=== PATIENT | female | born 1935 | race Caucasian/White ===

== ENCOUNTER 2016-08-29 17:07 | Emergency (ER) | payer MEDICARE, OTHER ==
--- NOTE | 2016-08-29 17:35 | ED.PDOC ---
History of Present Illness - General Chief Complaint: Respiratory Problem Stated Complaint: COUGH Time Seen by Provider: 08/29/16 17:32 Source: patient Exam Limitations: no limitations Additional Information: [employer] SMO[employer]. 3D COUGH. FRONTAL ESPOSITO AND CONGESTION. - History of Present Illness Quality: moderate Head Injury Location: frontal Recent Head Trauma: no recent headache/trauma Improving Factors: nothing Worsening Factors: nothing Allergies/Adverse Reactions: Allergies Penicillins Allergy (Severe, Verified 08/29/16 17:56) Anaphylaxis Home Medications: Ambulatory Orders Ujrezrzgvd-Tszdvxzdnzjdq-Xhfck [Fioricet/Codeine 02-633-76-30 mg] 1 cap PO DAILY 02/13/14 Albuterol Sulfate Nebs [Proventil Nebs] 2.5 mg INH Q6HR PRN #100 vial 01/18/15 Clonazepam 0.5 - 1 mg PO BID PRN #30 tab 01/18/15 Mirtazapine [Remeron] 15 mg PO BEDTIME #30 tab 01/18/15 Propranolol HCl 10 mg PO BID #60 tab 01/18/15 Tramadol HCl 50 mg PO Q8H PRN #50 tab 01/18/15 levoFLOXacin [Levaquin] 500 mg PO DAILY #7 tab 08/29/16 Review of Systems - Review of Systems Constitutional: Denies: chills, diaphoresis, fever EENTM: States: nose congestion. Denies: ear pain, throat pain Respiratory: States: cough. Denies: short of breath, wheezing Cardiology: States: no symptoms reported Gastrointestinal/Abdominal: States: no symptoms reported Genitourinary: States: no symptoms reported Musculoskeletal: States: no symptoms reported Skin: States: no symptoms reported Neurological: States: no symptoms reported Endocrine: States: no symptoms reported Hematologic/Lymphatic: States: no symptoms reported All other Systems: Reviewed and Negative Past Medical History (General) - Patient Medical History Hx Seizures: No Hx Stroke: No Hx Dementia: No - maybe due to age Hx Asthma: No Hx of COPD: No Hx Cardiac Disorders: No Hx Congestive Heart Failure: No Hx Pacemaker: No Hx Hypertension: No Hx Thyroid Disease: Yes - thyroidectomy Hx Diabetes: No Hx Gastroesophageal Reflux: No Hx Renal Disease: Yes - urgency Hx Cancer: No Hx of HIV: No Hx Hepatitis C: No Hx MRSA: No - Vaccination History Hx Tetanus, Diphtheria Vaccination: No Hx Influenza Vaccination: No Hx Pneumococcal Vaccination: No - Social History Hx Tobacco Use: Yes Hx Chewing Tobacco Use: No Hx Alcohol Use: No Hx Substance Use: No Hx Substance Use Treatment: No Hx Depression: Yes - is a Hx Physical Abuse: No Hx Emotional Abuse: No Hx Suspected Abuse: No - Female History Patient : No Family Medical History - Family History Mother Family History: No Known Physical Exam - Physical Exam General Appearance: Alert, Ill Appearing Eyes, Ears, Nose, Throat Exam: pharynx normal, other - BL TM CERUMINOSIS. BL FRONTAL SINUSES TTP Neck: non-tender, full range of motion, supple Cardiovascular/Chest: normal peripheral pulses, regular rate, rhythm Respiratory: chest non-tender, no respiratory distress, no accessory muscle use , other - FAINT RONCHI, C/W 50 PACK YEAR SMOKING. Gastrointestinal/Abdominal: normal bowel sounds, non tender Back Exam: normal inspection, no CVA tenderness Extremity: normal range of motion, non-tender Mental Status: alert, oriented x 3 Skin Exam: warm/dry, normal color Lymphatic: no adenopathy Progress - Results/Orders Results/Orders: CXR NEG. NO PNE. NO COPD EXACERBATION. NO HYPOXIA. POS SINUSITIS AND RESULTANT COUGH. Departure - Departure Clinical Impression: Acute frontal sinusitis, Tobacco use disorder Disposition: Discharge to Home or Self Care Condition: Good Instructions: DI for Sinusitis Diet: resume usual diet Activity: increase activity as tolerated Referrals: Raúl Garcia MD [Primary Care Provider] - 1-2 Days Prescriptions: levoFLOXacin [Levaquin] 500 mg PO DAILY #7 tab Home Medications: Ambulatory Orders Hdlyegtwdb-Wpfzqmijshoge-Obemz [Fioricet/Codeine 09-246-42-30 mg] 1 cap PO DAILY 02/13/14 Albuterol Sulfate Nebs [Proventil Nebs] 2.5 mg INH Q6HR PRN #100 vial 01/18/15 Clonazepam 0.5 - 1 mg PO BID PRN #30 tab 01/18/15 Mirtazapine [Remeron] 15 mg PO BEDTIME #30 tab 01/18/15 Propranolol HCl 10 mg PO BID #60 tab 01/18/15 Tramadol HCl 50 mg PO Q8H PRN #50 tab 01/18/15 levoFLOXacin [Levaquin] 500 mg PO DAILY #7 tab 08/29/16 Additional Instructions: Please try to cut back on smoking, as this will help your long-term ability to breathe. Please see you regular doctor this week to ensure your symptoms are improving with the antibiotics.
--- NOTE | 2016-08-29 17:58 | RAD ---
EXAM: Chest,1 View CLINICAL INDICATION: 81-year-old female with cough. TECHNIQUE: Single view, AP portable chest was obtained. COMPARISON: 01/17/2015. FINDINGS: Stable prominent cardiac and mediastinal silhouette. Heart size is normal. Tortuous atherosclerotic thoracic aorta.Lungs are clear without focal opacity, pneumothorax or pleural effusions. The visualized bones revealed degenerative change. IMPRESSION: No acute cardiopulmonary abnormalities. Electronically signed by: Maribel Aguilar MD 08/29/2016 5:57 PM DRESS DESIGNER
[2016-08-29] MEDS ORDERED: levoFLOXacin 500 MG TAB PO ONE (18:30)
[2016-08-29 18:58] VITALS: BP 148/72; TEMP 98.5; O2SAT 93
--- NOTE | 2016-09-19 23:54 | RAD ---
EXAM: Chest,1 View CLINICAL INDICATION: 81-year-old female with cough. TECHNIQUE: Single view, AP portable chest was obtained. COMPARISON: 01/17/2015. FINDINGS: Stable prominent cardiac and mediastinal silhouette. Heart size is normal. Tortuous atherosclerotic thoracic aorta.Lungs are clear without focal opacity, pneumothorax or pleural effusions. The visualized bones revealed degenerative change. IMPRESSION: No acute cardiopulmonary abnormalities. Electronically signed by: Maribel Aguilar MD 08/29/2016 5:57 PM COMMERCIAL SOLAR SALES CONSULTANT
--- NOTE | 2016-09-20 06:31 | RAD ---
EXAM: Chest,1 View CLINICAL INDICATION: 81-year-old female with cough. TECHNIQUE: Single view, AP portable chest was obtained. COMPARISON: 01/17/2015. FINDINGS: Stable prominent cardiac and mediastinal silhouette. Heart size is normal. Tortuous atherosclerotic thoracic aorta.Lungs are clear without focal opacity, pneumothorax or pleural effusions. The visualized bones revealed degenerative change. IMPRESSION: No acute cardiopulmonary abnormalities. Electronically signed by: Maribel Aguilar MD 08/29/2016 5:57 PM EYEGLASS LENS GRINDER
== END 2016-08-29 18:42 | disposition home or self-care (01) ==
LOC: ER 17:07
DX: J01.10 Acute frontal sinusitis, unspecified (principal); F17.200 Nicotine dependence, unspecified, uncomplicated; E07.9 Disorder of thyroid, unspecified; N28.9 Disorder of kidney and ureter, unspecified; Z79.899 Other long term (current) drug therapy; Z88.0 Allergy status to penicillin

== ENCOUNTER 2016-08-30 10:27 | Inpatient (IN) | payer MEDICARE ==
--- NOTE | 2016-08-30 11:42 | RAD ---
EXAM DESCRIPTION: XR CHEST 1 VIEW CLINICAL HISTORY: cough/sob COMPARISON: August 29, 2016 TECHNIQUE: Single view chest FINDINGS: Interval development of infiltrates within the left lung base. The right lung is clear. Heart size is stable and mildly prominent. IMPRESSION: Left lung base infiltrates. Pneumonia cannot be excluded. Recommend 1 month followup to document resolution. Electronically signed by: Asa Carpenter MD 08/30/2016 11:40
[2016-08-30] MEDS ORDERED: SODIUM CHLORIDE 0.9% 1000ML 1,000 ML IVS ONE (11:59)
--- NOTE | 2016-08-30 12:04 | CT ---
EXAM DESCRIPTION: CT HEAD WITHOUT IV CONTRAST CLINICAL HISTORY: 81 y/o F, Fall-found on bathroom floor, generalized weakness COMPARISON: January 18, 2016 TECHNIQUE: Head CT was performed without IV contrast. FINDINGS: There is no acute intracranial hemorrhage. There is no midline shift or other mass effect. The ventricles and basilar cisterns are well maintained. There is no posterior fossa lesion. Chronic ischemic changes are noted in the periventricular white matter, but there is no cortical edema or sulcal effacement to suggest acute cortical infarct. Visualized paranasal sinuses and orbits are unremarkable except for a small amount of fluid in the left sphenoid sinus. Vascular calcifications are noted. There is no calvarial lesion. IMPRESSION: Vascular calcifications and chronic ischemic changes, but no acute intracranial abnormality. If symptoms persist or worsen, followup head CT in 24 hr or MRI is recommended. Left sphenoid sinusitis, questionable acuity. Electronically signed by: Mickey Rodriguez DO 08/30/2016 12:01
[2016-08-30] MEDS ORDERED: ALBUTEROL SULFATE 2.5 MG/3 ML VIAL NEB ONE (12:15)
--- NOTE | 2016-08-30 12:15 | ED.PDOC ---
History of Present Illness - General Chief Complaint: Respiratory Problem Stated Complaint: hallucinations, weakness, sob Time Seen by Provider: 08/30/16 11:12 Source: patient, RN notes reviewed, Vital Signs reviewed, family Exam Limitations: no limitations - History of Present Illness Initial Comments: Patient is an 81 y/o female who was seen in the ED last night and diagnosed with an acute sinusitis. The CXR was clear. Her daughters bring her in today. One of her daughters found her on the bathroom floor this morning. They were able to get her up and she ate breakfast. However, she has been having visual hallucinations. She states that she had a living-room full of little people with dogs in her house last night. The leader wanted to sleep in her bed, so she slept on the floor. Someone was at the door, and she was unable to scootch to the door on her bottom. She has also been seeing spiders and snakes. The hallucinations started prior to last night, however the patient nor her niece told this to the physician. She is very weak this morning and is having some shortness of breath. Timing/Duration: 24 hours Severity: severe Improving Factors: nothing Worsening Factors: nothing Associated Symptoms: cough, headaches, malaise, shortness of breath, weakness, other - hallucinations Allergies/Adverse Reactions: Allergies Penicillins Allergy (Severe, Verified 08/30/16 11:07) Anaphylaxis Home Medications: Ambulatory Orders Afvhhnvmyg-Gqbhtgxwlzxig-Tgfyo [Fioricet/Codeine 45-934-88-30 mg] 1 cap PO DAILY 02/13/14 Albuterol Sulfate Nebs [Proventil Nebs] 2.5 mg INH Q6HR PRN #100 vial 01/18/15 Clonazepam 0.5 - 1 mg PO BID PRN #30 tab 01/18/15 Mirtazapine [Remeron] 15 mg PO BEDTIME #30 tab 01/18/15 Propranolol HCl 10 mg PO BID #60 tab 01/18/15 Tramadol HCl 50 mg PO Q8H PRN #50 tab 01/18/15 levoFLOXacin [Levaquin] 500 mg PO DAILY #7 tab 08/29/16 Review of Systems - Review of Systems Constitutional: States: malaise, weakness EENTM: States: no symptoms reported Respiratory: States: cough, short of breath Cardiology: States: no symptoms reported Gastrointestinal/Abdominal: States: no symptoms reported Genitourinary: States: no symptoms reported Musculoskeletal: States: muscle pain Skin: States: no symptoms reported Neurological: States: weakness, other - hallucinations Endocrine: States: no symptoms reported Hematologic/Lymphatic: States: no symptoms reported All other Systems: Reviewed and Negative Past Medical History (General) - Patient Medical History Hx Seizures: No Hx Stroke: No Hx Dementia: No Hx Asthma: No Hx of COPD: No Hx Cardiac Disorders: No Hx Congestive Heart Failure: No Hx Pacemaker: No Hx Hypertension: No Hx Thyroid Disease: No Hx Diabetes: No Hx Gastroesophageal Reflux: No Hx Renal Disease: Yes - urgency Hx Cancer: No Hx of HIV: No Hx Hepatitis C: No Hx MRSA: No Surgical History: no surgical history - Vaccination History Hx Tetanus, Diphtheria Vaccination: Yes Hx Influenza Vaccination: No Hx Pneumococcal Vaccination: Yes - Social History Hx Tobacco Use: Yes Hx Chewing Tobacco Use: No Hx Alcohol Use: No Hx Substance Use: No Hx Substance Use Treatment: No Hx Depression: No Hx Physical Abuse: No Hx Emotional Abuse: No Hx Suspected Abuse: No - Activities of Daily Living Hospice Agency (if applicable):: None - Female History Patient is a Female of Child Bearing Age (10 -59 yrs old): No Patient : No Family Medical History - Family History Mother Family History: No Known Living Status: Physical Exam - Physical Exam General Appearance: Alert, Frail, Ill Appearing Ears, Nose, Throat: hearing decreased Respiratory: no respiratory distress, rales, wheezing Cardiovascular/Chest: regular rate, rhythm, no edema, no murmur Gastrointestinal/Abdominal: normal bowel sounds, non tender, soft, no organomegaly Extremity: no pedal edema Neurologic: alert, other - Oriented x 1 Skin Exam: warm/dry Progress - Results/Orders Results/Orders: 08/30/16 08/30/16 08/30/16 10:50 11:08 11:43 Temperature 99.3 F Pulse Rate [ 87 72 pulse ox] Respiratory 20 20 20 Rate Blood Pressure 117/67 104/68 [Left Arm] O2 Sat by Pulse 89 L 96 Oximetry 08/30/16 11:59 Sodium Chloride 0.9% 1000ML [Ns 1000 ml] 1,000 ml IVS ONCE Laboratory Results WBC 8.9 K/mm3 (4.8-10.8) 08/30/16 11:25 RBC 4.55 M/mm3 (4.20-5.40) 08/30/16 11:25 Hgb 14.3 gm/dL (12.0-16.0) 08/30/16 11:25 Hct 42.7 % (36.0-47.0) 08/30/16 11:25 MCV 93.9 fl (81.0-99.0) 08/30/16 11:25 MCH 31.5 pg (27.0-31.0) H 08/30/16 11:25 MCHC 33.5 g/dL (33.0-37.0) 08/30/16 11:25 RDW 14.5 % (11.5-14.5) 08/30/16 11:25 Plt Count 166 K/mm3 (130-400) 08/30/16 11:25 MPV 10.4 fl (7.40-10.4) 08/30/16 11:25 Absolute Neuts (auto) 6.50 K/uL (1.8-6.8) 08/30/16 11:25 Absolute Lymphs (auto) 1.10 K/uL (1.0-3.4) 08/30/16 11:25 Absolute Monos (auto) 1.20 K/uL (0.2-0.8) H 08/30/16 11:25 Absolute Eos (auto) 0.00 K/uL (0.0-0.4) 08/30/16 11:25 Absolute Basos (auto) 0.00 K/uL (0.0-0.1) 08/30/16 11:25 Neutrophils % 72.8 % (42.0-78.0) 08/30/16 11:25 Lymphocytes % 12.8 % (20.0-50.0) L 08/30/16 11:25 Monocytes % 13.8 % (2.0-9.0) H 08/30/16 11:25 Eosinophils % 0.1 % (1.0-5.0) L 08/30/16 11:25 Basophils % 0.5 % (0.0-2.0) 08/30/16 11:25 Sodium 140 mmol/L (135-145) 08/30/16 11:25 Potassium 3.2 mmol/L (3.6-5.0) L 08/30/16 11:25 Chloride 101 mmol/L (101-111) 08/30/16 11:25 Carbon Dioxide 29 mmol/L (21-31) 08/30/16 11:25 Anion Gap 13.2 (12-18) 08/30/16 11:25 BUN 30 mg/dL (7-18) H 08/30/16 11:25 Creatinine 0.77 mg/dL (0.6-1.3) 08/30/16 11:25 BUN/Creatinine Ratio 39.0 (10-20) H 08/30/16 11:25 Random Glucose 103 mg/dL (70-105) 08/30/16 11:25 Serum Osmolality 285.8 mOsm/L (275-295) 08/30/16 11:25 Calcium 9.3 mg/dL (8.4-10.2) 08/30/16 11:25 Total Bilirubin 0.3 mg/dL (0.2-1.0) 08/30/16 11:25 AST 75 IU/L (10-42) H 08/30/16 11:25 ALT 24 IU/L (10-60) 08/30/16 11:25 Alkaline Phosphatase 46 IU/L (42-121) 08/30/16 11:25 Creatine Kinase 1098 IU/L (26-140) H* 08/30/16 11:25 Serum Total Protein 7.6 gm/dL (6.4-8.2) 08/30/16 11:25 Albumin 3.8 g/dl (3.2-5.5) 08/30/16 11:25 Globulin 3.8 gm/dL (2.3-3.5) H 08/30/16 11:25 Albumin/Globulin Ratio 1.0 (1.1-1.9) L 08/30/16 11:25 Urine Color Yellow (Yellow) 08/30/16 11:35 Urine Appearance Cloudy (Clear) 08/30/16 11:35 Urine pH 5.0 (4.5-7.8) 08/30/16 11:35 Ur Specific [place] 1.025 (1.005-1.030) 08/30/16 11:35 Urine Protein 100 mg/dL H 08/30/16 11:35 Urine Glucose (UA) Negative mg/dL (Negative) 08/30/16 11:35 Urine Ketones 15 mg/dL (NEGATIVE) H 08/30/16 11:35 Urine Blood Moderate (Negative) H 08/30/16 11:35 Urine Nitrite Negative 08/30/16 11:35 Urine Bilirubin Negative (NEGATIVE) 08/30/16 11:35 Urine Urobilinogen 0.2 mg/dL (0.2-1.0) 08/30/16 11:35 Ur Leukocyte Esterase Negative (Negative) 08/30/16 11:35 Urine RBC 1-3 /hpf 08/30/16 11:35 Urine WBC 0 /hpf 08/30/16 11:35 Ur Epithelial Cells 0 /hpf 08/30/16 11:35 Amorphous Sediment 4+ 08/30/16 11:35 Urine Bacteria 0 08/30/16 11:35 - EKG/XRAY/CT XRAY: chest Xray Comments: LLL infiltrate - changed from 08/29/16 CT: Head - L sphenoidal sinusitis, no bleeding or acute infarction CT Ordered: Yes CT Interpretation Call Back: No - report sent Departure - Departure Clinical Impression: Visual hallucinations, Hypokalemia, Elevated CPK Pneumonia Qualifiers: Pneumonia type: due to unspecified organism Laterality: left Lung location: lower lobe of lung Qualifier Code: (J18.9) Pneumonia, unspecified organism Sphenoidal sinusitis Qualifiers: Chronicity: unspecified Qualifier Code: (J32.3) Chronic sphenoidal sinusitis Fall at home Qualifiers: Encounter type: initial encounter Qualifier Code: (W19.XXXA) Unspecified fall, initial encounter Time of Disposition: 12:36 Disposition: Admit Patient Condition: Poor Home Medications: Ambulatory Orders Apnhdnamss-Xdfcchpijatci-Jwtxz [Fioricet/Codeine 90-980-83-30 mg] 1 cap PO DAILY 02/13/14 Albuterol Sulfate Nebs [Proventil Nebs] 2.5 mg INH Q6HR PRN #100 vial 01/18/15 Clonazepam 0.5 - 1 mg PO BID PRN #30 tab 01/18/15 Mirtazapine [Remeron] 15 mg PO BEDTIME #30 tab 01/18/15 Propranolol HCl 10 mg PO BID #60 tab 01/18/15 Tramadol HCl 50 mg PO Q8H PRN #50 tab 01/18/15 levoFLOXacin [Levaquin] 500 mg PO DAILY #7 tab 08/29/16 Decision To Admit - Decistion To Admit Decision to Admit Reason: Admit from ER Decision to Admit Date: 08/30/16 Decision to Admit Time: 12:25
[2016-08-30] MEDS ORDERED: ALBUTEROL SULFATE 2.5 MG/3 ML VIAL NEB PRN (12:40)
[2016-08-30] MEDS ORDERED: ACETAMINOPHEN SUPPOSITORY 650 MG PR PRN (12:40)
[2016-08-30] MEDS ORDERED: SODIUM CHLORIDE 0.9% (FLUSH) 10 ML SYG IV PRN (12:40)
[2016-08-30] MEDS ORDERED: levoFLOXacin 500MG IV 500 MG in PREMIX BAG 1 BAG IVPB SCH (13:00)
[2016-08-30] MEDS ORDERED: levoFLOXacin 500MG IV 0 ML IVPB ONE (13:03)
--- NOTE | 2016-08-30 13:07 | HP ---
SUPERVISING PHYSICIAN: Luke Garcia MD CHIEF COMPLAINT: Shortness of breath, weakness, hallucinations and same level fall. HISTORY OF PRESENT ILLNESS: Ms. Garcia is an 81-year-old, female who presented to the Emergency Department today after she was found on the bathroom floor this morning by her daughters. The patient was seen last night in the Emergency Department and was diagnosed with acute sinusitis and started on some Levaquin. She does have a history of chronic obstructive pulmonary disease and is a chronic smoker. Today, her daughter got her up to the table and she ate breakfast, but she started having visual hallucinations. She stated she was seeing little people with dogs in her house the previous night and noted the leader of the pack wanted to sleep in bed with her, so she slept on the floor. She was also noted to be seeing spiders and snakes. The daughters note that the hallucinations started two days previously, but these findings were not reported to the physician radio station manager on the previous Emergency Room admission. The daughter notes the patient was brought to the Emergency Department by a neighbor when the patient was found to be significantly weak and short of breath. Today, she presented to the Emergency Room with her daughter and workup included laboratory studies showing a white count of 8.9 with no left shift currently, hemoglobin 14.3, and hematocrit 42.7. Chemistries showed just a mildly low potassium of 3.2. Liver functions were within normal limits except for a mildly elevated AST. CPK was elevated at 1098 and troponin was 0.03 with BNP 94. Urine was unremarkable except for just a moderate amount of blood and some ketones and protein, but microscopic revealed no bacteria, no WBCs. Urine toxicology screen was negative for all substances tested. CT of her head was completed in the Emergency Department prior to admission and per radiology interpretation showed vascular calcifications and chronic ischemic changes, but no acute intracranial abnormalities noted. There was also note of a left sphenoid sinusitis. Chest x-ray, single view in the Emergency Department per radiology interpretation showed left lung base infiltrate, possibly pneumonia, compared to 08/29/16 with lungs clear. Vital signs were stable. Blood pressure 116/66 with the patient being afebrile with temperature of 99.3, pulse 76, saturation 89% on room air and improved to 94% with nasal cannula at 2 liters at rest. She was started on Levaquin the previous night at discharge from the Emergency Department, but was only able to take 1 as she resulted in presenting back to the Emergency Department today. Given her advanced age, severe weakness and concerns for underlying pneumonia in a chronic smoker with chronic obstructive pulmonary disease and unknown etiology for fall with a elevated CPK with concern for possible rhabdomyolysis, the patient will be admitted to the Medical/Surgical Floor for continued treatment and evaluation. She was given 1 liter of normal saline in the Emergency Department and a breathing treatment of albuterol. She was admitted in stable condition. PAST MEDICAL HISTORY: 1. Hypertension. 2. Chronic obstructive pulmonary disease. 3. Peripheral vascular disease with claudication and stent placed by Dr. Manriquez in the right leg. 4. Emphysema. 5. Osteoporosis. PAST SURGICAL HISTORY: 1. Breast augmentation with fibrocystic disease and tissue removed prior to implants in 1979. 2. Thyroidectomy, partial in 1969. 3. Bilateral tubal ligation in 1973. HOME MEDICATIONS: 1. Remeron 15 mg at bedtime. 2. Proventil nebulizers 2.5 mg q.6h. p.r.n. 3. Metoprolol succinate 25 mg daily. 4. Tramadol 15 mg t.i.d. as needed for pain. ALLERGIES: PENICILLIN. FAMILY HISTORY: Father at age 85 from natural causes, mother at age 86 from a heart attack. SOCIAL HISTORY: The patient is a retired living in [place]. She currently lives alone and has two daughters who check on her every other day. She does currently smoke half a pack a day and has since age 10. She does drink alcohol on a social basis, however, has not drank in the last six months according to her daughters. REVIEW OF SYSTEMS: CONSTITUTIONAL: Significant for malaise and generalized weakness with no reported weight loss. HEENT: She is hard of hearing. She notes she has some nasal congestion, but denies sore throat. RESPIRATORY: Notes a productive cough and shortness of breath with any exertional effort. CARDIOVASCULAR: Denies chest pain or palpitations. Syncopal episodes possible with unaware she passed out when she fell. GASTROINTESTINAL: Denies nausea or vomiting. Denies constipation or diarrhea. GENITOURINARY: Denies dysuria, increased frequency or any urinary symptoms. MUSCULOSKELETAL: Multiple arthralgias and generalized muscle pain with pain in the right elbow secondary to a fall. INTEGUMENTARY: Denies rashes or lesions. NEUROLOGIC: She is alert to herself, location and year, but continues to have visual hallucinations. No reported focalizing or lateralizing weaknesses. PHYSICAL EXAMINATION: VITAL SIGNS: Temperature 99.3. Pulse 87. Blood pressure 117/67. Respirations 20. O2 saturation initially 89% on room air, improved to 94% on rest with nasal cannula at 2 liters. Admission weight 64.36 kg. GENERAL: The patient appears to be in no distress, but she is very frail, malnourished and appears to be dehydrated. HEENT: Bilateral decreased hearing. There is some mild cerumen impaction bilaterally. Oropharynx is pink and very dry with cracked lips. No lesions noted. NECK: No jugular venous distention noted. CHEST: Notable for rales and wheezing throughout with decreased breath sounds towards the base, but no rhonchi noted. CARDIOVASCULAR: Regular rate and rhythm without any appreciable murmurs, gallops, or rubs. ABDOMEN: Soft, nontender. Positive bowel sounds. EXTREMITIES: There is no cyanosis, clubbing or edema. There is an ecchymotic area overlying the elbow on the right side. NEUROLOGIC: The patient is alert and oriented times three. She continues to report seeing animals. Cranial nerves II-XII are grossly intact. Facial features are symmetrical. Extraocular movements within normal limits with no nystagmus. There is no ataxia noted with [id number] and [id number] bilaterally. She is notably weak in all extremities, but no focal weaknesses are detected. LABORATORY: White count 8.9, hemoglobin 14.3, hematocrit 42.7, platelet count 166,000, differential without left shift currently. Does show an elevation of monocytes. Chemistries show sodium 140, potassium low at 3.2, BUN 30, creatinine 0.7, glucose 103, calcium 9.3, magnesium 1.9. Liver functions normal except for elevated AST at 75. CPK 1098, ammonia level 8, troponin 0.03 , BNP 94. Urinalysis showed protein 100, ketones 15, moderate amount of blood. Microscopic was within normal limits. Urine toxicology screen negative for all substances tested. MICROBIOLOGY: Sputum culture pending. Blood cultures pending. Urine culture pending. Influenza A by PCR rapid exam is negative for both A and B. RADIOLOGY: Initial x-rays in the Emergency Department consisted of a chest x- ray which per radiology interpretation indicated left lung base infiltrate with concerns for early development of pneumonia. She also had a head CT in the Emergency Department prior to admission to the Medical/Surgical Floor and per radiology interpretation showed vascular calcifications and chronic ischemic changes, but no acute intracranial abnormalities. There is also note of a left sphenoid sinusitis. Cervical spine CT was completed on admission to the Medical /Surgical Floor and per radiology interpretation showed moderately advanced multilevel degenerative changes, but no acute cervical spine abnormalities. Again, left sphenoid sinusitis questioned. X-rays of both elbows are pending. ASSESSMENT: 1. Acute exacerbation of chronic obstructive pulmonary disease with concerns for left lower lobe pneumonia as demonstrated on radiographic studies, likely community acquired, having failed to respond to patient treatment plan with antibiotics to include Levaquin with some mild hypoxia noted on room air. 2. Chronic sphenoid sinusitis without evidence of CT findings of abscess or complications. 3. Moderate dehydration secondary to poor oral intake. 4. Elevated CPK with concerns for developing rhabdomyolysis secondary to a same level fall with the patient being immobile on a hard surface of unknown amount of time with unknown, if any, loss of consciousness. 5. Questionable possible transient ischemic attack resulting in a syncopal episode and some mild confusion with current CT results indicating no acute intracranial findings as well as ultrasound of the carotids pending, but no motor deficits are noted, only visual hallucinations. 6. Hypertension. 7. Electrolyte imbalance with moderate hypokalemia. 8. Same level fall, unknown etiology, with no acute traumatic injuries noted on exam with no CT findings of cervical fractures or any acute intracranial abnormality. 9. Severe weakness and deconditioning secondary to acute illness and exacerbated by dehydration and developing left lower lobe pneumonia. PLAN: The patient is admitted to the hospital for continued treatment and evaluation. She was initially given 1 liter of saline in the Emergency Department. This will be followed up with continued infusion for rehydration purposes to include half normal saline with 20 of potassium and let run at 125, 2 liters, to be reassessed in the morning with repeat laboratory studies. She will be started on aggressive pulmonary hygiene to include q.i.d. DuoNeb treatments, chest physiotherapy. We will await sputum culture to help with further targeting of antibiotic therapy. Initial antibiotic therapy will consistent of Levaquin 500 mg to be continued at 250 mg daily with consideration for decreasing renal function. We will start her on DVT prophylaxis per protocol and monitor closely with concerns for possible developing rhabdomyolysis with initial elevated CPK on admission. Anticipate length of stay to be 2 to 3 days with repeat clinical evaluation in the morning to include chemistries and CBC and repeat chest x-ray. We plan to get Gum Remover to assist with discharge planning as the patient does live alone and has only her daughters to check on her periodically and certainly at this point the patient is not safe to return home as she is severely deconditioned. We will also consult patients to further assess and treat. Until discharge, we will continue to monitor the patient closely and treat appropriately. #[id number] [facility]
[2016-08-30] MEDS ORDERED: SODIUM CHLORIDE 0.9% 10 ML VIAL IV PRN (13:25)
--- NOTE | 2016-08-30 14:19 | CT ---
EXAM DESCRIPTION: CT CERVICAL SPINE WITHOUT IV CONTRAST CLINICAL HISTORY: s/p same level fall COMPARISON: None available. TECHNIQUE: CT of the cervical spine was performed without IV contrast. FINDINGS: There is no vertebral body fracture or subluxation. There are moderately advanced degenerative changes at multiple levels including degenerative disk disease, worse at C5-6 and C6-7. Neural foraminal stenosis and central canal stenosis are also noted at the same levels. This a calcified granuloma in the left lung apex. The right thyroid lobe is not seen and may be surgically absent. Heterogeneous appearance of the left thyroid low is noted with a 7 mm nodule in the inferior pole of the left thyroid lobe for which no further followup is recommended. There is a small amount of fluid in the left sphenoid sinus. IMPRESSION: Moderately advanced multilevel degenerative changes, but no acute cervical spine abnormality. Left sphenoid sinusitis, questionable acuity. Electronically signed by: Mickey Rodriguez DO 08/30/2016 14:17
[2016-08-30] MEDS: IV SET AND CAP CHANGE INJ INJ SCH (14:39)
[2016-08-30] MEDS: KCL 20MEQ/0.45% NS 1,000 ML IVS PRN ×3 (15:33→23:31)
[2016-08-30] MEDS: IPRATROPIUM/ALBUTEROL 3 ML VIAL INH SCH ×2 (16:20→20:30)
[2016-08-30] MEDS: methylPREDNISolone SODIUM SUC 125 MG/2 ML VIAL IV SCH ×2 (17:01→22:40)
--- NOTE | 2016-08-30 19:09 | RAD ---
EXAM DESCRIPTION: Elbow, left 2 Views CLINICAL HISTORY: 81 years Female s/p fall. Generalized elbow pain. COMPARISON: None. TECHNIQUE: Two views of the left elbow. FINDINGS: There is some irregularity of the radial head and proximal ulna likely related to degenerative changes. No definite fractures or dislocations are identified. The bones are osteopenic. No osseous destructive lesions. No abnormal fat pads are visualized. IMPRESSION: No definite acute fracture is identified. Follow-up recommended if symptoms persist. Electronically signed by: Leighton Laboy MD 08/30/2016 7:07 PM CHILDRENS CLUB ATTENDANT
--- NOTE | 2016-08-30 19:41 | PCM.CORE ---
Physician DVT/VTE - Nurse DVT Assessment & Total Each Risk Factor Represents 3 Points: Age over 75 years, Medical PT with Hx of [place], CHF, Severe infection/sepsis Each Risk Factor Represents 1 Point: Hx of smoking past year DVT Assessment Score: 7 - 5 or more Very High Risk Treatments: Early Ambulation *, Sequential Compression Device Pharmacological: Enoxaparin 40mg SQ Daily
[2016-08-30] MEDS: ENOXAPARIN SODIUM 30 MG/0.3 ML SYG SUBCU SCH (20:01)
[2016-08-31] MEDS: methylPREDNISolone SODIUM SUC 125 MG/2 ML VIAL IV SCH ×4 (05:15→22:34)
[2016-08-31] MEDS: KCL 20MEQ/0.45% NS 1,000 ML IVS PRN ×2 (08:09→17:31)
[2016-08-31] MEDS: levoFLOXacin 250MG IV 50 ML IVPB SCH (08:33)
[2016-08-31] MEDS: IPRATROPIUM/ALBUTEROL 3 ML VIAL INH SCH ×4 (09:03→19:45)
[2016-08-31] MEDS ORDERED: traMADol HCL 50 MG TAB PO PRN (09:42)
[2016-08-31] MEDS ORDERED: METOPROLOL SUCCINATE XL 25 MG TAB PO ONE (09:48)
[2016-08-31] MEDS ORDERED: MAGNESIUM HYDROXIDE 30 ML UD ONE (09:48)
[2016-08-31] MEDS ORDERED: MAGNESIUM HYDROXIDE 30 ML UD PO PRN ×2 (10:02→10:11)
[2016-08-31] MEDS: METOPROLOL SUCCINATE XL 25 MG TAB PO SCH (10:11)
[2016-08-31] MEDS ORDERED: ALBUTEROL SULFATE 2.5 MG/3 ML VIAL NEB PRN (10:12)
[2016-08-31] MEDS: traMADol HCL 50 MG TAB PO PRN ×2 (10:17→19:22)
[2016-08-31] MEDS: NICOTINE PATCH 14 MG TD SCH (11:30)
--- NOTE | 2016-08-31 15:23 | PN ---
DATE: 08/31/16 SUPERVISING PHYSICIAN: Raúl Garcia MD SUBJECTIVE: The patient us doing much better this morning. She is much more alert, is active, is actually sitting up eating breakfast, visiting with her daughter. She remains afebrile. OBJECTIVE: Vital signs: T-max 98.7, pulse 81, blood pressure 98/58 with respirations 22, saturation 93% on room air. I&O: Positive balance of 1588 with 2838 in, 1250 out. Weight 64.7 kg. GENERAL: The patient is alert, in no distress, conversing with her family. CHEST: Much more clear today but diminished towards the bases. There is just very faint expiratory wheezing heard throughout. HEART: Regular rate and rhythm. ABDOMEN: Soft, non-tender, bowel sounds are positive. EXTREMITIES: No cyanosis, clubbing, or edema. NEUROLOGICAL: Alert and oriented x 3. LABORATORY: White count 6.9, hemoglobin 12.6, hematocrit 38.4, platelet count 130,000, differential today shows a left shift. Chemistries show normal electrolytes with potassium 3.6. BUN 18, creatinine 0.53. Glucose 135, calcium 7.8. MICROBIOLOGY: Sputum culture shows normal tej at 24 hours. Blood cultures remain negative at 24 hours. Nasal swab for influenza A and B by PCR was negative. Urine culture preliminary shows no growth at 24 hours. RADIOLOGY: Chest x-ray per radiology interpretation today shows a right basilar air-space opacity which may be due to superimposed soft tissue or pneumonia. ASSESSMENT: 1. Acute exacerbation of chronic obstructive pulmonary disease with concerns for left lower and right lower lobe pneumonia as demonstrated on radiographic studies, likely community acquired with patient having failed to respond to outpatient treatment plan with antibiotics to include Levaquin with some mild hypoxia noted on room air at time of admission. 2. Chronic sphenoid sinusitis without evidence of CT findings of abscess or complications. 3. Moderate dehydration secondary to poor oral intake showing some slight improvement with IV therapy. 4. Elevated CPK with concerns for developing rhabdomyolysis secondary to a same level fall with the patient being immobile on a hard surface of unknown amount of time with unknown loss of consciousness. 5. Questionable transient ischemic attack versus syncopal episode with some mild confusion on admission with CT results showing no acute intracranial findings, carotid ultrasound studies pending with patient showing a much better mentation this morning and no obvious focalizing or lateralizing motor or neural deficits. Patient did have hallucinations on admission, however, today she reports that she is no longer having those hallucinations. This is felt likely to be secondary to dehydrated state and underlying pneumonia less likely a transient ischemic attack or other neurological event. 6. Hypertension. 7. Electrolyte imbalance with moderate hypokalemia improving after IV therapy. 8. Same level fall, unknown etiology, with no acute trauma injuries noted on exam with no CT findings of cervical fractures or any acute intracranial abnormalities. No other fractures identified.. 9. Severe weakness and deconditioning secondary to acute illness and exacerbated by dehydration and developing bilateral lobe pneumonia showing improvement after IV therapy. PLAN: Will continue with current treatment plan to include IV fluids until patient is taking adequate p.o. intake. Will continue with parenteral antibiotics to include Levaquin at 250 mg every 24 hours. Will taper her Solu- Medrol to 40 every 12 hours. She has a nicotine patch in place for her chronic nicotine abuse. Will plan to reevaluate in the morning with repeat laboratory studies and chest x-ray and await sputum culture. Anticipate discharge within the next 24 to 48 hours depending on clinical progression. Until the, we will continue to monitor the patient and treat appropriately. $[id number] MTDD
[2016-08-31] MEDS: ENOXAPARIN SODIUM 30 MG/0.3 ML SYG SUBCU SCH (19:58)
[2016-09-01] MEDS ORDERED: diphenhydrAMINE HCL 50 MG/ML VIAL IV ONE (00:42)
[2016-09-01] MEDS: KCL 20MEQ/0.45% NS 1,000 ML IVS PRN (04:06)
[2016-09-01] MEDS: methylPREDNISolone SODIUM SUC 125 MG/2 ML VIAL IV SCH (05:03)
[2016-09-01] MEDS: IPRATROPIUM/ALBUTEROL 3 ML VIAL INH SCH ×4 (07:58→20:40)
[2016-09-01] MEDS: levoFLOXacin 250MG IV 50 ML IVPB SCH (08:25)
[2016-09-01] MEDS: METOPROLOL SUCCINATE XL 25 MG TAB PO SCH (08:25)
[2016-09-01] MEDS: predniSONE 20 MG TAB PO SCH (10:25)
[2016-09-01] MEDS: guaiFENesin ER TAB 600 MG TAB PO SCH ×2 (10:25→20:41)
[2016-09-01] MEDS: NICOTINE PATCH 14 MG TD SCH (10:52)
--- NOTE | 2016-09-01 11:07 | RAD ---
EXAM DESCRIPTION: XR CHEST 2 VIEWS CLINICAL HISTORY: pneumonia COMPARISON: August 31, 2016 FINDINGS: Two-view chest x-ray shows cardiomediastinal silhouette to be enlarged without pulmonary vascular congestion. The lungs are hyperinflated. Chronic appearing increased interstitial markings are seen. There is mild blunting of the left posterior costophrenic angle with mild basilar increased interstitial changes anteriorly. Mild degenerative changes of the spine are seen. Remote posttraumatic changes to the right clavicle are noted. IMPRESSION: Emphysematous changes to the chest are seen with probable small left pleural effusion and basilar interstitial thickening. The nodular density seen in the right costophrenic angle on previous examination is not seen on today's exam and may have been overlying soft tissues. Electronically signed by: Theron Rainey MD 09/01/2016 11:04
--- NOTE | 2016-09-01 11:58 | US ---
NAME: NAV GUERREROPROCEDURE: US CAROTID DOPPLER BILATERALORDER DATE: 08/30/2016 2:44 PM CSTACCESSION NUMBER: [id number] Clinical History: syncopal eposide. Possible TIA Indication: Same as above Comparison: None . Technique: Grayscale and color Doppler evaluation of the common carotid, internal carotid and vertebral arteries in the region of the neck was done. Findings: The peak systolic velocity in centimeters per second on right and left side respectively, is: RIGHT SIDE............................................................. .......................... LEFT SIDE Proximal common carotid artery: 57 ...........................Proximal common carotid artery: 72 Mid common carotid: Not measured. ................................Mid common carotid: Not measured.Distal common carotid artery: 52 ...............................Distal common carotid artery: 69 Proximal internal carotid artery: 63 .............................Proximal internal carotid artery: 52Mid internal carotid artery: 64 ......................................Mid internal carotid artery: 78 Distal internal carotid artery: 63 ...................................Distal internal carotid artery: 95 Peak systolic ICA/CCA ratio: 1.1 .................................Peak systolic ICA/CCA ratio: 1.3 External carotid artery: 54 ...........................................External carotid artery: 76Vertebral artery: 51, Antegrade flow.......................... Vertebral artery: 57, Antegrade flow Impression: 1.There is no evidence of hemodynamically significant stenosis in the bilateral common carotid artery and the bilateral internal carotid arteries. 2. Antegrade flow is seen in the bilateral vertebral arteries. Location of Interpretation: Teleradiology. Electronically signed by: Vincent Higgins MD 08/30/2016 4:20 PM GROUP LEADER [employer] [facility]
--- NOTE | 2016-09-01 14:15 | PN ---
SUPERVISING PHYSICIAN: Felipe Davis MD DATE: 09/01/16 SUBJECTIVE: The patient is doing well this morning. She is alert. She has been afebrile. OBJECTIVE: VITAL SIGNS: T-max 97.5. Pulse 86. Blood pressure 117/69. Respirations 18. O2 saturation 95% on room air. I&Os show negative balance of 1187 with 3563 in, 4750 out. She has had a couple of bowel movements. Weight is 67.13 kg. GENERAL: The patient is alert, in no distress. CHEST: Lungs much clearer today than previous. She still remains diminished towards the bases, but there is no wheezing or rhonchi heard. HEART: Regular rate and rhythm. ABDOMEN: Soft, nontender. Positive bowel sounds. EXTREMITIES: No cyanosis, clubbing or edema. NEUROLOGIC: Alert and oriented times three. LABORATORY: White count has shown an increase to 12.1, but the patient has been started on Solu-Medrol since admission. She still shows a left shift. Chemistries show electrolytes within normal limits with potassium 4.2, BUN 13, creatinine 0.4, glucose 125, calcium 8.3, CPK decreased from previous days of 684, now down to 482. MICROBIOLOGY: Blood cultures remain negative after 48 hours. Sputum culture showed light growth of budding yeast. Urine culture showed no growth at 48 hours. ASSESSMENT: 1. Acute exacerbation of chronic obstructive pulmonary disease with concerns for bilateral pneumonia, like community acquired, with patient having failed to respond to previous outpatient treatment plan with antibiotics to include Levaquin with some mild hypoxia on admission, showing improvement after initiation of antibiotic therapy. 2. Chronic sphenoid sinusitis without evidence of CT findings of abscess or complications. 3. Moderate dehydration secondary to poor oral intake prior to admission, improving with IV therapy, now with the patient taking adequate p.o. fluids. 4. Elevated CPK with initial concerns for developing rhabdomyolysis secondary to a same level fall with the patient being immobile on a hard surface of unknown amount of time, now with CPK showing good improvement back to baseline with renal function remaining intact. 5. Acute confusional state with unknown etiology, question possible transient ischemic attack, but no evidence of any acute findings on CT. Carotid Doppler studies were without any significant stenosis noted per Radiology. The patient is showing good improvement in mentation and is back to baseline status according to her daughters after initiation of antibiotic therapy and IV fluids. 6. Hypertension, stable. 7. Electrolyte imbalance with moderate hypokalemia initially on admission, improved and resolved after IV therapy. 8. Multiple same level falls, unknown etiology, possibly secondary to transient ischemic attack with no acute trauma injuries identified on exam or on CT findings. 9. Severe weakness and deconditioning secondary to acute illness and exacerbated by dehydration and early bilateral lobe pneumonia, continuing to show improvement after IV therapy, requiring physical therapy for strengthening. PLAN: The patient will continue with treatment plan to include IV antibiotics with Levaquin. She is improving, but will benefit from additional 24 to 48 hours of IV antibiotics and evaluation and treatment by physical therapy to ensure the patient is safe once discharged home to mitigate any further possible falls. Until then, we will continue to monitor the patient closely and treat appropriately. #[id number] [facility]
[2016-09-01] MEDS: ENOXAPARIN SODIUM 30 MG/0.3 ML SYG SUBCU SCH (20:15)
[2016-09-01] MEDS: MIRTAZAPINE 15 MG TAB PO SCH (20:38)
[2016-09-01] MEDS: diphenhydrAMINE HCL 25 MG CAP PO PRN (20:38)
[2016-09-01] MEDS: traMADol HCL 50 MG TAB PO PRN (20:39)
[2016-09-01] MEDS ORDERED: SODIUM CHLORIDE 0.9% (FLUSH) 10 ML SYG IV SCH (21:00)
[2016-09-02] MEDS: IPRATROPIUM/ALBUTEROL 3 ML VIAL INH SCH ×4 (08:15→20:14)
[2016-09-02] MEDS: levoFLOXacin 250MG IV 50 ML IVPB SCH (09:33)
[2016-09-02] MEDS: predniSONE 20 MG TAB PO SCH (09:34)
[2016-09-02] MEDS: guaiFENesin ER TAB 600 MG TAB PO SCH (09:34)
[2016-09-02] MEDS: METOPROLOL SUCCINATE XL 25 MG TAB PO SCH (09:34)
[2016-09-02] MEDS: SODIUM CHLORIDE 0.9% (FLUSH) 10 ML SYG IV SCH ×2 (09:34→22:00)
[2016-09-02] MEDS: NICOTINE PATCH 14 MG TD SCH (11:23)
--- NOTE | 2016-09-02 11:32 | PN ---
SUPERVISING PHYSICIAN: Felipe Davis MD DATE: 09/02/16 SUBJECTIVE: The patient is lying in bed. She has no complaints overnight except that she is still very tired. She is in the process of talking with the social organization professor about a dream she had last night. Dr. Garcia, her primary care physician, called me this morning and there was a concern from her daughter of whether she was safe to go home. Jennifer Khanna, our social organization professor, is talking to her about some hallucinations she claimed to have overnight. At this point, she complains of some occasional shortness of breath, but she denies any chest pain, abdominal pain, nausea or vomiting as well as denying any hallucinations. She thinks they were dreams from the previous night. OBJECTIVE: VITAL SIGNS: Afebrile. Heart rate 71. Blood pressure 133/86. Respiratory rate 18. O2 saturation 91% on 2 liters nasal cannula. GENERAL: This is an 81-year-old female patient who is lying in her hospital bed. LUNGS: There are scattered rhonchi throughout, slightly diminished at the bases. CARDIAC: Regular rate and rhythm. ABDOMEN: Soft, nontender, nondistended. Bowel sounds are positive. EXTREMITIES: No cyanosis, clubbing or edema. NEUROLOGIC: Awake, alert and oriented times three. LABORATORY: WBC 12.2, hemoglobin 12, hematocrit 37.1, platelet count 132. Sodium 145, potassium 3.8, chloride 111, BUN 13, creatinine 0.44, calcium 8.2, AST 56, alkaline phosphatase 41, creatinine kinase 277, serum protein 6.2. Preliminary cultures, both urine and blood, show no growth after 48 hours. Sputum culture shows slight growth of budding yeast. All other labs and films have been reviewed via the EMR. ASSESSMENT: 1. Acute exacerbation of chronic obstructive pulmonary disease with concerns for bilateral pneumonia, likely community acquired, with patient having failed outpatient treatment plan with antibiotics to include Levaquin, She also had mild hypoxia on admission and has shown improvement. 2. Chronic sphenoid sinusitis without evidence of CT findings of abscess or complications. 3. Moderate dehydration secondary to poor oral intake prior to admission, now improved and now with the patient taking adequate p.o. fluids. 4. Elevated CPK with initial concerns for developing rhabdomyolysis secondary to a fall and now her CPK shows a good improvement and normal renal function. 5. Acute confusional state with unknown etiology. There was question of possible transient ischemic attack, but no acute findings on CT. Carotid Doppler studies showed no significant stenosis. 6. Hypertension. 7. Electrolyte imbalance, now improved. 8. Multiple same level falls, unknown etiology, possibly secondary to transient ischemic attack with no acute traumatic injuries. 9. Severe weakness and deconditioning secondary to acute illness and exacerbated by dehydration and early pneumonia. PLAN: We will continue with present treatment plan including her Levaquin and her prednisone has now been changed to oral. I have increased her Mucinex. I will also repeat her CPK in the morning as well as her chest x-ray and some routine labs. The social organization professor has talked to the patient and believes she is most likely safe from a neurologic standpoint, although a complete neurology exam would be helpful. Jennifer Khanna, our social science professor, also talked to the patient's daughter for any concerns from her and the patient has walked the house several times today. Hopefully, she will improve enough in the next day or two that we can send her home. We will continue to encourage good pulmonary toilet. Dr. Davis is the collaborating physician and available for consultation. #[id number] [facility]
[2016-09-02] MEDS: IV SET AND CAP CHANGE INJ INJ SCH (12:35)
[2016-09-02] MEDS: ENOXAPARIN SODIUM 30 MG/0.3 ML SYG SUBCU SCH (19:45)
[2016-09-02] MEDS: MIRTAZAPINE 15 MG TAB PO SCH (22:00)
[2016-09-02] MEDS: traMADol HCL 50 MG TAB PO PRN (22:10)
[2016-09-02] MEDS: diphenhydrAMINE HCL 25 MG CAP PO PRN (22:10)
--- NOTE | 2016-09-03 06:57 | RAD ---
EXAM: Two view chest. INDICATION: Chest pain. COMPARISON: Chest x-ray: 09/01/2016. FINDINGS: There are bibasilar airspace opacities with bilateral pleural effusions. Heart size is stable. There is no pneumothorax. The bones are demineralized.IMPRESSION: Basilar airspace opacities with bilateral pleural effusions Electronically signed by: Jaden Allen MD 09/03/2016 6:56 AM CODING TECHNICIAN
[2016-09-03 07:30] VITALS: TEMP 97
[2016-09-03] MEDS: IPRATROPIUM/ALBUTEROL 3 ML VIAL INH SCH ×2 (08:14→12:46)
[2016-09-03] MEDS: levoFLOXacin 250MG IV 50 ML IVPB SCH (09:00)
[2016-09-03] MEDS: SODIUM CHLORIDE 0.9% (FLUSH) 10 ML SYG IV SCH (09:04)
[2016-09-03] MEDS: predniSONE 20 MG TAB PO SCH (09:05)
[2016-09-03] MEDS: METOPROLOL SUCCINATE XL 25 MG TAB PO SCH (09:05)
[2016-09-03 09:47] VITALS: BP 132/83
[2016-09-03] MEDS: NICOTINE PATCH 14 MG TD SCH (11:33)
[2016-09-03] MEDS ORDERED: POTASSIUM CHLORIDE 20 MEQ TAB PO ONE (12:09)
[2016-09-03 13:41] VITALS: O2SAT 93
--- NOTE | 2016-09-03 19:55 | DS ---
SUPERVISING PHYSICIAN: Felipe Davis M.D. DISCHARGE DIAGNOSIS: 1. Acute exacerbation of chronic obstructive pulmonary disease with concerns for bilateral pneumonia most likely community acquired with the patient having failed outpatient treatment with antibiotics that included Levaquin. She also had mild hypoxia on admission but has shown improvement. 2. Chronic sphenoid sinusitis without evidence of CT findings of abscess or complication. 3. Moderate dehydration secondary to poor oral intake prior to admission that has improved and the patient is now taking p.o. fluids well. 4. Elevated CPK with initial concern for developing Rhabdomyolysis secondary a fall. Her CPKs are now normalized and she has normal renal function. 5. Acute confusional state with unknown etiology. There was a question of a transient ischemic attack but no acute findings on CT. Carotid Doppler studies showed no significant stenosis. 6. Hypertension. 7. Electrolyte imbalance that is now stabilized. 8. Multiple same level falls with unknown etiology possibly secondary to transient ischemic attacks and no acute traumatic injuries. 9. Severe weakness and deconditioning secondary to acute illness and exacerbated by dehydration and early pneumonia. HISTORY OF PRESENT ILLNESS: This is an 81 year-old female patient who presented to the Emergency Room on date of admission after she was found on the bathroom floor by her daughter. She was seen in the Emergency Room on the day prior to admission for acute sinusitis and started on Levaquin. She has a significant history of chronic obstructive pulmonary disease and is a chronic smoker. On the date of admission, her daughter states that she had eaten breakfast and she started having some visual hallucinations. She stated she was seeing little people with dogs in her house the previous night and noted the leader of the pack wanted to sleep in bed with her, so she slept on the floor. She was also noted to be seeing spiders and snakes. The hallucinations were reported to have started 2 days prior to her visit to the Emergency Room. On the date of admission when she was brought to the Emergency Room, she was extremely weak and short of breath. Her white count was 8.9 with no left shift. Hemoglobin 14.3, hematocrit 42.7. Potassium was mildly low at 32.2 and her liver functions were within normal limits. CPK was elevated at 1098 and troponin was 0.03 with BNP 94. Urine was unremarkable except for a moderate amount of blood and some ketones and protein. Urine toxicology was negative. CT of her head was completed and prior to admission it showed vascular calcification and chronic ischemic changes, but no acute intracranial abnormalities were noted. She was also noted to have left sphenoid sinusitis. Chest x-ray showed a left lung base infiltrate, possibly pneumonia. Her vital signs were relatively stable with oxygen saturations in the upper 80s on room air that improved to 94 on 2 liters at rest. She had been on Levaquin from the previous night. She was admitted to the Medical/Surgical floor for continued treatment and evaluation. HOSPITAL COURSE: The patient's neurologic status improved greatly over the next 24 hours. She was alert and oriented times two and there was still question as to why she had mental status changes other than the possible infection and/or a possible transient ischemic attack. There was also a concern at some point where the daughter was afraid for her to go home and were wondering if she needed long term admission, but after our Collection Correspondent, Jennifer Khanna, spoke with the patient and the family, and as her neurologic status progressively improved, it was decided against that at this time although the family was aware that she could be admitted to a long term within 30 days of her discharge if the need arose. Her chest x-ray improved and today shows bibasilar airspace opacity with some bilateral pleural effusions. White count initially had spiked to 12.2 but then had normalized to 8.1 today. She did have a left shift on day 2 and 3 but it has now normalized. Today, her potassium was slightly low at 3.5. She received supplemental potassium. Her creatinine kinase today has normalized to 116. Her sputum and blood cultures as well as her urine cultures showed no growth. The patient has walked extensively in the hallway as well as being evaluated from Physical Therapy. Physical Therapy has stated that she is safe to go home at this point and today she will be discharged. DISCHARGE PLAN: The patient will be discharged home in stable condition. She is to resume her previous diet which is to be a cardiac diet. She will also have [facility]. She will be new to [facility] although she has been a prior patient of theirs. She has an appointment with Dr. Garcia next Tuesday for hospital followup. I have discharged her home on a prednisone taper as well as Levaquin. She is to have followup with Dr. Garcia' s office or return to the hospital if she has any further problems. Dr. Davis is the collaborating physician available for consultation. DISCHARGE MEDICATIONS: 1. Remeron. 2. Proventil nebs. 3. Metoprolol succinate. 4. Tramadol. 5. Prednisone. 6. Levofloxacin. #[id number] [facility]
--- NOTE | 2016-09-19 23:54 | US ---
NAME: NAV GUERREROPROCEDURE: US CAROTID DOPPLER BILATERALORDER DATE: 08/30/2016 2:44 PM CSTACCESSION NUMBER: [id number] Clinical History: syncopal eposide. Possible TIA Indication: Same as above Comparison: None . Technique: Grayscale and color Doppler evaluation of the common carotid, internal carotid and vertebral arteries in the region of the neck was done. Findings: The peak systolic velocity in centimeters per second on right and left side respectively, is: RIGHT SIDE............................................................. .......................... LEFT SIDE Proximal common carotid artery: 57 ...........................Proximal common carotid artery: 72 Mid common carotid: Not measured. ................................Mid common carotid: Not measured.Distal common carotid artery: 52 ...............................Distal common carotid artery: 69 Proximal internal carotid artery: 63 .............................Proximal internal carotid artery: 52Mid internal carotid artery: 64 ......................................Mid internal carotid artery: 78 Distal internal carotid artery: 63 ...................................Distal internal carotid artery: 95 Peak systolic ICA/CCA ratio: 1.1 .................................Peak systolic ICA/CCA ratio: 1.3 External carotid artery: 54 ...........................................External carotid artery: 76Vertebral artery: 51, Antegrade flow.......................... Vertebral artery: 57, Antegrade flow Impression: 1.There is no evidence of hemodynamically significant stenosis in the bilateral common carotid artery and the bilateral internal carotid arteries. 2. Antegrade flow is seen in the bilateral vertebral arteries. Location of Interpretation: Teleradiology. Electronically signed by: Vincent Higgins MD 08/30/2016 4:20 PM PROBE OPERATOR
--- NOTE | 2016-09-19 23:55 | RAD ---
EXAM: Single view chest. INDICATION: Chest pain. COMPARISON: Chest x-ray: 08/30/2016. FINDINGS: There is a right basilar airspace opacity. The left lung is clear. The heart is at the upper limit of normal in size. There is no pneumothorax or pleural effusion. The bones are demineralized. IMPRESSION: Right basilar airspace opacity, which may be due to superimposed soft tissue or pneumonia. Electronically signed by: Jaden Allen MD 08/31/2016 7:07 AM ELECTRO MECHANICAL ENGINEER
--- NOTE | 2016-09-19 23:55 | RAD ---
EXAM DESCRIPTION: Elbow, right 2 Views CLINICAL HISTORY: 81 years Female s/p fall. Generalized elbow pain. COMPARISON: None. TECHNIQUE: Two views of the right elbow. FINDINGS: There is some irregularity of the radial head and proximal ulna likely related to degenerative changes. No definite fractures or dislocations are identified. The bones are osteopenic. No osseous destructive lesions. No abnormal fat pads are visualized IMPRESSION: No acute fracture is identified. Electronically signed by: Leighton Laboy MD 08/30/2016 7:08 PM DENTAL LABORATORY ASSISTANT
--- NOTE | 2016-09-19 23:58 | RAD ---
EXAM: Two view chest. INDICATION: Chest pain. COMPARISON: Chest x-ray: 09/01/2016. FINDINGS: There are bibasilar airspace opacities with bilateral pleural effusions. Heart size is stable. There is no pneumothorax. The bones are demineralized.IMPRESSION: Basilar airspace opacities with bilateral pleural effusions Electronically signed by: Jaden Allen MD 09/03/2016 6:56 AM RADIOLOGY RECEPTIONIST
== END 2016-09-03 14:20 | disposition home health service (06) | DRG 190 ==
LOC: ER 10:27 → MS 13:06
PROVIDERS: ADMIT Nurse Practitioner Family; ATTEND Nurse Practitioner Acute Care
DX: J44.1 Chronic obstructive pulmonary disease with (acute) exacerbation (principal); J18.9 Pneumonia, unspecified organism; M62.82 Rhabdomyolysis; G45.9 Transient cerebral ischemic attack, unspecified; J44.0 Chronic obstructive pulmonary disease with (acute) lower respiratory infection; J32.3 Chronic sphenoidal sinusitis; E86.0 Dehydration; I10 Essential (primary) hypertension; M62.81 Muscle weakness (generalized); I73.9 Peripheral vascular disease, unspecified; M81.0 Age-related osteoporosis without current pathological fracture; F17.210 Nicotine dependence, cigarettes, uncomplicated; E87.6 Hypokalemia; Z91.81 History of falling; Z60.2 Problems related to living alone

== ENCOUNTER → 2017-01-26 | Outpatient (CLI) | payer MEDICARE | END | disposition home or self-care (01) | LOC: GMA 11:33 | PROVIDERS: ATTEND Nurse Practitioner Acute Care | DX: R53.83 Other fatigue (principal) ==

== ENCOUNTER → 2017-02-03 | Outpatient (CLI) | payer MEDICARE ==
--- NOTE | 2017-02-04 08:07 | US ---
EXAM DESCRIPTION: Bladder CLINICAL HISTORY: 81 years Female, FREQUENT, URGENT NEED TO URINATE COMPARISON: None. FINDINGS: A voiding imaging of the bladder shows incomplete distention with no evidence of focal bladder wall mass. A small diverticulum anteriorly on the right may be present. The estimated bladder volume is 227 mL. Post voiding bladder again suggests the possibility of a small right-sided bladder diverticulum. The post voiding residual urine is estimated at 75 mL. Incomplete emptying is noted. IMPRESSION: 1. 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 2. No distinct bladder wall mass is noted and a post voiding residual urine estimated at 75 mL is noted Electronically signed by: Raúl Concepcion MD 02/04/2017 8:06 AM CDT
== END | disposition home or self-care (01) ==
LOC: US 09:59
PROVIDERS: ATTEND Family Medicine
DX: R39.15 Urgency of urination (principal)

== ENCOUNTER → 2017-04-05 | Outpatient (CLI) | payer MEDICARE ==
--- NOTE | 2017-04-06 07:57 | US ---
EXAM DESCRIPTION: Extremity,Lower RT Arteries CLINICAL HISTORY: 82 years Female, PVD WITH ULCERATION COMPARISON: None. TECHNIQUE: Right lower extremity arterial duplex Doppler examination with grayscale, color Doppler, and spectral pulse Doppler evaluation. FINDINGS: Right common femoral artery appears widely patent with a triphasic waveform with peak velocities of 80 cm/s. The common femoral bifurcation is widely patent and the superficial femoral artery proximally demonstrates normal waveform with peak velocities 124 cm/s. This pattern with normal velocities persist into the distal SFA. A triphasic waveform with the mildly diminished velocities in the popliteal artery is present suggesting possible mild proximal stenosis. Spectral broadening or dampened waveform is not apparent. Triphasic waveform with some atherosclerotic calcification noted in the peroneal artery with below the popliteal fossa. Mild spectral broadening and elevated velocities at 126 cm/s are noted. Moderately atherosclerotic posterior tibial artery is present. Posterior tibial artery demonstrates biphasic waveform with mildly dampened velocities at 44 cm/s. Biphasic dorsalis pedis vessel with dampened velocities at 15 cm/s are noted. IMPRESSION: Abnormal examination with essentially normal velocities and waveforms at the common femoral and superficial femoral artery with dampened velocities evident at the popliteal and dorsalis pedis suggesting popliteal and infrapopliteal moderate disease. Electronically signed by: Raúl Concepcion MD 04/06/2017 7:56 AM CDT
== END | disposition home or self-care (01) ==
LOC: US 10:04
PROVIDERS: ATTEND Family Medicine
DX: I70.25 Atherosclerosis of native arteries of other extremities with ulceration (principal)

== ENCOUNTER → 2017-04-28 | Outpatient (CLI) | payer MEDICARE | END | disposition home or self-care (01) | LOC: BFHH 14:51 | PROVIDERS: ATTEND Family Medicine | DX: R30.0 Dysuria (principal) ==

== ENCOUNTER 2017-05-27 10:05 | Inpatient (IN) | payer MEDICARE ==
--- NOTE | 2017-05-27 10:34 | ED.PDOC ---
History of Present Illness - General Chief Complaint: Respiratory Problem Stated Complaint: cough,congestion,hallucinations Time Seen by Provider: 05/27/17 10:16 Source: patient, RN notes reviewed, Vital Signs reviewed, family Exam Limitations: no limitations - History of Present Illness Comments: Patient comes to ER with c/o cough, fever, congestion, nausea and hallucinations. Similar to when she has pneumonia in the past. She has had a cold for ~ 1 week and this morning she called the police reporting a man fell through her ceiling onto her bed and then ran out of the room. When the police came everything was normal. No hole in her ceiling. Timing/Duration: week Cough Quality/Degree: moderate Possible Cause: occasional episodes Improving Factors: nothing Worsening Factors: nothing Associated Symptoms: cough, dizziness, fever/chills, nasal congestion, shortness of breath Allergies/Adverse Reactions: Allergies Penicillins Allergy (Severe, Verified 08/30/16 11:07) Anaphylaxis Home Medications: Ambulatory Orders Albuterol Sulfate Nebs [Proventil Nebs] 2.5 mg INH Q6HR PRN #100 vial 01/18/15 Mirtazapine [Remeron] 15 mg PO BEDTIME #30 tab 01/18/15 Metoprolol Succinate [Metoprolol Succinate ER] 25 mg PO DAILY 08/30/16 Tramadol HCl 50 mg PO TID PRN 08/30/16 Mirabegron [Myrbetriq] 25 mg PO DAILY 05/27/17 Review of Systems - Review of Systems Constitutional: States: chills, fever, malaise EENTM: States: nose congestion, throat pain. Denies: ear pain Respiratory: States: cough, short of breath Cardiology: States: no symptoms reported Gastrointestinal/Abdominal: States: nausea. Denies: abdominal pain, vomiting Musculoskeletal: States: no symptoms reported Skin: States: no symptoms reported Neurological: States: other - Hallucinations All other Systems: No Change from Baseline Past Medical History (General) - Patient Medical History Hx Seizures: No Hx Stroke: No Hx Dementia: No Hx Asthma: No Hx of COPD: Yes Hx Cardiac Disorders: No Hx Congestive Heart Failure: No Hx Pacemaker: No Hx Hypertension: Yes Hx Thyroid Disease: No Hx Diabetes: No Hx Gastroesophageal Reflux: No Hx Renal Disease: Yes - urgency Hx Cancer: No Hx of HIV: No Hx Hepatitis C: No Hx MRSA: No Surgical History: Hysterectomy - Vaccination History Hx Tetanus, Diphtheria Vaccination: Yes Hx Influenza Vaccination: Yes Hx Pneumococcal Vaccination: Yes - Social History Hx Tobacco Use: Yes Hx Chewing Tobacco Use: No Hx Alcohol Use: No Hx Substance Use: No Hx Substance Use Treatment: No Hx Depression: No Hx Physical Abuse: No Hx Emotional Abuse: No Hx Suspected Abuse: No - Female History Patient : No Family Medical History - Family History Mother Family History: No Known Living Status: Physical Exam - Physical Exam General Appearance: Alert, Comfortable, Frail, No apparent distress, Well Developed, Well Groomed, Well Hydrated, Well Nourished ENT Exam: nasal congestion, other - Hard of hearing, Cerumen impaction bilaterally Neck: supple, lymphadenopathy (R), lymphadenopathy (L) Respiratory: no respiratory distress, no accessory muscle use, wheezing, expiration, inspiration Cardiovascular/Chest: regular rate, rhythm, no gallop, no murmur Extremity: normal inspection Neurologic: alert, normal mood/affect, oriented x 3 Skin Exam: normal color, warm/dry Comments: Vital Signs 05/27/17 10:18 Temperature 98.1 F Pulse Rate [ 75 Left Brachial] Respiratory 20 Rate Blood Pressure 95/45 [Left Arm] O2 Sat by Pulse 94 L Oximetry Progress - Progress Progress: 05/27/17 11:23 Bilateral ears flushed by Nurse Discussed with Jaida Blackwell NP - will admit for pneumonia and hallucinations. - Results/Orders Results/Orders: Laboratory Tests 05/27/17 05/27/17 10:40 10:40 WBC 5.1 RBC 4.51 Hgb 14.1 Hct 42.2 MCV 93.6 MCH 31.3 H MCHC 33.5 RDW 14.4 Plt Count 264 MPV 9.3 Absolute Neuts (auto) 3.60 Absolute Lymphs (auto) 0.90 L Absolute Monos (auto) 0.40 Absolute Eos (auto) 0.00 Absolute Basos (auto) 0.10 Neutrophils % 71.1 Lymphocytes % 18.5 L Monocytes % 8.8 Eosinophils % 0.2 L Basophils % 1.4 Sodium 133 L Potassium 3.6 Chloride 99 L Carbon Dioxide 22 Anion Gap 15.6 BUN 23 H Creatinine 0.94 BUN/Creatinine Ratio 24.5 H Random Glucose 117 H Serum Osmolality 271.1 L Calcium 8.7 Total Bilirubin 0.3 AST 36 ALT 17 Alkaline Phosphatase 64 Serum Total Protein 7.4 Albumin 3.3 Globulin 4.1 H Albumin/Globulin Ratio 0.8 L - EKG/XRAY/CT XRAY: chest - RML pneumonia Departure - Departure Clinical Impression: Pneumonia of right middle lobe due to infectious organism, Impacted cerumen of both ears, Visual hallucinations Time of Disposition: 11:24 Disposition: Admit Patient Condition: Fair Departure Forms: ED Discharge - Pt. Copy, Patient Portal Self Enrollment Referrals: Raúl Garcia MD [Primary Care Provider] - 1-2 Weeks Home Medications: Ambulatory Orders Albuterol Sulfate Nebs [Proventil Nebs] 2.5 mg INH Q6HR PRN #100 vial 01/18/15 Mirtazapine [Remeron] 15 mg PO BEDTIME #30 tab 01/18/15 Metoprolol Succinate [Metoprolol Succinate ER] 25 mg PO DAILY 08/30/16 Tramadol HCl 50 mg PO TID PRN 08/30/16 Mirabegron [Myrbetriq] 25 mg PO DAILY 05/27/17 Decision To Admit - Decistion To Admit Decision to Admit Reason: Admit from ER Decision to Admit Date: 05/27/17 Decision to Admit Time: 11:23
--- NOTE | 2017-05-27 11:10 | RAD ---
Study: Frontal and Lateral Views of the Chest. Indication: Fever/cough Comparison: September 03, 2016. Impression: Cardiomegaly without failure. Emphysema. Increased density at the right middle lobe on the frontal and lateral views concerning for pneumonia. Short-term follow-up recommended. No pleural effusion or pneumothorax. Degenerative changes of the spine noted. Osteopenia. If this is a new finding, DEXA scan recommended as well as evaluation for possible osteoporosis treatment. Electronically signed by: John Mcbride MD 05/27/2017 11:09 AM CDT
[2017-05-27] MEDS ORDERED: AZITHROMYCIN IV 500 MG VIAL IVPB ONE (11:52)
[2017-05-27] MEDS ORDERED: SODIUM CHLORIDE 0.9% 250ML 250 ML ONE (11:52)
[2017-05-27] MEDS: AZITHROMYCIN IV 500 MG in SODIUM CHLORIDE 0.9% 250ML 250 ML IVPB ONE (11:57)
--- NOTE | 2017-05-27 12:24 | HP ---
SUPERVISING PHYSICIAN: Felipe Davis M.D. CHIEF COMPLAINT: Confusion, hallucinations and cold symptoms. HISTORY OF PRESENT ILLNESS: This is an 82 year-old female patient who has had approximately 1 week of coughing, upper respiratory congestion and cold-like symptoms. She has also had some subjective fever. Today, she called the police after reporting that a man fell through her ceiling and onto her bed, and she then ran out of the room. The police came to the house and everything was normal, and there was no hole in her ceiling. In the past she has had hallucinations when she has pneumonia or an infection. She was brought to the Emergency Room. In the Emergency Room, her sodium was mildly decreased at 133 with potassium 3.6 and chloride 99, carbon dioxide 22, BUN 23, creatinine 0.94, glucose 117 with serum osmolality of 271.1. Liver enzymes were basically within normal limits. WBCs were 5.1, hemoglobin 14.1, hematocrit 42.2. Chest x -ray per radiology interpretation shows an increased density of the right middle lobe on frontal and lateral views concerning for pneumonia. The patient received Azithromycin and a small amount of IV fluids. Blood cultures were drawn. I was called for admission. PAST MEDICAL HISTORY: 1. Hypertension. 2. Chronic obstructive pulmonary disease. 3. Peripheral vascular disease with claudication and stent placement by Dr. Manriquez in the right leg. 4. Gastroesophageal reflux disease. 5. Osteopenia. 6. Dementia. 7. Chronic low back pain. 8. Chronic smoker. PAST SURGICAL HISTORY: 1. Breast augmentation with fibrocystic disease and tissue removed prior to implants in 1979. 2. Thyroidectomy in 1969. 3. Bilateral tubal ligation in 1973. HOME MEDICATIONS: Per the EMR and awaiting verification. ALLERGIES: PENICILLIN. FAMILY HISTORY: Father at age 85 from natural causes. Mother at 86 from heart disease. SOCIAL HISTORY: The patient is retired. She lives in [place]. She lives alone and has 2 daughters that check on her. She currently smoked 1/2 pack of cigarettes per day and has since the age of 10. There is no recent history of alcohol or illicit drug use. REVIEW OF SYSTEMS: Positive for fever and fatigue. Negative for weight changes. HEENT: Positive for sinus symptoms. Negative for ear pain, vision changes or sore throat. RESPIRATORY: As per history of present illness. CARDIAC: Negative for chest pain, palpitations or tachycardia. GASTROINTESTINAL: Positive for mild nausea. Negative for vomiting, constipation or diarrhea. GENITOURINARY: Negative for hematuria, dysuria or polyuria. NEUROLOGIC: Positive for hallucinations and confusion. Negative for headaches or seizures. PHYSICAL EXAMINATION: VITAL SIGNS: Temperature 98, pulse rate 75, blood pressure 95/61, respiratory rate 20, O2 sat is 92%. GENERAL: This is an 82 year-old female patient who is very zsab-ve-pvbhyin who is lying in her hospital bed. She is confused. She is in slight respiratory distress. HEENT: Normocephalic and atraumatic. Pupils are equal and reactive. She has clear nasal drainage. Oropharynx is clear. NECK: Supple without mass. RESPIRATORY: Bilateral rhonchi throughout. Diminished at the bases especially on the right side. She is slightly tachypneic at times with a respiratory rate that goes up to about 24. CARDIOVASCULAR: Regular rate and rhythm. GASTROINTESTINAL: Abdomen is soft, nondistended, non-tender. Bowel sounds are positive. EXTREMITIES: No cyanosis, clubbing or edema. SKIN: Warm and dry. NEUROLOGIC: She is awake. She is alert. She is very cuju-zh-wfyqmkw. She is oriented to person only and is very confused and unable to answer any questions appropriately. LABORATORY: Labs and films are as per the history of present illness. ASSESSMENT: 1. Right middle lobe pneumonia most likely community acquired as demonstrated per radiographic studies in a chronic smoker. 2. Acute exacerbation of chronic obstructive pulmonary disease with concerns for right middle lobe pneumonia. She does smoke 1/2 pack of cigarettes daily and has since age 10. 3. Moderate dehydration secondary to poor oral intake and infectious process. 4. Altered mental status secondary to pneumonia, infectious process and underlying dementia. 5. Hypertension. 6. Mild electrolyte imbalance. 7. Severe weakness and deconditioning secondary to acute illness and exacerbated by dehydration and developing right middle lobe pneumonia. PLAN: We will admit the patient to the hospital. I have initiated the pneumonia guidelines. She will be on Azithromycin and Rocephin. I will give her a low dose of steroids and taper those off. I have also ordered a urinalysis as that may be contributing to her altered mental status. I have ordered a sputum culture and urine culture. I have ordered pulmonary hygiene as well as Mucinex. Our [employer]ic, Jennifer Khanna, has spoken to the daughter and we will need to evaluate if she is safe to go home. Otherwise discharge planning to some place other than her home might be beneficial for the patient. I will order physical therapy. We will monitor the patient closely and follow as needed. Dr. Davis is the collaborating physician available for consultation. #[id number] [facility]
[2017-05-27] MEDS ORDERED: ALBUTEROL SULFATE 2.5 MG/3 ML VIAL NEB PRN (16:07)
[2017-05-27] MEDS ORDERED: KCL 20 MEQ/NS 1,000 ML IVS PRN (16:13)
[2017-05-27] MEDS ORDERED: IPRATROPIUM/ALBUTEROL 3 ML VIAL NEB ONE (16:35)
[2017-05-27] MEDS ORDERED: methylPREDNISolone SODIUM SUC 125 MG/2 ML VIAL IV ONE (16:45)
[2017-05-27] MEDS ORDERED: SODIUM CHL 0.9% 50ML MIN-BAG+ 50 ML IVPB ONE (16:46)
[2017-05-27] MEDS ORDERED: cefTRIAXone SODIUM 1 GM VIAL ONE (16:46)
[2017-05-27] MEDS: PANTOPRAZOLE SODIUM IV 40 MG VIAL IV SCH (16:52)
[2017-05-27] MEDS: cefTRIAXone SODIUM 1 GM in SODIUM CHL 0.9% 50ML MIN-BAG+ 50 ML IVPB SCH (16:53)
[2017-05-27] MEDS ORDERED: KCL 20 MEQ/NS 1,000 ML IVS ONE (17:00)
[2017-05-27] MEDS ORDERED: methylPREDNISolone SODIUM SUC 40 MG/ML VIAL ONE (20:30)
[2017-05-27] MEDS: IPRATROPIUM/ALBUTEROL 3 ML VIAL NEB SCH (20:36)
[2017-05-27] MEDS: guaiFENesin ER TAB 600 MG TAB PO SCH (21:22)
[2017-05-27] MEDS: SODIUM CHLORIDE 0.9% (FLUSH) 10 ML SYG IV SCH (22:11)
[2017-05-27] MEDS: methylPREDNISolone SODIUM SUC 40 MG/ML VIAL IV SCH (22:20)
[2017-05-27] MEDS: SODIUM CHLORIDE 0.9% (FLUSH) 10 ML SYG IV PRN (22:21)
[2017-05-28] MEDS ORDERED: cefTRIAXone SODIUM 1 GM VIAL ONE ×2 (03:33→14:34)
[2017-05-28] MEDS ORDERED: SODIUM CHL 0.9% 50ML MIN-BAG+ 50 ML IVPB ONE ×2 (03:33→14:34)
[2017-05-28] MEDS: cefTRIAXone SODIUM 1 GM in SODIUM CHL 0.9% 50ML MIN-BAG+ 50 ML IVPB SCH ×2 (04:44→15:32)
[2017-05-28] MEDS: SODIUM CHLORIDE 0.9% (FLUSH) 10 ML SYG IV PRN (04:48)
[2017-05-28] MEDS ORDERED: SODIUM CHLORIDE 0.9% 10 ML VIAL ONE (05:36)
[2017-05-28] MEDS: methylPREDNISolone SODIUM SUC 40 MG/ML VIAL IV SCH ×3 (05:59→21:50)
[2017-05-28] MEDS: PANTOPRAZOLE SODIUM IV 40 MG VIAL IV SCH (06:01)
--- NOTE | 2017-05-28 06:46 | RAD ---
EXAM DESCRIPTION: Chest,1 View CLINICAL HISTORY: Pneumonia COMPARISON: 05/27/2017 FINDINGS: Single frontal view of the chest. Other vascular calcification of the thoracic aorta. Heart is not enlarged. Improved aeration of the right lung base with persistent streaky left basilar opacity and small right pleural effusion. No displaced rib fractures identified. Upper abdominal soft tissues are unremarkable. IMPRESSION: 1. Improved aeration of the right lung base with minimal patchy right basilar opacity and blunting of the right costophrenic angle. This may represent pneumonia or atelectasis. Continued radiographic follow-up to resolution recommended. Electronically signed by: Richard Sher 05/28/2017 6:45 AM CDT
[2017-05-28] MEDS: guaiFENesin ER TAB 600 MG TAB PO SCH ×2 (08:06→21:08)
[2017-05-28] MEDS: SODIUM CHLORIDE 0.9% (FLUSH) 10 ML SYG IV SCH ×2 (08:06→21:08)
[2017-05-28] MEDS: IPRATROPIUM/ALBUTEROL 3 ML VIAL NEB SCH ×4 (09:45→20:11)
[2017-05-28] MEDS ORDERED: SODIUM CHLORIDE 0.9% 250ML 250 ML ONE (10:04)
[2017-05-28] MEDS ORDERED: AZITHROMYCIN IV 500 MG VIAL IVPB ONE (10:04)
[2017-05-28] MEDS: AZITHROMYCIN IV 500 MG in SODIUM CHLORIDE 0.9% 250ML 250 ML IVPB SCH (10:07)
[2017-05-28] MEDS: METOPROLOL SUCCINATE XL 25 MG TAB PO SCH (12:24)
[2017-05-28] MEDS: ENOXAPARIN SODIUM 40 MG/0.4 ML SYG SUBCU SCH (12:24)
--- NOTE | 2017-05-28 14:45 | PN ---
DATE: SUPERVISING PHYSICIAN: Felipe Davis M.D. SUBJECTIVE: The patient is sitting up her hospital bed. She is about to eat lunch. She is very xdhn-hx-eqsknji. She denies any shortness of breath, chest pain, nausea, vomiting, diarrhea. She does complain of some dry cough but otherwise feels much better. OBJECTIVE: VITAL SIGNS: Heart rate 74, blood pressure 98/62, respiratory rate 22, O2 sat is 91% on 2 liters nasal cannula. RESPIRATORY: Scattered rhonchi throughout, diminished at the bases. CARDIAC: Regular rate and rhythm. ABDOMEN : Soft, nondistended, non-tender. Bowel sounds are positive. EXTREMITIES: No cyanosis, clubbing or edema. NEUROLOGIC: She is awake. She is alert. She is oriented to person and place. She is very xlib-ai-xpdrbqs. LABORATORY: White count is low at 3.8 with hemoglobin 13.1, hematocrit 39.5, neutrophils 85.1%. Chemistries are basically within normal limits with the exception of her creatinine is slightly low at 0.51, glucose is slightly high at 131, calcium 7.9. Preliminary blood cultures show no growth after 24 hours. They have so far been unable to get a sputum culture on her. RADIOLOGY: Chest x-ray per radiology interpretation shows improved aeration of the right lung base with minimal patchy right basilar opacities and blunting of the right costophrenic angle. This may represent pneumonia or atelectasis. Continued radiographic followup to resolution recommended. Otherwise all other labs and films have been reviewed via the EMR. ASSESSMENT: 1. Right middle lobe pneumonia most likely community acquired as demonstrated per radiographic studies in a chronic smoker. 2. Acute exacerbation of chronic obstructive pulmonary disease with concerns for right middle lobe pneumonia. She does smoke 1/2 pack of cigarettes daily and has since age 10. 3. Moderate dehydration secondary to poor oral intake and infectious process now improving. 4. Altered mental status secondary to pneumonia, infectious process and underlying dementia. 5. Hypertension. 6. Mild electrolyte imbalance that has improved. 7. Severe weakness and deconditioning secondary to acute illness and exacerbated by dehydration and developing right middle lobe pneumonia. 8. Chronic tobacco abuse. PLAN: We will continue present supportive care. I have tapered off her IV steroids and started her on p.o. prednisone tomorrow. She is to continue on her Azithromycin and Rocephin. I have repeated her chest x-ray in the morning as well as routine labs. Will continue with aggressive pulmonary hygiene. I have ordered an ambulation study for tomorrow. Otherwise we will continue to monitor the patient closely and followup as needed. Dr. Davis is the collaborating physician available for consultation. [facility][id number] [facility]
[2017-05-28] MEDS: traMADol HCL 50 MG TAB PO PRN (14:46)
[2017-05-28] MEDS: MIRTAZAPINE 15 MG TAB PO SCH (21:08)
[2017-05-28] MEDS: HYDROcodone 5MG/APAP 325MG 1 EA TAB PO PRN (21:50)
[2017-05-29] MEDS ORDERED: SODIUM CHL 0.9% 50ML MIN-BAG+ 50 ML IVPB ONE ×3 (03:59→19:26)
[2017-05-29] MEDS ORDERED: cefTRIAXone SODIUM 1 GM VIAL ONE ×3 (04:00→19:27)
[2017-05-29] MEDS: cefTRIAXone SODIUM 1 GM in SODIUM CHL 0.9% 50ML MIN-BAG+ 50 ML IVPB SCH ×2 (04:17→16:16)
--- NOTE | 2017-05-29 05:20 | RAD ---
EXAM DESCRIPTION: Chest,1 View CLINICAL HISTORY: pna COMPARISON: 05/28/2017 FINDINGS: Single frontal view of the chest. Other vascular calcification of the thoracic aorta. Heart is not enlarged. Improved aeration of the right lung base with persistent streaky left basilar opacity and small right pleural effusion. No displaced rib fractures identified. Upper abdominal soft tissues are unremarkable. IMPRESSION: 1. No significant interval change with persistent minimal patchy right basilar opacity and possible small right pleural effusion. Electronically signed by: Richard Sher 05/29/2017 5:18 AM [facility]
[2017-05-29] MEDS: PANTOPRAZOLE SODIUM IV 40 MG VIAL IV SCH (06:37)
[2017-05-29] MEDS: IV SET AND CAP CHANGE INJ INJ SCH (06:38)
[2017-05-29] MEDS: IPRATROPIUM/ALBUTEROL 3 ML VIAL NEB SCH ×4 (08:34→19:15)
[2017-05-29] MEDS: SODIUM CHLORIDE 0.9% (FLUSH) 10 ML SYG IV SCH ×2 (08:41→20:18)
[2017-05-29] MEDS: ENOXAPARIN SODIUM 40 MG/0.4 ML SYG SUBCU SCH (08:41)
[2017-05-29] MEDS: predniSONE 20 MG TAB PO SCH (08:41)
[2017-05-29] MEDS: METOPROLOL SUCCINATE XL 25 MG TAB PO SCH (08:41)
[2017-05-29] MEDS: guaiFENesin ER TAB 600 MG TAB PO SCH ×2 (08:41→20:18)
[2017-05-29] MEDS: NON-FORMULARY MEDICATION 1 EA MIS (Mirabegron [Myrbetriq] 25 MG) PO SCH (08:55)
[2017-05-29] MEDS: traMADol HCL 50 MG TAB PO PRN ×2 (09:36→23:37)
[2017-05-29] MEDS ORDERED: SODIUM CHLORIDE 0.9% 250ML 250 ML ONE (11:18)
[2017-05-29] MEDS ORDERED: AZITHROMYCIN IV 500 MG VIAL IVPB ONE (11:19)
[2017-05-29] MEDS: AZITHROMYCIN IV 500 MG in SODIUM CHLORIDE 0.9% 250ML 250 ML IVPB SCH (12:00)
--- NOTE | 2017-05-29 13:51 | PCM.CORE ---
Physician DVT/VTE - Nurse DVT Assessment & Total Each Risk Factor Represents 3 Points: Age over 75 years Each Risk Factor Represents 1 Point: Medical PT at Bed Rest Each Risk Factor is 1 Point: Obesity (BMI >25), Serious Lung disease (pnemonia < 1month, COPD, emphysema,etc) DVT Assessment Score: 6 - 5 or more Very High Risk Treatments: Early Ambulation *, Sequential Compression Device Pharmacological: Enoxaparin 40mg SQ Daily
--- NOTE | 2017-05-29 15:23 | PN ---
DATE: 05/29/17 SUPERVISING PHYSICIAN: Felipe Davis M.D. SUBJECTIVE: The patient is resting comfortably. She does look tired. It is noted that she had had some pain medicine through the night and was having some issues with visual hallucinations, but this appears to have been cleared up this morning. She continues to have some shortness of breath with exertion, but has not had any nausea or vomiting or chest pains. OBJECTIVE: VITAL SIGNS: T max 99.1, pulse 60, blood pressure 111/72, respirations 18, satting 93% on room air. I's and O's show a positive balance of 1190 with 1990 in, 800 out. She has had 1 bowel movement. Weight is 59.6 kg. CHEST: Lungs are diminished bilaterally towards the bases with some faint rhonchi heard more so on the right than the left. HEART: Regular rate and rhythm. ABDOMEN: Soft, non-tender. Positive bowel sounds. EXTREMITIES: No clubbing, cyanosis or edema. NEUROLOGIC: She is alert and oriented times three. LABORATORY: CBC today shows a white count of 7,700 with hemoglobin 12.2, hematocrit 37.5, platelet count 207,000. Differential does show a left shift. Chemistries show normal electrolytes today with potassium 4.3, BUN 17, creatinine is down to 0.43, calcium 8.6. MICROBIOLOGY: She has gram-negative rods preliminary showing in her sputum culture. Blood cultures times 2 remain negative at 48 hours. RADIOLOGY: Chest x-ray per radiology interpretation shows no significant interval change with a persistent minimal patchy right basilar opacity and possible small right pleural effusion. ASSESSMENT: 1. Right middle lobe pneumonia likely community acquired in a patient who is a chronic smoker. 2. Acute exacerbation of chronic obstructive pulmonary disease with concerns for right middle lobe pneumonia as noted on radiographic studies with the patient having a history of 1/2 pack of cigarettes per day since age 10. 3. Moderate dehydration secondary to poor oral intake and underlying infectious process showing improvement with IV fluids. 4. Metabolic encephalopathy secondary to underlying infection with a right middle lobe pneumonia exacerbated by dementia showing improvement with treatment. 5. Hypertension. 6. Mild electrolyte imbalance, resolved after IV fluids. 7. Severe weakness and deconditioning secondary to acute illness and exacerbation from dehydration as well as right middle lobe pneumonia. 8. Chronic tobacco abuse encouraged to quit smoking. PLAN: Will continue with aggressive pulmonary hygiene. Her steroids have been tapered off of p.o. Prednisone today. She will continue on Azithromycin and Rocephin. Will plan to repeat an x-ray in the morning and obtain an ambulatory study to further assess oxygenation needs. There has been a discussion that the patient could possibly, as she does live alone, go to a terminal block assembler care facility assisted with that discussion needing to be initiated tomorrow. I will consult with our psychologist social, Jennifer, and anticipate hopefully discharging within the next 24 to 48 hours. Until then, will continue to monitor and treat appropriately. #[id number] [facility]
[2017-05-29] MEDS: MIRTAZAPINE 15 MG TAB PO SCH (20:18)
[2017-05-29] MEDS: HYDROcodone 5MG/APAP 325MG 1 EA TAB PO PRN (20:19)
[2017-05-29] MEDS ORDERED: diphenhydrAMINE HCL 25 MG CAP PO ONE (21:47)
[2017-05-30] MEDS: cefTRIAXone SODIUM 1 GM in SODIUM CHL 0.9% 50ML MIN-BAG+ 50 ML IVPB SCH ×2 (04:24→16:25)
[2017-05-30] MEDS: PANTOPRAZOLE SODIUM IV 40 MG VIAL IV SCH (06:35)
--- NOTE | 2017-05-30 07:20 | RAD ---
EXAM DESCRIPTION: Chest,2 Views CLINICAL HISTORY: pneumonia COMPARISON: May 29, 2017 FINDINGS: The cardiomediastinal silhouette is unremarkable. Is mild blunting of the left costophrenic angle suspicious for small left-sided effusion with some overlying atelectasis in the left lung base. No right-sided airspace consolidation or right pleural effusion is identified. The lungs appear hyperinflated. There is no pneumothorax or acute fracture. IMPRESSION: Emphysema with a possible tiny left-sided effusion. No convincing radiographic evidence of pneumonia. Electronically signed by: Mickey Rodriguez MD 05/30/2017 7:19 AM [facility]
[2017-05-30] MEDS ORDERED: AZITHROMYCIN IV 500 MG VIAL IVPB ONE (08:14)
[2017-05-30] MEDS ORDERED: SODIUM CHLORIDE 0.9% 250ML 250 ML ONE (08:14)
[2017-05-30] MEDS: IPRATROPIUM/ALBUTEROL 3 ML VIAL NEB SCH ×4 (08:23→20:16)
[2017-05-30] MEDS: SODIUM CHLORIDE 0.9% (FLUSH) 10 ML SYG IV SCH ×2 (08:24→20:53)
[2017-05-30] MEDS: ENOXAPARIN SODIUM 40 MG/0.4 ML SYG SUBCU SCH (08:24)
[2017-05-30] MEDS: predniSONE 20 MG TAB PO SCH (08:24)
[2017-05-30] MEDS: guaiFENesin ER TAB 600 MG TAB PO SCH ×2 (08:24→20:54)
[2017-05-30] MEDS: METOPROLOL SUCCINATE XL 25 MG TAB PO SCH (08:24)
[2017-05-30] MEDS: NON-FORMULARY MEDICATION 1 EA MIS (Mirabegron [Myrbetriq] 25 MG) PO SCH (08:25)
[2017-05-30] MEDS ORDERED: AZITHROMYCIN 250 MG TAB PO SCH (11:00)
[2017-05-30] MEDS: AZITHROMYCIN IV 500 MG in SODIUM CHLORIDE 0.9% 250ML 250 ML IVPB ONE (11:38)
[2017-05-30] MEDS ORDERED: SODIUM CHL 0.9% 50ML MIN-BAG+ 50 ML IVPB ONE ×2 (16:16→19:33)
[2017-05-30] MEDS ORDERED: cefTRIAXone SODIUM 1 GM VIAL ONE ×2 (16:16→19:33)
[2017-05-30] MEDS: BIFIDOBACTERIUM INFANTIS 4 MG CAP PO SCH (16:25)
[2017-05-30] MEDS: IV SET AND CAP CHANGE INJ INJ SCH (16:25)
--- NOTE | 2017-05-30 18:14 | PN ---
DATE: 05/30/17 SUPERVISING PHYSICIAN: Raúl Garcia M.D. SUBJECTIVE: The patient shows some slow clinical improvement. She was able to ambulate today but continues to show desaturations during ambulation efforts. She is still having difficulty sleeping at night. She is no longer having any visual hallucinations. She has not had any recurrence of chest pains or any nausea or vomiting. She remains afebrile. OBJECTIVE: VITAL SIGNS: T max 98.3, pulse 60, blood pressure 131/72, respirations 17 satting 100% on nasal cannula at rest at 3 liters. I's and O's show a negative balance of 1470 with 880 in, 2350 out. She has had a couple of bowel movements. Weight is 58.8 kg. CHEST: Lung sounds are slowly improving. She continues to have just very faint rhonchi which is more prominent on the right than the left with no wheezing and she remains diminished towards the bases. HEART: Regular rate and rhythm. ABDOMEN: Soft, non-tender. Positive bowel sounds. EXTREMITIES: No clubbing, cyanosis or edema. NEUROLOGIC: She is alert and oriented times three. LABORATORY: White count today is 7,200, hemoglobin 11.9, hematocrit 36.0, platelet count 187,000. Differential now shows to be without a left shift. Chemistries show mild hypokalemia with potassium 3.5, BUN 16, creatinine 0.52, calcium 8.4. MICROBIOLOGY: Sputum culture still show gram-negative rods needing further workup. Blood cultures remain negative at 3 days. RADIOLOGY: Repeat chest x-ray today per radiology interpretation two view chest shows emphysema with possible left sided effusion. No obvious evidence of pneumonia. ASSESSMENT: 1. Right middle lobe pneumonia community acquired in a chronic smoker requiring initiation of parenteral antibiotics showing some improvement after treatment initiation. 2. Acute exacerbation of chronic obstructive pulmonary disease with a right middle lobe pneumonia showing some improvement radiographically with the patient having a history of 1/2 pack of cigarette smoking per day since age 10. 3. Moderate dehydration secondary to poor oral intake and underlying pneumonia showing some improvement with IV fluids. 4. Metabolic encephalopathy secondary to underlying infection with right middle lobe pneumonia exacerbated by her dementia showing improvement after initiation of treatment near baseline mental status. 5. Hypertension. 6. Mild electrolyte imbalance with mild hypokalemia. 7. Severe weakness and deconditioning secondary to acute illness and acute exacerbation of dehydration as well as right middle lobe pneumonia. 8. Chronic tobacco abuse encouraged to quit smoking. PLAN: The patient will benefit from additional 24 hours to 48 hours on IV antibiotics and aggressive pulmonary hygiene, and chest physiotherapy. She does have significant deconditioning and Physical Therapy will be working with her. Anticipation of hopefully discharging either tomorrow or the next. Discussed at length with the patient today with Jennifer in regards to going to a usp facility after discharge. The patient adamantly is against admission to a longterm of any sort. She does have assistance at home with her family and is relying on home health as well with [facility]. Will continue with plan of care today and anticipate again hopefully discharging tomorrow or the next. Until then, will continue to monitor and treat appropriately. #[id number] [facility]
[2017-05-30] MEDS ORDERED: PANTOPRAZOLE SODIUM TAB 40 MG PO ONE (19:33)
[2017-05-30] MEDS: HYDROcodone 5MG/APAP 325MG 1 EA TAB PO PRN (20:09)
[2017-05-30] MEDS: MIRTAZAPINE 15 MG TAB PO SCH (20:54)
[2017-05-31] MEDS: cefTRIAXone SODIUM 1 GM in SODIUM CHL 0.9% 50ML MIN-BAG+ 50 ML IVPB SCH (04:04)
[2017-05-31] MEDS: SODIUM CHLORIDE 0.9% (FLUSH) 10 ML SYG IV PRN (04:04)
[2017-05-31] MEDS ORDERED: PANTOPRAZOLE SODIUM TAB 40 MG PO SCH (06:30)
[2017-05-31] MEDS: IPRATROPIUM/ALBUTEROL 3 ML VIAL NEB SCH (08:44)
[2017-05-31] MEDS: SODIUM CHLORIDE 0.9% (FLUSH) 10 ML SYG IV SCH (09:00)
[2017-05-31] MEDS: traMADol HCL 50 MG TAB PO PRN (10:19)
[2017-05-31] MEDS: METOPROLOL SUCCINATE XL 25 MG TAB PO SCH (10:20)
[2017-05-31] MEDS: ENOXAPARIN SODIUM 40 MG/0.4 ML SYG SUBCU SCH (10:20)
[2017-05-31] MEDS: guaiFENesin ER TAB 600 MG TAB PO SCH (10:20)
[2017-05-31] MEDS: predniSONE 20 MG TAB PO SCH (10:20)
[2017-05-31] MEDS: NON-FORMULARY MEDICATION 1 EA MIS (Mirabegron [Myrbetriq] 25 MG) PO SCH (10:20)
[2017-05-31] MEDS: BIFIDOBACTERIUM INFANTIS 4 MG CAP PO SCH (10:20)
[2017-05-31 10:36] VITALS: BP 117/72; TEMP 98.6; O2SAT 98
--- NOTE | 2017-06-05 17:45 | DS ---
SUPERVISING PHYSICIAN: Raúl Garcia M.D. DISCHARGE DIAGNOSIS: 1. Right middle lobe pneumonia community acquired in a chronic smoker requiring aggressive parenteral antibiotics showing improvement after initiation of treatment. 2. Acute exacerbation of chronic obstructive pulmonary disease with a right middle lobe pneumonia improving radiographically with the patient having a history of 1/2 pack of smoking per day since age 10. 3. Moderate dehydration secondary to poor oral intake and underlying pneumonia improving with IV fluids and increasing oral intake on discharge. 4. Metabolic encephalopathy secondary to underlying infection with right middle lobe pneumonia exacerbated by her dementia improved after initiation of treatment with the patient returning to near baseline mental status prior to discharge. 5. Hypertension. 6. Mild electrolyte imbalance with mild hypokalemia, improved with IV fluids. 7. Severe weakness and deconditioning secondary to acute illness and acute exacerbation of dehydration as well as right middle lobe pneumonia requiring ongoing outpatient physical therapy. 8. Chronic tobacco abuse encouraged to quit smoking. HISTORY OF PRESENT ILLNESS: Ms. Garcia is an 82 year-old female patient who presented to the hospital on 05/27/17. She had been having approximately 1 week of coughing, upper respiratory congestion and cold-like symptoms. She had also had some subjective fevers. On date of admission, she called the police after reporting that a man had fallen out of her ceiling onto her bed, and she then ran out of the room. The police arrived to the house and everything was found to be normal, and there was no hole in her ceiling. In the past, she has had hallucinations when she has had pneumonia or an infection. She was brought to the Emergency Room at that time and she was found to have a mild hyponatremia of 133 with potassium 3.6. Carbon dioxide was 22. Liver enzymes were within normal limits. White count was at 5,100. A chest x-ray was completed and per radiology interpretation showed an increased density in the right middle lobe concerning for pneumonia. She was started on Azithromycin and given some IV fluids after blood cultures were drawn and then admitted to the Medical/Surgical floor for continuation of treatment and further evaluation. LABORATORY STUDIES: White count on admission was 5,100, at discharge was 7,200 , hemoglobin and hematocrit were stable and at discharge were 11.2 and hematocrit 36.0. Platelet count was within normal limits at 187,000. Differential did show a left shift, but resolved prior to discharge after initiation of antibiotic therapy. Chemistries showed a mild hyponatremia on admission of 133, potassium 3.6, BUN 23, creatinine 0.94. Liver functions all were within normal limits. After fluids and treatment prior to discharge, her electrolytes showed an improvement in sodium at 143, potassium was just slightly low at 3.5, BUN 9, creatinine 0.4. MICROBIOLOGY: Sputum culture was sent out for further studies and identification for isolation of possible Kluyvera ascorbata. That report was pending at discharge and at time of dictation of Discharge Summary. Blood cultures remain negative after 5 days. RADIOLOGY: Initial chest x-ray in the Emergency Department prior to admission showed per radiology interpretation cardiomegaly without failure, emphysema and an increased density in the right middle lobe with concerns for pneumonia. There are no pleural effusion or pneumothoraxes. Repeat chest x-ray completed and on 05/30/17, the day before discharge, final x-ray of the chest two view showed emphysema with possible tiny left sided effusion with no convincing radiographic evidence of pneumonia. HOSPITAL COURSE: Ms. Garcia was admitted as noted in the History of Present Illness for pneumonia on 05/27/17 and some hallucinations. She was started on IV fluids and IV antibiotics to include Rocephin and Azithromycin. She did show good clinical improvement. She had an evaluation with Physical Therapy prior to discharge and there was a discussion of possibly having the patient discharge to a residential, however, the patient was found to be back to her baseline mental status and would benefit from at least sitters or some outpatient physical therapy. She was maintaining O2 saturations on room air and showing slight desaturation into the high 80s, but was showing no respiratory distress and was felt clinically well enough to be discharged to continue with outpatient treatment plan. The patient was started also on aggressive pulmonary hygiene and q.i.d. nebulizer treatments as well as aggressive corticosteroid treatment, and did show good improvement. PLAN: The patient was discharged on 05/717 with instructions to followup with Dr. Garcia as scheduled. She is scheduled for a followup on 06/09/17 at 8:45 AM. She was scheduled to have home health with [facility]. She was to resume her home medications as previous to hospitalization and start new medications as directed. She was again encouraged to stop smoking and increase her activities as tolerated, and walk with a walker and return to the hospital should any concerning symptoms. DISCHARGE MEDICATIONS: 1. Albuterol nebulizers 2.5 mg per 3 mL every 6 hours as needed, #100. 2. Align 4 mg daily. 3. Continue antibiotics to include Cefdinir 300 mg twice daily, #14. 4. Mucinex 600 mg twice daily for at least 5 days. 5. Medrol Dosepak 4 mg daily as directed. 6. Protonix 40 mg daily, #30. #[id number]
== END 2017-05-31 11:20 | disposition home health service (06) | DRG 190 ==
LOC: ER 10:05 → MS 12:23
PROVIDERS: ADMIT Nurse Practitioner Acute Care; ATTEND Nurse Practitioner Family
DX: J44.0 Chronic obstructive pulmonary disease with (acute) lower respiratory infection (principal); J18.9 Pneumonia, unspecified organism; G93.41 Metabolic encephalopathy; J44.1 Chronic obstructive pulmonary disease with (acute) exacerbation; F03.90 Unspecified dementia, unspecified severity, without behavioral disturbance, psychotic disturbance, mood disturbance, and anxiety; E86.0 Dehydration; I10 Essential (primary) hypertension; H91.90 Unspecified hearing loss, unspecified ear; I73.9 Peripheral vascular disease, unspecified; K21.9 Gastro-esophageal reflux disease without esophagitis; G89.29 Other chronic pain; M54.5 Low back pain; M85.80 Other specified disorders of bone density and structure, unspecified site; E87.6 Hypokalemia; R44.1 Visual hallucinations; H61.23 Impacted cerumen, bilateral; F17.210 Nicotine dependence, cigarettes, uncomplicated; Z95.820 Peripheral vascular angioplasty status with implants and grafts; Z88.0 Allergy status to penicillin; Z79.899 Other long term (current) drug therapy

== ENCOUNTER 2017-06-24 09:00 | Observation (INO) | payer MEDICARE ==
--- NOTE | 2017-06-24 09:09 | ED.PDOC ---
History of Present Illness - General Chief Complaint: Back Pain or Injury Stated Complaint: Low back discomfort Time Seen by Provider: 06/24/17 09:08 Source: patient Exam Limitations: no limitations - History of Present Illness Initial Comments: Emili Garcia 82 y/o female brought by ambulance with sharp steady Low back pain for the last 6 days and stating was using his walker in the past but since yesterday was on her wheelchair could not get up because of the pain.Denies history of fall ;no bowel or bladder dysfunction;no fever or weight loss Timing/Duration: other - 6 days Quality/Severity: moderate Back Pain Location: lumbar spine, paraspinous muscles Back Pain Radiation: other - none Method of Injury/Prior Injury: other - see hpi Allergies/Adverse Reactions: Allergies Penicillins Allergy (Severe, Verified 08/30/16 11:07) Anaphylaxis Home Medications: Ambulatory Orders Mirtazapine [Remeron] 15 mg PO BEDTIME #30 tab 01/18/15 Tramadol HCl 50 mg PO TID PRN 08/30/16 Fexofenadine HCl [Rachell] 60 mg PO PRN 05/27/17 Magnesium Hydroxide [Milk Of Magnesia] 30 ml PO PRN 05/27/17 diphenhydrAMINE HCL [Benadryl] 25 mg PO PRN 05/27/17 Albuterol Sulfate Nebs [Proventil Nebs] 2.5 mg INH Q6HR PRN #100 vial 05/31/17 Bifidobacterium Infantis [Align] 4 mg PO DAILY cap 05/31/17 Cefdinir [Omnicef] 300 mg PO BID #14 cap 05/31/17 Methylprednisolone [Medrol Dose Len] 4 mg PO DAILY #1 pack 05/31/17 Pantoprazole Tablet [Protonix] 40 mg PO DAILY@0630 #30 tab 05/31/17 guaiFENesin ER TAB [Mucinex Tab] 600 mg PO BID tab 05/31/17 Review of Systems - Review of Systems Constitutional: States: no symptoms reported EENTM: States: no symptoms reported Respiratory: States: other - hospitalized for PNA last week Cardiology: States: no symptoms reported Gastrointestinal/Abdominal: States: no symptoms reported Genitourinary: States: no symptoms reported Musculoskeletal: States: see HPI Skin: States: no symptoms reported Neurological: States: no symptoms reported Past Medical History (General) - Patient Medical History Hx Seizures: No Hx Stroke: No Hx Dementia: No Hx Asthma: No Hx of COPD: Yes Hx Cardiac Disorders: No Hx Congestive Heart Failure: No Hx Pacemaker: No Hx Hypertension: Yes Hx Thyroid Disease: No Hx Diabetes: No Hx Gastroesophageal Reflux: No Hx Renal Disease: Yes - urgency Hx Cancer: No Hx of HIV: No Hx Hepatitis C: No Hx MRSA: No Surgical History: other - thyroidectomy ,btl - Vaccination History Hx Tetanus, Diphtheria Vaccination: Yes Hx Influenza Vaccination: Yes Hx Pneumococcal Vaccination: Yes - Social History Hx Tobacco Use: Yes Hx Chewing Tobacco Use: No Hx Alcohol Use: No Hx Substance Use: No Hx Substance Use Treatment: No Hx Depression: No Hx Physical Abuse: No Hx Emotional Abuse: No Hx Suspected Abuse: No - Activities of Daily Living Patient Lives Alone: Yes Grooming Ability: Standby Assistance Eating (Feeding) Ability: Standby Assistance Toileting Ability: Standby Assistance - Female History Patient : No Family Medical History - Family History Mother Family History: No Known Living Status: Physical Exam - Physical Exam General Appearance: Alert, Comfortable, No apparent distress Eyes, Ears, Nose, Throat Exam: PERRL/EOMI, normal ENT inspection, pharynx normal Neck Exam: non-tender, full range of motion, normal inspection Cardiovascular/Respiratory: regular rate, rhythm, no M/R/G, normal peripheral pulses, no JVD, wheezing Peripheral Pulses: radial,right: 2+, radial,left: 2+ Gastrointestinal/Abdominal: normal bowel sounds, non tender, soft, no organomegaly Back Exam: decreased range of motion, vertebral tenderness Extremity Exam: no evidence of injury, normal range of motion, non-tender, no pedal edema Neurologic: no motor/sensory deficits, alert, normal mood/affect, oriented x 3 Skin Exam: normal color, warm/dry Progress - Progress Progress: 06/24/17 09:33 Vital Signs - 8 hr 06/24/17 09:04 Temperature 98.4 F Pulse Rate [ 66 Left Brachial] Respiratory 20 Rate Blood Pressure 116/67 [Left Arm] O2 Sat by Pulse 91 L Oximetry - Results/Orders Results/Orders: Laboratory Tests 06/24/17 06/24/17 06/24/17 09:52 09:52 10:58 WBC 4.5 L RBC 4.42 Hgb 13.8 Hct 41.9 MCV 94.8 MCH 31.3 H MCHC 33.0 RDW 15.9 H Plt Count 271 MPV 9.3 Absolute Neuts (auto) 2.40 Absolute Lymphs (auto) 1.10 Absolute Monos (auto) 0.50 Absolute Eos (auto) 0.30 Absolute Basos (auto) 0.10 Neutrophils % 53.7 Lymphocytes % 24.1 Monocytes % 11.4 H Eosinophils % 7.5 H Basophils % 3.3 H Sodium 139 Potassium 4.0 Chloride 103 Carbon Dioxide 27 Anion Gap 13.0 BUN 10 Creatinine 0.46 L BUN/Creatinine Ratio 21.7 H Random Glucose 115 H Serum Osmolality 277.5 Calcium 8.7 Total Bilirubin 0.3 AST 18 ALT 9 L Alkaline Phosphatase 104 Serum Total Protein 6.8 Albumin 3.1 L Globulin 3.7 H Albumin/Globulin Ratio 0.8 L Urine Color Yellow Urine Appearance Clear Urine pH 5.5 Ur Specific [place] 1.020 Urine Protein Negative Urine Glucose (UA) Negative Urine Ketones Negative Urine Blood Trace-lysed H Urine Nitrite Negative Urine Bilirubin Negative Urine Urobilinogen 0.2 Ur Leukocyte Esterase Negative Urine RBC 3-5 H Urine WBC 1-3 Ur Epithelial Cells 1-3 Urine Bacteria 0 - EKG/XRAY/CT XRAY: chest - copd changes CT: spinal stenosisl3-l4 ;foraminal enroachment l4-s1 CT Ordered: Yes - l-spine-hayde sacral insufficiency fracture severe disc disease l3-l5 ; Departure - Departure Clinical Impression: Acute low back pain due to spinal disorder, Bilateral sacral insufficiency fracture with nonunion COPD (chronic obstructive pulmonary disease) Qualifiers: COPD type: unspecified COPD Qualified Code(s): J44.9 - Chronic obstructive pulmonary disease, unspecified Time of Disposition: 11:48 Disposition: Admit Patient Departure Forms: Patient Portal Self Enrollment Referrals: Raúl Garcia MD [Primary Care Provider] - 1-2 Weeks Home Medications: Ambulatory Orders Mirtazapine [Remeron] 15 mg PO BEDTIME #30 tab 01/18/15 Tramadol HCl 50 mg PO TID PRN 08/30/16 Fexofenadine HCl [Rachell] 60 mg PO PRN 05/27/17 Magnesium Hydroxide [Milk Of Magnesia] 30 ml PO PRN 05/27/17 diphenhydrAMINE HCL [Benadryl] 25 mg PO PRN 05/27/17 Albuterol Sulfate Nebs [Proventil Nebs] 2.5 mg INH Q6HR PRN #100 vial 05/31/17 Bifidobacterium Infantis [Align] 4 mg PO DAILY cap 05/31/17 Cefdinir [Omnicef] 300 mg PO BID #14 cap 05/31/17 Methylprednisolone [Medrol Dose Len] 4 mg PO DAILY #1 pack 05/31/17 Pantoprazole Tablet [Protonix] 40 mg PO DAILY@0630 #30 tab 05/31/17 guaiFENesin ER TAB [Mucinex Tab] 600 mg PO BID tab 05/31/17 Decision To Admit - Decistion To Admit Decision to Admit Reason: Admit from ER Decision to Admit Date: 06/24/17 - D/W Jaida Blackwell -ANP/Hospitalist Decision to Admit Time: 11:47
[2017-06-24] MEDS ORDERED: KETOROLAC TROMETHAMINE INJ 30 MG/ML VIAL IV ONE (09:32)
[2017-06-24] MEDS ORDERED: ORPHENADRINE CITRATE 30 MG/ML AMP IV ONE (09:32)
[2017-06-24] MEDS ORDERED: IPRATROPIUM/ALBUTEROL 3 ML VIAL NEB ONE (09:43)
--- NOTE | 2017-06-24 10:36 | RAD ---
EXAM DESCRIPTION: Chest,1 View CLINICAL HISTORY: 82 years Female, back pain COMPARISON: May 30, 2017 TECHNIQUE: AP portable chest. FINDINGS: The lungs are clear of infiltrate. There is no effusion or nodule. The lungs appear hyperinflated with flattening of the diaphragms. There is hyperlucency of the lungs as well. These findings are most consistent with chronic emphysema. Interstitial markings are prominent. Mild cardiomegaly without failure. IMPRESSION: Chronic changes, no acute process observed. Electronically signed by: Hansel Jaimes MD 06/24/2017 10:35 AM [facility]
--- NOTE | 2017-06-24 10:56 | CT ---
EXAM DESCRIPTION: Lumbar Spine CLINICAL HISTORY: pain COMPARISON: None TECHNIQUE: Non contrast transaxial CT images of the lumbar spine are obtained with coronal and sagittal reconstructed images. This exam was performed according to our departmental dose-optimization program, which includes automated exposure control, adjustment of the mA and/or kV according to patient size and/or use of iterative reconstruction technique . FINDINGS: GENERAL Lumbar vertebral body heights are maintained. There is scoliosis of the lumbar spine with convexity of the upper lumbar spine towards the right centered at L1 to convexity towards the left centered at L4-5. Moderate to severe right far lateral osteophytic ridging with endplate sclerosis and vacuum disc is seen at L4-5 and L5-S1. Osseous structures are diffusely osteopenic. Moderate atherosclerotic disease is seen. Calcifications of the pancreas are seen suggesting chronic pancreatitis. Vertical oriented fractures of the sacrum are seen right greater than left. Degenerative changes of the sacroiliac joints are seen bilaterally. L1-2 Moderate bilateral facet hypertrophic and degenerative changes are seen. Mild spinal canal stenosis is seen with at least mild left foraminal encroachment. L2-3 There is 3 to 4 mm broad-based disc bulge with mild posterior disc space narrowing. Moderate bilateral facet hypertrophic and degenerative changes are seen. Ligamentum flavum thickening is seen. There is mild spinal canal stenosis with thecal sac measuring at least 7 mm AP. Mild bilateral foraminal encroachment. L3-4 Severe bilateral facet hypertrophic and degenerative changes are seen. There is moderate to severe spinal canal stenosis and at least mild lateral recess encroachment with mild bilateral foraminal encroachment. L4-5 Severe right-sided disc space narrowing. Mild bilateral facet hypertrophic and degenerative changes are seen. There is mild spinal canal stenosis. Moderate bilateral foraminal encroachment is seen. L5-S1 Moderate disc space narrowing with partial vacuum disc. Moderate bilateral facet hypertrophic and degenerative changes are seen. Mild right lateral recess encroachment. There is moderate to severe bilateral foraminal encroachment. IMPRESSION: Bilateral sacral insufficiency fractures are seen. Severe diffuse osteopenia of the osseous structures is noted. Scoliosis of the lumbar spine with moderate to severe disc disease L3-L5 and multilevel facet arthropathy. There is multifactorial moderate to severe spinal canal stenosis at L3-4. Multilevel foraminal encroachment is most significant from L4 through S1. Electronically signed by: Theron Rainey MD 06/24/2017 10:55 AM [facility]
--- NOTE | 2017-06-24 13:02 | HP ---
SUPERVISING PHYSICIAN: Felipe Davis M.D. CHIEF COMPLAINT: Back pain. HISTORY OF PRESENT ILLNESS: This is an 82 year-old female patient who has had an acute onset of back pain that started about 6 days ago. She is fairly independent with a walker and lives alone with home health. She said approximately 6 days ago she was using her walker and went through a grassy area outside and while she was going through this area she was unable to use her walker like she usually does and it required a lot of pushing and pulling as well as twisting. She felt some twinges in her lower back and she had some mild discomfort that evening. She went to bed and the next morning she was unable to get out of bed. Since that time she has been wheelchair bound and unable to ambulate or transfer without assistance. Prior to this injury she had no difficulty with ambulating with a walker or with her own transfers. She was brought to the Emergency Room by the ambulance. She has no bowel or bladder dysfunction. She also had no fever. In the Emergency Room, her chest x-ray showed no acute cardiopulmonary processes. Her lumbar spine CT per radiology interpretation shows bilateral sacral insufficiency fracture seen with severe osteopenia. There is scoliosis of the lumbar spine with moderate to severe disk disease of L3 to L5 and multilevel facet arthropathy, multifactorial moderate to severe spinal canal stenosis at L3 to 4, multilevel foraminal encroachment most significant at L4 through S1. Her CBC was basically within normal limits with the exception of her WBCs were low at 4.5. Her creatinine was low at 0.06 but her electrolytes were within normal limits. Glucose was slightly elevated at 115. She had a small amount of blood in her urine. She was given Toradol in the Emergency Room that helped with her pain as well as given Norflex and I was called for admission to the hospital. PAST MEDICAL HISTORY: 1. Hypertension. 2. Chronic obstructive pulmonary disease. 3. Peripheral vascular disease with claudication and stent placement by Dr. Manriquez in the right leg. 4. Gastroesophageal reflux disease. 5. Osteopenia. 6. Dementia. 7. Chronic low back pain. 8. Chronic smoker. PAST SURGICAL HISTORY: 1. Breast augmentation with fibrocystic disease and tissue removed prior to implants in 1979. 2. Thyroidectomy in 1969. 3. Bilateral tubal ligation in 1973. HOME MEDICATIONS: Per the EMR and awaiting verification. ALLERGIES: PENICILLIN. FAMILY HISTORY: Father at age 85 from natural causes. Mother at 86 from heart disease. SOCIAL HISTORY: The patient is retired. She lives alone in [place]. She has two daughters. She currently smokes 1/2 pack of cigarettes per day and has since the age of 10. She denies any alcohol or illicit drug use. REVIEW OF SYSTEMS: GENERAL: Positive for fatigue. Negative for fever or weight changes. HEENT: Negative for sinus symptoms, ear pain, vision changes or sore throat. RESPIRATORY: Positive for cough as well as a recent inpatient for pneumonia. Negative for wheezing or shortness of breath. CARDIAC: Negative for chest pain, palpitations or tachycardia. GASTROINTESTINAL: Negative for nausea, vomiting, constipation or diarrhea. GENITOURINARY: Negative for hematuria, dysuria or polyuria. NEUROLOGIC: Negative for confusion, headaches or seizures. MUSCULOSKELETAL: As per history of present illness. PHYSICAL EXAMINATION: VITAL SIGNS: She is afebrile. Heart rate 62, blood pressure 102/59, respiratory rate 20, O2 saturation is 87% on room air, 93% with 1.5 liters nasal cannula. GENERAL: This is a thin 82 year-old female patient who is lying in her hospital bed. She is in mild distress due to pain.. HEENT: Normocephalic and atraumatic. Pupils are equal and reactive. Oropharynx is clear. NECK: Supple without mass. RESPIRATORY: Clear to auscultation bilaterally. She is somewhat diminished at the bases. CARDIOVASCULAR: Regular rate and rhythm. GASTROINTESTINAL: Abdomen is soft, nondistended, non-tender. Bowel sounds are positive. EXTREMITIES: No cyanosis, clubbing or edema. SKIN: Warm and dry. BACK: She is tenderness to palpation along the lower back. There is no edema or ecchymosis/ NEUROLOGIC: She is awake. She is alert and oriented. . LABORATORY: Labs and films are as per the history of present illness. ASSESSMENT: 1. Acute low back pain due to spinal disorder. 2. Bilateral sacral insufficiency fracture with nonunion. 3. Chronic obstructive pulmonary disease without exacerbation. 4. Recent injury to lower back from twisting and pushing and pulling that has resulted in #1. 5. Gastroesophageal reflux disease. 6. Mild dementia. 7. Tobacco abuse. 8. History of peripheral vascular disease. 9. Hypertension. PLAN: We will place the patient in observation. I have also contacted the rehabilitation facility in [place] for referral to see if we can get the patient back to her prior level of functioning. We will monitor the patient closely and keep a close eye on her pain. I will restart her home medications and hopefully she can be discharged in the next day or so to the [place] [facility] for physical therapy and strengthening. Dr. Davis is the collaborating physician available for consultation. #[id number] [facility]
[2017-06-24] MEDS ORDERED: SODIUM CHLORIDE 0.9% (FLUSH) 10 ML SYG IV PRN (14:07)
[2017-06-24] MEDS ORDERED: ENOXAPARIN SODIUM 40 MG/0.4 ML SYG SUBCU SCH (14:30)
[2017-06-24] MEDS ORDERED: IV SET AND CAP CHANGE INJ INJ SCH (14:30)
[2017-06-24] MEDS: traMADol HCL 50 MG TAB PO PRN (15:21)
[2017-06-24] MEDS ORDERED: LEVALBUTEROL NEBS 1.25 MG/3 ML VIAL INH SCH (16:00)
[2017-06-24] MEDS: KETOROLAC TROMETHAMINE INJ 30 MG/ML VIAL IV SCH ×2 (16:38→21:24)
[2017-06-24] MEDS: IPRATROPIUM/ALBUTEROL 3 ML VIAL INH SCH ×2 (17:06→19:45)
[2017-06-24] MEDS ORDERED: LEVALBUTEROL NEBS 1.25 MG/3 ML VIAL NEB PRN (17:10)
[2017-06-24] MEDS ORDERED: MIRTAZAPINE 15 MG TAB PO PRN (20:24)
[2017-06-24] MEDS ORDERED: MIRTAZAPINE 15 MG TAB PO SCH (21:00)
[2017-06-24] MEDS ORDERED: NON-FORMULARY MEDICATION 1 EA MIS (Fexofenadine Hcl [Allegra Allergy] 180 MG) PO SCH (21:00)
[2017-06-24] MEDS: SODIUM CHLORIDE 0.9% (FLUSH) 10 ML SYG IV SCH (21:24)
[2017-06-25] MEDS: KETOROLAC TROMETHAMINE INJ 30 MG/ML VIAL IV SCH ×2 (04:14→08:36)
[2017-06-25 05:51] VITALS: TEMP 97.9
[2017-06-25] MEDS ORDERED: OMEPRAZOLE CAP 20 MG CAP PO SCH (06:30)
[2017-06-25] MEDS ORDERED: KETOROLAC TROMETHAMINE INJ 30 MG/ML VIAL ONE (07:43)
[2017-06-25] MEDS ORDERED: BIFIDOBACTERIUM INFANTIS 4 MG CAP ONE (07:43)
[2017-06-25] MEDS: IPRATROPIUM/ALBUTEROL 3 ML VIAL INH SCH (07:51)
[2017-06-25] MEDS: IPRATROPIUM/ALBUTEROL 3 ML VIAL NEB SCH ×2 (07:52→11:48)
[2017-06-25] MEDS: SODIUM CHLORIDE 0.9% (FLUSH) 10 ML SYG IV SCH (08:45)
--- NOTE | 2017-06-25 08:45 | PCM.CORE ---
Physician DVT/VTE - Prophylaxis Currently: Patient already on anticoagulation therapy - Nurse DVT Assessment & Total Each Risk Factor Represents 3 Points: Age over 75 years DVT Assessment Score: 3 - 3-4 High Risk Treatments: Early Ambulation *, Sequential Compression Device
[2017-06-25] MEDS ORDERED: ENOXAPARIN SODIUM 40 MG/0.4 ML SYG SUBCU SCH (09:00)
[2017-06-25] MEDS ORDERED: BIFIDOBACTERIUM INFANTIS 4 MG CAP PO SCH (09:00)
[2017-06-25] MEDS ORDERED: NICOTINE PATCH 21 MG TD SCH (10:30)
[2017-06-25 11:57] VITALS: BP 118/77
[2017-06-25] MEDS: traMADol HCL 50 MG TAB PO PRN (12:02)
--- NOTE | 2017-06-25 13:22 | DS ---
SUPERVISING PHYSICIAN: Felipe Davis M.D. DISCHARGE DIAGNOSIS: 1. Acute low back pain due to spinal disorder. 2. Bilateral sacral insufficiency fracture with nonunion. 3. Chronic obstructive pulmonary disease without exacerbation. 4. Recent injury to lower back from twisting and pushing and pulling that has resulted in #1. 5. Gastroesophageal reflux disease. 6. Mild dementia. 7. Tobacco abuse. 8. History of peripheral vascular disease. 9. Hypertension. HISTORY OF PRESENT ILLNESS: This is an 82 year-old female patient who has had an acute onset of back pain that started about 6 days ago. She is fairly independent with a walker and lives alone with home health. She said approximately 6 days ago she was using her walker and went through a grassy area outside and while she was going through this area she was unable to use her walker like she usually does and it required a lot of pushing and pulling as well as twisting. She felt some twinges in her lower back and she had some mild discomfort that evening. She went to bed and the next morning she was unable to get out of bed. Since that time she has been wheelchair bound and unable to ambulate or transfer without assistance. Prior to this injury she had no difficulty with ambulating with a walker or with her own transfers. She was brought to the Emergency Room by the ambulance. She has no bowel or bladder dysfunction. She also had no fever. In the Emergency Room, her chest x-ray showed no acute cardiopulmonary processes. Her lumbar spine CT per radiology interpretation shows bilateral sacral insufficiency fracture seen with severe osteopenia. There is scoliosis of the lumbar spine with moderate to severe disk disease of L3 to L5 and multilevel facet arthropathy, multifactorial moderate to severe spinal canal stenosis at L3 to 4, multilevel foraminal encroachment most significant at L4 through S1. Her CBC was basically within normal limits with the exception of her WBCs were low at 4.5. Her creatinine was low at 0.06 but her electrolytes were within normal limits. Glucose was slightly elevated at 115. She had a small amount of blood in her urine. She was given Toradol in the Emergency Room that helped with her pain as well as given Norflex and I was called for admission to the hospital. HOSPITAL COURSE: The patient was placed in Observation in the hospital. Her Toradol IV was continued for a total of 5 doses. She was also given Tramadol for pain. She received a nicotine patch. The [facility] was contacted for their rehabilitation services and the patient will be accepted for inpatient rehabilitation. Today, she will be discharged to the [facility] for physical therapy and to evaluate her back pain. DISCHARGE PLAN: The patient will be discharged to [facility] today in [place], [place]. She is to resume her previous home medications with the addition of a nicotine patch. She will be discharged in stable condition. She is to have a followup with Dr. Garcia, her primary care provider 1 to 2 weeks after discharge. Her activity is per the rehab facility' s physical therapy department. DISCHARGE MEDICATIONS: 1. Tramadol. 2. Benadryl. 3. Milk of Magnesia. 4. Align. 5. Albuterol sulfate nebs. 6. Fexofenadine. 7. Pantoprazole. 8. Remeron. 9. Nicotine patch. Dr. Davis is the collaborating physician available for consultation. #[id number] [facility]
[2017-06-25 13:40] VITALS: O2SAT 98
[2017-06-25] MEDS ORDERED: diphenhydrAMINE HCL 25 MG CAP PO PRN (21:00)
== END 2017-06-25 12:25 ==
LOC: ER 09:00 → MS 12:55
PROVIDERS: ADMIT Nurse Practitioner Acute Care; ATTEND Nurse Practitioner Acute Care
DX: G89.11 Acute pain due to trauma (principal); M51.36 Other intervertebral disc degeneration, lumbar region; M48.061 Spinal stenosis, lumbar region without neurogenic claudication; M53.3 Sacrococcygeal disorders, not elsewhere classified; J44.9 Chronic obstructive pulmonary disease, unspecified; K21.9 Gastro-esophageal reflux disease without esophagitis; F03.90 Unspecified dementia, unspecified severity, without behavioral disturbance, psychotic disturbance, mood disturbance, and anxiety; F17.210 Nicotine dependence, cigarettes, uncomplicated; I10 Essential (primary) hypertension; G89.29 Other chronic pain; M85.88 Other specified disorders of bone density and structure, other site; X50.0XXA Overexertion from strenuous movement or load, initial encounter; Y93.89 Activity, other specified; Y92.007 Garden or yard of unspecified non-institutional (private) residence as the place of occurrence of the external cause; Z79.899 Other long term (current) drug therapy; Z88.0 Allergy status to penicillin; Z60.2 Problems related to living alone
CPT/HCPCS: 36415; 71010; 72131; 80053; 81001; 85025; 94640 ×5; 94760 ×6; 96372 ×2; 96374; 96375; 96376 ×2; 99284; J1650 ×2; J1885 ×5; J2360; J7614; J7620 ×4

== ENCOUNTER 2017-07-11 12:57 | Emergency (ER) | payer MEDICARE ==
--- NOTE | 2017-07-11 14:31 | RAD ---
EXAM DESCRIPTION: Chest,1 View CLINICAL HISTORY: 82 years Female, pain COMPARISON: June 24, 2017 TECHNIQUE: AP portable chest. FINDINGS: Persistent minimal haziness left lung base most consistent with scarring. Lungs otherwise clear. Heart normal size. Findings of COPD. Myocardial megaly. IMPRESSION: Chronic changes, no acute process Electronically signed by: Hansel Jaimes MD 07/11/2017 2:30 PM [employer]
[2017-07-11 14:45] VITALS: TEMP 97.2
--- NOTE | 2017-07-11 14:47 | ED.PDOC ---
History of Present Illness - General Chief Complaint: Respiratory Problem Stated Complaint: HEADACHE, CONGESTION, REFLUX Time Seen by Provider: 07/11/17 14:06 Source: patient Exam Limitations: no limitations - History of Present Illness Initial Comments: Emili Garcia 82 y/o female stated that for the last 2 days had bad heart burn as well as nasal congestion denies history of fever, heart disease. No nausea / vomiting ,hematemesis blood in stool.Recently discharged from rehab hospital for her low back in [place], [place] Timing/Duration: other - 2 days Severity: moderate Improving Factors: nothing Worsening Factors: nothing Associated Symptoms: other - see hpi Allergies/Adverse Reactions: Allergies Penicillins Allergy (Severe, Verified 06/24/17 11:51) Anaphylaxis Home Medications: Ambulatory Orders Tramadol HCl 50 mg PO TID PRN 08/30/16 Magnesium Hydroxide [Milk Of Magnesia] 30 ml PO PRN 05/27/17 diphenhydrAMINE HCL [Benadryl] 25 mg PO PRN 05/27/17 Albuterol Sulfate Nebs [Proventil Nebs] 2.5 mg INH Q6HR PRN #100 vial 05/31/17 Bifidobacterium Infantis [Align] 4 mg PO DAILY cap 05/31/17 Fexofenadine HCl [Rachell Allergy] 180 mg PO DAILY PRN 06/24/17 Mirtazapine [Remeron] 15 mg PO BEDTIME 06/24/17 Mirtazapine [Remeron] 15 mg PO BEDTIME PRN 06/24/17 Pantoprazole Sodium 40 mg PO DAILY 06/24/17 Nicotine Patch 21 mg [Habitrol Patch 21mg] 1 ea TD Q24H patch 06/25/17 Sucralfate Suspension [Carafate Suspension] 1 gm PO Q6HRS #1 bottle 07/11/17 Review of Systems - Review of Systems Constitutional: States: no symptoms reported EENTM: States: see HPI Respiratory: States: no symptoms reported Cardiology: States: no symptoms reported Gastrointestinal/Abdominal: States: see HPI Musculoskeletal: States: no symptoms reported Skin: States: no symptoms reported Neurological: States: no symptoms reported Endocrine: States: no symptoms reported Past Medical History (General) - Patient Medical History Hx Seizures: No Hx Stroke: No Hx Dementia: No Hx Asthma: No Hx of COPD: Yes Hx Cardiac Disorders: No Hx Congestive Heart Failure: No Hx Pacemaker: No Hx Hypertension: Yes Hx Thyroid Disease: No Hx Diabetes: No Hx Gastroesophageal Reflux: No Hx Renal Disease: Yes - urgency Hx Cancer: No Hx of HIV: No Hx Hepatitis C: No Hx MRSA: No Surgical History: other - thyroidectomy,BTL - Vaccination History Hx Tetanus, Diphtheria Vaccination: Yes Hx Influenza Vaccination: Yes Hx Pneumococcal Vaccination: Yes - Social History Hx Tobacco Use: Yes Hx Chewing Tobacco Use: No Hx Alcohol Use: No Hx Substance Use: No Hx Substance Use Treatment: No Hx Depression: No Hx Physical Abuse: No Hx Emotional Abuse: No Hx Suspected Abuse: No - Activities of Daily Living Patient Lives Alone: No - family Grooming Ability: Independent Eating (Feeding) Ability: Independent Toileting Ability: Independent - Female History Patient : No Family Medical History - Family History Mother Family History: No Known Living Status: Physical Exam - Physical Exam General Appearance: Alert, Comfortable, No apparent distress Eye Exam: bilateral normal Ears, Nose, Throat: hearing grossly normal, normal ENT inspection, normal pharynx, nasal congestion Neck: non-tender, full range of motion, supple Respiratory: chest non-tender, lungs clear, normal breath sounds Cardiovascular/Chest: normal peripheral pulses, regular rate, rhythm, no edema, no murmur Peripheral Pulses: radial,right: 2+, radial,left: 2+ Gastrointestinal/Abdominal: normal bowel sounds, non tender, soft, no organomegaly Back Exam: no CVA tenderness, no vertebral tenderness Extremity: normal inspection, no pedal edema, no calf tenderness Neurologic: alert, normal mood/affect, oriented x 3 Skin Exam: normal color, warm/dry Progress - Progress Progress: 07/11/17 15:01 Last Vital Signs Temp 97.2 F L 07/11/17 13:50 Pulse 84 07/11/17 13:50 Resp 16 07/11/17 13:50 BP 113/81 07/11/17 13:50 Pulse Ox 94 L 07/11/17 13:50 - Results/Orders Results/Orders: Laboratory Tests 07/11/17 07/11/17 14:25 14:25 WBC 4.2 L RBC 4.51 Hgb 13.7 Hct 42.5 MCV 94.1 MCH 30.4 MCHC 32.3 L RDW 14.9 H Plt Count 269 MPV 10.8 H Absolute Neuts (auto) 1.90 Absolute Lymphs (auto) 1.50 Absolute Monos (auto) 0.50 Absolute Eos (auto) 0.20 Absolute Basos (auto) 0.10 Neutrophils % 44.4 Lymphocytes % 36.4 Monocytes % 12.3 H Eosinophils % 5.6 H Basophils % 1.3 PT 12.2 INR 1.080 PTT (SP) 27.6 Sodium 143 Potassium 3.7 Chloride 107 Carbon Dioxide 23 Anion Gap 16.7 BUN 9 Creatinine 0.60 BUN/Creatinine Ratio 15.0 Random Glucose 84 Serum Osmolality 282.9 Calcium 8.6 Magnesium 1.9 Total Bilirubin < 0.2 L Direct Bilirubin < 0.1 Indirect Bilirubin 0.1 L AST 23 ALT 12 Alkaline Phosphatase 205 H Creatine Kinase 42 CK-MB (CK-2) 1.5 CK-MB (CK-2) % Not Reportable Troponin I < 0.02 Serum Total Protein 7.2 Albumin 3.3 - EKG/XRAY/CT EKG: Sinus, no ST T wave changes Comments: heart rate 77 Departure - Departure Clinical Impression: Reflux esophagitis Abdominal pain Qualifiers: Abdominal location: epigastric Qualified Code(s): R10.13 - Epigastric pain Allergic rhinitis Qualifiers: Chronicity: unspecified Allergic rhinitis trigger: unspecified Allergic rhinitis seasonality: unspecified seasonality Qualified Code(s): J30.9 - Allergic rhinitis, unspecified Time of Disposition: 16:39 Disposition: Discharge to Home or Self Care Condition: Fair Departure Forms: ED Discharge - Pt. Copy, Patient Portal Self Enrollment Instructions: DI for Gastroesophageal Reflux Disease (GERD), Gastroesophageal Reflux Disease (Alternative Therapy), Heartburn -- Overview, GERD Diet Referrals: Raúl Garcia MD [Primary Care Provider] - 1-2 Weeks Prescriptions: Sucralfate Suspension [Carafate Suspension] 1 gm PO Q6HRS #1 bottle Home Medications: Ambulatory Orders Tramadol HCl 50 mg PO TID PRN 08/30/16 Magnesium Hydroxide [Milk Of Magnesia] 30 ml PO PRN 05/27/17 diphenhydrAMINE HCL [Benadryl] 25 mg PO PRN 05/27/17 Albuterol Sulfate Nebs [Proventil Nebs] 2.5 mg INH Q6HR PRN #100 vial 05/31/17 Bifidobacterium Infantis [Align] 4 mg PO DAILY cap 05/31/17 Fexofenadine HCl [Rachell Allergy] 180 mg PO DAILY PRN 06/24/17 Mirtazapine [Remeron] 15 mg PO BEDTIME 06/24/17 Mirtazapine [Remeron] 15 mg PO BEDTIME PRN 06/24/17 Pantoprazole Sodium 40 mg PO DAILY 06/24/17 Nicotine Patch 21 mg [Habitrol Patch 21mg] 1 ea TD Q24H patch 06/25/17 Sucralfate Suspension [Carafate Suspension] 1 gm PO Q6HRS #1 bottle 07/11/17 Additional Instructions: Follow up with primary Md 07/12/2017 call for appointment
[2017-07-11] MEDS ORDERED: SUCRALFATE 1 GM/10 ML 1 GM UD PO ONE (14:50)
[2017-07-11] MEDS ORDERED: ALUM & MAG HYDROX-SIMETHICONE 30 ML, LIDOCAINE VISCOUS 2% 15 ML PO ONE ×2 (14:50)
[2017-07-11] MEDS ORDERED: LIDOCAINE HCL 2% (MOUTH-THROAT) 15 ML UD ONE (15:00)
[2017-07-11] MEDS ORDERED: ALUM & MAG HYDROX-SIMETHICONE 30 ML UD ONE (15:00)
[2017-07-11 16:55] VITALS: BP 118/70; O2SAT 95
== END 2017-07-11 16:46 | disposition home or self-care (01) ==
LOC: ER 12:57
DX: K21.0 Gastro-esophageal reflux disease with esophagitis (principal); J30.9 Allergic rhinitis, unspecified; J44.9 Chronic obstructive pulmonary disease, unspecified; I10 Essential (primary) hypertension; Z87.891 Personal history of nicotine dependence; Z88.0 Allergy status to penicillin

== ENCOUNTER 2017-07-23 16:34 | Emergency (ER) | payer MEDICARE ==
[2017-07-23] MEDS ORDERED: SODIUM CHLORIDE 0.9% 1000ML 1,000 ML IVS ONE (16:47)
--- NOTE | 2017-07-23 16:49 | ED.PDOC ---
History of Present Illness - General Chief Complaint: General Stated Complaint: URI symptoms Time Seen by Provider: 07/23/17 16:46 Source: patient, RN notes reviewed Additional Information: Pt reports headache, sinus pressure, nasal congestion, and cough x 1 day. She also reports occasional Reflux. Pt also c/o GERD for several days. - History of Present Illness Timing/Duration: unsure - several days Severity: moderate Improving Factors: nothing Worsening Factors: nothing Associated Symptoms: cough, headaches, other - reflux Allergies/Adverse Reactions: Allergies Penicillins Allergy (Severe, Verified 06/24/17 11:51) Anaphylaxis Home Medications: Ambulatory Orders Tramadol HCl 50 mg PO TID PRN 08/30/16 Magnesium Hydroxide [Milk Of Magnesia] 30 ml PO PRN 05/27/17 diphenhydrAMINE HCL [Benadryl] 25 mg PO PRN 05/27/17 Albuterol Sulfate Nebs [Proventil Nebs] 2.5 mg INH Q6HR PRN #100 vial 05/31/17 Bifidobacterium Infantis [Align] 4 mg PO DAILY cap 05/31/17 Fexofenadine HCl [Rachell Allergy] 180 mg PO DAILY PRN 06/24/17 Mirtazapine [Remeron] 15 mg PO BEDTIME 06/24/17 Mirtazapine [Remeron] 15 mg PO BEDTIME PRN 06/24/17 Pantoprazole Sodium 40 mg PO DAILY 06/24/17 Nicotine Patch 21 mg [Habitrol Patch 21mg] 1 ea TD Q24H patch 06/25/17 Sucralfate Suspension [Carafate Suspension] 1 gm PO Q6HRS #1 bottle 07/11/17 Potassium Chloride Tab [K-Dur] 20 meq PO DAILY 15 Days #15 tab 07/23/17 Sucralfate Suspension [Carafate Suspension] 1 gm PO Q6HR #1 bottle 07/23/17 raNITIdine HCL [Zantac] 150 mg PO BID #30 tab 07/23/17 Review of Systems - Review of Systems Constitutional: States: see HPI EENTM: States: nose congestion Respiratory: States: cough, short of breath Cardiology: States: no symptoms reported Gastrointestinal/Abdominal: States: other - reflux symptoms Genitourinary: States: no symptoms reported Musculoskeletal: States: no symptoms reported Skin: States: no symptoms reported Neurological: States: headache Endocrine: States: no symptoms reported Hematologic/Lymphatic: States: no symptoms reported Past Medical History (General) - Patient Medical History Hx Seizures: No Hx Stroke: No Hx Dementia: No Hx Asthma: No Hx of COPD: Yes Hx Cardiac Disorders: No Hx Congestive Heart Failure: No Hx Pacemaker: No Hx Hypertension: Yes Hx Thyroid Disease: No Hx Diabetes: No Hx Gastroesophageal Reflux: No Hx Renal Disease: Yes - urgency Hx Cancer: No Hx of HIV: No Hx Hepatitis C: No Hx MRSA: No - Vaccination History Hx Tetanus, Diphtheria Vaccination: Yes Hx Influenza Vaccination: Yes Hx Pneumococcal Vaccination: Yes - Social History Hx Tobacco Use: Yes Hx Chewing Tobacco Use: No Hx Alcohol Use: No Hx Substance Use: No Hx Substance Use Treatment: No Hx Depression: No Hx Physical Abuse: No Hx Emotional Abuse: No Hx Suspected Abuse: No - Female History Patient : No Family Medical History - Family History Mother Family History: No Known Living Status: Physical Exam - Physical Exam General Appearance: Comfortable, No apparent distress, Other - mildly dry mucus membranes Eye Exam: bilateral normal Ears, Nose, Throat: hearing grossly normal, normal ENT inspection, normal pharynx Neck: non-tender, full range of motion, supple Respiratory: normal breath sounds, no respiratory distress, no accessory muscle use Cardiovascular/Chest: normal peripheral pulses, regular rate, rhythm, no murmur Gastrointestinal/Abdominal: non tender, soft Back Exam: normal inspection, no CVA tenderness Extremity: normal range of motion, non-tender, normal inspection 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 Will give one dose of KCl and GI Cocktail. Pt given strict return precautions. Reflux symptoms for several days - cardiac enzyme negative. Pt denies chest pain currently. Flu negative. CXR negative for acute process. - Results/Orders Results/Orders: Chest X-Ray Report: EXAM DESCRIPTION: Chest,2 Views CLINICAL HISTORY: SOB COMPARISON: 07/11/2017 FINDINGS: Two views of the chest are submitted. Cardiac silhouette appears normal. There is atelectasis in the lung bases but no definite consolidation. No acute bony abnormality. There is no significant pulmonary vascular engorgement. IMPRESSION: No evidence of acute cardiopulmonary disease. Laboratory Results - last 24 hr 07/23/17 07/23/17 07/23/17 16:56 16:56 16:56 WBC 5.4 RBC 4.02 L Hgb 12.4 Hct 37.6 MCV 93.5 MCH 30.8 MCHC 32.9 L RDW 15.5 H Plt Count 238 MPV 9.9 Absolute Neuts (auto) 2.00 Absolute Lymphs (auto) 2.70 Absolute Monos (auto) 0.50 Absolute Eos (auto) 0.10 Absolute Basos (auto) 0.10 Neutrophils % 37.4 L Lymphocytes % 49.5 Monocytes % 9.0 Eosinophils % 2.6 Basophils % 1.5 Sodium 142 Potassium 2.9 L Chloride 107 Carbon Dioxide 25 Anion Gap 12.9 BUN 11 Creatinine 0.52 L BUN/Creatinine Ratio 21.2 H Random Glucose 119 H Serum Osmolality 283.7 Calcium 8.5 Total Bilirubin 0.2 AST 23 ALT 10 Alkaline Phosphatase 161 H Creatine Kinase 33 CK-MB (CK-2) 1.2 CK-MB (CK-2) % Not Reportable Troponin I < 0.02 Serum Total Protein 6.7 Albumin 3.2 Globulin 3.5 Albumin/Globulin Ratio 0.9 L Flu Negative. Departure - Departure Clinical Impression: Hypokalemia GERD (gastroesophageal reflux disease) Qualifiers: Esophagitis presence: esophagitis presence not specified Qualified Code(s): K21.9 - Gastro-esophageal reflux disease without esophagitis Time of Disposition: 18:49 Disposition: Discharge to Home or Self Care Condition: Fair Departure Forms: ED Discharge - Pt. Copy, Patient Portal Self Enrollment Instructions: DI for Hypokalemia Referrals: Raúl Garcia MD [Primary Care Provider] - 1-5 Days Prescriptions: Sucralfate Suspension [Carafate Suspension] 1 gm PO Q6HR #1 bottle Potassium Chloride Tab [K-Dur] 20 meq PO DAILY 15 Days #15 tab raNITIdine HCL [Zantac] 150 mg PO BID #30 tab Home Medications: Ambulatory Orders Tramadol HCl 50 mg PO TID PRN 08/30/16 Magnesium Hydroxide [Milk Of Magnesia] 30 ml PO PRN 05/27/17 diphenhydrAMINE HCL [Benadryl] 25 mg PO PRN 05/27/17 Albuterol Sulfate Nebs [Proventil Nebs] 2.5 mg INH Q6HR PRN #100 vial 05/31/17 Bifidobacterium Infantis [Align] 4 mg PO DAILY cap 05/31/17 Fexofenadine HCl [Rachell Allergy] 180 mg PO DAILY PRN 06/24/17 Mirtazapine [Remeron] 15 mg PO BEDTIME 06/24/17 Mirtazapine [Remeron] 15 mg PO BEDTIME PRN 06/24/17 Pantoprazole Sodium 40 mg PO DAILY 06/24/17 Nicotine Patch 21 mg [Habitrol Patch 21mg] 1 ea TD Q24H patch 06/25/17 Sucralfate Suspension [Carafate Suspension] 1 gm PO Q6HRS #1 bottle 07/11/17 Potassium Chloride Tab [K-Dur] 20 meq PO DAILY 15 Days #15 tab 07/23/17 Sucralfate Suspension [Carafate Suspension] 1 gm PO Q6HR #1 bottle 07/23/17 raNITIdine HCL [Zantac] 150 mg PO BID #30 tab 07/23/17 Additional Instructions: Take potassium supplement as prescribed. Follow-up with Primary Care Provider within 3 to 5 days for a reassessment and have them order repeat bloodwork. Your potassium level today was 2.9. Return to ER if your condition worsens.
--- NOTE | 2017-07-23 17:13 | RAD ---
EXAM DESCRIPTION: Chest,2 Views CLINICAL HISTORY: SOB COMPARISON: 07/11/2017 FINDINGS: Two views of the chest are submitted. Cardiac silhouette appears normal. There is atelectasis in the lung bases but no definite consolidation. No acute bony abnormality. There is no significant pulmonary vascular engorgement. IMPRESSION: No evidence of acute cardiopulmonary disease. Electronically signed by: Hugh Noguera 07/23/2017 5:12 PM SCIENCE INTERPRETER
[2017-07-23 17:15] VITALS: TEMP 97.7
[2017-07-23] MEDS ORDERED: POTASSIUM CHLORIDE 20 MEQ TAB PO ONE (18:29)
[2017-07-23] MEDS ORDERED: ALUM & MAG HYDROX-SIMETHICONE 30 ML, LIDOCAINE VISCOUS 2% 15 ML PO ONE ×2 (18:42)
[2017-07-23] MEDS ORDERED: LIDOCAINE HCL 2% (MOUTH-THROAT) 15 ML UD ONE (18:57)
[2017-07-23] MEDS ORDERED: ALUM & MAG HYDROX-SIMETHICONE 30 ML UD ONE (18:57)
[2017-07-23 19:21] VITALS: BP 124/70; O2SAT 98
== END 2017-07-23 20:54 | disposition home or self-care (01) ==
LOC: ER 16:34
DX: K21.9 Gastro-esophageal reflux disease without esophagitis (principal); E87.6 Hypokalemia; Z87.891 Personal history of nicotine dependence; Z88.0 Allergy status to penicillin
CPT/HCPCS: 36415; 71020; 80053; 82550; 82553; 84484; 85025; 87502; J7030

== ENCOUNTER → 2017-08-03 | Outpatient (CLI) | payer MEDICARE | END | disposition home or self-care (01) | LOC: BFHH 13:01 | PROVIDERS: ATTEND Family Medicine | DX: I10 Essential (primary) hypertension (principal) ==

== ENCOUNTER → 2017-08-24 | Outpatient (CLI) | payer MEDICARE | LOC: BFHH 14:07 | PROVIDERS: ATTEND Family Medicine | DX: R30.0 Dysuria (principal) ==

== ENCOUNTER → 2017-08-31 | Outpatient (CLI) | payer MEDICARE | LOC: BFHH 12:52 | PROVIDERS: ATTEND Family Medicine | DX: I10 Essential (primary) hypertension (principal); M80.08XA Age-related osteoporosis with current pathological fracture, vertebra(e), initial encounter for fracture; J44.9 Chronic obstructive pulmonary disease, unspecified; I73.9 Peripheral vascular disease, unspecified ==

== ENCOUNTER 2017-12-14 01:58 | Inpatient (IN) | payer MEDICARE ==
--- NOTE | 2017-12-14 02:16 | ED.PDOC ---
History of Present Illness - General Chief Complaint: Lower Extremity Injury Stated Complaint: ankle pain, fell Time Seen by Provider: 12/14/17 02:12 Source: patient Exam Limitations: no limitations - History of Present Illness Initial Comments: Emili Garcia 82 y/o female stated got up from her bed going to the bathroom and stated her right knee gave way twisting her right leg causing her to fall on the floor .Denies head ,neck hip pains .But pain on weight bearing right leg.Called family on the phone to get her and bring her to hospital. Occurred: just prior to arrival Pain - Lower Extremity: moderate: Right Leg Method of Injury: fell, twisted - right leg Improving Factors: rest Worsening Factors: movement Allergies/Adverse Reactions: Allergies Penicillins Allergy (Severe, Verified 06/24/17 11:51) Anaphylaxis Home Medications: Ambulatory Orders Tramadol HCl 50 mg PO TID PRN 08/30/16 Magnesium Hydroxide [Milk Of Magnesia] 30 ml PO PRN 05/27/17 diphenhydrAMINE HCL [Benadryl] 25 mg PO PRN 05/27/17 Albuterol Sulfate Nebs [Proventil Nebs] 2.5 mg INH Q6HR PRN #100 vial 05/31/17 Bifidobacterium Infantis [Align] 4 mg PO DAILY cap 05/31/17 Fexofenadine HCl [Rachell Allergy] 180 mg PO DAILY PRN 06/24/17 Mirtazapine [Remeron] 15 mg PO BEDTIME 06/24/17 Mirtazapine [Remeron] 15 mg PO BEDTIME PRN 06/24/17 Pantoprazole Sodium 40 mg PO DAILY 06/24/17 Nicotine Patch 21 mg [Habitrol Patch 21mg] 1 ea TD Q24H patch 06/25/17 Sucralfate Suspension [Carafate Suspension] 1 gm PO Q6HRS #1 bottle 07/11/17 Potassium Chloride Tab [K-Dur] 20 meq PO DAILY 15 Days #15 tab 07/23/17 Sucralfate Suspension [Carafate Suspension] 1 gm PO Q6HR #1 bottle 07/23/17 raNITIdine HCL [Zantac] 150 mg PO BID #30 tab 07/23/17 Review of Systems - Review of Systems Constitutional: States: no symptoms reported EENTM: States: no symptoms reported Respiratory: States: no symptoms reported Musculoskeletal: States: see HPI Neurological: States: no symptoms reported All other Systems: Reviewed and Negative, No Change from Baseline Past Medical History (General) - Patient Medical History Hx Seizures: No Hx Stroke: No Hx Dementia: No Hx Asthma: No Hx of COPD: Yes Hx Cardiac Disorders: No Hx Congestive Heart Failure: No Hx Pacemaker: No Hx Hypertension: Yes Hx Thyroid Disease: No Hx Diabetes: No Hx Gastroesophageal Reflux: No Hx Renal Disease: Yes - urgency Hx Cancer: No Hx of HIV: No Hx Hepatitis C: No Hx MRSA: No Surgical History: other - thyroidectomy ,BTL - Vaccination History Hx Tetanus, Diphtheria Vaccination: Yes Hx Influenza Vaccination: Yes Hx Pneumococcal Vaccination: Yes Immunizations Up to Date: Yes - Social History Hx Tobacco Use: Yes Hx Chewing Tobacco Use: No Hx Alcohol Use: No Hx Substance Use: No Hx Substance Use Treatment: No Hx Depression: No Hx Physical Abuse: No Hx Emotional Abuse: No Hx Suspected Abuse: No - Female History Patient : No Family Medical History - Family History Mother Family History: Unknown Living Status: Physical Exam - Physical Exam General Appearance: Alert, Comfortable, No apparent distress Eyes, Ears, Nose, Throat: normal ENT inspection Neck: non-tender, supple, normal inspection Cardiovascular/Respiratory: regular rate, rhythm, no M/R/G, normal peripheral pulses, normal breath sounds Gastrointestinal/Abdominal: non-tender, no organomegaly Back: no CVA tenderness, no vertebral tenderness Thigh/Hip: non-tender, no evidence of injury Leg: ecchymosis - right distal leg, limited ROM - distal leg right, soft tissue tenderness, swelling Knee: non-tender, no evidence of injury Ankle: limited ROM - painful right, soft tissue tenderness, swelling Foot: non-tender, no evidence of injury Neuro/Tendon: normal sensation, normal motor functions, normal tendon functions , responds to pain Mental Status: alert, oriented x 3 Skin: normal color, warm/dry Progress - Progress Progress: 12/14/17 03:48 Vital Signs - 8 hr 12/14/17 12/14/17 02:00 03:02 Temperature 99.1 F 98.9 F Pulse Rate [ 68 71 Right Arm] Respiratory 16 16 Rate Blood Pressure 116/78 104/71 [Right Arm] O2 Sat by Pulse 95 96 Oximetry - EKG/XRAY/CT XRAY: ankle - right slightly displaced trimalleolar fracture;D/W Dr. Patel he will see patient in am -consult Procedures - Splinting Ankle Hand-Made Type: orthoglass Splint: posterior walking Pre-Proc Neuro Vasc Exam: normal Post-Proc Neuro Vasc Exam: normal Departure - Departure Clinical Impression: Ankle pain, right Qualifiers: Chronicity: acute Qualified Code(s): M25.571 - Pain in right ankle and joints of right foot Fall at home Qualifiers: Encounter type: initial encounter Qualified Code(s): W19.XXXA - Unspecified fall, initial encounter Trimalleolar fracture of ankle, closed Qualifiers: Encounter type: initial encounter Laterality: right Qualified Code(s): S82.851A - Displaced trimalleolar fracture of right lower leg, initial encounter for closed fracture Time of Disposition: 04:19 Disposition: Admit Patient Condition: Fair Departure Forms: Patient Portal Self Enrollment Referrals: Raúl Garcia MD [Primary Care Provider] - 1-2 Weeks Home Medications: Ambulatory Orders Tramadol HCl 50 mg PO TID PRN 08/30/16 Magnesium Hydroxide [Milk Of Magnesia] 30 ml PO PRN 05/27/17 diphenhydrAMINE HCL [Benadryl] 25 mg PO PRN 05/27/17 Albuterol Sulfate Nebs [Proventil Nebs] 2.5 mg INH Q6HR PRN #100 vial 05/31/17 Bifidobacterium Infantis [Align] 4 mg PO DAILY cap 05/31/17 Fexofenadine HCl [Rachell Allergy] 180 mg PO DAILY PRN 06/24/17 Mirtazapine [Remeron] 15 mg PO BEDTIME 06/24/17 Mirtazapine [Remeron] 15 mg PO BEDTIME PRN 06/24/17 Pantoprazole Sodium 40 mg PO DAILY 06/24/17 Nicotine Patch 21 mg [Habitrol Patch 21mg] 1 ea TD Q24H patch 06/25/17 Sucralfate Suspension [Carafate Suspension] 1 gm PO Q6HRS #1 bottle 07/11/17 Potassium Chloride Tab [K-Dur] 20 meq PO DAILY 15 Days #15 tab 07/23/17 Sucralfate Suspension [Carafate Suspension] 1 gm PO Q6HR #1 bottle 07/23/17 raNITIdine HCL [Zantac] 150 mg PO BID #30 tab 12/30/17 Decision To Admit - Decistion To Admit Decision to Admit Reason: Admit from ER Decision to Admit Date: 12/14/17 - D/W Rayray Chowdary -ANP/Hospitalist Decision to Admit Time: 03:49
--- NOTE | 2017-12-14 02:27 | RAD ---
EXAM: Three view(s) of the right ankle. INDICATION: Pain. COMPARISON: None. FINDINGS: The bones are demineralized. There are mildly displaced trimalleolar fractures. There is soft tissue swelling around the fracture sites. IMPRESSION: Mildly displaced trimalleolar fracture Electronically signed by: Jaden Allen MD 12/14/2017 2:26 AM CDT Workstation: [id number]
[2017-12-14] MEDS ORDERED: HYDROmorphone HCL INJ 2 MG/ML VIAL IV ONE (04:18)
--- NOTE | 2017-12-14 04:24 | HP ---
SUPERVISING PHYSICIAN: Felipe Davis MD CHIEF COMPLAINT: Right ankle pain. HISTORY OF PRESENT ILLNESS: This is an 82-year-old female who came to the Emergency Room about 2 o'clock this morning after she got up out of bed to go to the restroom and her right knee gave way and she twisted down after getting caught in a rug. She fell to the floor and attempted to get up, but had some pretty significant pain with weight-bearing on the right leg. She called her family to come get her and bring her to the hospital and they did just that. Upon following arrival to the Emergency Room, she had labs as well as ankle x- ray. The ankle x-ray showed a mildly displaced trimalleolar fracture of the right ankle. At that point, Dr. Diggs in the Emergency Room called Dr. Patel for consultation and he agreed to see the patient this morning. He has, in fact, already done this and plans for surgery around noontime. The other labs were pretty much unremarkable except for a low potassium at 3.1. I have ordered normal saline with potassium to be given at this time. Currently, she is resting well with no active distress. The right ankle is wrapped in a modified splint. Capillary refill is less than 2 seconds. Pulses are pretty diminished. The color is pale, but she can feel me touching her fingers and has no significant paresthesia. PAST MEDICAL HISTORY: 1. Hypertension. 2. Chronic obstructive pulmonary disease. 3. Peripheral vascular disease. 4. Gastroesophageal reflux disease. 5. Osteopenia. 6. Dementia. 7. Chronic low back pain. 8. Chronic smoker. PAST SURGICAL HISTORY: 1. Breast augmentation. 2. Thyroidectomy. 3. Tubal ligation. 4. Peripheral stent placement by Dr. Manriquez. CURRENT MEDICATIONS: 1. Albuterol 2.5 mg nebulizer every 6 hours p.r.n. 2. Align 4 mg p.o. daily. 3. Diphenhydramine 25 mg p.o. as needed. 4. Milk of Magnesia 30 mL p.r.n. as needed. 5. Remeron 50 mg p.o. at bedtime. 6. Protonix 40 mg p.o. daily. 7. Potassium 20 mEq p.o. daily. 8. Ranitidine 150 mg p.o. as needed for reflux. 9. Carafate 1 gram every 6 hours. 10. Tramadol 50 mg p.o. q.i.d. p.r.n. for pain. ALLERGIES: PENICILLIN. FAMILY HISTORY: Reviewed and noncontributory. SOCIAL HISTORY: She is retired and lives alone. She has two daughter. She still smoke half a pack of cigarettes per day and this has been for the last 72 years. REVIEW OF SYSTEMS: CONSTITUTIONAL: No fever or chills. No recent weight loss or weight gain. HEENT: No headaches, vision changes, ear pain, nasal congestion or throat pain. RESPIRATORY: No cough, hemoptysis or pleuritic chest pain. CARDIOVASCULAR: No chest pain, palpitations or peripheral edema. GASTROINTESTINAL: No nausea, vomiting, diarrhea, constipation or abdominal pain. GENITOURINARY: No dysuria, frequency or flank pain. HEMATOLOGIC: Positive for easy bruising, but no transfusion reaction. No history of blood clots. MUSCULOSKELETAL: Right ankle pain status post fall. No muscle cramps. ENDOCRINE: No polydipsia, polyuria, polyphagia. No heat or cold intolerance. NEUROLOGIC: No confusion, headaches, syncope, paresthesias, seizures. PHYSICAL EXAMINATION: VITAL SIGNS: Blood pressure 98/72. Heart rate 68. Respiratory rate 15. Temperature 98.9. Oxygen saturation 97%. GENERAL: Ms. Garcia is an 82-year-old female in severe distress at this time. HEENT: Normocephalic, atraumatic. Pupils are equal and reactive. No nasal drainage. Throat with moist mucosa. NECK: Supple. Midline trachea. No jugular venous distention. CHEST: Symmetrical with equal rise and fall of the chest with inspiration and expiration. Lung sounds are clear to auscultation bilaterally. CARDIOVASCULAR: Regular rate and rhythm. Normal S1, S2. ABDOMEN: Soft. Positive bowel sounds. GENITOURINARY: Deferred. EXTREMITIES: Lower extremities with no edema. Right ankle is in a splint. Skin is more pale on the right foot than the left foot. Capillary refill is less than 2 seconds. Pulses are diminished. She has full sensation. NEUROLOGIC: The patient is alert and oriented. Moves all extremities. Extraocular movements are intact. LABORATORY: Labs and films are as discussed in the history of present illness. ASSESSMENT: 1. Right ankle trimalleolar fracture. 2. History of chronic obstructive pulmonary disease. 3. Hypokalemia. 4. Gastroesophageal reflux disease. 5. Dementia. 6. Nicotine dependency. PLAN: At this point, I have ordered normal saline with 20 of potassium to treat the hypokalemia. There is plan for surgical intervention around noon today. She is not currently having any kind of chronic obstructive pulmonary disease exacerbation, so we will resume her medications with no aggressive therapies at this point. Once she has surgery, DVT and GI ulcer prophylaxis will resume. I appreciate Dr. Patel's consultation and plan for surgery at this point. [id number] [facility]
[2017-12-14] MEDS ORDERED: SODIUM CHLORIDE 0.9% (FLUSH) 10 ML SYG IV PRN (05:46)
[2017-12-14] MEDS ORDERED: ALBUTEROL SULFATE 2.5 MG/3 ML VIAL NEB PRN (05:51)
[2017-12-14] MEDS ORDERED: diphenhydrAMINE HCL 25 MG CAP PO SCH (06:00)
[2017-12-14] MEDS ORDERED: MAGNESIUM HYDROXIDE 30 ML UD PO SCH (06:00)
[2017-12-14] MEDS ORDERED: PANTOPRAZOLE SODIUM IV 40 MG VIAL IV ONE (08:03)
[2017-12-14] MEDS ORDERED: LEVALBUTEROL NEBS 0.31 MG/3 ML VIAL NEB ONE (08:05)
[2017-12-14] MEDS ORDERED: LEVALBUTEROL NEBS 1.25 MG/3 ML VIAL NEB ONE ×2 (08:15→09:00)
[2017-12-14] MEDS: KCL 20 MEQ/NS 1,000 ML IVS PRN ×3 (08:54→15:53)
--- NOTE | 2017-12-14 09:03 | CONS ---
DATE OF CONSULTATION: 12/14/17 CHIEF COMPLAINT: Right ankle pain. HISTORY OF PRESENT ILLNESS: Ms. Garcia is an 82-year-old female with a history of fall that that occurred on the morning of presentation. The patient had gotten up and was walking and got her foot caught on the rug and twisted her ankle. She complains of pain now only in the ankle without radiation or neurologic symptoms. She was admitted directly from the Emergency Room to the hospitalist service. PAST MEDICAL HISTORY: 1. Hypertension. 2. Chronic obstructive pulmonary disease. 3. Peripheral vascular disease. 4. Gastroesophageal reflux disease. 5. Dementia. PAST SURGICAL HISTORY: 1. Breast augmentation. 2. Thyroidectomy. 3. Tubal ligation. MEDICATIONS: Please see her current updated EMR. ALLERGIES: PENICILLIN. SOCIAL HISTORY: The patient does smoke. She does not use alcohol or use any illicit drugs. FAMILY HISTORY: None pertinent to today's complaint. REVIEW OF SYSTEMS: Negative except as indicated in the History of Present Illness. PHYSICAL EXAMINATION: VITAL SIGNS: Blood pressure 100/62. Respirations 18. O2 saturation 90% on room air. Heart rate 65. MENTAL STATUS: The patient is awake, alert, and is able to give a good history and participate in the physical. The patient is oriented to person, place and time. SKIN: Normal tone and turgor. HEENT: Normocephalic, atraumatic. Pupils equal, round and reactive. Mucosal membranes are moist. NECK: Normal range of motion. No thyromegaly, no lymphadenopathy. CHEST: Normal respiratory excursion. CARDIAC: Regular rate and rhythm. No murmurs, rubs or gallops. MUSCULOSKELETAL: Bilateral upper extremities show full active range of motion without significant pain. She has intact in the extremities and they are warm and well perfused. There is no crepitus and no deformity. The left lower extremity shows full range of motion of the hip, knee and ankle. There is no significant deformity or pain. There is no crepitus. The right lower extremity shows some swelling, but intact skin at the ankle. She has no significant deformity at this time. She has no deformity at the knee. She does have range of motion of the knee as well as the hip. Sensation is intact distally and the extremity is warm and well perfused. IMAGING: X-rays show a minimally displaced trimalleolar ankle fracture. ASSESSMENT: 1. Ankle fracture. PLAN: At this point, given the trimalleolar nature of it, although it is minimally displaced, we did suggest operative intervention. We did talk about closed treatment with casting, however, because of her status, I think she would be best treated with at least plating along the lateral malleolus. We have discussed the risks, benefits, and alternatives to that and the patient has given informed consent. #[id number] [facility]
[2017-12-14] MEDS: SUCRALFATE 1 GM/10 ML 1 GM UD PO SCH ×3 (10:25→18:31)
[2017-12-14] MEDS: POTASSIUM CHLORIDE 20 MEQ TAB PO SCH (10:26)
[2017-12-14] MEDS: BIFIDOBACTERIUM INFANTIS 4 MG CAP PO SCH (10:26)
[2017-12-14] MEDS: IV SET AND CAP CHANGE INJ INJ SCH (10:26)
[2017-12-14] MEDS: PANTOPRAZOLE SODIUM TAB 40 MG PO SCH (10:27)
[2017-12-14] MEDS ORDERED: fentaNYL CITRATE INJ 50 MCG/ML AMP ONE (10:33)
[2017-12-14] MEDS: VANCOMYCIN HCL INJ 1,000 MG VIAL IVPB ONE ×2 (11:54→12:40)
[2017-12-14] MEDS: ceFAZolin SODIUM 1 GM VIAL ONE ×2 (11:54→12:40)
[2017-12-14] MEDS: ceFAZolin SODIUM 1 GM in SODIUM CHL 0.9% 50ML MIN-BAG+ 50 ML IVPB SCH ×2 (12:20→19:48)
[2017-12-14] MEDS ORDERED: BUPIVACAINE 0.25% INJ 30 ML VIAL INJ ONE (12:43)
--- NOTE | 2017-12-14 15:47 | RAD ---
EXAM DESCRIPTION: Ankle,Right 3 Views CLINICAL HISTORY: post op open reduction internal fixation of ankle fracture. COMPARISON: December 14, 2017. IMPRESSION: 3 views of the right ankle status post open reduction internal fixation of a fibular fracture with compression plate and transfixing hardware. Medial and posterior malleolar fractures are stable. Ankle mortise appears more symmetric. No other significant change. Electronically signed by: Mukesh Ingram MD 12/14/2017 3:45 PM CDT
[2017-12-14] MEDS ORDERED: SODIUM CHL 0.9% 50ML MIN-BAG+ 50 ML IVPB ONE (19:29)
[2017-12-14] MEDS ORDERED: ceFAZolin SODIUM 1 GM VIAL ONE (19:29)
[2017-12-14] MEDS: MIRTAZAPINE 15 MG TAB PO SCH (21:15)
[2017-12-15] MEDS ORDERED: ceFAZolin SODIUM 1 GM VIAL ONE ×2 (00:59→07:00)
[2017-12-15] MEDS: SUCRALFATE 1 GM/10 ML 1 GM UD PO SCH ×2 (00:59→06:01)
[2017-12-15] MEDS ORDERED: SODIUM CHL 0.9% 50ML MIN-BAG+ 50 ML IVPB ONE (00:59)
[2017-12-15] MEDS: HYDROmorphone HCL INJ 2 MG/ML VIAL IV PRN ×2 (01:30→22:18)
[2017-12-15] MEDS: ceFAZolin SODIUM 1 GM in SODIUM CHL 0.9% 50ML MIN-BAG+ 50 ML IVPB SCH (03:08)
[2017-12-15] MEDS: KCL 20 MEQ/NS 1,000 ML IVS PRN ×2 (04:28→16:39)
[2017-12-15] MEDS: PANTOPRAZOLE SODIUM TAB 40 MG PO SCH (06:01)
[2017-12-15] MEDS ORDERED: DEXAMETHASONE INJ 10 MG/ML VIAL ONE (07:00)
[2017-12-15] MEDS ORDERED: LIDOCAINE 1% 10 ML VIAL INJ ONE (07:00)
[2017-12-15] MEDS ORDERED: raNITIdine HCL INJ 25 MG/ML VIAL ONE (07:00)
[2017-12-15] MEDS ORDERED: METOCLOPRAMIDE HCL INJ 10 MG/2 ML VIAL ONE (07:00)
[2017-12-15] MEDS ORDERED: SODIUM CHLORIDE 0.9% 50 ML VIAL ONE (07:00)
[2017-12-15] MEDS ORDERED: PROPOFOL 200 MG/20 ML VIAL IV ONE (07:00)
[2017-12-15] MEDS: POTASSIUM CHLORIDE 20 MEQ TAB PO SCH (07:58)
--- NOTE | 2017-12-15 08:23 | OP ---
DATE OF PROCEDURE: 12/14/17 PREOPERATIVE DIAGNOSIS: 1. Right ankle fracture. POSTOPERATIVE DIAGNOSIS: 1. Right ankle fracture. PROCEDURE: 1. Open reduction internal fixation of ankle. SURGEON: Michael Patel MD. BALANCE WHEEL ARM BURNISHER: Hugh Luque CST, SA-C. ANESTHESIA: General anesthesia. COMPLICATIONS: None. FINDINGS: Oblique fracture of the fibula with nondisplaced fracture of the medial malleolus. INDICATION: Ms. Garcia is an 82-year-old female with a history of a fall on the day of presentation. She had the acute onset of pain at that time. She had no other injury associated with this fall. She was admitted to the hospital for me to consult on. At this point, we discussed the risks, benefits and alternatives to surgical fixation with her and she gave informed consent for that. PROCEDURE: The patient was brought to the Operating Room and placed in supine position. General anesthesia was induced. The patient's leg was sterilely prepped and draped. Following prepping and draping, an incision was made along the lateral aspect of the fibula. After that, dissection was carried down and the periosteum was elevated. The fracture was identified and a provisional reduction was achieved. A plate was applied across the fracture and a combination of bone screws and locking screws were placed into the plate. The reduction was checked under fluoroscopic imaging. Following that, the ankle was stressed and the mortise was stable. There did not appear to be any displacement of the medial malleolus fracture during the procedure. As such, I elected to leave the malleolus fracture intact without additional fixation. The wound was very thoroughly irrigated and closed. Sterile dressings were placed. The patient was placed in a splint and awoken from anesthesia. She was take to Recovery. POSTOPERATIVE INSTRUCTIONS: She will be [id number] for at least likely 2 months. #[id number] [facility]
[2017-12-15] MEDS ORDERED: MAGNESIUM HYDROXIDE 30 ML UD PO PRN (09:00)
[2017-12-15] MEDS: ENOXAPARIN SODIUM 30 MG/0.3 ML SYG SUBCU SCH ×2 (09:32→21:30)
[2017-12-15] MEDS: BIFIDOBACTERIUM INFANTIS 4 MG CAP PO SCH (09:32)
[2017-12-15] MEDS: HYDROcodone 5MG/APAP 325MG 1 EA TAB PO PRN ×2 (09:57→19:56)
[2017-12-15] MEDS ORDERED: SUCRALFATE 1 GM/10 ML 1 GM UD PO PRN (10:14)
[2017-12-15] MEDS ORDERED: diphenhydrAMINE HCL 25 MG CAP PO PRN (10:30)
--- NOTE | 2017-12-15 11:15 | PN ---
DATE: 12/15/17 SUBJECTIVE: Ms. Garcia is doing pretty well right now. OBJECTIVE: Afebrile. Vital signs stable. Dressing is clean, dry and intact. ASSESSMENT: Status post open reduction internal fixation of ankle. PLAN: At this point, she is going to begin working with physical therapy for [id number] status. #[id number] [facility]
--- NOTE | 2017-12-15 11:29 | PN ---
SUPERVISING PHYSICIAN: Felipe Davis MD DATE: 12/15/17 SUBJECTIVE: The patient states she is having a little bit of ankle pain. She is sitting up in a chair with no distress. No adverse events overnight. She had her surgical intervention yesterday. OBJECTIVE: VITAL SIGNS: Blood pressure 96/56. Heart rate 63. Respiratory rate 18. Temperature 98.2. Oxygen saturation 94%. GENERAL: Ms. Garcia is an 82-year-old female in no active distress currently. NEUROLOGIC: Alert and oriented. LUNGS: Clear to auscultation bilaterally. CARDIOVASCULAR: Regular rate and rhythm. Normal S1, S2. ABDOMEN: Soft. Positive bowel sounds. EXTREMITIES: Lower extremities with a cast and Brian to the right ankle. Capillary refill is less than 2 seconds on the toes. Warm to the touch. ASSESSMENT: 1. Right ankle trimalleolar fracture status post open reduction internal fixation of the ankle. 2. History of chronic obstructive pulmonary disease without an acute exacerbation. 3. Hypokalemia. 4. Gastroesophageal reflux disease. 5. Dementia. 6. Nicotine dependence. PLAN: We will continue all current pain medications and continue to monitor the patient with pain control as well as physical therapy. There does not appear to be any acute medical issues at this time, so we will defer to orthopedics. #[id number] [facility]
[2017-12-15] MEDS: MIRTAZAPINE 15 MG TAB PO SCH (20:00)
[2017-12-16] MEDS: HYDROcodone 5MG/APAP 325MG 1 EA TAB PO PRN ×4 (02:08→21:04)
[2017-12-16] MEDS: PANTOPRAZOLE SODIUM TAB 40 MG PO SCH (06:22)
[2017-12-16] MEDS: KCL 20 MEQ/NS 1,000 ML IVS PRN (06:26)
[2017-12-16] MEDS: POTASSIUM CHLORIDE 20 MEQ TAB PO SCH (07:58)
--- NOTE | 2017-12-16 08:18 | PN ---
DATE: 12/16/17 SUBJECTIVE: Ms. Garcia seems to be doing well. She is not having any significant amount of pain. OBJECTIVE: Afebrile. Vital signs stable. Wound is clean. There are no signs or symptoms of infection. ASSESSMENT: Status post open reduction internal fixation of ankle. PLAN: The plan at this point is for [id number] status. We will determine her Swing Bed status based on her progress. [facility][id number] [facility]
[2017-12-16] MEDS: ENOXAPARIN SODIUM 30 MG/0.3 ML SYG SUBCU SCH ×2 (10:04→21:05)
[2017-12-16] MEDS: BIFIDOBACTERIUM INFANTIS 4 MG CAP PO SCH (10:04)
--- NOTE | 2017-12-16 16:36 | PN ---
DATE: 12/16/17 SUPERVISING PHYSICIAN: Felipe Davis M.D. SUBJECTIVE: The patient is resting in bed. She says she has good control of her pain. Her leg is now in a boot. Discussed with the patient discharge planning in efforts to hopefully discharge tomorrow to Swing Bed for continued rehabilitation efforts. She has had no complications postoperatively. OBJECTIVE: VITAL SIGNS: Remains afebrile at 97.8, pulse 67, blood pressure 134/ 79, respirations 16, satting 94% on room air. Weight is 66.2 kg. I's and O's show a negative balance of 1175 with 2375 in, 3350 out. CHEST: Lungs are clear to auscultation. HEART: Regular rate and rhythm. ABDOMEN: Soft, non-tender. Positive bowel sounds. EXTREMITIES: Right leg has a boot in place distally. SKIN: [place] and moist with capillary refill brisk. NEUROLOGIC: She is alert and oriented times three. LABORATORY: BNP today shows normal electrolytes with potassium 3.8, BUN 8, creatinine less than 0.40. No additional radiographic studies. ASSESSMENT: 1. Postoperative day 2 for right ankle trimalleolar fracture status post open reduction internal fixation performed by Dr. Michael Patel. 2. History of chronic obstructive pulmonary disease without an evidence of acute exacerbation. 3. Hypokalemia, resolved with replacement. 4. Gastroesophageal reflux disease. 5. Dementia. 6. Nicotine dependence. PLAN: Will continue with physical therapy and current plan at this point with anticipation of discharging tomorrow to Swing Bed. Will continue to monitor and treat appropriately until discharge. Once discharged to Swing Bed, anticipate 3 to 7 days with plan to discharge ultimately to [facility] for continued rehabilitation efforts. #[id number] [facility]
[2017-12-16] MEDS: MIRTAZAPINE 15 MG TAB PO SCH (21:05)
[2017-12-16] MEDS ORDERED: TEMAZEPAM 15 MG CAP PO PRN (21:07)
[2017-12-17] MEDS: IV SET AND CAP CHANGE INJ INJ SCH (06:12)
[2017-12-17] MEDS: PANTOPRAZOLE SODIUM TAB 40 MG PO SCH (06:12)
[2017-12-17] MEDS: HYDROcodone 5MG/APAP 325MG 1 EA TAB PO PRN (07:49)
[2017-12-17] MEDS: POTASSIUM CHLORIDE 20 MEQ TAB PO SCH (07:49)
[2017-12-17] MEDS: ENOXAPARIN SODIUM 30 MG/0.3 ML SYG SUBCU SCH (09:53)
[2017-12-17] MEDS: BIFIDOBACTERIUM INFANTIS 4 MG CAP PO SCH (09:53)
[2017-12-17 10:54] VITALS: BP 98/72; TEMP 97.8; O2SAT 95
--- NOTE | 2017-12-17 16:20 | DS ---
SUPERVISING PHYSICIAN: Felipe Davis M.D. DISCHARGE DIAGNOSIS: 1. Postoperative day 3 for right ankle trimalleolar fracture status post open reduction and internal fixation performed by Dr. Michael Patel, orthopedic surgeon. 2. History of chronic obstructive pulmonary disease without any evidence of acute exacerbation. 3. Hypokalemia on Acute Care, resolved with replacement, showing to be stable. 4. Gastroesophageal reflux disease on PPI and Carafate. 5. Dementia. 6. Nicotine dependence encouraged to stop smoking. REASON FOR HOSPITALIZATION: Ms. Garcia is an 82 year-old female patient that initially presented to the Emergency Room around 2:00 on 12/14/17 after she had gotten out of bed early in the morning to go to the restroom. Her right knee gave way and she twisted getting caught up in a rug. She fell to the floor and attempted to get up, but had some pretty significant pain with any weightbearing on the right leg. She called her family to come get her and bring her to the hospital at which time they presented to the Emergency Room. X -rays of the right ankle showed that she had a mildly displaced trimalleolar fracture of the right ankle. Dr. Diggs consulted with Dr. Patel, orthopedic surgeon, who at that time agreed to admit the patient and do surgery on the previous morning which was completed on 12/15/17. She was taken to surgery on 12/15/17 and had an open reduction and internal fixation of the right ankle. She had no complications postoperatively and was followed on her recovery phase and rehabilitation efforts. The patient with advanced age and the fact that she will not be nonweightbearing on the right leg, will need a significant amount of physical therapy and rehabilitation to see that she is safe once she is discharged home. Therefore the patient was admitted to Swing Bed for continued rehabilitation efforts. She was admitted to Swing Bed in stable condition. LABORATORY: Admission white count was 4,400, hemoglobin 13, hematocrit 39.0. Discharge hemoglobin was 12.4, hematocrit 37.8, platelet count 253,000. Differential showed to be within normal limits. Chemistries showed initially hypokalemia with 3.1 potassium, this had resolved and at discharge potassium was 3.8, creatinine was less than 0.4 with BUN 8. Liver functions all were within normal limits. No microbiology were obtained. RADIOLOGY: In the E.R. prior to admission, she had an ankle x-ray of the right ankle and per radiology interpretation she had a mildly displaced trimalleolar fracture. PROCEDURES: Surgery performed on 12/15/17 for an open reduction and internal fixation of the right ankle fracture performed by Dr. Michael Patel. Please see his operative notes for full details. HOSPITAL COURSE: Ms. Garcia was admitted as noted above on 12/14/17 for a right ankle fracture. She was taken to surgery on 12/15/17 for an open reduction and internal fixation of the ankle. She did well through surgery and had no postoperative complications. She was doing well with physical therapy. She was nonweightbearing on the right leg. She was able to transfer from bed to chair, chair to commode and back and forth. She remained on DVT prophylaxis while on Acute Care and again showed good clinical response, and was felt well enough to at least discharge to Swing Bed given that she does live alone for further rehabilitation and strengthening efforts to ensure that she is safe once discharged. PLAN: The patient is going to be discharged from Acute Care and admitted to Swing Bed for ongoing physical therapy efforts. All medications are resumed as previous to hospitalization. Diet was a regular diet as tolerated. Activity is as per Physical Therapy, nonweightbearing on the right lower extremity. Condition on discharge from Acute Care and admission to Swing Bed was stable and improved. #[id number] [facility]
== END 2017-12-17 11:29 | disposition swing bed (61) | DRG 494 ==
LOC: ER 01:58 → OBSVTOIN 04:22 → MS 04:22
PROVIDERS: ADMIT Nurse Practitioner; ATTEND Nurse Practitioner Family
PROC: 0QSJ04Z Reposition Right Fibula with Internal Fixation Device, Open Approach (ICD-10-PCS; principal; 2017-12-14 11:13)
DX: S82.851A Displaced trimalleolar fracture of right lower leg, initial encounter for closed fracture (principal); E87.6 Hypokalemia; J44.9 Chronic obstructive pulmonary disease, unspecified; H91.90 Unspecified hearing loss, unspecified ear; E89.0 Postprocedural hypothyroidism; I10 Essential (primary) hypertension; I73.9 Peripheral vascular disease, unspecified; K21.9 Gastro-esophageal reflux disease without esophagitis; F03.90 Unspecified dementia, unspecified severity, without behavioral disturbance, psychotic disturbance, mood disturbance, and anxiety; X50.9XXA Other and unspecified overexertion or strenuous movements or postures, initial encounter; Y92.009 Unspecified place in unspecified non-institutional (private) residence as the place of occurrence of the external cause; G89.29 Other chronic pain; M54.5 Low back pain; F17.210 Nicotine dependence, cigarettes, uncomplicated; M85.80 Other specified disorders of bone density and structure, unspecified site; Z60.2 Problems related to living alone; Z88.0 Allergy status to penicillin; Z87.891 Personal history of nicotine dependence; Z95.820 Peripheral vascular angioplasty status with implants and grafts; Z79.891 Long term (current) use of opiate analgesic; Z79.899 Other long term (current) drug therapy

== ENCOUNTER 2017-12-17 11:35 | Inpatient (IN) | payer MEDICARE ==
--- NOTE | 2017-12-17 11:36 | HP ---
SUPERVISING PHYSICIAN: Felipe Davis M.D. REASON FOR SWING BED ADMISSION: Continued rehabilitation for a right ankle fracture requiring open reduction and internal fixation. HISTORY OF PRESENT ILLNESS: Ms. Garcia is an 82 year-old female patient that initially presented to the Emergency Room around 2:00 on 12/14/17 after she had gotten out of bed early in the morning to go to the restroom. Her right knee gave way and she twisted getting caught up in a rug. She fell to the floor and attempted to get up, but had some pretty significant pain with any weightbearing on the right leg. She called her family to come get her and bring her to the hospital at which time they presented to the Emergency Room. X -rays of the right ankle showed that she had a mildly displaced trimalleolar fracture of the right ankle. Dr. Diggs consulted with Dr. Patel, orthopedic surgeon, who at that time agreed to admit the patient and do surgery on the previous morning which was completed on 12/15/17. She was taken to surgery on 12/15/17 and had an open reduction and internal fixation of the right ankle. She had no complications postoperatively and was followed on her recovery phase and rehabilitation efforts. The patient with advanced age and the fact that she will not be nonweightbearing on the right leg, will need a significant amount of physical therapy and rehabilitation to see that she is safe once she is discharged home. Therefore the patient was admitted to Swing Bed for continued rehabilitation efforts. She was admitted to Swing Bed in stable condition. PAST MEDICAL HISTORY: 1. Hypertension. 2. Chronic obstructive pulmonary disease. 3. Peripheral vascular disease. 4. Gastroesophageal reflux disease. 5. Osteopenia. 6. Dementia. 7. Chronic lower back pain. 8. Chronic smoker. PAST SURGICAL HISTORY: 1. As noted above, open reduction and internal fixation of the right ankle. 2. Breast augmentation. 3. Thyroidectomy. 4. Tubal ligation. 5. Peripheral stent placement by Dr. Manriquez. CURRENT MEDICATIONS: 1. Albuterol 2.5 mg nebulizer every 6 hours p.r.n. 2. Align 4 mg daily. 3. Diphenhydramine 25 mg as needed p.o. 4. Milk of Magnesia 30 mL p.r.n. 5. Remeron 50 mg at bedtime. 6. Protonix 40 mg daily. 7. Potassium 20 mEq daily. 8. Ranitidine 150 mg p.o. as needed for reflux. 9. Carafate 1 gram every 6 hours. 10. Tramadol 50 mg q.i.d. as needed for pain. ALLERGIES: PENICILLIN. FAMILY HISTORY: Noncontributory. SOCIAL HISTORY: The patient is retired and lives alone. She does have 2 daughters. She currently still smokes 1/2 pack of cigarettes a day and so for over 72 years. She denies any illicit or alcohol usage. REVIEW OF SYSTEMS: CONSTITUTIONAL: Denies any fevers, chills, change in weight. HEENT: No headaches, vision changes, sinus pain, sore throat. RESPIRATORY: No cough, hemoptysis or pleuritic chest pain. CARDIOVASCULAR: No chest pains, palpitations or peripheral edema. GASTROINTESTINAL: No nausea, vomiting, diarrhea, constipation or abdominal pains. GENITOURINARY: No dysuria, decreased frequency or flank pain. HEMATOLOGIC: Positive for easy bruising but no transfusion reactions. No history of blood clots. MUSCULOSKELETAL: As noted in History of Present Illness, right ankle status post open reduction and internal fixation. ENDOCRINE: No polydipsia, polyuria or polyphagia. No heat or cold intolerance. NEUROLOGIC: No confusion, headaches, syncopal episodes, paresthesias or seizures. PHYSICAL EXAMINATION: VITAL SIGNS: Temperature 98.1, pulse 73, blood pressure 113/70, respirations 18 , satting 95% on room air. Admission weight 66.6 kg. GENERAL: The patient appears to be comfortable in no acute distress. She is alert. HEENT: Tympanic membranes are clear bilaterally. Oropharynx is pink and moist with no lesions. NECK: Supple, non-tender with full range of motion. No jugular venous distention. CHEST: Clear to auscultation bilaterally without any rhonchi, wheezing or rales. CARDIOVASCULAR: Regular rate and rhythm without appreciable murmurs, gallops, or rubs. ABDOMEN: Soft, non-tender. Positive bowel sounds. EXTREMITIES: Right lower extremity has an ankle boot in place. Capillary refills to the distal toes was brisk with skin being pink, warm and dry. No reported paresthesia. NEUROLOGIC: She is alert and oriented times three. LABORATORY: No additional laboratories were completed on admission. RADIOLOGY: No additional radiographic studies on admission. ASSESSMENT: 1. Postoperative day 3 for right ankle trimalleolar fracture status post open reduction and internal fixation performed by Dr. Michael Patel, orthopedic surgeon. 2. History of chronic obstructive pulmonary disease without any evidence of acute exacerbation. 3. Hypokalemia on Acute Care, resolved with replacement, showing to be stable. 4. Gastroesophageal reflux disease on PPI and Carafate. 5. Dementia. 6. Nicotine dependence encouraged to stop smoking. PLAN: The patient is going to be admitted to Swing Bed for ongoing physical therapy and rehabilitation efforts. Will continue to follow the patient medically as needed as she progresses through her physical therapy. Will anticipate discharge in 3 to 7 days with continued need for reassessment since the patient lives alone with anticipation of possibly discharging to [facility] at that time. Until then, will continue to monitor and treat appropriately. #[id number] [facility]
[2017-12-17] MEDS ORDERED: MAGNESIUM HYDROXIDE 30 ML UD PO PRN (12:04)
[2017-12-17] MEDS ORDERED: ACETAMINOPHEN 500 MG TAB PO PRN (12:04)
[2017-12-17] MEDS ORDERED: SODIUM PHOS/BIPHOS ENEMA ADULT 133 ML BTTL PR PRN (12:04)
--- NOTE | 2017-12-17 12:08 | PCM.CORE ---
Physician DVT/VTE - Nurse DVT Assessment & Total Each Risk Factor Represents 5 Points: Hip,Pelvis,leg Fx <1month Each Risk Factor Represents 3 Points: Age over 75 years Each Risk Factor Represents 2 Points: Immoblizing Cast <1 month Each Risk Factor Represents 1 Point: Hx Major Surgery <1month DVT Assessment Score: 11 - 5 or more Very High Risk Treatments: Early Ambulation *, Sequential Compression Device Pharmacological: Enoxaparin 40mg SQ Daily
--- NOTE | 2017-12-17 18:04 | PN ---
DATE: 12/17/17 SUBJECTIVE: She is better today and the pain is well controlled. OBJECTIVE: She is afebrile. Vital signs are stable. Wound is clean. There are no signs or symptoms of infection. ASSESSMENT: 1. Status post open reduction and internal fixation of ankle. PLAN: The plan at this point is for her to continue on nonweightbearing status. She has been transitioned into Swing Bed. #[id number] [facility]
[2017-12-17] MEDS: HYDROcodone 5MG/APAP 325MG 1 EA TAB PO PRN (19:05)
[2017-12-17] MEDS ORDERED: ALBUTEROL SULFATE 2.5 MG/3 ML VIAL NEB PRN (20:37)
[2017-12-17] MEDS ORDERED: traMADol HCL 50 MG TAB PO PRN (20:37)
[2017-12-17] MEDS: MIRTAZAPINE 15 MG TAB PO SCH (20:48)
[2017-12-17] MEDS: TEMAZEPAM 15 MG CAP PO PRN (20:48)
[2017-12-18] MEDS: HYDROcodone 5MG/APAP 325MG 1 EA TAB PO PRN ×2 (07:48→21:02)
[2017-12-18] MEDS ORDERED: diphenhydrAMINE HCL 25 MG CAP PO PRN (09:00)
[2017-12-18] MEDS: POTASSIUM CHLORIDE 20 MEQ TAB PO SCH (09:57)
[2017-12-18] MEDS: ENOXAPARIN SODIUM 40 MG/0.4 ML SYG SUBCU SCH (09:57)
[2017-12-18] MEDS: DOCUSATE SODIUM 100 MG CAP PO SCH (09:57)
[2017-12-18] MEDS: PANTOPRAZOLE SODIUM TAB 40 MG PO SCH (09:57)
[2017-12-18] MEDS: BIFIDOBACTERIUM INFANTIS 4 MG CAP PO SCH (09:57)
[2017-12-18] MEDS: TEMAZEPAM 15 MG CAP PO PRN (21:02)
[2017-12-18] MEDS: MIRTAZAPINE 15 MG TAB PO SCH (21:02)
[2017-12-19] MEDS: PANTOPRAZOLE SODIUM TAB 40 MG PO SCH (06:01)
[2017-12-19] MEDS: POTASSIUM CHLORIDE 20 MEQ TAB PO SCH (08:06)
[2017-12-19] MEDS: BIFIDOBACTERIUM INFANTIS 4 MG CAP PO SCH (09:35)
[2017-12-19] MEDS: HYDROcodone 5MG/APAP 325MG 1 EA TAB PO PRN ×2 (09:35→20:30)
[2017-12-19] MEDS: DOCUSATE SODIUM 100 MG CAP PO SCH (09:35)
[2017-12-19] MEDS: ENOXAPARIN SODIUM 40 MG/0.4 ML SYG SUBCU SCH (09:36)
[2017-12-19] MEDS: MIRTAZAPINE 15 MG TAB PO SCH (20:27)
[2017-12-19] MEDS: TEMAZEPAM 15 MG CAP PO PRN (20:36)
[2017-12-20] MEDS: PANTOPRAZOLE SODIUM TAB 40 MG PO SCH (06:30)
[2017-12-20] MEDS: POTASSIUM CHLORIDE 20 MEQ TAB PO SCH (08:25)
[2017-12-20] MEDS: BIFIDOBACTERIUM INFANTIS 4 MG CAP PO SCH (08:30)
[2017-12-20] MEDS: DOCUSATE SODIUM 100 MG CAP PO SCH (08:31)
[2017-12-20] MEDS: ENOXAPARIN SODIUM 40 MG/0.4 ML SYG SUBCU SCH (08:34)
[2017-12-20] MEDS: HYDROcodone 5MG/APAP 325MG 1 EA TAB PO PRN ×3 (08:35→20:46)
[2017-12-20] MEDS ORDERED: ONDANSETRON 4 MG TAB ONE (14:42)
[2017-12-20] MEDS ORDERED: ONDANSETRON 4 MG TAB PO PRN (14:57)
[2017-12-20] MEDS ORDERED: methylPREDNISolone SODIUM SUC 40 MG/ML VIAL ONE (17:28)
[2017-12-20] MEDS: MIRTAZAPINE 15 MG TAB PO SCH (20:48)
[2017-12-20] MEDS: TEMAZEPAM 15 MG CAP PO PRN (20:48)
[2017-12-21] MEDS: PANTOPRAZOLE SODIUM TAB 40 MG PO SCH (06:30)
[2017-12-21] MEDS: POTASSIUM CHLORIDE 20 MEQ TAB PO SCH (07:28)
--- NOTE | 2017-12-21 08:06 | PN ---
DATE: 12/21/17 SUBJECTIVE: Ms. Garcia is doing well today. Her pain is improved. OBJECTIVE: Afebrile. Vital signs stable. Wound is clean. There are no signs or symptoms of infection. ASSESSMENT: Status post open reduction internal fixation of ankle. PLAN: She will continue on her [id number] status. She will remain on Swing Bed until cleared to go home. #[id number] [facility]
[2017-12-21] MEDS: DOCUSATE SODIUM 100 MG CAP PO SCH (08:42)
[2017-12-21] MEDS: BIFIDOBACTERIUM INFANTIS 4 MG CAP PO SCH (08:42)
[2017-12-21] MEDS: ENOXAPARIN SODIUM 40 MG/0.4 ML SYG SUBCU SCH (08:42)
[2017-12-21] MEDS: HYDROcodone 5MG/APAP 325MG 1 EA TAB PO PRN ×2 (12:20→20:45)
[2017-12-21] MEDS: MIRTAZAPINE 15 MG TAB PO SCH (20:45)
[2017-12-21] MEDS: TEMAZEPAM 15 MG CAP PO PRN (20:45)
[2017-12-22] MEDS: PANTOPRAZOLE SODIUM TAB 40 MG PO SCH (06:10)
[2017-12-22] MEDS: POTASSIUM CHLORIDE 20 MEQ TAB PO SCH (07:17)
[2017-12-22] MEDS: HYDROcodone 5MG/APAP 325MG 1 EA TAB PO PRN ×2 (07:20→12:10)
[2017-12-22] MEDS: BIFIDOBACTERIUM INFANTIS 4 MG CAP PO SCH (08:44)
[2017-12-22] MEDS: ENOXAPARIN SODIUM 40 MG/0.4 ML SYG SUBCU SCH (08:44)
[2017-12-22] MEDS: DOCUSATE SODIUM 100 MG CAP PO SCH (08:44)
[2017-12-22 10:44] VITALS: BP 117/73; TEMP 98.7; O2SAT 94
--- NOTE | 2017-12-22 11:50 | DS ---
SUPERVISING PHYSICIAN: Raúl Garcia MD DISCHARGE DIAGNOSIS: 1. Postoperative day 8 for right ankle trimalleolar fracture status post open reduction and internal fixation performed by Dr. Michael Patel, orthopedic surgeon. 2. History of chronic obstructive pulmonary disease without evidence of an acute exacerbation. 3. Hypokalemia in the Acute Care setting, resolved with replacement, stable. 4. Gastroesophageal reflux disease. 5. Dementia. 6. Nicotine dependence. HISTORY OF PRESENT ILLNESS: This is an 82-year-old female patient that initially presented to the Emergency Room on 12/14/17 after she had gotten out of bed early in the morning to go to the restroom. Her right knee gave way and she twisted, getting her leg caught in the rug. She fell to the floor. She had significant pain with any weightbearing on the right leg. She brought to the Emergency Room. X-rays of the right ankle showed that she had a mildly displaced trimalleolar fracture of the right ankle. Dr. Diggs consulted with Dr. Patel, orthopedic surgeon. Surgery was done by Dr. Patel, orthopedic surgeon the next day on 12/15/17. She had an open reduction and internal fixation of the right ankle. She had no complications postoperatively and did well in her recovery phase with rehabilitation efforts. The patient was then discharged from the Acute Care setting to Swing Bed status. HOSPITAL COURSE: She has continued with her strengthening and conditioning during this time. At this point, she has reached her limit of strengthening and conditioning and will be transferred to [place] [facility] for further rehabilitation on that right ankle. DISCHARGE PLAN: The patient will be discharged to the [facility]. Her activity is to be per physical therapy. She is to resume her previous diet and her previous medications. Wound care orders were done per Dr. Patel's standard wound care protocol. She is to followup with Dr. Garcia, her primary care physician, within 1 to 2 weeks after her discharge from rehab. She is to call Dr. Garcia's office, Dr. Patel's office or followup at the hospital for any further problems or complications. DISCHARGE MEDICATIONS: 1. Tramadol. 2. Diphenhydramine. 3. Milk of Magnesia. 4. Align. 5. Proventil nebulizers. 6. Pantoprazole. 7. Remeron. 8. Potassium chloride. 9. Sucralfate. 10. Zantac. 11. Docusate sodium. 12. Hydrocodone. 13. Fleet's enema. 14. Restoril. Dr. Garcia is the collaborating physician and available for consultation. #[id number] [facility]
== END 2017-12-22 12:15 | DRG 561 ==
LOC: MS 11:35 → UNDOADMIN 11:35 → MS 11:36 → UNDODISIN 12-22 12:15
PROVIDERS: ADMIT Nurse Practitioner Family; ATTEND Nurse Practitioner Acute Care
PROC: F07L6ZZ Therapeutic Exercise Treatment of Musculoskeletal System - Lower Back / Lower Extremity (ICD-10-PCS; principal; 2017-12-17)
DX: S82.851D Displaced trimalleolar fracture of right lower leg, subsequent encounter for closed fracture with routine healing (principal); J44.9 Chronic obstructive pulmonary disease, unspecified; K21.9 Gastro-esophageal reflux disease without esophagitis; F03.90 Unspecified dementia, unspecified severity, without behavioral disturbance, psychotic disturbance, mood disturbance, and anxiety; F17.210 Nicotine dependence, cigarettes, uncomplicated; I10 Essential (primary) hypertension; I73.9 Peripheral vascular disease, unspecified; M85.80 Other specified disorders of bone density and structure, unspecified site; G89.29 Other chronic pain; M54.5 Low back pain; Z95.820 Peripheral vascular angioplasty status with implants and grafts; Z88.0 Allergy status to penicillin; Z79.899 Other long term (current) drug therapy; Z66 Do not resuscitate

== ENCOUNTER 2018-01-09 11:20 | Observation (INO) | payer MEDICARE ==
--- NOTE | 2018-01-09 11:39 | ED.PDOC ---
History of Present Illness - General Chief Complaint: Chest Pain/IA Stated Complaint: SOB, chest pain Time Seen by Provider: 01/09/18 11:31 Source: patient Exam Limitations: no limitations Additional Information: PT C/O ONSET OF SOB AND SOME CP THIS AM. HAD ORIF OF ANKLE 12/15/2017 AND HAS BEEN IN REHAB. TODAY SHE DEVELOPED ACUTE ONSET OF SOB AND FELT "ANXIOUS". EMS STATES SHE WAS SLIGHTLY TACHYCARDIC WHEN THEY ARRIVED. HAD ASA AND NTG [employer] WITHOUT RELIEF OF SX'S. - History of Present Illness Timing/Duration: other - TODAY Severity: mild Location: substernal Activities at Onset: rest Prior Chest Pain/Cardiac Workup: no prior chest pain Improving Factors: nothing Worsening Factors: nothing Nitro Today/Relief: 0.4 mg x 1, no relief Aspirin Treatment Today: 325 mg x 1, provided by EMS Allergies/Adverse Reactions: Allergies Penicillins Allergy (Mild, Verified 01/09/18 15:45) Other injection site reactions with pcn. Home Medications: Ambulatory Orders Tramadol HCl 50 mg PO TID 08/30/16 Bifidobacterium Infantis [Align] 4 mg PO DAILY cap 05/31/17 Mirtazapine [Remeron] 15 mg PO BEDTIME 06/24/17 Pantoprazole Sodium 40 mg PO DAILY 06/24/17 Potassium Chloride Tab [K-Dur] 20 meq PO DAILY 15 Days #15 tab 07/23/17 Docusate Sodium [Colace] 100 mg PO DAILY cap 12/22/17 HYDROcodone 5MG/APAP 325MG [[place] 5/325] 1 - 2 ea PO Q4H PRN tab 12/22/17 Sodium Phos/Biphos Enema Adult [Fleet Enema (Adult)] 1 ea SC DAILY PRN bttl Acetaminophen [Tylenol] 1 - 2 tablet PO Q4H PRN 01/09/18 Albuterol Sulfate Nebs [Proventil Nebs] 2.5 mg INH BID 01/09/18 Alum & Mag Hydrox-Simethicone [Mylanta] 30 ml PO Q4H PRN 01/09/18 Aspirin [Aspirin Adult Low Dose] 81 mg PO DAILY 01/09/18 Temazepam [Restoril] 15 mg PO BEDTIME PRN 01/09/18 Levocetirizine Dihydrochloride [Xyzal Allergy 24Hr] 2.5 mg PO BEDTIME #30 tab Review of Systems - Review of Systems Constitutional: Denies: chills, fever, weakness EENTM: States: no symptoms reported Respiratory: States: short of breath. Denies: cough, wheezing Cardiology: States: chest pain. Denies: edema, palpitations, syncope Gastrointestinal/Abdominal: States: nausea. Denies: abdominal pain, vomiting Genitourinary: States: no symptoms reported Musculoskeletal: States: other - MILD PAIN R LOWER LEG Skin: States: no symptoms reported Neurological: States: no symptoms reported Endocrine: States: no symptoms reported Hematologic/Lymphatic: States: no symptoms reported Past Medical History (General) - Patient Medical History Hx Seizures: No Hx Stroke: No Hx Dementia: Yes Hx Asthma: No Hx of COPD: Yes Hx Cardiac Disorders: No Hx Congestive Heart Failure: No Hx Pacemaker: No Hx Hypertension: Yes Hx Thyroid Disease: No Hx Diabetes: No Hx Gastroesophageal Reflux: Yes Hx Renal Disease: Yes - urgency Hx Cancer: No Hx of HIV: No Hx Hepatitis C: No Hx MRSA: No Surgical History: other - Vaccination History Hx Tetanus, Diphtheria Vaccination: Yes Hx Influenza Vaccination: Yes Hx Pneumococcal Vaccination: Yes - Social History Hx Tobacco Use: Yes Hx Chewing Tobacco Use: No Hx Alcohol Use: No Hx Substance Use: No Hx Substance Use Treatment: No Hx Depression: No Hx Physical Abuse: No Hx Emotional Abuse: No Hx Suspected Abuse: No - Activities of Daily Living Prison/Assisted Living (if applicable):: [facility] - Female History Patient : No Family Medical History - Family History Mother Family History: Unknown Living Status: Physical Exam - Physical Exam General Appearance: Alert, Anxious, No apparent distress Eyes, Ears, Nose, Throat Exam: PERRL/EOMI, normal ENT inspection Neck: non-tender, full range of motion, supple Respiratory: lungs clear, normal breath sounds, no respiratory distress, other - SAT 93% RA (NL) Cardiovascular/Chest: regular rate, rhythm, no murmur, tachycardia Gastrointestinal/Abdominal: non tender, soft, no organomegaly Extremity: normal range of motion, non-tender, other - R LOWER LEG IMMOBILIZED IN BOOT, NO CALF TTP, NO SWELLING Neurologic: alert, normal mood/affect Skin Exam: normal color, warm/dry Lymphatic: no adenopathy Progress - EKG/XRAY/CT EKG: Sinus, Tachy - RATE 108, NL AXIS, NL INTERVALS, , nonspecific ST T wave Chg , Changed from - 07/11/2017, INTERVAL DEVELOPMENT OF T WAVE ABN, Departure - Departure Clinical Impression: Chest pain Qualifiers: Chest pain type: unspecified Qualified Code(s): R07.9 - Chest pain, unspecified ICD-10 Supporting Text: DDX: CHEST WALL PAIN, NSTEMI, ANGINA Disposition: Admit Patient Condition: Fair Home Medications: Ambulatory Orders Tramadol HCl 50 mg PO TID 08/30/16 Bifidobacterium Infantis [Align] 4 mg PO DAILY cap 05/31/17 Mirtazapine [Remeron] 15 mg PO BEDTIME 06/24/17 Pantoprazole Sodium 40 mg PO DAILY 06/24/17 Potassium Chloride Tab [K-Dur] 20 meq PO DAILY 15 Days #15 tab 07/23/17 Docusate Sodium [Colace] 100 mg PO DAILY cap 12/22/17 HYDROcodone 5MG/APAP 325MG [[place] 5/325] 1 - 2 ea PO Q4H PRN tab 12/22/17 Sodium Phos/Biphos Enema Adult [Fleet Enema (Adult)] 1 ea SC DAILY PRN bttl Acetaminophen [Tylenol] 1 - 2 tablet PO Q4H PRN 01/09/18 Albuterol Sulfate Nebs [Proventil Nebs] 2.5 mg INH BID 01/09/18 Alum & Mag Hydrox-Simethicone [Mylanta] 30 ml PO Q4H PRN 01/09/18 Aspirin [Aspirin Adult Low Dose] 81 mg PO DAILY 01/09/18 Temazepam [Restoril] 15 mg PO BEDTIME PRN 01/09/18 Levocetirizine Dihydrochloride [Xyzal Allergy 24Hr] 2.5 mg PO BEDTIME #30 tab
--- NOTE | 2018-01-09 11:47 | RAD ---
EXAM DESCRIPTION: Chest,1 View CLINICAL HISTORY: SOB COMPARISON: 23 July 2017 TECHNIQUE: AP portable chest FINDINGS: The lungs are clear. There is no infiltrate or effusion. The heart is normal size. IMPRESSION: Normal portable chest Electronically signed by: Tez Paz MD 01/09/2018 11:46 AM CDT
--- NOTE | 2018-01-09 13:29 | CT ---
EXAM DESCRIPTION: CTA Chest CLINICAL HISTORY: SOB, ELEVATED D DIMER, R/O PE COMPARISON: Chest radiograph obtained earlier same day TECHNIQUE: Chest CTA was performed with IV contrast including MIP and/or Three-D reconstructed images. This exam was performed according to our departmental dose-optimization program, which includes automated exposure control, adjustment of the mA and/or kV according to patient size and/or use of iterative reconstruction technique. FINDINGS: The right thyroid lobe is not seen. The left thyroid lobe appears diffusely heterogeneous without discrete nodule. Mural calcifications are noted in the thoracic aorta. A 2 cm ductus diverticulum is also noted. No thoracic aortic aneurysm or dissection. No pulmonary embolus or pulmonary arterial dilation. No pleural or pericardial effusion. No mediastinal or hilar adenopathy the central airways are clear. No airspace consolidation. There are a few tiny calcified granulomata in both lungs. No suspicious lung nodule. Visualized portions of the upper abdomen are unremarkable for pulmonary arterial technique. There is a tiny round low density liver lesion which is too small to characterize but likely represents a cyst. Bilateral breast implants are noted with capsular calcification. No fracture or pneumothorax. IMPRESSION: Coronary artery disease, but no pulmonary embolus or other acute intrathoracic abnormality. Electronically signed by: Mickey Rodriguez MD 01/09/2018 1:27 PM CDT
[2018-01-09] MEDS ORDERED: traMADol HCL 50 MG TAB ONE (13:37)
[2018-01-09] MEDS ORDERED: traMADol HCL 50 MG TAB PO ONE (13:39)
--- NOTE | 2018-01-09 14:44 | HP ---
SUPERVISING PHYSICIAN: Felipe Davis M.D. CHIEF COMPLAINT: Chest pain and shortness of breath. HISTORY OF PRESENT ILLNESS: Ms. Garcia is an 82 year-old female patient that resides at [facility]. She presented to the Emergency Room after she was having some shortness of breath associated with chest pain this morning. She has recently had an open reduction and internal fixation of the ankle on 12/15/17 and had been in rehab. It is noted today on admission she developed the acute onset of shortness of breath and felt very anxious. EMS was summoned and it was noted that she was slightly tachycardic when they arrived. She was given an aspirin and Nitroglycerin prior to arrival without any relief of her symptoms. She was then presented to the Emergency Department and was given an additional Nitroglycerin that apparently resolved her symptoms. Laboratory studies showed initial cardiac enzymes to be within normal limits with troponin less than 0.02. CBC showed a white count of 4,700 without a shift. Coagulation studies did show an elevated D-dimer of 1.75. PT and PTT were both normal. Given her acute onset of shortness of breath associated with her chest pain and elevated D-dimer, E. R. physician completed a chest thoracic CTA to rule out pulmonary embolism and per radiology interpretation there was noted coronary artery disease but no pulmonary embolus or other acute intrathoracic abnormalities. The patient was given some Tramadol. Her EKG showed sinus tachycardia of [address]-T wave changes which was a noted change from previous review of one on 07/11/17 with the interim development of T wave abnormalities. The patient does have some allergy symptoms, more seasonal. She noted that she has been having a lot of drainage which has been choking her which may be causing her shortness of breath. The patient was without any chest pains, however given the findings on the initial EKG and concerns with chest pains that resolve with Nitroglycerin, the patient is now going to be placed in Observation status for further cardiac telemetry and to further rule out acute myocardial infarction. She was placed in Observation in stable condition. PAST MEDICAL HISTORY: 1. Hypertension. 2. Chronic obstructive pulmonary disease. 3. Peripheral vascular disease. 4. Gastroesophageal reflux disease. 5. Osteopenia. 6. Dementia. 7. Chronic lower back pain. 8. Chronic tobacco abuse. PAST SURGICAL HISTORY: 1. Recent open reduction and internal fixation of the right ankle on 12/15/[address] Michael Patel. 2. Breast augmentation. 3. Thyroidectomy. 4. Tubal ligation. 5. Peripheral stent placement by Dr. Manriquez. CURRENT MEDICATIONS: 1. Albuterol nebulizer 2.5 mg b.i.d. 2. Tylenol 1 to 2 tablets every 4 hours as needed. 3. Restoril 15 mg at bedtime as needed. 4. Mylanta 30 mL every 4 hours as needed. 5. Fleets enema 1 each daily as needed. 6. Hydrocodone 5/325 one to two tablets every 4 hours as needed for pain. 7. Aspirin low dose 81 mg daily. 8. Tramadol 50 mg t.i.d. 9. K-Dur 20 mEq daily. 10. Remeron 15 mg at bedtime. 11. Pantoprazole 40 mg daily. 12. Loratadine 10 mg daily. 13. Colace 100 mg daily. 14. Align 4 mg daily. ALLERGIES: PENICILLINS. FAMILY HISTORY: Reviewed and noncontributory. SOCIAL HISTORY: The patient is retired. She lives at [facility]. She still smokes 1/2 pack of cigarettes a day and has done so for the last 72 years. REVIEW OF SYSTEMS: CONSTITUTIONAL: No reported fever or chills, recent weight loss or weight gain. HEENT: She does have a headache and some nasal congestion, but no sore throat or ear aches. RESPIRATORY: As noted in history of present illness, acute onset of shortness of breath but no reported cough, hemoptysis or wheezing. CARDIOVASCULAR: As noted in History of Present Illness, chest pains. No palpitations or peripheral edema. GASTROINTESTINAL: No nausea or vomiting, diarrhea or constipation or abdominal pains. MUSCULOSKELETAL: Right ankle status post open reduction and internal fixation in November with a walking boot in place. Notes no significant pain to the posterior calf region both on the left or right. NEUROLOGIC: No reported confusion, syncope or presyncope, paresthesias or seizures. PHYSICAL EXAMINATION: VITAL SIGNS: On presentation to the emergency room, she had a temperature of 98.6, pulse initially was 114, satting 97% on room air with blood pressure 121/ 65. Admission weight 65.5 kg. GENERAL: The patient appears to be tired and frail, but in no acute distress. She is alert. HEENT: Tympanic membranes are clear bilaterally. Oropharynx is pink and moist without any lesions. NECK: There is no jugular venous distention. CHEST: Clear to auscultation bilaterally without any rhonchi, wheezing or rales. CARDIOVASCULAR: Regular rate and rhythm without appreciable murmurs, gallops, or rubs. ABDOMEN: Soft, non-tender. Positive bowel sounds. EXTREMITIES: No clubbing, cyanosis or edema. LABORATORY: White count 4,700, hemoglobin 13.5, hematocrit 40.7, platelet count 256,000. Differential shows to be without a left shift. Coagulation studies showed an elevated D-dimer at 1.75 but normal PT and PTT. Chemistries showed normal electrolytes with sodium 140, potassium 3.9, BUN 14, creatinine less than 0.4. Liver functions all showed to be within normal limits. Initial troponin was less than 0.02 with BNP of 62 which is normal. Urinalysis is pending. MICROBIOLOGY: There is no microbiology submitted at this time. RADIOLOGY: In the Emergency Room, she had a chest x-ray per radiology interpretation showed normal portable chest. DVT studies of the lower extremities is pending. ASSESSMENT: 1. Chest pain with acute onset and associated shortness of breath requiring further cardiac telemetry monitoring to further rule out acute coronary syndrome/ myocardial infarction. 2. Recent right ankle fracture requiring open reduction and internal fixation in November of 2017 currently in a walking boot but nonweightbearing. 3. History of gastroesophageal reflux disease. 4. Dementia. 5. Chronic nicotine dependency. PLAN: The patient is going to be placed in Observation status for cardiac telemetry at least until tomorrow. Will resume her home medications as previous to hospitalization. She will be on DVT prophylaxis as per protocol. Will anticipate her length of stay to be at least 1 to days. Until clinically stable, will continue to monitor and treat appropriately. #[id number] [facility]
[2018-01-09] MEDS ORDERED: ACETAMINOPHEN 325 MG TAB PO PRN (14:48)
[2018-01-09] MEDS ORDERED: SODIUM CHLORIDE 0.9% (FLUSH) 10 ML SYG IV PRN (14:48)
[2018-01-09] MEDS ORDERED: MORPHINE SULFATE INJ 10 MG/ML VIAL IV PRN (14:48)
[2018-01-09] MEDS ORDERED: NITROGLYCERIN 0.4 MG 25 EA TAB SL PRN (14:48)
[2018-01-09] MEDS ORDERED: ASPIRIN (CHEWABLE) 81 MG TAB PO ONE (14:48)
[2018-01-09] MEDS ORDERED: IV SET AND CAP CHANGE INJ INJ SCH (15:00)
--- NOTE | 2018-01-09 15:22 | PCM.CORE ---
Physician DVT/VTE - Nurse DVT Assessment & Total Each Risk Factor Represents 5 Points: Hip,Pelvis,leg Fx <1month Each Risk Factor Represents 2 Points: Immoblizing Cast <1 month Each Risk Factor Represents 1 Point: Hx of smoking past year DVT Assessment Score: 8 - 5 or more Very High Risk Treatments: Early Ambulation *, Sequential Compression Device Pharmacological: Enoxaparin 40mg SQ Daily
--- NOTE | 2018-01-09 16:20 | US ---
EXAM DESCRIPTION: Venous,Lower Extremity LT: ULTRASOUND. CLINICAL HISTORY: SOB; elevated d-dimer COMPARISON: Duplex ultrasound evaluation of the right lower extremity deep venous system on the same visit. TECHNIQUE: Two -dimensional and doppler sonographic evaluation of the deep venous system of the left lower extremity. FINDINGS: Doppler evaluation shows normal color flow and normal phasicity and augmentation of the left common femoral vein, femoral vein, popliteal vein, greater/lesser saphenous vein, peroneal, and posterior tibial vein. The left lower extremity deep veins showed normal occlusion with transducer pressure. Two-dimensional survey showed no echogenic thrombus within these veins. IMPRESSION: Duplex ultrasound evaluation of the left lower extremity deep venous system showing no evidence of thrombosis or embolism. Electronically signed by: Hugh Lujan MD 01/09/2018 4:19 PM CDT
--- NOTE | 2018-01-09 16:23 | US ---
EXAM DESCRIPTION: Venous,Lower Extremity RT: ULTRASOUND. CLINICAL HISTORY: SOB; elevated d-dimer COMPARISON: None Available. TECHNIQUE: Two -dimensional and doppler sonographic evaluation of the deep venous system of the right lower extremity. FINDINGS: Doppler evaluation shows normal color flow and normal phasicity and augmentation of the right common femoral vein, femoral vein, popliteal vein, greater saphenous vein, peroneal, and posterior tibial vein. The right lower extremity deep veins showed normal occlusion with transducer pressure. Two-dimensional survey showed no echogenic thrombus within these veins. IMPRESSION: Duplex ultrasound evaluation of the right lower extremity deep venous system showing no evidence of thrombosis or embolism. Electronically signed by: Hugh Lujan MD 01/09/2018 4:22 PM CDT
[2018-01-09] MEDS ORDERED: TEMAZEPAM 15 MG CAP PO PRN (20:10)
[2018-01-09] MEDS: traMADol HCL 50 MG TAB PO SCH (20:17)
[2018-01-09] MEDS: SODIUM CHLORIDE 0.9% (FLUSH) 10 ML SYG IV SCH (20:19)
[2018-01-09] MEDS ORDERED: MIRTAZAPINE 15 MG TAB PO SCH (21:00)
[2018-01-09] MEDS ORDERED: ALBUTEROL SULFATE 2.5 MG/3 ML VIAL NEB SCH (21:00)
[2018-01-09] MEDS ORDERED: ENOXAPARIN SODIUM 40 MG/0.4 ML SYG SUBCU SCH (21:00)
[2018-01-10] MEDS: HYDROcodone 5MG/APAP 325MG 1 EA TAB PO PRN ×2 (02:01→06:01)
[2018-01-10] MEDS ORDERED: ASPIRIN TABLET 325 MG TAB ONE (07:01)
[2018-01-10] MEDS ORDERED: ALBUTEROL SULFATE 2.5 MG/3 ML VIAL NEB SCH (08:00)
[2018-01-10] MEDS: traMADol HCL 50 MG TAB PO SCH (08:31)
[2018-01-10] MEDS: SODIUM CHLORIDE 0.9% (FLUSH) 10 ML SYG IV SCH (08:31)
[2018-01-10] MEDS ORDERED: BIFIDOBACTERIUM INFANTIS 4 MG CAP PO SCH (09:00)
[2018-01-10] MEDS ORDERED: ASPIRIN TABLET 325 MG TAB PO SCH (09:00)
[2018-01-10] MEDS ORDERED: PANTOPRAZOLE SODIUM TAB 40 MG PO SCH (09:00)
[2018-01-10] MEDS ORDERED: ASPIRIN (ENTERIC COATED) 81 MG TAB PO SCH (09:00)
[2018-01-10] MEDS ORDERED: DOCUSATE SODIUM 100 MG CAP PO SCH (09:00)
[2018-01-10] MEDS ORDERED: POTASSIUM CHLORIDE 20 MEQ TAB PO SCH (09:00)
[2018-01-10] MEDS ORDERED: LORATADINE 10 MG TAB PO SCH (09:00)
[2018-01-10 09:43] VITALS: BP 99/61; TEMP 97.5; O2SAT 95
--- NOTE | 2018-01-10 15:04 | DS ---
SUPERVISING PHYSICIAN: Felipe Davis MD DISCHARGE DIAGNOSIS: 1. Chest pain without any evidence of acute myocardial infarction with all cardiac enzymes times 3 being within normal limits and no acute changes noted on EKGs, possibly related to acute anxiety. 2. Shortness of breath related to seasonal allergies and drainage with additional findings of D-dimer elevation felt to be related possibly to recent surgical process, however, CTA was without findings of acute pulmonary embolism. 3. Hypertension, stable. 4. Chronic obstructive pulmonary disease without any exacerbation. 5. Peripheral vascular disease. 6. Gastroesophageal reflux disease. 7. Osteopenia. 8. Dementia. 9. Chronic tobacco abuse. 10. Chronic lower back pain. 11. Status post recent open reduction internal fixation of the right ankle. REASON FOR HOSPITALIZATION: Ms. Garcia is an 82 year-old female that resides at [facility]. She initially presented to the Emergency Room on 01/09/18 after she had some shortness of breath associated with chest pain that morning. She had recently had an open reduction and internal fixation of the right ankle on 12/15/17 and had been in rehab. On admission, it was noted that she had developed the acute onset of shortness of breath and felt very anxious. EMS was summoned and it was noted that she was slightly tachycardic when they arrived. She was given an aspirin and Nitroglycerin prior to arrival without any relief of her symptoms. She then presented to the Emergency Department and was given an additional Nitroglycerin that apparently resolved her symptoms. Initial cardiac enzymes showed troponin less than 0.02. There was elevation of D-dimer at 1.75. Given her acute onset of shortness of breath associated with chest pains and elevated D-Dimer, she then had a chest thoracic CTA to rule out pulmonary embolism and per radiology interpretation there was noted coronary artery disease but no pulmonary embolus or other acute intrathoracic abnormalities. The patient was given some tramadol. Her EKG showed sinus tachycardia of [address]-T wave changes which was a noted change from previous review of one on 07/11/17 with the interim development of T-wave abnormalities. The patient does have a history of allergy symptoms, more seasonal. She noted that she has been having a lot of drainage which had been causing her to choke and she felt was causing her shortness of breath. On arrival to the Medical/Surgical Floor, the patient was without any chest pains, but given the EKG findings and concerns of age and history, the patient was placed in Observation for further cardiac telemetry and to further rule out acute myocardial infarction. She was placed in Observation in stable condition. LABORATORY STUDIES: CBC on admission showed white count 4,700, hemoglobin 13.5 , hematocrit 40.7, platelet count 258,000. Differential was without a left shift. PT, PT-T were normal . D-dimer was elevated at 1.75. Chemistries showed normal electrolytes. BUN 17, creatinine 0.46, all at discharge. She had four sets of troponins that were all less than 0.02. Her lipid panel showed triglycerides 56, cholesterol 180, LDL 122, HDL 41. RADIOLOGY: Chest x-ray in the Emergency Department showed normal portable chest. She then had a CTA of the chest to rule out pulmonary embolism and per radiologic interpretation, coronary artery disease was noted, but pulmonary embolism or other acute abnormalities were not appreciated. Please see that report for full details. She also had bilateral lower extremity Doppler studies to rule out DVTs and per radiologic interpretation, there was no evidence of deep venous thrombosis. HOSPITAL COURSE: Ms. Garcia as noted above was admitted to rule out acute myocardial infarction and with concerns for questionable shortness of breath related to possible pulmonary embolism, but DVT studies were negative. The patient was pain-free through the entire hospitalization. She showed no abnormality rhythms and was no longer having shortness of breath. She reported she had been having a lot of drainage from sinuses and felt like this was causing her to choke and shortness of breath along with a little anxiety. She was found to be clinically stable and at that point able to be discharged to followup with outpatient treatment plan. PLAN: Ms. Garcia was discharged on 01/10/18 with instructions to followup with Dr. Garcia and return to [facility] via van. She was to resume her home medications as directed as per BLAZE and return to the hospital for any concerning symptoms. Medication regimen changes were noted. She was stopped on cetirizine and new medication added was Xyzal 2.5 mg at bedtime, #30. Diet at discharge was regular diet as tolerated. Activities as tolerated, but again no weight-bearing on the right ankle until see by Dr. Patel. Condition on discharge was stable and improved. #[id number] [facility]
== END 2018-01-10 10:20 | disposition home or self-care (01) ==
LOC: ER 11:20 → MS 14:15 → ER 14:23
PROVIDERS: ADMIT Nurse Practitioner Family; ATTEND Nurse Practitioner Family
DX: R07.89 Other chest pain (principal); R06.02 Shortness of breath; R00.0 Tachycardia, unspecified; R79.89 Other specified abnormal findings of blood chemistry; J30.2 Other seasonal allergic rhinitis; I10 Essential (primary) hypertension; J44.9 Chronic obstructive pulmonary disease, unspecified; I73.9 Peripheral vascular disease, unspecified; K21.9 Gastro-esophageal reflux disease without esophagitis; M85.80 Other specified disorders of bone density and structure, unspecified site; F03.90 Unspecified dementia, unspecified severity, without behavioral disturbance, psychotic disturbance, mood disturbance, and anxiety; F17.210 Nicotine dependence, cigarettes, uncomplicated; G89.29 Other chronic pain; M54.5 Low back pain; I25.10 Atherosclerotic heart disease of native coronary artery without angina pectoris; Z66 Do not resuscitate; Z98.890 Other specified postprocedural states; Z79.82 Long term (current) use of aspirin; Z79.899 Other long term (current) drug therapy; Z88.0 Allergy status to penicillin
CPT/HCPCS: 96372; J7611 ×2; J1650; 85379; 80048; 82553; 80053; 80061; 36415 ×6; 85025; 82550; 83735; 85730; 85610; 84484 ×4; 83880; 71045; 71275; 93971 ×2; 94640 ×2; 99285; 93005 ×3; G0378

== ENCOUNTER → 2018-01-16 | Outpatient (CLI) | payer MEDICARE ==
--- NOTE | 2018-01-16 11:06 | RAD ---
Study: Three views of the Right Ankle. Indication: UNSPECIFIED FRACTURE OF RIGHT LOWER LEG Comparison: December 14, 2017. Impression: ORIF of a distal fibular fracture is more which appears healed. The fractures of the medial malleolus and posterior malleolus are redemonstrated and appear incompletely united at this time. Alignment appears stable. Minimal periosteitis noted Ankle mortise alignment normal. The bones are osteopenic. Small tibiotalar joint effusion noted. Electronically signed by: John Mcbride MD 01/16/2018 11:04 AM CDT
== END ==
LOC: RAD 08:18
PROVIDERS: ATTEND Orthopaedic Surgery
DX: S82.91XA Unspecified fracture of right lower leg, initial encounter for closed fracture (principal)

== ENCOUNTER → 2018-02-06 | Outpatient (CLI) | payer MEDICARE | LOC: GMAM 16:46 | PROVIDERS: ATTEND Family Medicine | DX: J30.1 Allergic rhinitis due to pollen (principal) ==

== ENCOUNTER → 2018-02-16 | Outpatient (CLI) | payer MEDICARE ==
--- NOTE | 2018-02-16 11:10 | RAD ---
EXAM DESCRIPTION: Ankle,Right 3 Views CLINICAL HISTORY: 82 years Female, SUBSEQUENT ENCOUNTER FOR CLOSED FRACTURE WITH ROUTINE HEALING COMPARISON: 01/16/2018 TECHNIQUE: AP, oblique and lateral radiographs. FINDINGS: The visualized bones appear poorly mineralized. Intact plate and screw fixation of the distal fibula. Healing fracture of the medial malleolus and posterior malleolus. IMPRESSION: Intact plate and screw fixation of the distal fibula. Healing fracture of the medial malleolus and posterior malleolus. Electronically signed by: Osvaldo Billy MD 02/16/2018 11:09 AM CDT
== END ==
LOC: RAD 08:46
PROVIDERS: ATTEND Orthopaedic Surgery
DX: S82.90XD Unspecified fracture of unspecified lower leg, subsequent encounter for closed fracture with routine healing (principal)

== ENCOUNTER → 2018-03-02 | Outpatient (CLI) | payer MEDICARE ==
--- NOTE | 2018-03-02 19:18 | RAD ---
EXAM DESCRIPTION: Ankle,Right 3 Views CLINICAL HISTORY: 82 years Female, CLOSED FRACTURE OF RIGHT ANKLE COMPARISON: February 16 2018 TECHNIQUE: AP, oblique and lateral radiographs. FINDINGS: The visualized bones appear poorly mineralized. Intact plate and screw fixation of the distal fibula.Fracture of the medial malleolus is visualized. The ankle mortise is intact. The soft tissues appear grossly unremarkable. IMPRESSION: Intact plate and screw fixation of the distal fibula. Fracture of the medial malleolus is visualized. Electronically signed by: Osvaldo Billy MD 03/02/2018 7:17 PM CDT
== END ==
LOC: RAD 08:36
PROVIDERS: ATTEND Orthopaedic Surgery
DX: S82.90XD Unspecified fracture of unspecified lower leg, subsequent encounter for closed fracture with routine healing (principal)

== ENCOUNTER → 2018-04-06 | Outpatient (CLI) | payer MEDICARE ==
--- NOTE | 2018-04-06 09:40 | RAD ---
EXAM DESCRIPTION: Ankle,Right 3 Views CLINICAL HISTORY: 83 years Female, CLOSED FRACTURE OF ANKEL RIGHT COMPARISON: March 02, 2018 FINDINGS: Again seen are postoperative changes in the distal right fibula without apparent hardware complication. A partially united medial malleolar fracture is not displaced and appears stable from March 02, 2018. Generalized bony demineralization is noted. The tibiotalar joint space and talar dome are fairly well maintained. There are small calcaneal enthesophytes at the insertion sites of the plantar fascia and Achilles tendon. IMPRESSION: Postoperative changes in the right ankle without apparent hardware complication. Old nondisplaced partially united medial malleolar fracture, stable. Generalized bony demineralization and calcaneal spurring. Electronically signed by: Mickey Rodriguez MD 04/06/2018 9:38 AM CDT
== END ==
LOC: RAD 08:50
PROVIDERS: ATTEND Orthopaedic Surgery
DX: S82.90XD Unspecified fracture of unspecified lower leg, subsequent encounter for closed fracture with routine healing (principal)

== ENCOUNTER → 2018-08-25 | Outpatient (CLI) | payer MEDICARE | LOC: GMAM 10:51 | PROVIDERS: ATTEND Family Medicine | DX: R06.02 Shortness of breath (principal) ==

== ENCOUNTER 2019-02-06 13:24 | Emergency (ER) | payer MEDICARE ==
--- NOTE | 2019-02-06 15:03 | ED.PDOC ---
History of Present Illness - General Chief Complaint: Respiratory Problem Stated Complaint: COUGH AND CONGESTION Time Seen by Provider: 02/06/19 13:49 Source: patient, family Exam Limitations: no limitations - History of Present Illness Initial Comments: PT PRESENTS TO THE ED WITH COMPLAINT OF COUGH, CONGESTION, AND GENERALIZED WEAKNESS FOR THE PAST 3 DAYS. PT STATES THAT COUGH IS PRODUCTIVE OF WHITE PHLEGM. PT DENIES FEVER, SOB, OR CHEST PAIN. Severity: moderate Improving Factors: nothing Worsening Factors: nothing Associated Symptoms: cough, malaise, weakness Allergies/Adverse Reactions: Allergies Penicillins Allergy (Mild, Verified 01/09/18 15:45) Other injection site reactions with pcn. Home Medications: Ambulatory Orders Tramadol HCl 50 mg PO TID 08/30/16 Mirtazapine [Remeron] 15 mg PO BEDTIME 06/24/17 Aspirin [Aspirin Adult Low Dose] 81 mg PO DAILY 01/09/18 Temazepam [Restoril] 15 mg PO BEDTIME PRN 01/09/18 Ondansetron Odt [Zofran ODT] 8 mg PO TID PRN #15 tab 02/06/19 levoFLOXacin [Levaquin] 500 mg PO DAILY 10 Days #10 tab 02/06/19 Review of Systems - Review of Systems Constitutional: Denies: chills, fever EENTM: States: nose congestion. Denies: throat pain Respiratory: States: cough. Denies: short of breath Cardiology: Denies: chest pain, palpitations Gastrointestinal/Abdominal: Denies: diarrhea, nausea, vomiting Genitourinary: Denies: dysuria, frequency Musculoskeletal: Denies: joint pain, joint swelling Skin: Denies: dryness, lesions Neurological: Denies: headache, numbness Endocrine: States: no symptoms reported Hematologic/Lymphatic: States: no symptoms reported Past Medical History (General) - Patient Medical History Hx Seizures: No Hx Stroke: No Hx Dementia: Yes Hx Asthma: No Hx of COPD: Yes Hx Cardiac Disorders: No Hx Congestive Heart Failure: No Hx Pacemaker: No Hx Hypertension: Yes Hx Thyroid Disease: No Hx Diabetes: No Hx Gastroesophageal Reflux: Yes Hx Renal Disease: Yes - urgency Hx Cancer: No Hx of HIV: No Hx Hepatitis C: No Hx MRSA: No - Vaccination History Hx Tetanus, Diphtheria Vaccination: Yes Hx Influenza Vaccination: Yes Hx Pneumococcal Vaccination: Yes - Social History Hx Tobacco Use: Yes Hx Chewing Tobacco Use: No Hx Alcohol Use: No Hx Substance Use: No Hx Substance Use Treatment: No Hx Depression: No Hx Physical Abuse: No Hx Emotional Abuse: No Hx Suspected Abuse: No - Female History Patient : No Family Medical History - Family History Mother Family History: Unknown Living Status: Physical Exam - Physical Exam General Appearance: Alert, Frail, Ill Appearing, Well Groomed, Well Hydrated Eye Exam: bilateral normal Ears, Nose, Throat: hearing grossly normal Neck: supple, normal inspection Respiratory: lungs clear, normal breath sounds, no respiratory distress Cardiovascular/Chest: regular rate, rhythm, no murmur Gastrointestinal/Abdominal: non tender, soft Extremity: non-tender, normal inspection, no pedal edema Neurologic: alert, normal mood/affect, oriented x 3 Skin Exam: warm/dry, pallor Progress - Progress Progress: 02/06/19 15:32 PT RESTING COMFORTABLY, LABS AND DIAGNOSTICS DISCUSSED WITH PT AND FAMILY AT BEDSIDE. - Results/Orders Results/Orders: Laboratory Tests 02/06/19 02/06/19 14:50 14:50 WBC 5.3 RBC 4.74 Hgb 14.1 Hct 42.8 MCV 90.4 MCH 29.7 MCHC 32.9 L RDW 17.0 H Plt Count 158 MPV 11.1 H Absolute Neuts (auto) 2.70 Absolute Lymphs (auto) 1.50 Absolute Monos (auto) 0.80 Absolute Eos (auto) 0.30 Absolute Basos (auto) 0.10 Neutrophils % 50.4 Lymphocytes % 28.6 Monocytes % 14.2 H Eosinophils % 5.5 H Basophils % 1.3 Sodium 142 Potassium 3.6 Chloride 108 Carbon Dioxide 23 Anion Gap 14.6 BUN 10 Creatinine 0.82 BUN/Creatinine Ratio 12.2 Random Glucose 83 Serum Osmolality 281.3 Calcium 8.8 Total Bilirubin 0.2 AST 22 ALT 11 Alkaline Phosphatase 50 B-Natriuretic Peptide 77.3 Serum Total Protein 7.4 Albumin 3.7 Globulin 3.7 H Albumin/Globulin Ratio 1.0 L - EKG/XRAY/CT EKG: Sinus - @65BPM, 1ST DEGREE AV BLOCK, NL AXIS, no ST T wave changes, Unchanged from - 01/09/18 Departure - Departure Clinical Impression: Left lower lobe pneumonia, Generalized weakness Time of Disposition: 15:32 Disposition: Discharge to Home or Self Care Condition: Fair Departure Forms: ED Discharge - Pt. Copy, Patient Portal Self Enrollment Instructions: DI for Pneumonia -- Adult Diet: resume usual diet Activity: increase activity as tolerated Referrals: Raúl Garcia MD [Primary Care Provider] - 1-5 Days Prescriptions: levoFLOXacin [Levaquin] 500 mg PO DAILY 10 Days #10 tab Ondansetron Odt [Zofran ODT] 8 mg PO TID PRN #15 tab PRN Reason: Nausea/Vomiting Home Medications: Ambulatory Orders Tramadol HCl 50 mg PO TID 08/30/16 Mirtazapine [Remeron] 15 mg PO BEDTIME 06/24/17 Aspirin [Aspirin Adult Low Dose] 81 mg PO DAILY 01/09/18 Temazepam [Restoril] 15 mg PO BEDTIME PRN 01/09/18 Ondansetron Odt [Zofran ODT] 8 mg PO TID PRN #15 tab 02/06/19 levoFLOXacin [Levaquin] 500 mg PO DAILY 10 Days #10 tab 02/06/19
--- NOTE | 2019-02-06 15:04 | RAD ---
EXAM DESCRIPTION: Chest,1 View CLINICAL HISTORY: 83 years Female, COUGH, SOB COMPARISON: CT angiogram of the chest dated 01/09/2018. TECHNIQUE: AP radiograph of the chest was obtained. FINDINGS: Trachea is midline.The cardiomediastinal silhouette is normal in size. Mild diffuse interstitial prominence is noted. Airspace opacities in the left lung base could represent atelectasis and/or pneumonia.No evidence of pleural effusions. IMPRESSION: Mild diffuse interstitial prominence. Airspace opacities in the left lung base could represent atelectasis and/or pneumonia. Electronically signed by: Debby Hoffman MD 02/06/2019 3:02 PM CDT
[2019-02-06] MEDS ORDERED: levoFLOXacin 500 MG TAB PO ONE (15:29)
[2019-02-06] MEDS ORDERED: ONDANSETRON INJ 4 MG/2 ML VIAL IV ONE (15:37)
[2019-02-06] MEDS ORDERED: ONDANSETRON ODT 8 MG TAB SL ONE (15:52)
[2019-02-06 19:04] VITALS: BP 129/79; TEMP 97.6; O2SAT 94
== END 2019-02-06 16:03 | disposition home or self-care (01) ==
LOC: ER 13:24
DX: J18.9 Pneumonia, unspecified organism (principal); R53.1 Weakness; I44.0 Atrioventricular block, first degree; F03.90 Unspecified dementia, unspecified severity, without behavioral disturbance, psychotic disturbance, mood disturbance, and anxiety; J44.9 Chronic obstructive pulmonary disease, unspecified; I10 Essential (primary) hypertension; K21.9 Gastro-esophageal reflux disease without esophagitis; Z87.891 Personal history of nicotine dependence; Z79.82 Long term (current) use of aspirin; Z79.899 Other long term (current) drug therapy; Z88.0 Allergy status to penicillin

== ENCOUNTER 2019-02-19 12:39 | Inpatient (IN) | payer MEDICARE ==
--- NOTE | 2019-02-19 14:29 | RAD ---
EXAM DESCRIPTION: Chest,1 View CLINICAL HISTORY: 83 years Female, cough, fever COMPARISON: Previous study July 23, 2017 TECHNIQUE: AP portable chest. FINDINGS: Heart size is large with prominent central pulmonary vascularity. Left hemidiaphragm is elevated. Patchy infiltrate in the lingula and medial left lung base. No pulmonary mass or worrisome nodule. No pneumothorax or pleural effusion. Bones are unremarkable. IMPRESSION: Large heart with mild vascular congestion. Patchy infiltrates in the lingula and medial left lower lobe. Electronically signed by: Hernan Davila MD 02/19/2019 2:27 PM CDT
--- NOTE | 2019-02-19 15:18 | ED.PDOC ---
History of Present Illness - General Chief Complaint: Respiratory Problem Stated Complaint: cough, fever, weakness Time Seen by Provider: 02/19/19 15:18 Source: patient - daughter, family Exam Limitations: no limitations - History of Present Illness Initial Comments: Emili Garcia 83 y/o female came to ER with mildly productive cough,low grade fever and feeling weak since she was diagnosed with PNA almost 2 weeks ago.She had finished her Levaquin 500mg for ten days but still not feeling better. Timing/Duration: other - 12 days Severity: moderate Improving Factors: nothing Worsening Factors: nothing Associated Symptoms: other - see hpi Allergies/Adverse Reactions: Allergies Penicillins Allergy (Mild, Verified 02/19/19 13:49) Other injection site reactions with pcn. Home Medications: Ambulatory Orders Tramadol HCl 50 mg PO TID 08/30/16 Mirtazapine [Remeron] 15 mg PO BEDTIME 06/24/17 Aspirin [Aspirin Adult Low Dose] 81 mg PO DAILY 01/09/18 Temazepam [Restoril] 15 mg PO BEDTIME PRN 01/09/18 Ondansetron Odt [Zofran ODT] 8 mg PO TID PRN #15 tab 02/06/19 levoFLOXacin [Levaquin] 500 mg PO DAILY 10 Days #10 tab 02/06/19 Review of Systems - Review of Systems Constitutional: States: see HPI EENTM: States: no symptoms reported Respiratory: States: see HPI Cardiology: States: no symptoms reported Gastrointestinal/Abdominal: States: no symptoms reported Genitourinary: States: no symptoms reported Musculoskeletal: States: no symptoms reported Skin: States: no symptoms reported Neurological: States: no symptoms reported All other Systems: Reviewed and Negative, No Change from Baseline Past Medical History (General) - Patient Medical History Hx Seizures: No Hx Stroke: No Hx Dementia: Yes Hx Asthma: No Hx of COPD: Yes Hx Cardiac Disorders: No Hx Congestive Heart Failure: No Hx Pacemaker: No Hx Hypertension: Yes Hx Thyroid Disease: No Hx Diabetes: No Hx Gastroesophageal Reflux: Yes Hx Renal Disease: Yes - urgency Hx Cancer: No Hx of HIV: No Hx Hepatitis C: No Hx MRSA: No Surgical History: other - hysterectomy,ankle,BTL - Vaccination History Hx Tetanus, Diphtheria Vaccination: Yes Hx Influenza Vaccination: Yes Hx Pneumococcal Vaccination: Yes - Social History Hx Tobacco Use: No Hx Chewing Tobacco Use: No Hx Alcohol Use: No Hx Substance Use: No Hx Substance Use Treatment: No Hx Depression: No Hx Physical Abuse: No Hx Emotional Abuse: No Hx Suspected Abuse: No - Activities of Daily Living Patient Lives Alone: Yes Hospice Agency (if applicable):: None Eating (Feeding) Ability: Independent Toileting Ability: Independent - Female History Patient : No Family Medical History - Family History Mother Family History: No Known Living Status: Physical Exam - Physical Exam General Appearance: Alert, Comfortable, No apparent distress Eye Exam: bilateral normal Ears, Nose, Throat: hearing grossly normal, normal ENT inspection, normal pharynx Neck: normal inspection Respiratory: no respiratory distress, wheezing - bilaterally Cardiovascular/Chest: normal peripheral pulses, regular rate, rhythm, no murmur Peripheral Pulses: radial,right: 2+, radial,left: 2+ Gastrointestinal/Abdominal: soft, no organomegaly Back Exam: no CVA tenderness, no vertebral tenderness Extremity: no pedal edema, no calf tenderness Neurologic: alert, oriented x 3 Skin Exam: normal color, warm/dry Progress - Progress Progress: 02/19/19 16:59 Vital Signs - 24 hr 02/19/19 02/19/19 13:45 14:00 Temperature 98.5 F Pulse Rate [ 71 66 pulse ox] Respiratory 20 16 Rate Blood Pressure 122/86 117/74 [Right Arm] O2 Sat by Pulse 97 95 Oximetry Patient was noted to have good appetite eating ham sandwich in room - Results/Orders Results/Orders: 02/19/19 14:14 CARDIAC PANEL,ER Stat HEPATIC FUNCTION PANEL Stat 02/19/19 15:19 IV Care:Saline Lock per Protoc QSHIFT 02/19/19 16:49 SVN/Updraft Therapy .ONCE 02/19/19 17:54 ED Intent to Admit Routine 02/20/19 09:00 [facility] Daily Laboratory Results - last 24 hr 02/19/19 02/19/19 02/19/19 14:14 14:14 14:14 WBC 4.8 RBC 4.43 Hgb 13.1 Hct 39.5 MCV 89.1 MCH 29.5 MCHC 33.1 RDW 16.5 H Plt Count 274 MPV 9.1 Absolute Neuts (auto) 2.70 Absolute Lymphs (auto) 0.80 L Absolute Monos (auto) 0.80 Absolute Eos (auto) 0.40 Absolute Basos (auto) 0.10 Neutrophils % 56.2 Lymphocytes % 17.3 L Monocytes % 16.2 H Eosinophils % 9.1 H Basophils % 1.2 PT 12.1 H INR 1.21 H PTT (SP) 32.8 H Sodium 136 134 L Potassium 3.3 L 3.2 L Chloride 97 L 95 L Carbon Dioxide 28 26 Anion Gap 14.3 16.2 BUN < 5 L < 5 L Creatinine 0.79 0.82 BUN/Creatinine Ratio 6.3 L 6.1 L Random Glucose 101 97 Serum Osmolality 269.4 L 265.4 L Lactic Acid Calcium 8.4 8.2 L Magnesium 2.1 Total Bilirubin 0.3 0.3 Direct Bilirubin < 0.1 Indirect Bilirubin 0.2 AST 23 24 ALT 12 12 Alkaline Phosphatase 287 H 278 H Creatine Kinase 51 CK-MB (CK-2) 2.0 Troponin I < 0.02 B-Natriuretic Peptide Serum Total Protein 7.4 6.9 Albumin 3.0 L 2.9 L Globulin 4.4 H Albumin/Globulin Ratio 0.7 L Urine Color Urine Appearance Urine pH Ur Specific [place] Urine Protein Urine Glucose (UA) Urine Ketones Urine Blood Urine Nitrite Urine Bilirubin Urine Urobilinogen Ur Leukocyte Esterase Urine RBC Urine WBC Ur Epithelial Cells Amorphous Sediment Urine Bacteria 02/19/19 02/19/19 02/19/19 14:14 15:50 16:50 WBC RBC Hgb Hct MCV MCH MCHC RDW Plt Count MPV Absolute Neuts (auto) Absolute Lymphs (auto) Absolute Monos (auto) Absolute Eos (auto) Absolute Basos (auto) Neutrophils % Lymphocytes % Monocytes % Eosinophils % Basophils % PT INR PTT (SP) Sodium Potassium Chloride Carbon Dioxide Anion Gap BUN Creatinine BUN/Creatinine Ratio Random Glucose Serum Osmolality Lactic Acid 0.7 Calcium Magnesium Total Bilirubin Direct Bilirubin Indirect Bilirubin AST ALT Alkaline Phosphatase Creatine Kinase CK-MB (CK-2) Troponin I B-Natriuretic Peptide 99.0 Serum Total Protein Albumin Globulin Albumin/Globulin Ratio Urine Color Yellow Urine Appearance Clear Urine pH 6.5 Ur Specific [place] 1.010 Urine Protein Negative Urine Glucose (UA) Negative Urine Ketones Negative Urine Blood Trace-intact H Urine Nitrite Negative Urine Bilirubin Negative Urine Urobilinogen 0.2 Ur Leukocyte Esterase Negative Urine RBC 1-3 Urine WBC 0-1 Ur Epithelial Cells 0-1 Amorphous Sediment 1+ Urine Bacteria 0 - EKG/XRAY/CT XRAY: chest - lingular and LLL infiltrate Departure - Departure Clinical Impression: Pneumonia Qualifiers: Pneumonia type: due to unspecified organism Laterality: left Lung location: lower lobe of lung Qualified Code(s): J18.1 - Lobar pneumonia, unspecified organism Time of Disposition: 17:55 Disposition: Admit Patient Condition: Fair Departure Forms: Patient Portal Self Enrollment Referrals: Raúl Garcia MD [Primary Care Provider] - 1-2 Weeks Home Medications: Ambulatory Orders Tramadol HCl 50 mg PO TID 08/30/16 Mirtazapine [Remeron] 15 mg PO BEDTIME 06/24/17 Aspirin [Aspirin Adult Low Dose] 81 mg PO DAILY 01/09/18 Temazepam [Restoril] 15 mg PO BEDTIME PRN 01/09/18 Ondansetron Odt [Zofran ODT] 8 mg PO TID PRN #15 tab 02/06/19 levoFLOXacin [Levaquin] 500 mg PO DAILY 10 Days #10 tab 02/06/19 Decision To Admit - Decistion To Admit Decision to Admit Reason: Admit from ER Decision to Admit Date: 02/19/19 - D/W Rayray Chowdary-ANP/Hospitalist Decision to Admit Time: 17:54
[2019-02-19] MEDS ORDERED: SODIUM CHLORIDE 0.9% 500ML 500 ML IVS ONE (15:19)
[2019-02-19] MEDS ORDERED: IPRATROPIUM/ALBUTEROL 3 ML VIAL NEB ONE (16:48)
[2019-02-19] MEDS ORDERED: methylPREDNISolone SODIUM SUC 125 MG/2 ML VIAL IV ONE (16:48)
--- NOTE | 2019-02-19 19:22 | HP ---
SUPERVISING PHYSICIAN: Raúl Garcia M.D. CHIEF COMPLAINT: Generalized weakness. HISTORY OF PRESENT ILLNESS: This is an 83 year-old female who went to the Emergency Room today with generalized weakness. Apparently she was diagnosed with pneumonia about 2 weeks ago and was placed on Levaquin 500 mg for 10 days. She finished the prescription and initially was feeling better, but since stopping the antibiotics started to feel worse. She complains of a cough that is productive with white thick sputum in addition to subjective fever. No nausea or vomiting or anything like that at this time, however she was seen in the Emergency Room and a chest x-ray confirmed residual left lower lobe infiltrate. Therefore the patient was referred for admission for failed outpatient therapy. At the time of examination the patient is alert and oriented. She is not short of breath, able to complete sentences while I am talking to her, however she does look ill in appearance and is weak. PAST MEDICAL HISTORY: 1. Hypertension. 2. Chronic obstructive pulmonary disease. 3. Peripheral vascular disease. 4. Gastroesophageal reflux disease. 5. Osteopenia. 6. Dementia. 7. Chronic low back pain. 8. Tobacco abuse. PAST SURGICAL HISTORY: 1. Open reduction and internal fixation of the right ankle. 2. Breast augmentation. 3. Thyroidectomy. 4. Tubal ligation. 5. Peripheral stent. CURRENT MEDICATIONS: 1. Aspirin 81 mg p.o. daily. 2. Remeron 50 mg p.o. at bedtime. 3. Multivitamin 1 tab p.o. daily. 4. Tramadol 50 mg p.o. t.i.d. 5. Zofran 8 mg p.o. t.i.d. p.r.n. for nausea. ALLERGIES: PENICILLIN. FAMILY HISTORY: Reviewed and noncontributory. SOCIAL HISTORY: The patient is a smoker. Smokes 1/2 pack per day and she has done so for the last 73 years. She lives at home. She is retired. No alcohol use. REVIEW OF SYSTEMS: CONSTITUTIONAL: Positive for fever and chills. No recent weight loss or weight gain. HEENT: No headaches, vision changes, ear pain, nasal congestion or throat pain. RESPIRATORY: Positive for cough. No hemoptysis. No significant pleuritic chest pain. CARDIOVASCULAR: No chest pain, palpitations or peripheral edema. GASTROINTESTINAL: No nausea, vomiting, diarrhea, constipation or abdominal pain. GENITOURINARY: No dysuria, frequency or flank pain. HEMATOLOGIC: No easy bruising or transfusion reaction. ENDOCRINE: No polydipsia, polyuria or polyphagia. No heat or cold intolerance. INTEGUMENT: No rashes, lesions or wounds. NEUROLOGIC: No seizures, paresthesias or syncope. PHYSICAL EXAMINATION: VITAL SIGNS: Blood pressure 106/68, heart rate 73, respiratory rate 19, temperature 98.9, oxygen saturation 91% on room air. GENERAL: Ms. Garcia is an 83 year-old female who is ill in appearance but in no active distress. HEENT: Head is normocephalic and atraumatic. Eyes: Pupils are equal and reactive. Nose: No drainage. Throat: With moist mucosa. NECK: Supple. Midline trachea. No jugular venous distention. CHEST: Symmetrical with equal rise and fall of the chest with inspiration and expiration. Lung sounds are diminished in the bases, left greater than right. CARDIOVASCULAR: Regular rate and rhythm. Normal S1 and S2. ABDOMEN: Soft. Positive bowel sounds. GENITOURINARY: Exam is deferred. EXTREMITIES: Lower extremities with no significant edema. NEUROLOGIC: The patient is alert and oriented. LABORATORY: Labs and films as discussed in the History of Present Illness. ASSESSMENT: 1. Left lower lobe pneumonia with failed outpatient therapy. 2. Chronic obstructive pulmonary disease without an acute exacerbation. 3. Hypertension. 4. Continuous nicotine dependency. 5. History of gastroesophageal reflux disease. 6. Hypokalemia. PLAN: Will admit the patient and place her on pneumonia protocol. Adding nebulizer therapy but does not necessitate any corticosteroids at this time as she is not wheezing. I am going to place her on IV fluids as her potassium is a little bit low. The fluid will be at a lower rate as to not volume overload her. DVT and GI ulcer prophylaxis have been ordered. Will repeat labs as well as chest x-ray in the morning. Due to weakness, we will order a Physical Therapy evaluation as well. [id number]
[2019-02-19] MEDS ORDERED: SODIUM CHLORIDE 0.9% (FLUSH) 10 ML SYG IV PRN (20:19)
[2019-02-19] MEDS ORDERED: ONDANSETRON ODT 8 MG TAB PO PRN (20:29)
[2019-02-19] MEDS ORDERED: PANTOPRAZOLE SODIUM IV 40 MG VIAL IV SCH (20:30)
[2019-02-19] MEDS ORDERED: SODIUM CHL 0.9% 50ML MIN-BAG+ 50 ML IVPB ONE (20:49)
[2019-02-19] MEDS ORDERED: CEFEPIME 2 GM VIAL ONE (20:49)
[2019-02-19] MEDS ORDERED: PANTOPRAZOLE SODIUM TAB 40 MG PO ONE (20:52)
[2019-02-19] MEDS ORDERED: PANTOPRAZOLE SODIUM TAB 40 MG PO SCH (21:01)
[2019-02-19] MEDS: MIRTAZAPINE 15 MG TAB PO SCH (21:02)
[2019-02-19] MEDS: traMADol HCL 50 MG TAB PO PRN (21:02)
[2019-02-19] MEDS: ENOXAPARIN SODIUM 40 MG/0.4 ML SYG SUBCU SCH (21:02)
[2019-02-19] MEDS: KCL 20 MEQ/NS 1,000 ML IVS PRN (21:04)
[2019-02-19] MEDS: CEFEPIME 2 GM in SODIUM CHL 0.9% 50ML MIN-BAG+ 50 ML IVPB SCH (21:07)
[2019-02-19] MEDS: IV SET AND CAP CHANGE INJ INJ SCH (21:10)
[2019-02-19] MEDS: levoFLOXacin 750MG IV 750 MG in PREMIX BAG 1 BAG IVPB SCH (21:41)
[2019-02-19] MEDS: IPRATROPIUM/ALBUTEROL 3 ML VIAL INH SCH (23:54)
[2019-02-20] MEDS: IPRATROPIUM/ALBUTEROL 3 ML VIAL INH SCH ×5 (04:30→19:40)
[2019-02-20] MEDS ORDERED: PANTOPRAZOLE SODIUM TAB 40 MG PO SCH (06:30)
--- NOTE | 2019-02-20 07:30 | RAD ---
EXAM: XR Chest, 2 Views CLINICAL HISTORY: The patient is 83 years old and is Female; Pneumonia TECHNIQUE: Frontal and lateral views of the chest. COMPARISON: Chest radiograph from 02/19/2019 FINDINGS: LUNGS: There is mild diffuse interstitial prominence which is similar to the prior study. No focal consolidation. PLEURAL SPACE: No significant pleural effusion. No obvious pneumothorax. HEART: No significant enlargement of the cardiac silhouette. MEDIASTINUM: Unremarkable. BONES/JOINTS: The bones are unchanged. IMPRESSION: No acute findings visualized. Electronically signed by: Sarina Jang MD 02/20/2019 7:29 AM CDT
[2019-02-20] MEDS ORDERED: SODIUM CHL 0.9% 50ML MIN-BAG+ 50 ML IVPB ONE ×2 (08:21→19:07)
[2019-02-20] MEDS ORDERED: ASPIRIN (CHEWABLE) 81 MG TAB ONE (08:21)
[2019-02-20] MEDS ORDERED: CEFEPIME 2 GM VIAL ONE ×2 (08:21→19:08)
[2019-02-20] MEDS: CEFEPIME 2 GM in SODIUM CHL 0.9% 50ML MIN-BAG+ 50 ML IVPB SCH ×2 (08:44→20:02)
[2019-02-20] MEDS: ASPIRIN (ENTERIC COATED) 81 MG TAB PO SCH (08:45)
[2019-02-20] MEDS: MULTIPLE VITAMIN 1 EA TAB PO SCH (10:02)
[2019-02-20] MEDS: PANTOPRAZOLE SODIUM TAB 40 MG PO SCH (10:02)
[2019-02-20] MEDS: traMADol HCL 50 MG TAB PO PRN (10:02)
[2019-02-20] MEDS: KCL 20 MEQ/NS 1,000 ML IVS PRN (12:10)
--- NOTE | 2019-02-20 13:55 | PN ---
SUPERVISING PHYSICIAN: Raúl Garcia MD DATE: 02/20/19 SUBJECTIVE: The patient states she feels better than she did when she came in. She is breathing a little bit better. She is not really coughing up much today. OBJECTIVE: VITAL SIGNS: Blood pressure 104/67. Heart rate 94. Respiratory rate 18. Temperature 98.4. Oxygen saturation 91% on room air. GENERAL: Ms. Garcia is an 83-year-old female who is in no active distress currently. NEUROLOGIC: Alert and oriented. LUNGS: Diminished in the bases, left greater than right. She does have a wheeze in the right upper lung field. CARDIOVASCULAR: Regular rate and rhythm. Normal S1, S2. ABDOMEN: Soft. Positive bowel sounds. GENITOURINARY: Deferred. EXTREMITIES: Lower extremities with no edema. LABORATORY: Normal white count and unremarkable CBC. Chemistry is again unremarkable as well. RADIOLOGY: Chest x-ray is not appreciating a left lower lobe infiltrate that was appreciated on yesterday's chest x-ray. ASSESSMENT: 1. Left lower lobe pneumonia with failed outpatient therapy. 2. Chronic obstructive pulmonary disease without an acute exacerbation. 3. Hypertension. 4. Continuous nicotine dependency. 5. History of gastroesophageal reflux disease. 6. Hypokalemia. PLAN: We will continue current antibiotic therapy. Clinically, she is improving. Diagnostics are not indicative of any worsening. She is still complaining of some weakness, however, so I will get a physical therapy consult. [facility][id number]
[2019-02-20] MEDS: ACETAMINOPHEN-CAFF-BUTALBITAL 1 EA TAB PO PRN ×2 (14:24→20:12)
[2019-02-20] MEDS: MIRTAZAPINE 15 MG TAB PO SCH (20:12)
[2019-02-20] MEDS: ENOXAPARIN SODIUM 40 MG/0.4 ML SYG SUBCU SCH (20:12)
[2019-02-20] MEDS: levoFLOXacin 750MG IV 750 MG in PREMIX BAG 1 BAG IVPB SCH (21:16)
[2019-02-21] MEDS: IPRATROPIUM/ALBUTEROL 3 ML VIAL INH SCH ×6 (00:30→20:28)
[2019-02-21] MEDS: KCL 20 MEQ/NS 1,000 ML IVS PRN (01:11)
[2019-02-21] MEDS: traMADol HCL 50 MG TAB PO PRN ×3 (01:16→22:03)
[2019-02-21] MEDS: PANTOPRAZOLE SODIUM TAB 40 MG PO SCH (06:04)
[2019-02-21] MEDS ORDERED: SODIUM CHL 0.9% 50ML MIN-BAG+ 50 ML IVPB ONE ×2 (07:34→19:06)
[2019-02-21] MEDS ORDERED: CEFEPIME 2 GM VIAL ONE ×2 (07:35→19:06)
[2019-02-21] MEDS: CEFEPIME 2 GM in SODIUM CHL 0.9% 50ML MIN-BAG+ 50 ML IVPB SCH ×2 (08:19→19:59)
[2019-02-21] MEDS: ASPIRIN (ENTERIC COATED) 81 MG TAB PO SCH (08:20)
[2019-02-21] MEDS: MULTIPLE VITAMIN 1 EA TAB PO SCH (08:20)
[2019-02-21] MEDS: guaiFENesin ER TAB 600 MG TAB PO SCH ×2 (09:43→20:04)
[2019-02-21] MEDS: ACETAMINOPHEN-CAFF-BUTALBITAL 1 EA TAB PO PRN ×2 (10:31→20:03)
[2019-02-21] MEDS ORDERED: methylPREDNISolone SODIUM SUC 125 MG/2 ML VIAL IV ONE (11:55)
[2019-02-21] MEDS ORDERED: methylPREDNISolone SODIUM SUC 125 MG/2 ML VIAL ONE (12:24)
--- NOTE | 2019-02-21 13:25 | PN ---
SUPERVISING PHYSICIAN: Raúl Garcia MD DATE: 02/21/19 SUBJECTIVE: The patient is lying in bed. She said she is finally able to cough up a small amount of sputum and it feels like her phlegm in her chest is breaking up. She still has some shortness of breath and just feels poorly. She denies chest pain, nausea or vomiting. OBJECTIVE: VITAL SIGNS: Temperature 98. Heart rate 76. Blood pressure 142/83. Respiratory rate 18. O2 saturation 94% on room air. RESPIRATORY: A few scattered expiratory wheezes in the left midlung, somewhat diminished at the bases. CARDIAC: Regular rate and rhythm. GASTROINTESTINAL: Abdomen is soft, nondistended, nontender. Bowel sounds are positive. NEUROLOGIC: Awake, alert and oriented times three. LABORATORY: There are no labs or films to report at this time. ASSESSMENT: 1. Left lower lobe pneumonia with failed outpatient therapy. 2. Chronic obstructive pulmonary disease with an acute exacerbation. 3. Hypertension. 4. Continuous nicotine dependency. 5. History of gastroesophageal reflux disease. 6. Hypokalemia. PLAN: We will continue present supportive care. I have initiated pulmonary hygiene from the pneumonia protocol as she is only minimally improving. I have also received a sputum culture. I have started her on some Mucinex. We will do a chest x-ray and lab in the morning. I am going to give her a dose of IV steroids and taper them down as she may benefit from some steroid therapy. I encouraged good pulmonary hygiene. We will continue to monitor the patient closely and follow as needed. [facility][id number] [facility]
[2019-02-21] MEDS ORDERED: methylPREDNISolone SODIUM SUC 40 MG/ML VIAL ONE (19:08)
[2019-02-21] MEDS: ENOXAPARIN SODIUM 40 MG/0.4 ML SYG SUBCU SCH (20:03)
[2019-02-21] MEDS: MIRTAZAPINE 15 MG TAB PO SCH (20:04)
[2019-02-21] MEDS: levoFLOXacin 750MG IV 750 MG in PREMIX BAG 1 BAG IVPB SCH (20:35)
[2019-02-21] MEDS: methylPREDNISolone SODIUM SUC 40 MG/ML VIAL IV SCH (22:00)
[2019-02-22] MEDS: IPRATROPIUM/ALBUTEROL 3 ML VIAL INH SCH ×6 (04:31→19:30)
[2019-02-22] MEDS: ACETAMINOPHEN-CAFF-BUTALBITAL 1 EA TAB PO PRN ×4 (05:37→20:44)
[2019-02-22] MEDS: methylPREDNISolone SODIUM SUC 40 MG/ML VIAL IV SCH (06:02)
[2019-02-22] MEDS: PANTOPRAZOLE SODIUM TAB 40 MG PO SCH (06:02)
[2019-02-22] MEDS ORDERED: SODIUM CHL 0.9% 50ML MIN-BAG+ 50 ML IVPB ONE ×2 (06:57→19:37)
[2019-02-22] MEDS ORDERED: CEFEPIME 2 GM VIAL ONE ×2 (06:58→19:38)
--- NOTE | 2019-02-22 07:06 | RAD ---
EXAM: XR Chest, 2 Views CLINICAL HISTORY: The patient is 83 years old and is Female; Pneumonia TECHNIQUE: Frontal and lateral views of the chest. COMPARISON: Chest radiograph from 02/20/2019 FINDINGS: LUNGS: There is minimal interstitial prominence in the lungs which is not significantly changed and is likely chronic. There is no focal consolidation. PLEURAL SPACE: Minimal blunting of bilateral costophrenic angles, which may represent small pleural effusions. No obvious pneumothorax. HEART: Mild enlargement of the cardiac silhouette. MEDIASTINUM: Unremarkable. BONES/JOINTS: No acute osseous findings. IMPRESSION: Possible small bilateral pleural effusions. Otherwise, no acute findings visualized in the chest. Electronically signed by: Sarina Jang MD 02/22/2019 7:05 AM CDT
[2019-02-22] MEDS: MULTIPLE VITAMIN 1 EA TAB PO SCH (08:35)
[2019-02-22] MEDS: CEFEPIME 2 GM in SODIUM CHL 0.9% 50ML MIN-BAG+ 50 ML IVPB SCH ×2 (08:35→20:10)
[2019-02-22] MEDS: ASPIRIN (ENTERIC COATED) 81 MG TAB PO SCH (08:35)
[2019-02-22] MEDS: guaiFENesin ER TAB 600 MG TAB PO SCH ×2 (08:35→20:44)
[2019-02-22] MEDS: traMADol HCL 50 MG TAB PO PRN ×2 (08:42→15:39)
[2019-02-22] MEDS: predniSONE 20 MG TAB PO SCH (09:56)
--- NOTE | 2019-02-22 11:54 | PN ---
SUPERVISING PHYSICIAN: Raúl Garcia MD DATE: 02/22/19 SUBJECTIVE: The patient is lying in bed. She feels much better. Her shortness of breath is improved although she still has some with exertion. She also said her nonproductive cough has improved and is "breaking up." No nausea or vomiting. She did say her stool was getting somewhat looser and sometimes it does with taking antibiotics. OBJECTIVE: VITAL SIGNS: Temperature 98. Heart rate 97. Blood pressure 11/70. Respiratory rate 20. O2 satisfaction 93% on room air. RESPIRATORY: Diminished breath sounds at the bases. She does have a few scattered rhonchi. No wheezing or rales. CARDIAC: Regular rate and rhythm. GASTROINTESTINAL: Abdomen is soft, nondistended, nontender. Bowel sounds are positive. NEUROLOGIC: Awake, alert and oriented times three. LABORATORY: WBC 7,400, hemoglobin 12, hematocrit 35.8. She has a left shift on differential. Electrolytes are basically within normal limits. Alkaline phosphatase is slightly high, but improved at 181. Chest x-ray shows possible bilateral pleural effusions, otherwise no acute findings visualized in the chest. All other labs and films have been reviewed via the EMR. ASSESSMENT: 1. Left lower lobe pneumonia with failed outpatient therapy. 2. Chronic obstructive pulmonary disease with an acute exacerbation. 3. Hypertension. 4. Continuous nicotine dependency. 5. History of gastroesophageal reflux disease. 6. Hypokalemia. 7. Chronic insomnia. PLAN: We will continue present supportive care including continuing watch of her sputum culture. I have decreased her IV prednisone to p.o. prednisone. I have also given her some probiotics. Her melatonin has been continued from her home medications to assist with sleeping. I have held on any lab or chest x-ray for in the morning. We will monitor how she is doing clinically. Hopefully she can be discharged tomorrow or the next day with close followup with Dr. Garcia, her primary care physician. [facility][id number] [facility]
[2019-02-22] MEDS: BIFIDOBACTERIUM INFANTIS 4 MG CAP PO SCH ×2 (12:02→20:44)
[2019-02-22] MEDS: ENOXAPARIN SODIUM 40 MG/0.4 ML SYG SUBCU SCH (20:09)
[2019-02-22] MEDS: IV SET AND CAP CHANGE INJ INJ SCH (20:09)
[2019-02-22] MEDS: MIRTAZAPINE 15 MG TAB PO SCH (20:44)
[2019-02-22] MEDS: levoFLOXacin 750MG IV 750 MG in PREMIX BAG 1 BAG IVPB SCH (20:45)
[2019-02-23] MEDS: traMADol HCL 50 MG TAB PO PRN ×4 (00:06→23:58)
[2019-02-23] MEDS: ACETAMINOPHEN-CAFF-BUTALBITAL 1 EA TAB PO PRN ×2 (00:43→19:46)
[2019-02-23] MEDS: IPRATROPIUM/ALBUTEROL 3 ML VIAL INH SCH ×6 (04:00→20:14)
[2019-02-23] MEDS: PANTOPRAZOLE SODIUM TAB 40 MG PO SCH (06:04)
[2019-02-23] MEDS ORDERED: SODIUM CHL 0.9% 50ML MIN-BAG+ 50 ML IVPB ONE ×2 (07:45→19:18)
[2019-02-23] MEDS ORDERED: CEFEPIME 2 GM VIAL ONE ×2 (07:46→19:18)
[2019-02-23] MEDS: BIFIDOBACTERIUM INFANTIS 4 MG CAP PO SCH ×2 (08:50→20:33)
[2019-02-23] MEDS: ASPIRIN (ENTERIC COATED) 81 MG TAB PO SCH (08:51)
[2019-02-23] MEDS: CEFEPIME 2 GM in SODIUM CHL 0.9% 50ML MIN-BAG+ 50 ML IVPB SCH ×2 (08:51→20:03)
[2019-02-23] MEDS: guaiFENesin ER TAB 600 MG TAB PO SCH ×2 (08:51→20:33)
[2019-02-23] MEDS: MULTIPLE VITAMIN 1 EA TAB PO SCH (08:51)
[2019-02-23] MEDS: predniSONE 20 MG TAB PO SCH (08:51)
[2019-02-23] MEDS ORDERED: LOPERAMIDE CAP 2 MG CAP PO ONE (12:06)
[2019-02-23] MEDS ORDERED: AZITHROMYCIN IV 500 MG in SODIUM CHLORIDE 0.9% 250ML 250 ML IVPB SCH (12:30)
[2019-02-23] MEDS ORDERED: AZITHROMYCIN IV 500 MG VIAL IVPB ONE (13:02)
[2019-02-23] MEDS ORDERED: SODIUM CHLORIDE 0.9% 250ML 250 ML ONE (13:02)
--- NOTE | 2019-02-23 16:20 | PN ---
DATE: 02/23/19 SUPERVISING PHYSICIAN: Raúl Garcia M.D. SUBJECTIVE: The patient this morning reports that she is not feeling well as she has had several large loose stools which she reports she usually gets when she has antibiotics. We did discuss trying to go home, but the patient is having such a volume of stools and feels weak at this point. I believe another day with continued fluids and management is appropriate. OBJECTIVE: VITAL SIGNS: Temperature 98, pulse 79, blood pressure 130/79, respirations 18, satting 94% on room air. I's and O's are showing a negative balance of 2610 with 940 in, 3550 out. She has had 3 bowel movements today. Weight is 73.2 kg. GENERAL: The patient appears to be in no acute distress. She is alert but she does appear acutely ill. CHEST: Lung sounds continue to be diminished towards the bases. No notable rhonchi, rales or wheezing are noted today. HEART: Regular rate and rhythm. ABDOMEN: Soft, non-tender. Positive bowel sounds. EXTREMITIES: Without any edema. NEUROLOGIC: She is alert and oriented times three. LABORATORY: No new laboratory studies today. RADIOLOGY: No radiographic studies. ASSESSMENT: 1. Left lower lobe pneumonia with failed outpatient therapy showing improvement with therapy. 2. Antibiotic associated diarrhea with C-Diff studies pending. 3. Chronic obstructive pulmonary disease with an acute exacerbation secondary to #1. 4. Hypertension. 5. Continuous nicotine dependency. 6. History of gastroesophageal reflux disease. 7. Hypokalemia. 8. Chronic insomnia. PLAN: Will continue with current plan of care. Will change her antibiotic coverage from Levaquin to Cefepime and azithromycin given that she has been on well over 15 days of Levaquin. Will continue to cover for atypicals with the azithromycin. Will give fluids as needed. Will await C-Diff results on stools. Will anticipate hopefully being able to discharge tomorrow. Until then will continue to monitor and treat as needed. #[id number] [facility]
[2019-02-23] MEDS: ENOXAPARIN SODIUM 40 MG/0.4 ML SYG SUBCU SCH (20:03)
[2019-02-23] MEDS: MIRTAZAPINE 15 MG TAB PO SCH (20:33)
[2019-02-24] MEDS: IPRATROPIUM/ALBUTEROL 3 ML VIAL INH SCH ×3 (00:32→08:43)
[2019-02-24] MEDS: PANTOPRAZOLE SODIUM TAB 40 MG PO SCH (06:08)
[2019-02-24] MEDS ORDERED: SODIUM CHLORIDE 0.9% 250ML 250 ML ONE (07:18)
[2019-02-24] MEDS ORDERED: SODIUM CHL 0.9% 50ML MIN-BAG+ 50 ML IVPB ONE (07:18)
[2019-02-24] MEDS ORDERED: AZITHROMYCIN IV 500 MG VIAL IVPB ONE (07:19)
[2019-02-24] MEDS ORDERED: CEFEPIME 2 GM VIAL ONE (07:19)
[2019-02-24] MEDS: ACETAMINOPHEN-CAFF-BUTALBITAL 1 EA TAB PO PRN (07:34)
[2019-02-24] MEDS: ASPIRIN (ENTERIC COATED) 81 MG TAB PO SCH (07:34)
[2019-02-24] MEDS: BIFIDOBACTERIUM INFANTIS 4 MG CAP PO SCH (07:34)
[2019-02-24] MEDS: MULTIPLE VITAMIN 1 EA TAB PO SCH (07:34)
[2019-02-24] MEDS: CEFEPIME 2 GM in SODIUM CHL 0.9% 50ML MIN-BAG+ 50 ML IVPB SCH (08:48)
[2019-02-24] MEDS: predniSONE 20 MG TAB PO SCH (09:56)
[2019-02-24] MEDS: guaiFENesin ER TAB 600 MG TAB PO SCH (09:56)
[2019-02-24 10:16] VITALS: O2SAT 94
[2019-02-24 10:21] VITALS: BP 125/75; TEMP 98.6
--- NOTE | 2019-02-26 08:29 | DS ---
SUPERVISING PHYSICIAN: Raúl Garcia MD ADMISSION DIAGNOSIS: 1. Left lower lobe pneumonia with failed outpatient therapy. 2. Chronic obstructive pulmonary disease without an acute exacerbation. 3. Hypertension. 4. Continuous nicotine dependency. 5. History of gastroesophageal reflux disease. 6. Hypokalemia. DISCHARGE DIAGNOSIS: 1. Left lower lobe pneumonia with failed outpatient therapy showing improvement with therapy. 2. Antibiotic associated diarrhea, resolved with Lomotil and C. difficile studies pending at discharge with no further diarrhea noted. 3. Chronic obstructive pulmonary disease with an acute exacerbation secondary to #1. 4. Hypertension, stable. 5. Continuous nicotine dependency. 6. History of gastroesophageal reflux disease. 7. Hypokalemia, back to baseline levels. 8. Chronic insomnia. REASON FOR HOSPITALIZATION : This is an 83 year-old female who went to the Emergency Room today with generalized weakness. Apparently she was diagnosed with pneumonia about 2 weeks ago and was placed on Levaquin 500 mg for 10 days. She finished the prescription and initially was feeling better, but since stopping the antibiotics started to feel worse. She complains of a cough that is productive with white thick sputum in addition to subjective fever. No nausea or vomiting or anything like that at this time, however she was seen in the Emergency Room and a chest x-ray confirmed residual left lower lobe infiltrate. Therefore the patient was referred for admission for failed outpatient therapy. At the time of examination the patient is alert and oriented. She is not short of breath, able to complete sentences while I am talking to her, however she does look ill in appearance and is weak. The patient was admitted in stable condition. LABORATORY: White count on admission was 4,800. At discharge, it was 7,400. Hemoglobin and hematocrit were stable and at discharge was 12.0 and 35.8 respectively with platelet count 275,000. Differential was without a left shift on admission and at discharge showed just a slight left shift. Coagulation studies showed PT 12.1, INR 1.2, PTT 32.8. Chemistries on admission showed electrolytes abnormal with sodium 134, potassium 3.2, BUN less than 5, creatinine 0.8, calcium 8.4. Liver functions all within normal limits. Alkaline phosphatase elevated at 278. Troponin less than 0.02. BNP normal at 99. Prior to discharge, electrolytes had all normalized. BUN 10, creatinine 0.53. Liver functions were within normal limits. Alkaline phosphatase was down to 181. Urinalysis showed a trace intact blood, otherwise within normal limits. MICROBIOLOGY: No microbiological specimens were submitted. RADIOLOGY: She had a chest x-ray initially on admission and per radiologic interpretation showed enlarged heart with mild vascular congestion with patchy infiltrates in the lingula and middle and left lower lobe. Final chest x-ray on 02/22/19 per radiologic interpretation of two-view chest showed possible small bilateral pleural effusions, otherwise no acute findings were visualized in the chest. HOSPITAL COURSE: Ms. Garcia was admitted for initiation of treatment of left sided pneumonia having failed outpatient treatment plan. She was started on antibiotics on admission that included Levaquin and cefepime. She had been on Levaquin prior to admission for over 10 days. During the hospitalization, she did improve clinically, but she started having some diarrhea associated with antibiotics, but no evidence of C. difficile. Given the antibiotic coverage she had had previously, I changed her prior to discharge for a couple of treatments with continued cefepime, but added azithromycin. She finished a complete course of antibiotic therapy prior to discharge and was clinically stable. She no longer had any diarrhea and was felt to be able to continue with outpatient management. PLAN: Ms. Garcia was discharged with instructions to followup with Dr. Garcia in 7 days. She was to call for an appointment on Tuesday. She was told to resume her medications as prior to hospitalization and given warning to return to the hospital should she have any worsening or concerning symptoms. Diet at discharge was to resume regular diet. Activity to increase as tolerated. MEDICATIONS PRESCRIBED AT DISCHARGE: 1. Align 4 mg twice daily. 2. Medrol Dosepak 4 mg 6-day taper, #21 tablets, as directed, no refills. All other medications prior to hospitalization were continued. DISPOSITION: The patient was discharged home. CONDITION AT DISCHARGE: Stable and improved. #[id number] [facility]
== END 2019-02-24 12:20 | disposition home or self-care (01) | DRG 194 ==
LOC: ER 12:39 → OBSVTOIN 19:22 → MS 19:22
PROVIDERS: ADMIT Nurse Practitioner; ATTEND Nurse Practitioner Family
DX: J18.1 Lobar pneumonia, unspecified organism (principal); J44.0 Chronic obstructive pulmonary disease with (acute) lower respiratory infection; K52.1 Toxic gastroenteritis and colitis; I10 Essential (primary) hypertension; K21.9 Gastro-esophageal reflux disease without esophagitis; E87.6 Hypokalemia; G47.00 Insomnia, unspecified; T36.8X5A Adverse effect of other systemic antibiotics, initial encounter; Y92.230 Patient room in hospital as the place of occurrence of the external cause; T36.1X5A Adverse effect of cephalosporins and other beta-lactam antibiotics, initial encounter; I73.9 Peripheral vascular disease, unspecified; M81.0 Age-related osteoporosis without current pathological fracture; F03.90 Unspecified dementia, unspecified severity, without behavioral disturbance, psychotic disturbance, mood disturbance, and anxiety; G89.29 Other chronic pain; M54.5 Low back pain; F17.210 Nicotine dependence, cigarettes, uncomplicated; Z66 Do not resuscitate; Z88.0 Allergy status to penicillin; Z95.820 Peripheral vascular angioplasty status with implants and grafts; Z79.82 Long term (current) use of aspirin; Z79.891 Long term (current) use of opiate analgesic; Z79.899 Other long term (current) drug therapy

== ENCOUNTER 2019-09-03 09:13 | Emergency (ER) | payer MEDICARE ==
[2019-09-03 09:28] VITALS: O2SAT 96
--- NOTE | 2019-09-03 10:03 | RAD ---
EXAM DESCRIPTION: Chest,2 Views CLINICAL HISTORY: 84 years Female, cough, sob, fever COMPARISON: 02/22/2019 TECHNIQUE: 2 view radiograph of the chest. IMPRESSION: Normal size cardiac silhouette. Partially calcified aorta. Hyperinflated lungs. Bilateral breast implants in place overlying the lateral lung bases. No lobar consolidation otherwise appreciated. No pleural effusion or pneumothorax. Thoracic spondylosis with dextrocurvature of the thoracic spine. Electronically signed by: Aldair Gonzalez MD 09/03/2019 10:01 AM [facility]
--- NOTE | 2019-09-03 10:17 | ED.PDOC ---
History of Present Illness - General Chief Complaint: General Stated Complaint: chills,fever,sore throat,shortness of breath Time Seen by Provider: 09/03/19 09:23 Source: patient Exam Limitations: no limitations - History of Present Illness Initial Comments: The patient is an 84-year-old female presenting with 3 days of symptoms of sore throat and a cough. The patient has had multiple recurrent episodes of pneumonia and is fearful of another one setting and. Oxygen saturations ranged from 90 to 95% on room air. She is not in distress. Reports temperatures up to 102. No syncope. No real runny nose. No chest pain. Timing/Duration: other - 3 days Severity: moderate Improving Factors: nothing Worsening Factors: nothing Associated Symptoms: cough, fever/chills, malaise Allergies/Adverse Reactions: Allergies Penicillins Allergy (Mild, Verified 02/19/19 20:46) Other injection site reactions with pcn. Home Medications: Ambulatory Orders Tramadol HCl 50 mg PO TID 08/30/16 Mirtazapine [Remeron] 15 mg PO BEDTIME 06/24/17 Azithromycin 250 mg PO DAILY #4 tab 09/03/19 Review of Systems - Review of Systems Constitutional: States: fever, malaise EENTM: States: throat pain Respiratory: States: cough, short of breath Cardiology: States: no symptoms reported Gastrointestinal/Abdominal: States: no symptoms reported Genitourinary: States: no symptoms reported Musculoskeletal: States: no symptoms reported Skin: States: no symptoms reported Neurological: States: no symptoms reported Endocrine: States: no symptoms reported All other Systems: No Change from Baseline Past Medical History (General) - Patient Medical History Hx Seizures: No Hx Stroke: No Hx Dementia: Yes Hx Asthma: No Hx of COPD: Yes Hx Cardiac Disorders: No Hx Congestive Heart Failure: No Hx Pacemaker: No Hx Hypertension: Yes Hx Thyroid Disease: No Hx Diabetes: No Hx Gastroesophageal Reflux: Yes Hx Renal Disease: Yes - urgency Hx Cancer: No Hx of HIV: No Hx Hepatitis C: No Hx MRSA: No - Vaccination History Hx Tetanus, Diphtheria Vaccination: Yes Hx Influenza Vaccination: No Hx Pneumococcal Vaccination: No - Social History Hx Tobacco Use: Yes Hx Chewing Tobacco Use: No Hx Alcohol Use: No Hx Substance Use: No Hx Substance Use Treatment: No Hx Depression: No Hx Physical Abuse: No Hx Emotional Abuse: No Hx Suspected Abuse: No - Female History Patient : No Family Medical History - Family History Mother Family History: No Known Living Status: Physical Exam - Physical Exam General Appearance: Alert, Comfortable, No apparent distress Eye Exam: bilateral normal Ears, Nose, Throat: hearing grossly normal, normal ENT inspection Neck: full range of motion, supple Respiratory: lungs clear, normal breath sounds, no respiratory distress, no accessory muscle use Cardiovascular/Chest: normal peripheral pulses, regular rate, rhythm - Occasional irregular beats, no edema Peripheral Pulses: radial,right: 2+, radial,left: 2+ Gastrointestinal/Abdominal: non tender, soft Rectal Exam: deferred Back Exam: no CVA tenderness, no vertebral tenderness Extremity: non-tender, normal inspection, no pedal edema, normal capillary refill Neurologic: audit senior associate II-XII nml as tested, alert, normal mood/affect, oriented x 3 Skin Exam: normal color Comments: Vital Signs - 24 hr 09/03/19 09/03/19 09/03/19 09:25 09:34 09:49 Temperature 98.8 F 98.8 F Pulse Rate [ 97 H 97 H Pulse Ox] Respiratory 16 20 20 Rate Blood Pressure 176/110 176/110 [L Arm] O2 Sat by Pulse 96 96 Oximetry Laboratory Tests 09/03/19 09:43 Group A Strep Rapid Negative Rapid flu is negative. 2 view chest x-ray shows no acute pathology. See report for details. Progress - Progress Progress: 09/03/19 10:17 The patient is a 84-year-old female with signs and symptoms of a respiratory tract infection along with fever and a history of recurrent pneumonias. She has tested negative for strep and flu. Two-view chest x-ray shows no consolidating infiltrate. The patient is going to be placed on low-d ose azithromycin for 5 days to help clear any mild bacterial infection that may be starting and prevent any from starting. It is just as likely that the source at this point in time it is viral. The patient does understand this. She needs to keep her self well-hydrated. ER warnings are given. Keep routine follow-up with primary care doctor. brennon butler [phone] Departure - Departure Clinical Impression: Upper respiratory infection Qualifiers: URI type: unspecified URI Qualified Code(s): J06.9 - Acute upper respiratory infection, unspecified Disposition: Discharge to Home or Self Care Condition: Fair Departure Forms: ED Discharge - Pt. Copy, Patient Portal Self Enrollment Instructions: Acute Bronchitis Diet: regular diet Activity: increase activity as tolerated Referrals: Raúl Butler MD [Primary Care Provider] - 1-2 Weeks Prescriptions: Azithromycin 250 mg PO DAILY #4 tab Home Medications: Ambulatory Orders Tramadol HCl 50 mg PO TID 08/30/16 Mirtazapine [Remeron] 15 mg PO BEDTIME 06/24/17 Azithromycin 250 mg PO DAILY #4 tab 09/03/19 Additional Instructions: The patient is a 84-year-old female with signs and symptoms of a respiratory tract infection along with fever and a history of recurrent pneumonias. She has tested negative for strep and flu. Two-view chest x-ray shows no consolidating infiltrate. The patient is going to be placed on low- dose azithromycin for 5 days to help clear any mild bacterial infection that may be starting and prevent any from starting. It is just as likely that the source at this point in time it is viral. The patient does understand this. She needs to keep her self well-hydrated. ER warnings are given. Keep routine follow-up with primary care doctor.
[2019-09-03] MEDS ORDERED: AZITHROMYCIN 250 MG TAB PO ONE (10:20)
[2019-09-03 10:32] VITALS: BP 148/86; TEMP 98.2
== END 2019-09-03 10:31 | disposition home or self-care (01) ==
LOC: ER 09:13
DX: J06.9 Acute upper respiratory infection, unspecified (principal); J44.9 Chronic obstructive pulmonary disease, unspecified; F03.90 Unspecified dementia, unspecified severity, without behavioral disturbance, psychotic disturbance, mood disturbance, and anxiety; I10 Essential (primary) hypertension; K21.9 Gastro-esophageal reflux disease without esophagitis; Z88.0 Allergy status to penicillin; Z87.891 Personal history of nicotine dependence
CPT/HCPCS: 71046; 87070; 87502; 87880; Q0144

== ENCOUNTER 2019-09-05 13:29 | Inpatient (IN) | payer MEDICARE ==
--- NOTE | 2019-09-05 13:30 | HP ---
SUPERVISING PHYSICIAN: Lenard Prieto MD CHIEF COMPLAINT: HISTORY OF PRESENT ILLNESS: This is an 84-year-old female patient who was seeing her primary care physician, Dr. Garcia, today. She had complaints of fever and chills with temperature up to 102 degrees. It started about 2 weeks ago and progressively worsened to the point where she came to see her doctor. She had chills, cough, fever and generalized weakness. She was tachypneic while in his office and had increased work of breathing. She did have a sputum that was white, but she also could bring up to purulent sputum. It also got to the point where she was very weak and had difficulty getting around. In the office, her heart rate was also 116. She did have a negative strep test and also had a negative flu test. WBCs 6.4, hemoglobin 16.6, hematocrit 48.3. BNP 55.1. Glucose 110, BUN 11, creatinine 0.76, CO2 33. Chest x-ray was negative. Dr. Garcia called and she was directly admitted to the hospital. PAST MEDICAL HISTORY: 1. Hypertension. 2. Chronic obstructive pulmonary disease. 3. Peripheral vascular disease. 4. Gastroesophageal reflux disease. 5. Osteopenia. 6. Dementia. 7. Chronic low back pain. 8. Tobacco abuse. PAST SURGICAL HISTORY: 1. ORIF of the right ankle. 2. Breast augmentation. 3. Thyroidectomy. 4. Tubal ligation. 5. Peripheral stent. CURRENT MEDICATIONS: 1. Remeron. 2. Tramadol. ALLERGIES: PENICILLIN. CODE STATUS: Do Not Resuscitate. FAMILY HISTORY: Noncontributory. SOCIAL HISTORY: She is a smoker, she smokes half a pack per day and has done so for over 70 years. She lives at home alone. She is retired. She does not use any ETOH or illicit drugs. REVIEW OF SYSTEMS: GENERAL: Positive for chills, fever up to 102 degrees as well as fatigue. RESPIRATORY: Positive for cough with copious amounts of white sputum as well as purulent sputum with a chronic cough and frequent wheezing. CARDIAC: Negative for chest pain, palpitations or tachycardia. GASTROINTESTINAL: Negative for nausea, vomiting, diarrhea, constipation. GENITOURINARY: Negative for hematuria, dysuria or polyuria. SKIN: Negative for lesions or rashes. NEUROLOGIC: Positive for weakness. Negative for headaches or seizures. PHYSICAL EXAMINATION: VITAL SIGNS: Temperature 98.8. Heart rate 110. Blood pressure 138/70. Respiratory rate 18. O2 saturation 96% on room air. GENERAL: This is an 84-year-old female patient who is sitting up in her bed. She is in mild respiratory distress with speaking in short phrases of 2-3 words. HEENT: Normocephalic, atraumatic. Pupils are equal and reactive. Oropharynx is clear. NECK: Supple without mass. RESPIRATORY: Diminished breath sounds throughout. She does have expiratory wheezes. She also has some coarse breath sounds, especially in the apices. She gets tachypneic with talking and any exertion. She also has to sit up to feel less short of breath. CHEST: There is equal rise and fall of the chest with inspiration and expiration. CARDIOVASCULAR: Tachycardic rate, regular tympanic membranes. GASTROINTESTINAL: Abdomen is soft, nondistended, nontender. Bowel sounds are positive. GENITOURINARY: Deferred. BACK: Deferred. EXTREMITIES: No cyanosis, clubbing or edema. NEUROLOGIC: Awake, alert and oriented times three. Cranial nerves II-XII are grossly intact as tested. LABORATORY: Labs and films are as per history of present illness. IMPRESSION: 1. Acute exacerbation of chronic obstructive pulmonary disease with shortness of breath and tachypnea. 2. Concerns for developing pneumonia, most likely community acquired with a temperature of 102 and heart rate 116. 3. Hypertension. 4. Continuous nicotine dependency. 5. History of gastroesophageal reflux disease. PLAN: The patient has been admitted to the hospital. She will have aggressive pulmonary hygiene and I have started her on azithromycin and Rocephin. She will have scheduled breathing treatments as well as p.r.n. breathing treatments. I will repeat her lab and x-rays in the morning. She will have Lovenox for DVT prophylaxis and PPI for ulcer prophylaxis. We will continue to monitor the patient closely and follow as needed. #[id number] [facility]
[2019-09-05] MEDS ORDERED: ONDANSETRON INJ 4 MG/2 ML VIAL IV PRN (13:56)
[2019-09-05] MEDS ORDERED: ACETAMINOPHEN 325 MG TAB PO PRN (13:56)
[2019-09-05] MEDS ORDERED: ALBUTEROL SULFATE 2.5 MG/3 ML VIAL NEB PRN (13:56)
[2019-09-05] MEDS ORDERED: SODIUM CHLORIDE 0.9% (FLUSH) 10 ML SYG IV PRN (13:56)
[2019-09-05] MEDS ORDERED: IV SET AND CAP CHANGE INJ INJ SCH (14:00)
[2019-09-05] MEDS ORDERED: methylPREDNISolone SODIUM SUC 125 MG/2 ML VIAL IV ONE (14:01)
[2019-09-05] MEDS ORDERED: cefTRIAXone SODIUM 1 GM VIAL ONE (14:45)
[2019-09-05] MEDS ORDERED: SODIUM CHL 0.9% 50ML MIN-BAG+ 50 ML IVPB ONE (14:45)
[2019-09-05] MEDS ORDERED: SODIUM CHLORIDE 0.9% 250ML 250 ML ONE (14:45)
[2019-09-05] MEDS ORDERED: AZITHROMYCIN IV 500 MG VIAL IVPB ONE (14:46)
[2019-09-05] MEDS: cefTRIAXone SODIUM 1 GM in SODIUM CHL 0.9% 50ML MIN-BAG+ 50 ML IVPB SCH (15:10)
[2019-09-05] MEDS: AZITHROMYCIN IV 500 MG in SODIUM CHLORIDE 0.9% 250ML 250 ML IVPB SCH (15:32)
[2019-09-05] MEDS: IPRATROPIUM/ALBUTEROL 3 ML VIAL INH SCH ×3 (16:30→20:03)
[2019-09-05] MEDS: traMADol HCL 50 MG TAB PO SCH ×2 (16:54→20:45)
[2019-09-05] MEDS: ENOXAPARIN SODIUM 40 MG/0.4 ML SYG SUBCU SCH (20:44)
[2019-09-05] MEDS: MIRTAZAPINE 15 MG TAB PO SCH (20:45)
[2019-09-05] MEDS ORDERED: PANTOPRAZOLE SODIUM IV 40 MG VIAL ONE (23:48)
[2019-09-06] MEDS: PANTOPRAZOLE SODIUM IV 40 MG VIAL IV SCH (05:47)
--- NOTE | 2019-09-06 05:57 | RAD ---
Chest 2 view on 09/06/2019 CLINICAL INDICATION: Pneumonia COMPARISON: 09/03/2019 FINDINGS: There is mild dextroscoliosis of the spine. Vascular calcification is noted in the aorta. Mild chronic interstitial changes are noted. The lungs are otherwise clear. Cardiac, hilar and mediastinal contours are within normal limits. IMPRESSION: No significant change and no acute disease. Electronically signed by: Yuriy Marinelli 09/06/2019 5:55 AM [employer]
[2019-09-06] MEDS: IPRATROPIUM/ALBUTEROL 3 ML VIAL INH SCH ×4 (08:26→20:15)
[2019-09-06] MEDS: traMADol HCL 50 MG TAB PO SCH ×3 (08:47→21:18)
[2019-09-06] MEDS ORDERED: POTASSIUM CHLORIDE 20 MEQ TAB PO ONE (10:39)
[2019-09-06] MEDS ORDERED: KCL 20 MEQ/NS 1,000 ML IVS ONE (10:47)
[2019-09-06] MEDS ORDERED: cefTRIAXone SODIUM 1 GM VIAL ONE (14:17)
[2019-09-06] MEDS ORDERED: SODIUM CHLORIDE 0.9% 250ML 250 ML ONE (14:17)
[2019-09-06] MEDS ORDERED: SODIUM CHL 0.9% 50ML MIN-BAG+ 50 ML IVPB ONE (14:17)
[2019-09-06] MEDS ORDERED: AZITHROMYCIN IV 500 MG VIAL IVPB ONE (14:18)
[2019-09-06] MEDS: cefTRIAXone SODIUM 1 GM in SODIUM CHL 0.9% 50ML MIN-BAG+ 50 ML IVPB SCH (14:26)
[2019-09-06] MEDS: methylPREDNISolone SODIUM SUC 40 MG/ML VIAL IV SCH ×2 (14:26→21:19)
[2019-09-06] MEDS: AZITHROMYCIN IV 500 MG in SODIUM CHLORIDE 0.9% 250ML 250 ML IVPB SCH (16:02)
[2019-09-06] MEDS: MIRTAZAPINE 15 MG TAB PO SCH (21:18)
[2019-09-06] MEDS: ENOXAPARIN SODIUM 40 MG/0.4 ML SYG SUBCU SCH (21:18)
[2019-09-07] MEDS: PANTOPRAZOLE SODIUM IV 40 MG VIAL IV SCH (06:09)
[2019-09-07] MEDS: methylPREDNISolone SODIUM SUC 40 MG/ML VIAL IV SCH (06:09)
--- NOTE | 2019-09-07 07:26 | RAD ---
EXAM: XR Chest, 2 Views CLINICAL HISTORY: The patient is 84 years old and is Female; copd exac TECHNIQUE: Frontal and lateral views of the chest. COMPARISON: Chest radiograph from 09/06/2019 FINDINGS: LUNGS: The lungs are mildly hyperexpanded. There are minimal interstitial changes which appear chronic. The lungs are otherwise clear. No consolidation. PLEURAL SPACE: Unremarkable. No pneumothorax. HEART: No significant enlargement of the cardiac silhouette. MEDIASTINUM: Unremarkable. BONES/JOINTS: No acute osseous findings. IMPRESSION: No acute findings visualized in the chest. Electronically signed by: Sarina Jang MD 09/07/2019 7:25 AM [facility]
--- NOTE | 2019-09-07 08:03 | PN ---
SUPERVISING PHYSICIAN: Lenard Prieto MD DATE: 09/06/19 SUBJECTIVE: The patient is lying in bed. She is asleep. She awakens easily. She has no complaints of nausea, vomiting, diarrhea, constipation, shortness of breath or chest pain. She says she is breathing somewhat easier than she has been and she actually feels better. We discussed her discharge plan and I have encouraged her to get up and ambulate as well as to stop smoking. OBJECTIVE: VITAL SIGNS: Temperature 97.9. Heart rate 110. Blood pressure 139/93. Respiratory rate 18 to 20. O2 saturation 92% on 2 liters nasal cannula. RESPIRATORY: Diminished at the bases, otherwise a few scattered rhonchi. CARDIAC: Regular rate and rhythm. At times, she is slightly tachycardic. GASTROINTESTINAL: Abdomen is soft, nondistended, nontender. Bowel sounds are positive. EXTREMITIES: No cyanosis, clubbing or edema. NEUROLOGIC: Awake, alert and oriented times three. LABORATORY: CBC is basically within normal limits except she does have a slight left shift on her differential. Potassium is slightly low at 3.4, but other electrolytes are basically within normal limits. MICROBIOLOGY: Sputum culture is pending. Preliminary blood cultures show no growth after 24 hours. RADIOLOGY: Her chest x-ray shows no significant change and no acute disease. All other labs and films have been reviewed via the EMR. ASSESSMENT: 1. Acute exacerbation of chronic obstructive pulmonary disease with shortness of breath and tachypnea. 2. Concerns for developing pneumonia, most likely community acquired with a temperature of 102 and heart rate 116. 3. Hypertension. 4. Continuous nicotine dependency. 5. History of gastroesophageal reflux disease. PLAN: We will continue present supportive care. I have given her some potassium supplementation. I have ordered labs to be checked in the morning. I have tapered her steroids and she will begin oral prednisone in the morning. Hopefully, she will be discharged tomorrow or the next day with close followup with Dr. Garcia. I have encouraged her to quit smoking and have also encouraged good pulmonary hygiene. We will continue to monitor the patient closely and follow as needed. [facility][id number] [facility]
[2019-09-07] MEDS: IPRATROPIUM/ALBUTEROL 3 ML VIAL INH SCH ×4 (08:24→19:56)
[2019-09-07] MEDS: traMADol HCL 50 MG TAB PO SCH ×3 (09:31→21:17)
[2019-09-07] MEDS: predniSONE 20 MG TAB PO SCH (09:31)
[2019-09-07] MEDS: cefTRIAXone SODIUM 1 GM in SODIUM CHL 0.9% 50ML MIN-BAG+ 50 ML IVPB SCH (15:03)
[2019-09-07] MEDS ORDERED: SODIUM CHL 0.9% 50ML MIN-BAG+ 50 ML IVPB ONE (15:07)
[2019-09-07] MEDS ORDERED: AZITHROMYCIN IV 500 MG VIAL IVPB ONE (15:07)
[2019-09-07] MEDS ORDERED: SODIUM CHLORIDE 0.9% 250ML 250 ML ONE (15:07)
[2019-09-07] MEDS ORDERED: cefTRIAXone SODIUM 1 GM VIAL ONE (15:07)
[2019-09-07] MEDS: AZITHROMYCIN IV 500 MG in SODIUM CHLORIDE 0.9% 250ML 250 ML IVPB SCH (15:12)
[2019-09-07] MEDS: amLODIPine BESYLATE 5 MG TAB PO SCH (15:17)
[2019-09-07] MEDS: ENOXAPARIN SODIUM 40 MG/0.4 ML SYG SUBCU SCH (21:17)
[2019-09-07] MEDS: MIRTAZAPINE 15 MG TAB PO SCH (21:17)
[2019-09-08] MEDS ORDERED: diphenhydrAMINE HCL 50 MG/ML VIAL ONE (00:58)
[2019-09-08] MEDS ORDERED: diphenhydrAMINE HCL 50 MG/ML VIAL IV ONE (01:01)
[2019-09-08] MEDS: traMADol HCL 50 MG TAB PO SCH (08:19)
[2019-09-08] MEDS: predniSONE 20 MG TAB PO SCH (08:20)
[2019-09-08] MEDS: amLODIPine BESYLATE 5 MG TAB PO SCH (08:20)
[2019-09-08] MEDS: IPRATROPIUM/ALBUTEROL 3 ML VIAL INH SCH ×2 (08:23→13:04)
[2019-09-08] MEDS ORDERED: AZITHROMYCIN 250 MG TAB PO SCH (09:00)
[2019-09-08] MEDS ORDERED: CEFDINIR 300 MG CAP PO SCH (09:00)
--- NOTE | 2019-09-08 10:25 | PN ---
SUPERVISING PHYSICIAN: Lenard Prieto MD DATE: 09/07/19 SUBJECTIVE: The patient is lying in her hospital bed. She does feel much better than she had yesterday. She is quite concerned about her blood pressure being high and she has had a headache since admission. She usually takes tramadol for her headaches. I assured her that since that medication had been re-started. She denies chest pain, palpitations, shortness of breath, nausea or vomiting. OBJECTIVE: VITAL SIGNS: Temperature 97.8. Heart rate 104. Blood pressure 137/91. It did go as high as 152/112. Respiratory rate 20. O2 saturation 96% on room air. RESPIRATORY: Scattered rhonchi throughout, but expiratory wheezes. CARDIAC: Regular rate and rhythm. GASTROINTESTINAL: Abdomen is soft, nondistended, nontender. Bowel sounds are positive. NEUROLOGIC: Awake, alert and oriented times three. LABORATORY: CBC is unremarkable except she does have a left shift on her differential. Electrolytes are within normal limits except calcium of 8.1. MICROBIOLOGY: Sputum culture is pending. Preliminary blood cultures show no growth after 48 hours. RADIOLOGY: Her chest x-ray shows no acute findings visualized in the chest. All other labs and films have been reviewed via the EMR. ASSESSMENT: 1. Acute exacerbation of chronic obstructive pulmonary disease with shortness of breath and tachypnea. 2. Concerns for developing pneumonia, most likely community acquired with a temperature of 102 and heart rate 116. 3. Hypertension. 4. Continuous nicotine dependency. 5. History of gastroesophageal reflux disease. PLAN: We will continue present supportive care. I have added amlodipine to her medications. We will monitor her blood pressure overnight. I have encouraged her to quit smoking and to ambulate in the hallways. I have changed her steroids to p.o. I have also discontinued her IV medications and changed them to p.o. She is now on oral azithromycin and cefdinir. Hopefully, she can discharge tomorrow if her blood pressure stabilizes. We will continue to monitor the patient closely and follow as needed. [id number]
[2019-09-08 13:06] VITALS: O2SAT 98
[2019-09-08 14:35] VITALS: BP 120/76; TEMP 98.1
--- NOTE | 2019-09-17 14:39 | DS ---
SUPERVISING PHYSICIAN: Lenard Prieto MD ADMISSION DIAGNOSIS: 1. Acute exacerbation of chronic obstructive pulmonary disease with shortness of breath and tachypnea. 2. Concerns for developing pneumonia, most likely community acquired with a temperature of 102 and heart rate 116. 3. Hypertension. 4. Continuous nicotine dependency. 5. History of gastroesophageal reflux disease. DISCHARGE DIAGNOSIS: 1. Chronic obstructive pulmonary disease exacerbation. 2. Hypertension. 3. Chronic nicotine dependency. 4. Chronic gastroesophageal reflux disease. REASON FOR HOSPITALIZATION: This is an 84-year-old female patient who was seeing her primary care physician, Dr. Garcia, today. She had complaints of fever and chills with temperature up to 102 degrees. It started about 2 weeks ago and progressively worsened to the point where she came to see her doctor. She had chills, cough, fever and generalized weakness. She was tachypneic while in his office and had increased work of breathing. She did have a sputum that was white, but she also could bring up purulent sputum. It also got to the point where she was very weak and had difficulty getting around. In the office, her heart rate was also 116. She did have a negative strep test and also had a negative flu test. WBCs 6.4, hemoglobin 16.6, hematocrit 48.3. BNP 55.1. Glucose 110, BUN 11, creatinine 0.76, CO2 33. Chest x-ray was negative. Dr. Garcia called and she was directly admitted to the hospital. LABORATORY: White count on discharge was 8,000. Differential did show a left shift. Hemoglobin 14, hematocrit 42.3. Chemistries on discharge showed normal electrolytes with BUN 9, creatinine 0.4. Magnesium 1.8. MICROBIOLOGY: Blood cultures were negative after 5 days. Final sputum culture just showed abundant mixed normal respiratory tej. RADIOLOGY: Chest x-rays were completed with last x-ray on 09/07/19 prior to discharge showed no consolidations, otherwise lungs were clear, mildly hyperexpanded. HOSPITAL COURSE: Ms. Garcia was admitted for acute exacerbation of COPD with concern initially for developing pneumonia. She was started on treatment with aggressive pulmonary hygiene, Solu-Medrol. Dose was tapered to p.o. dosing along with azithromycin and Rocephin for antibiotic coverage. She did show good clinical improvement, responding to treatment and on day of discharge was able to continue with outpatient management. DISCHARGE PHYSICAL ASSESSMENT: VITAL SIGNS: Temperature 98.1. Pulse 91. Blood pressure 120/76. Saturation 94% on room air. GENERAL: The patient was comfortable, in no distress. She was alert. CHEST: Fairly clear to auscultation, just diminished a little bit towards the bases. No rales, rhonchi or wheezing noted. HEART: Regular rate and rhythm. ABDOMEN: Soft, nontender. Positive bowel sounds. EXTREMITIES: No edema. NEUROLOGIC: Alert and oriented x3. PLAN: Ms. Garcia was discharged on 09/08/19 with instructions to followup with Dr. Garcia in 7 days or less, to call his office to schedule. She was to resume her home medications as instructed and directed. She was given instructions to return to the Emergency Room if she had any concerning symptoms. Diet on discharge was regular diet as tolerated. Activity to increase as tolerated. Medications prescribed on discharge included: 1. Proventil nebulizers 2.5 mg inhaled q.4h. as needed, #30, no refills. 2. Cefdinir 300 mg daily for 7 days, no refills. 3. Prednisone tapering pack 10 mg tablets, #30, take as directed, no refills. All other medications prior to hospitalization were continued. DISPOSITION: The patient is discharged home. CONDITION ON DISCHARGE: Stable and improved. [facility][id number] [facility]
== END 2019-09-08 14:30 | disposition home or self-care (01) | DRG 192 ==
LOC: MS 13:29
PROVIDERS: ADMIT Nurse Practitioner Acute Care; ATTEND Nurse Practitioner Family
DX: J44.1 Chronic obstructive pulmonary disease with (acute) exacerbation (principal); R51 Headache; I10 Essential (primary) hypertension; K21.9 Gastro-esophageal reflux disease without esophagitis; I73.9 Peripheral vascular disease, unspecified; M85.80 Other specified disorders of bone density and structure, unspecified site; F03.90 Unspecified dementia, unspecified severity, without behavioral disturbance, psychotic disturbance, mood disturbance, and anxiety; G89.29 Other chronic pain; M54.5 Low back pain; E89.0 Postprocedural hypothyroidism; F17.210 Nicotine dependence, cigarettes, uncomplicated; Z66 Do not resuscitate; Z88.0 Allergy status to penicillin; Z79.899 Other long term (current) drug therapy; Z79.891 Long term (current) use of opiate analgesic

== ENCOUNTER 2020-04-12 21:25 | Observation (INO) | payer MEDICARE ==
--- NOTE | 2020-04-12 21:28 | ED.PDOC ---
History of Present Illness - General Time Seen by Provider: 04/12/20 21:28 - History of Present Illness Initial Comments: 85 yo F with pmh copd comes in with the c/c of worsening shortness of breath. Was seen here one week ago, was dx with copd exacerbation and discharged home on levaquin, prednisone, potassium. She was given a dose of lasix as well. + cough, does wear oxygen at home. no fever, had negative covid test one week ago. no chest pain. no dizziness or syncope. Patient continues to smoke 0.5 ppd Allergies/Adverse Reactions: Allergies Penicillins Allergy (Mild, Verified 03/29/20 14:43) Other injection site reactions with pcn. Home Medications: Ambulatory Orders Tramadol HCl 50 mg PO TID PRN 08/30/16 Mirtazapine [Remeron] 15 mg PO BEDTIME 06/24/17 Lisinopril [Prinivil] 10 mg PO DAILY 03/29/20 Metoprolol Succinate [Metoprolol Succinate ER] 25 mg PO DAILY 03/29/20 Tiotropium [place] Monohydrate [Spiriva Respimat] 1.25 mcg IN PRN PRN 03/29/20 Cefuroxime Axetil [Ceftin] 500 mg PO Q12H 7 Days #14 tablet 03/31/20 Levofloxacin [Levaquin] 250 mg PO DAILY #5 tab 04/04/20 Potassium Chloride [Potassium Chloride ER] 20 meq PO DAILY #20 tab 04/04/20 predniSONE [Prednisone] 20 mg PO DAILY #5 tab 04/04/20 Review of Systems - Review of Systems Constitutional: States: malaise. Denies: chills, fever EENTM: Denies: blurred vision, throat pain, mouth pain Respiratory: States: cough, short of breath, wheezing Cardiology: Denies: chest pain, edema, palpitations, syncope Gastrointestinal/Abdominal: Denies: abdominal pain, diarrhea, nausea, vomiting Genitourinary: States: frequency. Denies: dysuria Musculoskeletal: Denies: back pain, muscle pain, neck pain Skin: Denies: rash Neurological: Denies: headache, numbness, paresthesia, tremors, weakness Endocrine: Denies: unexplained weight gain, unexplained weight loss Hematologic/Lymphatic: Denies: blood clots, easy bleeding, easy bruising Past Medical History (General) - Patient Medical History Hx Seizures: No Hx Stroke: No Hx Dementia: Yes Hx Asthma: No Hx of COPD: No Hx Cardiac Disorders: No Hx Congestive Heart Failure: No Hx Pacemaker: No Hx Hypertension: Yes Hx Thyroid Disease: Yes Hx Diabetes: No Hx Gastroesophageal Reflux: Yes Hx Renal Disease: Yes - urgency Hx Cancer: No Hx of HIV: No Hx Hepatitis C: No Hx MRSA: No - Vaccination History Hx Tetanus, Diphtheria Vaccination: Yes Hx Influenza Vaccination: Yes Hx Pneumococcal Vaccination: Yes - Social History Hx Tobacco Use: Yes Hx Chewing Tobacco Use: No Hx Alcohol Use: No Hx Substance Use: No Hx Substance Use Treatment: No Hx Depression: No Hx Physical Abuse: No Hx Emotional Abuse: No Hx Suspected Abuse: No - Female History Patient : No Family Medical History - Family History Mother Family History: No Known Living Status: Physical Exam - Physical Exam General Appearance: Alert, Comfortable, No apparent distress, Well Developed, Well Groomed, Well Hydrated, Well Nourished Eyes, Ears, Nose, Throat Exam: PERRL/EOMI, normal ENT inspection, TMs normal Neck: non-tender, full range of motion, supple, normal inspection Respiratory: chest non-tender, no respiratory distress, no accessory muscle use, decreased breath sounds, wheezing Cardiovascular/Chest: normal peripheral pulses, regular rate, rhythm, no edema, no gallop, no JVD, no murmur Peripheral Pulses: radial,right: 2+, radial,left: 2+, dorsalis pedis,right: 2+, dorsalis pedis,left: 2+ Gastrointestinal/Abdominal: normal bowel sounds, non tender, soft, no organomegaly, no pulsatile mass Rectal Exam: deferred Extremity: normal range of motion, non-tender, normal inspection, no pedal edema, no calf tenderness, normal capillary refill Neurologic: home health outreach coordinator II-XII nml as tested, no motor/sensory deficits, alert, normal mood/affect, oriented x 3 Skin Exam: normal color, warm/dry Progress - Progress Progress: 04/12/20 21:55 ekg shows HR 72, normal intervals, no evidence of ischemia. Will get cxr, blood work. 80 mg solumedrol. duoneb. blood cultures. Blood work unremarkable. ABG on RA shows O2 59. She continues to wheeze, will repeat duoneb. Patient states her allergy to pcn is local IV reaction. Due to failed levaquin will give a dose of cefepime. CXR no acute pathology. will give one dose of potassium 04/12/20 21:45 EKG STAT 04/12/20 21:52 BLOOD CULTURE Stat RESPIRATORY PANEL 2 Stat Laboratory Results WBC 5.1 K/mm3 (4.8-10.8) 04/12/20 21:52 RBC 4.13 M/mm3 (4.20-5.40) L 04/12/20 21:52 Hgb 14.1 gm/dL (12.0-16.0) 04/12/20 21:52 Hct 41.7 % (36.0-47.0) 04/12/20 21:52 MCV 100.8 fl (81.0-99.0) H 04/12/20 21:52 MCH 34.1 pg (27.0-31.0) H 04/12/20 21:52 MCHC 33.8 g/dL (33.0-37.0) 04/12/20 21:52 RDW 14.3 % (11.5-14.5) 04/12/20 21:52 Plt Count 168 K/mm3 (130-400) 04/12/20 21:52 MPV 11.5 fl (7.40-10.4) H 04/12/20 21:52 Absolute Neuts (auto) 2.80 K/uL (1.8-6.8) 04/12/20 21:52 Absolute Lymphs (auto) 1.50 K/uL (1.0-3.4) 04/12/20 21:52 Absolute Monos (auto) 0.70 K/uL (0.2-0.8) 04/12/20 21:52 Absolute Eos (auto) 0.20 K/uL (0.0-0.4) 04/12/20 21:52 Absolute Basos (auto) 0.00 K/uL (0.0-0.1) 04/12/20 21:52 Neutrophils % 53.9 % (42.0-78.0) 04/12/20 21:52 Lymphocytes % 28.5 % (20.0-50.0) 04/12/20 21:52 Monocytes % 13.3 % (2.0-9.0) H 04/12/20 21:52 Eosinophils % 3.6 % (1.0-5.0) 04/12/20 21:52 Basophils % 0.7 % (0.0-2.0) 04/12/20 21:52 PT 10.3 SECONDS (9.0-10.9) 04/12/20 21:52 INR 1.04 (0.9-1.15) 04/12/20 21:52 PTT (SP) 23.2 SECONDS (21.8-31.6) 04/12/20 21:52 D-Dimer, Quantitative 196.0 ng/ml (131-400) 04/12/20 21:52 pCO2 45 mmHg (32-45) 04/12/20 22:17 pO2 59 mmHg (83-108) L 04/12/20 22:17 HCO3 32.8 mmol/L 04/12/20 22:17 ABG pH 7.474 (7.35-7.45) H 04/12/20 22:17 ABG O2 Saturation 91.5 % (95.0-99.0) L 04/12/20 22:17 ABG Base Excess 8.1 mmol/L 04/12/20 22:17 ABG Deoxyhemoglobin 8.2 % (0.0-5.0) H 04/12/20 22:17 Oxyhemoglobin % 88.0 % (94.0-98.0) L 04/12/20 22:17 Carboxyhemoglobin % 3.2 % (0.5-1.5) H 04/12/20 22:17 Methemoglobin % Sat 0.6 % (0.0-1.5) 04/12/20 22:17 Calc Total Hemoglobin 14.0 g/dL (12.0-16.0) 04/12/20 22:17 Sodium 140 mmol/L (135-145) 04/12/20 21:52 Potassium 3.5 mmol/L (3.6-5.0) L 04/12/20 21:52 Chloride 101 mmol/L (101-111) 04/12/20 21:52 Carbon Dioxide 29 mmol/L (21-31) 04/12/20 21:52 Anion Gap 13.5 (12-18) 04/12/20 21:52 BUN 16 mg/dL (7-18) 04/12/20 21:52 Creatinine 0.69 mg/dL (0.6-1.3) 04/12/20 21:52 BUN/Creatinine Ratio 23.2 (10-20) H 04/12/20 21:52 Random Glucose 129 mg/dL (70-105) H 04/12/20 21:52 Serum Osmolality 282.3 mOsm/L (275-295) 04/12/20 21:52 Calcium 9.4 mg/dL (8.4-10.2) 04/12/20 21:52 Total Bilirubin 0.3 mg/dL (0.2-1.0) 04/12/20 21:52 AST 18 IU/L (10-42) 04/12/20 21:52 ALT 11 IU/L (10-60) 04/12/20 21:52 Alkaline Phosphatase 39 IU/L (42-121) L 04/12/20 21:52 Troponin I < 0.02 ng/mL (0.01-0.05) 04/12/20 21:52 B-Natriuretic Peptide 42.0 pg/ml (0-100) 04/12/20 21:52 Serum Total Protein 6.7 gm/dL (6.4-8.2) 04/12/20 21:52 Albumin 3.5 g/dl (3.2-5.5) 04/12/20 21:52 Globulin 3.2 gm/dL (2.3-3.5) 04/12/20 21:52 Albumin/Globulin Ratio 1.1 (1.1-1.9) 04/12/20 21:52 Urine Color Yellow (Yellow) 04/12/20 20:50 Urine Appearance Clear (Clear) 04/12/20 20:50 Urine pH 7.0 (4.5-7.8) 04/12/20 20:50 Ur Specific [place] 1.020 (1.005-1.030) 04/12/20 20:50 Urine Protein Negative mg/dL 04/12/20 20:50 Urine Glucose (UA) Negative mg/dL (Negative) 04/12/20 20:50 Urine Ketones Negative mg/dL (NEGATIVE) 04/12/20 20:50 Urine Blood Trace-intact (Negative) H 04/12/20 20:50 Urine Nitrite Negative 04/12/20 20:50 Urine Bilirubin Negative (NEGATIVE) 04/12/20 20:50 Urine Urobilinogen 0.2 mg/dL (0.2-1.0) 04/12/20 20:50 Ur Leukocyte Esterase Negative (Negative) 04/12/20 20:50 Urine RBC 0-1 /hpf 04/12/20 20:50 Urine WBC 0 /hpf 04/12/20 20:50 Ur Epithelial Cells 0-1 /hpf 04/12/20 20:50 Amorphous Sediment Trace 04/12/20 20:50 Urine Bacteria Rare 04/12/20 20:50 The data reviewed when caring for this patient included: nurse notes, prior records, etc. The history and assessments from nurses notes were reviewed and considered, and the patient's home medication list was also reviewed and considered. My assessment and the results of testing completed here in the ED were discussed with the patient/family. All questions were answered, and they express understanding of my assessment and the plan. patient was transferred to the floor in stable condition. Carina Tee DO #[id number] Departure - Departure Clinical Impression: COPD with exacerbation, Hypokalemia Disposition: Admit Patient Condition: Fair Referrals: Raúl Garcia MD [Primary Care Provider] - 1-2 Days Home Medications: Ambulatory Orders Tramadol HCl 50 mg PO TID PRN 08/30/16 Mirtazapine [Remeron] 15 mg PO BEDTIME 06/24/17 Lisinopril [Prinivil] 10 mg PO DAILY 03/29/20 Metoprolol Succinate [Metoprolol Succinate ER] 25 mg PO DAILY 03/29/20 Tiotropium [place] Monohydrate [Spiriva Respimat] 1.25 mcg IN PRN PRN 03/29/20 Cefuroxime Axetil [Ceftin] 500 mg PO Q12H 7 Days #14 tablet 03/31/20 Levofloxacin [Levaquin] 250 mg PO DAILY #5 tab 04/04/20 Potassium Chloride [Potassium Chloride ER] 20 meq PO DAILY #20 tab 04/04/20 predniSONE [Prednisone] 20 mg PO DAILY #5 tab 04/04/20
[2020-04-12] MEDS ORDERED: IPRATROPIUM/ALBUTEROL 3 ML VIAL NEB ONE ×2 (21:52→23:03)
[2020-04-12] MEDS ORDERED: methylPREDNISolone SODIUM SUC 125 MG/2 ML VIAL IV ONE (21:52)
[2020-04-12] MEDS ORDERED: CEFEPIME 1 GM in SODIUM CHLORIDE 0.9% 50ML 50 ML IVPB ONE (22:28)
--- NOTE | 2020-04-12 23:19 | RAD ---
EXAM DESCRIPTION: Chest,2 Views CLINICAL HISTORY: 85 years Female shortness of breath COMPARISON: 04/04/2020 FINDINGS: Cardiac enlargement. Pulmonary hyperinflation. Increased density over the lower lung field secondary to breast artifact. No acute consolidation. No pleural fluid. IMPRESSION: COPD No acute abnormality is identified. Electronically signed by: Tiffany Laboy MD 04/12/2020 11:17 PM CDT
[2020-04-12] MEDS ORDERED: POTASSIUM CHLORIDE ELIXIR 20 MEQ/15 ML UD PO ONE (23:34)
--- NOTE | 2020-04-12 23:44 | HP ---
SUPERVISING PHYSICIAN: Raúl Garcia MD CHIEF COMPLAINT: Shortness of breath. HISTORY OF PRESENT ILLNESS: Ms. Garcia is an 85 year-old female patient with a past medical history of chronic obstructive pulmonary disease and multiple exacerbations and hospitalizations for pneumonia. She presented to the Emergency Room last night complaining of worsening shortness of breath. She was previously in the Emergency Room a week ago after a short stay in the hospital for a urinary tract infection and early pneumonia. At that point in the Emergency Room, she was discharged on Levaquin and prednisone. She does wear oxygen at home. She denied any fevers and had tested negative for Covid-19 within the last week and again last night in the Emergency Room. She denied any chest pains, dizziness, syncopal episodes. She does continue to smoke about half a pack per day. She endorses that she got choked up early in the evening with a lot of mucus and was unable to get any relief at home with medication and presented to the Emergency Room for evaluation. In the Emergency Room, laboratory studies showed she had a slightly left shift on her CBC with a white count of 4,900. Blood gas analysis did show a mild hypoxemia with a P02 of 59, 91% saturation on 3 liters nasal cannula. C02 was 45, pH 7.47. Chemistries showed just a mildly low potassium at 3.5, creatinine 0.69, liver functions were all within normal limits. Troponin less than 0.02. BNP was normal at 42. Chest x-ray initially in the Emergency Room, a single-view chest, was without any acute abnormal findings. 12-lead EKG showed heart rate of 72 with no evidence of ischemic with ST or T-wave changes. Blood cultures were completed. She was given 80 mg of Solu-Medrol and started on Cefepime with Duoneb treatments and is now going to placed in observation and wait for further evaluation and treatment for chronic obstructive pulmonary disease exacerbation, had failed outpatient treatment plan. PAST MEDICAL HISTORY: 1. Hypercholesterolemia. 2. Hypertension. 3. Peripheral vascular disease with claudication. 4. Chronic obstructive pulmonary disease with multiple exacerbations. 5. Osteoporosis. PAST SURGICAL HISTORY: 1. Breast augmentation in 1979. 2. Thyroidectomy in 1969. 3. Coronary artery stent placement in 2012. 4. Right ankle fracture repair in 2017. 5. Bilateral tubal ligation in 1973. 6. Right leg stent placement secondary to peripheral vascular disease and claudication. HOME MEDICATIONS: 1. Tramadol 50 mg t.i.d. 2. Spiriva Respimat 1.25 mcg inhaled as needed. 3. Prinivil 10 mg daily. 4. Metoprolol extended release 25 mg daily. 5. Remeron 15 mg at bedtime. ALLERGIES: PENICILLIN. FAMILY HISTORY: Father at age 85 from natural causes. Mother at age 86 secondary to heart attack. She has 1 brother , unknown history. She has 2 daughters and 2 sons who are all healthy. SOCIAL HISTORY: The patient is retired. She is . She lives by herself but does have apparently assisted by a lady throughout the week but no actual home health. She does have a lengthy history of cigarette smoking but supposedly quit in 2018 but is now reportedly smoking up to half pack a day. She drinks alcohol on social occasions, about once a week. Denies any illicit drug use. REVIEW OF SYSTEMS: CONSTITUTIONAL: Denied any chills or fever, just generalized weakness. HEENT: Denies any headaches, ear aches, sore throats, nasal congestion or vision changes. RESPIRATORY: As noted in history of present illness. CARDIOVASCULAR: Denies any chest pains, palpitations or previous syncopal episodes or any tachycardia. . GASTROINTESTINAL: Denies any abdominal pains, nausea, vomiting diarrhea, constipation. GENITOURINARY: Denies any dysuria, hematuria, polyuria. Does have some mild incontinence. SKIN: No reported lesions, rashes or unexplained changes. NEUROLOGIC: Generalized weakness, denies any ataxia, seizures or other focal deficits. HEMATOLOGIC: Denies any unexplained bleeding or bruising. No reported transfusion reactions. PHYSICAL EXAMINATION: VITAL SIGNS: Temperature on admission was 97.2, pulse 83, blood pressure 176/94, respirations 18. She was showing low 90s on room air, a drop in the 80s with any exertional effort. GENERAL: The patient looks advanced for her age, frail and tired. She is alert and does not appear to be in apparent distress. HEENT: Tympanic membranes clear bilaterally. Oropharynx is pink, moist without any lesions. NECK: Supple, nontender, full range of motion. No jugular venous distention. CHEST: Lung sounds with decreased breath sounds throughout with very faint inspiratory expiratory wheezing. . HEART: Regular rate and rhythm without appreciable murmurs, gallops, or rubs. ABDOMEN: Soft, nontender. Positive bowel sounds. EXTREMITIES: Without edema. NEUROLOGIC: She is alert and oriented times three. Cranial nerves II-XII are grossly intact. SKIN: Warm, pink and dry. LABORATORY STUDIES: White count 4, 900 with hemoglobin 14.3, hematocrit 42.2, platelet count 159,000. Differential showed to be without a left shift. Coagulation studies showed normal PT/PTT as well as a D-dimer. Blood gas analysis showed pH 7.47 with p02 of 59, PC02 of 45, bicarb 32, oxygen saturation 92% on 2 liter nasal cannula. Chemistries showed a mild low potassium 5.0. Otherwise, creatinine was normal at 0.69. Liver functions all within normal limits. Calcium 9.4, troponin less than 0.02, BNP normal at 42. Urinalysis showed trace intact blood, otherwise within normal limits. . MICROBIOLOGY: Blood cultures are pending. Respiratory panel was negative for all bacterial and viral targets testing including Covid and influenza. RADIOLOGY: Chest x-ray per radiology interpretation showed no acute abdomen identified. ASSESSMENT: 1. Acute exacerbation of chronic obstructive pulmonary disease having failed outpatient treatment plan with a component of hypoxia. 2. Hypertension, poorly controlled. 3. Mild electrolyte imbalance with a hypokalemia.. 6. History of peripheral vascular disease with claudication and stent placement in her right leg in 2012. 7. Osteoporosis. PLAN: Ms. Garcia is going to be placed in observation for initiation of treatment of chronic obstructive pulmonary disease exacerbation having failed outpatient treatment plan. Given that she had been on Levaquin for the last week, will go ahead and start her on Cefepime. She was given Solu-Medrol in the Emergency Room. Will reevaluate and decide whether or not we need to continue this in the morning after admission. Resume her home medications once those have been updated and verified. She will be on aggressive bronchial hygiene. She does wear 02 at home. Will titrate to keep her oxygen above 92%. She will be on DVT prophylaxis per protocol. I anticipate her length of stay to at least one to two days. Until we can transition her to outpatient management will continue to monitor and treat as needed. #[id number] [facility]
[2020-04-13] MEDS ORDERED: ACETAMINOPHEN 325 MG TAB PO PRN (01:19)
[2020-04-13] MEDS ORDERED: ALBUTEROL SULFATE 2.5 MG/3 ML VIAL NEB PRN (01:19)
[2020-04-13] MEDS ORDERED: ONDANSETRON INJ 4 MG/2 ML VIAL IV PRN (01:19)
[2020-04-13] MEDS ORDERED: IV SET AND CAP CHANGE INJ INJ SCH (01:30)
[2020-04-13] MEDS: PANTOPRAZOLE SODIUM IV 40 MG VIAL IV SCH (05:39)
[2020-04-13] MEDS: SODIUM CHLORIDE 0.9% (FLUSH) 10 ML SYG IV PRN ×2 (05:40→20:44)
[2020-04-13] MEDS ORDERED: SODIUM CHL 0.9% 50ML MIN-BAG+ 50 ML IVPB ONE ×2 (08:42→19:19)
[2020-04-13] MEDS ORDERED: CEFEPIME 2 GM VIAL ONE ×2 (08:42→19:18)
[2020-04-13] MEDS ORDERED: POTASSIUM CHLORIDE 20 MEQ TAB ONE (08:42)
[2020-04-13] MEDS: NON-FORMULARY MEDICATION 1 EA MIS (Potassium Chloride [Potassium Chloride Er] 20 MEQ) PO SCH (08:53)
[2020-04-13] MEDS: BIFIDOBACTERIUM INFANTIS 4 MG CAP PO SCH (08:53)
[2020-04-13] MEDS: METOPROLOL SUCCINATE XL 25 MG TAB PO SCH (08:53)
[2020-04-13] MEDS: LISINOPRIL 10 MG TAB PO SCH (08:53)
[2020-04-13] MEDS: IPRATROPIUM/ALBUTEROL 3 ML VIAL INH SCH ×4 (09:05→19:55)
[2020-04-13] MEDS: CEFEPIME 2 GM in SODIUM CHL 0.9% 50ML MIN-BAG+ 50 ML IVPB SCH ×2 (10:01→21:39)
[2020-04-13] MEDS ORDERED: traMADol HCL 50 MG TAB ONE (17:50)
[2020-04-13] MEDS: traMADol HCL 50 MG TAB PO PRN (17:50)
[2020-04-13] MEDS: ENOXAPARIN SODIUM 40 MG/0.4 ML SYG SUBCU SCH (20:43)
[2020-04-13] MEDS: MIRTAZAPINE 15 MG TAB PO SCH (20:44)
[2020-04-14] MEDS: PANTOPRAZOLE SODIUM IV 40 MG VIAL IV SCH (05:40)
[2020-04-14] MEDS: SODIUM CHLORIDE 0.9% (FLUSH) 10 ML SYG IV PRN (05:40)
[2020-04-14] MEDS ORDERED: METOPROLOL SUCCINATE XL 25 MG TAB PO ONE (07:40)
[2020-04-14] MEDS ORDERED: POTASSIUM CHLORIDE 20 MEQ TAB ONE (07:40)
[2020-04-14] MEDS ORDERED: BIFIDOBACTERIUM INFANTIS 4 MG CAP ONE (07:40)
[2020-04-14] MEDS ORDERED: LISINOPRIL 10 MG TAB ONE (07:41)
[2020-04-14] MEDS ORDERED: IPRATROPIUM/ALBUTEROL 3 ML VIAL NEB ONE (07:45)
[2020-04-14] MEDS: NON-FORMULARY MEDICATION 1 EA MIS (Potassium Chloride [Potassium Chloride Er] 20 MEQ) PO SCH (08:42)
[2020-04-14] MEDS: BIFIDOBACTERIUM INFANTIS 4 MG CAP PO SCH (08:42)
[2020-04-14] MEDS: METOPROLOL SUCCINATE XL 25 MG TAB PO SCH (08:42)
[2020-04-14] MEDS: LISINOPRIL 10 MG TAB PO SCH (08:42)
[2020-04-14] MEDS: IPRATROPIUM/ALBUTEROL 3 ML VIAL INH SCH ×4 (08:45→20:30)
[2020-04-14] MEDS: CEFEPIME 2 GM in SODIUM CHL 0.9% 50ML MIN-BAG+ 50 ML IVPB SCH ×2 (09:24→21:37)
[2020-04-14] MEDS ORDERED: ARFORMOTEROL TARTRATE 15 MCG/2 ML NEB NEB ONE (09:40)
[2020-04-14] MEDS ORDERED: methylPREDNISolone SODIUM SUC 40 MG/ML VIAL ONE (09:41)
[2020-04-14] MEDS: methylPREDNISolone SODIUM SUC 40 MG/ML VIAL IV SCH ×2 (09:42→20:53)
[2020-04-14] MEDS: TIOTROPIUM BROMIDE MONOHYDRATE INH SCH (10:00)
[2020-04-14] MEDS: ARFORMOTEROL TARTRATE 15 MCG/2 ML NEB NEB SCH ×2 (10:00→20:30)
--- NOTE | 2020-04-14 13:11 | PN ---
SUPERVISING PHYSICIAN: Lenard Prieto MD DATE: 04/14/20 SUBJECTIVE: The patient states she is breathing a little bit better than she was. No complaints of any significant shortness of breath, but she does some shortness of breath with exertion. OBJECTIVE: VITAL SIGNS: Blood pressure 121/77, heart rate 71, respiratory rate 16, temperature 98.5, oxygen saturation 93%. GENERAL: Ms. Garcia is an 85-year-old female in no active distress currently. NEUROLOGIC: The patient is alert. LUNGS: Expiratory wheezing, mainly on the right. No rhonchi, no crackles. CARDIOVASCULAR: Regular rate and rhythm. Normal S1, S2. ABDOMEN: Soft. Positive bowel sounds. EXTREMITIES: Lower extremities with no edema. ASSESSMENT: 1. Chronic obstructive pulmonary disease exacerbation with failed outpatient treatment. 2. Hypertension. 3. Electrolyte imbalance. 4. History of peripheral vascular disease. 5. Osteoporosis. PLAN: The patient was given one dose of steroids yesterday. I am going to put her on scheduled steroids today. I anticipate that she will need to be on a tapering dose of p.o. steroids as an outpatient, potentially 5 mg on a daily basis given the fact that she has had multiple admissions for exacerbations. Additionally, I am going to put her on Brovana with her Spiriva to see if the long-acting will help her symptoms as well. I anticipate she will go home in the next day or so. #[id number] [facility]
[2020-04-14] MEDS: ENOXAPARIN SODIUM 40 MG/0.4 ML SYG SUBCU SCH (20:52)
[2020-04-14] MEDS: traMADol HCL 50 MG TAB PO PRN (20:53)
[2020-04-14] MEDS: MIRTAZAPINE 15 MG TAB PO SCH (20:53)
[2020-04-15] MEDS: PANTOPRAZOLE SODIUM IV 40 MG VIAL IV SCH (05:39)
[2020-04-15] MEDS: ARFORMOTEROL TARTRATE 15 MCG/2 ML NEB NEB SCH (08:13)
[2020-04-15] MEDS: TIOTROPIUM BROMIDE MONOHYDRATE INH SCH (08:13)
[2020-04-15] MEDS: IPRATROPIUM/ALBUTEROL 3 ML VIAL INH SCH (08:13)
[2020-04-15] MEDS: methylPREDNISolone SODIUM SUC 40 MG/ML VIAL IV SCH (08:34)
[2020-04-15] MEDS: BIFIDOBACTERIUM INFANTIS 4 MG CAP PO SCH (08:34)
[2020-04-15] MEDS: METOPROLOL SUCCINATE XL 25 MG TAB PO SCH (08:34)
[2020-04-15] MEDS: LISINOPRIL 10 MG TAB PO SCH (08:35)
[2020-04-15] MEDS ORDERED: POTASSIUM CHLORIDE 20 MEQ TAB PO SCH (09:00)
--- NOTE | 2020-04-15 09:09 | DS ---
SUPERVISING PHYSICIAN: Lenard Prieto MD ADMISSION DIAGNOSIS: 1. Acute exacerbation of chronic obstructive pulmonary disease failing outpatient therapy. 2. Hypertension. 3. Mild electrolyte imbalance with a hypokalemia. 4. History of peripheral vascular disease with claudication and stent placement in her right leg in 2013. 5. Osteoporosis. DISCHARGE DIAGNOSIS: 1. Acute exacerbation of chronic obstructive pulmonary disease failing outpatient therapy. 2. Hypertension. 3. Mild electrolyte imbalance with a hypokalemia. 4. History of peripheral vascular disease with claudication and stent placement in her right leg in 2013. 5. Osteoporosis. HOSPITAL COURSE: This is an 85-year-old female who presented to the Emergency Room for shortness of breath. She has been in the hospital multiple times for exacerbation of chronic obstructive pulmonary disease. In the Emergency Room, her workup showed a normal white count with a noted left shift and ABG with hypoxemia. She was placed on O2 although she is already on O2 at home. She was empirically placed on cefepime. She was given one dose of steroids in the ER and did fairly well. I saw her on Tuesday and she stated she felt a little bit better, but she still had some wheezing. I put her on Solu-Medrol 20 mg b.i.d. and started Brovana as well. This morning, she states she feels a lot better and there is no active wheezing. I am going to discharge her home in stable condition this morning. I am going to put her on 5 mg of prednisone indefinitely given her frequent exacerbations of chronic obstructive pulmonary disease. Additionally, I have ordered Brovana to be done in nebulizer twice daily. She can followup with her primary care physician in one week. Given no evidence of the pneumonia or sepsis, I am going to not utilize any antibiotics at this time. Diet is as tolerated. Activity is as tolerated. #[id number] [facility]
[2020-04-15 09:18] VITALS: BP 134/76; TEMP 97.4; O2SAT 97
== END 2020-04-15 09:45 | disposition home or self-care (01) ==
LOC: ER 21:25 → MS 23:43
PROVIDERS: ADMIT Nurse Practitioner; ATTEND Nurse Practitioner Family
DX: J44.1 Chronic obstructive pulmonary disease with (acute) exacerbation (principal); R09.02 Hypoxemia; I10 Essential (primary) hypertension; E87.6 Hypokalemia; E87.8 Other disorders of electrolyte and fluid balance, not elsewhere classified; I73.9 Peripheral vascular disease, unspecified; M81.0 Age-related osteoporosis without current pathological fracture; F17.210 Nicotine dependence, cigarettes, uncomplicated; E78.00 Pure hypercholesterolemia, unspecified; F03.90 Unspecified dementia, unspecified severity, without behavioral disturbance, psychotic disturbance, mood disturbance, and anxiety; E89.0 Postprocedural hypothyroidism; K21.9 Gastro-esophageal reflux disease without esophagitis; R39.15 Urgency of urination; Z11.59 Encounter for screening for other viral diseases; Z66 Do not resuscitate; Z99.81 Dependence on supplemental oxygen; Z79.51 Long term (current) use of inhaled steroids; Z79.891 Long term (current) use of opiate analgesic; Z79.899 Other long term (current) drug therapy; Z88.0 Allergy status to penicillin; Z95.828 Presence of other vascular implants and grafts; Z95.5 Presence of coronary angioplasty implant and graft; Z82.49 Family history of ischemic heart disease and other diseases of the circulatory system; Z60.2 Problems related to living alone
CPT/HCPCS: 96366 ×2; 96365; 96375 ×2; 96376 ×2; 96372 ×2; J1030 ×3; J2930; A4216; J1650 ×2; J7620 ×9; J0692 ×5; J7050 ×4; 85379; 80048; 80053; 36415; 81001; 85025 ×2; 87040 ×2; 85730; 85610; 84484; 83880; 71046; 94640 ×10; 94760 ×4; 82803; 36600; 82805; 94762 ×2; 97116; 97162; 99285; 93005; G0378; 87635

== ENCOUNTER 2020-04-27 18:55 | Emergency (ER) | payer MEDICARE ==
[2020-04-27] MEDS ORDERED: predniSONE 10 MG TAB PO ONE (19:11)
[2020-04-27] MEDS ORDERED: IPRATROPIUM/ALBUTEROL 3 ML VIAL NEB ONE (19:12)
--- NOTE | 2020-04-27 19:15 | ED.PDOC ---
History of Present Illness - General Time Seen by Provider: 04/27/20 19:02 Source: patient Exam Limitations: no limitations Additional Information: The patient is an 85 year old with PMH significant for COPD who presents with shortness of breath, chest congestion and dysuria. She was last admitted around two weeks ago for exacerbation of her COPD. She is on 2L oxygen at baseline. She complains of shortness of breath for the past several days but worse today. She has associated chest congestion with body aches. She denies fevers or known COVID exposures. She also complains of dysuria and increased urinary frequency. No other complaints at this time. - History of Present Illness Allergies/Adverse Reactions: Allergies Penicillins Allergy (Mild, Verified 03/29/20 14:43) Other injection site reactions with pcn. Home Medications: Ambulatory Orders Tramadol HCl 50 mg PO TID PRN 08/30/16 Mirtazapine [Remeron] 15 mg PO BEDTIME 06/24/17 Lisinopril [Prinivil] 10 mg PO DAILY 03/29/20 Metoprolol Succinate [Metoprolol Succinate ER] 25 mg PO DAILY 03/29/20 Tiotropium [place] Monohydrate [Spiriva Respimat] 1.25 mcg IN PRN PRN 03/29/20 Potassium Chloride [Potassium Chloride ER] 20 meq PO DAILY #20 tab 04/04/20 Arformoterol Tartrate Nebs [Brovana Nebs] 15 mcg NEB RTBID 30 Days #60 neb 04/15/20 Prednisone 5 mg PO DAILY 30 Days #30 tab 04/15/20 Dextromethorphan-Guaifenesin [Guaifenesin Dm] 5 ml PO Q4HR #120 ml 04/27/20 Prednisone 60 mg PO DAILY #15 tab 04/27/20 Review of Systems - Review of Systems Constitutional: States: malaise EENTM: States: nose congestion Respiratory: States: cough, short of breath Cardiology: Denies: chest pain, palpitations Gastrointestinal/Abdominal: Denies: abdominal pain, diarrhea, nausea, vomiting Genitourinary: States: dysuria, frequency, pain. Denies: hematuria Musculoskeletal: States: muscle pain Skin: States: no symptoms reported Neurological: States: no symptoms reported Endocrine: States: no symptoms reported All other Systems: Reviewed and Negative Past Medical History (General) - Patient Medical History Hx Seizures: No Hx Stroke: No Hx Dementia: Yes Hx Asthma: No Hx of COPD: Yes Hx Cardiac Disorders: No Hx Congestive Heart Failure: No Hx Pacemaker: No Hx Hypertension: Yes Hx Thyroid Disease: Yes Hx Diabetes: No Hx Gastroesophageal Reflux: Yes Hx Renal Disease: Yes - urgency Hx Cancer: No Hx of HIV: No Hx Hepatitis C: No Hx MRSA: No - Vaccination History Hx Tetanus, Diphtheria Vaccination: Yes Hx Influenza Vaccination: Yes Hx Pneumococcal Vaccination: Yes - Social History Hx Tobacco Use: Yes Hx Chewing Tobacco Use: No Hx Alcohol Use: No Hx Substance Use: No Hx Substance Use Treatment: No Hx Depression: No Hx Physical Abuse: No Hx Emotional Abuse: No Hx Suspected Abuse: No - Female History Patient : No Family Medical History - Family History Mother Family History: No Known Living Status: Physical Exam - Physical Exam General Appearance: Alert, Comfortable, Frail - chronically ill-appearing, No apparent distress Ears, Nose, Throat: hearing grossly normal, normal ENT inspection, normal pharynx Neck: non-tender, full range of motion, supple Respiratory: chest non-tender, lungs clear, normal breath sounds, no respiratory distress, no accessory muscle use Cardiovascular/Chest: normal peripheral pulses, regular rate, rhythm Gastrointestinal/Abdominal: non tender, soft Extremity: normal range of motion, non-tender Neurologic: no motor/sensory deficits, alert, normal mood/affect, oriented x 3 Progress - Progress Progress: 04/27/20 21:25 Patient reassessed, she is sleeping comfortably. Workup as below. She feels better after ED treatment. Will continue outpatient symptomatic management. Will increase steroids x 5 days for mild COPD exacerbation and she will use baseline home O2 and nebs. Home care instructions and return indications reviewed. - Results/Orders Results/Orders: Laboratory Results - last 24 hr 04/27/20 04/27/20 04/27/20 19:15 19:28 19:28 WBC 6.1 RBC 3.87 L Hgb 13.4 Hct 38.9 MCV 100.3 H MCH 34.6 H MCHC 34.5 RDW 13.8 Plt Count 150 MPV 11.8 H Absolute Neuts (auto) 3.80 Absolute Lymphs (auto) 1.40 Absolute Monos (auto) 0.70 Absolute Eos (auto) 0.10 Absolute Basos (auto) 0.10 Neutrophils % 62.7 Lymphocytes % 23.5 Monocytes % 10.8 H Eosinophils % 1.8 Basophils % 1.2 Sodium Potassium Chloride Carbon Dioxide Anion Gap BUN Creatinine BUN/Creatinine Ratio Random Glucose Serum Osmolality Lactic Acid 1.4 Calcium Urine Color Yellow Urine Appearance Clear Urine pH 7.5 Ur Specific [place] 1.015 Urine Protein Negative Urine Glucose (UA) Negative Urine Ketones Negative Urine Blood Trace-intact H Urine Nitrite Negative Urine Bilirubin Negative Urine Urobilinogen 0.2 Ur Leukocyte Esterase Negative Urine RBC 0-1 Urine WBC 0 Ur Epithelial Cells 0 Urine Bacteria 0 04/27/20 19:28 WBC RBC Hgb Hct MCV MCH MCHC RDW Plt Count MPV Absolute Neuts (auto) Absolute Lymphs (auto) Absolute Monos (auto) Absolute Eos (auto) Absolute Basos (auto) Neutrophils % Lymphocytes % Monocytes % Eosinophils % Basophils % Sodium 142 Potassium 3.0 L Chloride 102 Carbon Dioxide 27 Anion Gap 16.0 BUN 15 Creatinine 0.67 BUN/Creatinine Ratio 22.4 H Random Glucose 101 Serum Osmolality 284.1 Lactic Acid Calcium 8.8 Urine Color Urine Appearance Urine pH Ur Specific [place] Urine Protein Urine Glucose (UA) Urine Ketones Urine Blood Urine Nitrite Urine Bilirubin Urine Urobilinogen Ur Leukocyte Esterase Urine RBC Urine WBC Ur Epithelial Cells Urine Bacteria - EKG/XRAY/CT Xray Comments: Cardiac enlargement. Calcified and elongated aorta. Lungs are hyperinflated Departure - Departure Clinical Impression: COPD exacerbation Time of Disposition: 21:28 Disposition: Discharge to Home or Self Care Condition: Fair Departure Forms: ED Discharge - Pt. Copy, Patient Portal Self Enrollment Diet: resume usual diet Activity: increase activity as tolerated Referrals: Raúl Garcia MD [Primary Care Provider] - 1-2 Weeks Prescriptions: Dextromethorphan-Guaifenesin [Guaifenesin Dm] 5 ml PO Q4HR #120 ml Prednisone 60 mg PO DAILY #15 tab Home Medications: Ambulatory Orders Tramadol HCl 50 mg PO TID PRN 08/30/16 Mirtazapine [Remeron] 15 mg PO BEDTIME 06/24/17 Lisinopril [Prinivil] 10 mg PO DAILY 03/29/20 Metoprolol Succinate [Metoprolol Succinate ER] 25 mg PO DAILY 03/29/20 Tiotropium [place] Monohydrate [Spiriva Respimat] 1.25 mcg IN PRN PRN 09/05/20 Potassium Chloride [Potassium Chloride ER] 20 meq PO DAILY #20 tab 04/04/20 Arformoterol Tartrate Nebs [Brovana Nebs] 15 mcg NEB RTBID 30 Days #60 neb 04/15/20 Prednisone 5 mg PO DAILY 30 Days #30 tab 04/15/20 Dextromethorphan-Guaifenesin [Guaifenesin Dm] 5 ml PO Q4HR #120 ml 04/27/20 Prednisone 60 mg PO DAILY #15 tab 04/27/20
--- NOTE | 2020-04-27 19:39 | RAD ---
EXAM DESCRIPTION: Chest,1 View CLINICAL HISTORY: 85 years Female Cough, shortness of breath COMPARISON: 04/12/2020 FINDINGS: Cardiac enlargement. Calcified and elongated aorta. Lungs are hyperinflated. No consolidation or pleural fluid. IMPRESSION: No acute abnormality is identified. Electronically signed by: Tiffany Laboy MD 04/27/2020 7:38 PM CDT
[2020-04-27] MEDS ORDERED: FUROSEMIDE INJ 40 MG/4 ML VIAL IV ONE (20:20)
[2020-04-27] MEDS ORDERED: HYDROcodone 10MG/APAP 325MG 1 EA TAB PO ONE (20:20)
[2020-04-27 21:11] VITALS: TEMP 96.8
[2020-04-27 21:48] VITALS: BP 142/87; O2SAT 93
== END 2020-04-27 21:49 | disposition home or self-care (01) ==
LOC: ER 18:55
DX: J44.1 Chronic obstructive pulmonary disease with (acute) exacerbation (principal); R30.0 Dysuria; R35.0 Frequency of micturition; F03.90 Unspecified dementia, unspecified severity, without behavioral disturbance, psychotic disturbance, mood disturbance, and anxiety; I10 Essential (primary) hypertension; E03.9 Hypothyroidism, unspecified; K21.9 Gastro-esophageal reflux disease without esophagitis; Z99.81 Dependence on supplemental oxygen; Z87.891 Personal history of nicotine dependence; Z88.0 Allergy status to penicillin; Z79.899 Other long term (current) drug therapy; Z20.828 Contact with and (suspected) exposure to other viral communicable diseases
CPT/HCPCS: 71045; 80048; 81001; 83605; 85025; 87486; 87581; 87633; 87635; 94640; J7512; J7620

== ENCOUNTER 2020-07-01 14:08 | Emergency (ER) | payer MEDICARE ==
--- NOTE | 2020-07-01 14:25 | ED.PDOC ---
History of Present Illness - General Time Seen by Provider: 07/01/20 14:11 Source: patient, RN notes reviewed, Vital Signs reviewed Exam Limitations: no limitations - History of Present Illness Comments: 85 yo F comes in with two days of fever, malaise, cough and congestion. States she was going to be tested for covid, but sent over here. No chest pain, no shortness of breath. + prior pnuemonia, COPD. no abd pain/n/v/d. no sore throat. no known sick contacts. wears oxygen prn at home. Allergies/Adverse Reactions: Allergies Penicillins Allergy (Mild, Verified 07/01/20 15:10) Other injection site reactions with pcn. Home Medications: Ambulatory Orders Tramadol HCl 50 mg PO TID PRN 08/30/16 Mirtazapine [Remeron] 15 mg PO BEDTIME 06/24/17 Lisinopril [Prinivil] 10 mg PO DAILY 03/29/20 Metoprolol Succinate [Metoprolol Succinate ER] 25 mg PO DAILY 03/29/20 Tiotropium [place] Monohydrate [Spiriva Respimat] 1.25 mcg IN PRN PRN 03/29/20 Potassium Chloride [Potassium Chloride ER] 20 meq PO DAILY #20 tab 04/04/20 Arformoterol Tartrate Nebs [Brovana Nebs] 15 mcg NEB RTBID 30 Days #60 neb 04/15/20 Prednisone 5 mg PO DAILY 30 Days #30 tab 04/15/20 Dextromethorphan-Guaifenesin [Guaifenesin Dm] 5 ml PO Q4HR #120 ml 04/27/20 Prednisone 60 mg PO DAILY #15 tab 04/27/20 Levofloxacin [Levaquin] 750 mg PO DAILY #4 tab 07/01/20 Prednisone 20 mg PO DAILY #10 tab 07/01/20 Prednisone 20 mg PO DAILY #10 tab 07/01/20 Review of Systems - Review of Systems Constitutional: States: chills, fever, malaise EENTM: Denies: throat pain, throat swelling Respiratory: States: cough. Denies: orthopnea, short of breath Cardiology: Denies: chest pain, palpitations Gastrointestinal/Abdominal: Denies: abdominal pain, nausea, vomiting Genitourinary: Denies: discharge, dysuria Musculoskeletal: Denies: back pain, muscle pain Skin: Denies: rash Neurological: Denies: headache, numbness, seizure Endocrine: Denies: unexplained weight gain, unexplained weight loss Hematologic/Lymphatic: Denies: easy bleeding, easy bruising Past Medical History (General) - Patient Medical History Hx Seizures: No Hx Stroke: No Hx Dementia: Yes Hx Asthma: No Hx of COPD: Yes Hx Cardiac Disorders: No Hx Congestive Heart Failure: No Hx Pacemaker: No Hx Hypertension: Yes Hx Thyroid Disease: Yes Hx Diabetes: No Hx Gastroesophageal Reflux: Yes Hx Renal Disease: Yes - urgency Hx Cancer: No Hx of HIV: No Hx Hepatitis C: No Hx MRSA: No - Vaccination History Hx Tetanus, Diphtheria Vaccination: Yes Hx Influenza Vaccination: Yes Hx Pneumococcal Vaccination: Yes - Social History Hx Tobacco Use: Yes Hx Chewing Tobacco Use: No Hx Alcohol Use: No Hx Substance Use: No Hx Substance Use Treatment: No Hx Depression: No Hx Physical Abuse: No Hx Emotional Abuse: No Hx Suspected Abuse: No - Female History Patient : No Family Medical History - Family History Mother Family History: No Known Living Status: Physical Exam - Physical Exam General Appearance: Alert, Comfortable, No apparent distress, Well Developed, Well Groomed, Well Hydrated Eye Exam: bilateral normal ENT Exam: normal ENT inspection, hearing grossly normal, TMs normal Neck: non-tender, full range of motion, supple, normal inspection, trachea midline Respiratory: chest non-tender, no respiratory distress, no accessory muscle use, rales Cardiovascular/Chest: normal peripheral pulses, regular rate, rhythm, no gallop, no JVD, no murmur Gastrointestinal/Abdominal: normal bowel sounds, non tender, soft, no organo megaly, no pulsatile mass Extremity: normal range of motion, non-tender, normal inspection, no calf tenderness, normal capillary refill Neurologic: no motor/sensory deficits, alert, normal mood/affect Skin Exam: normal color, warm/dry Progress - Progress Progress: 07/01/20 14:26 partial ddx: uti, pnuemonia, Covid, influenza, other uri. due to hx of copd and on home oxygen will treat for possible COPD exacerbation as well as uti. The data reviewed when caring for this patient included: nurse notes, prior records, etc. The history and assessments from nurses notes were reviewed and considered, and the patient's home medication list was also reviewed and considered. My assessment and the results of testing completed here in the ED were discussed with the patient. All questions were answered, and they express understanding of my assessment and the plan. They have been instructed to return if their symptoms worsen, and have been asked to follow up with their primary care physician to recheck today's presenting complaint. Strict return precautions given. I have reviewed medication, benefits, alternatives and side effects. Patient decided to proceed with medication.patient discharged home in stable condition. Carina Tee DO #[id number] 07/01/20 16:08 patient given one dose levaquin now, dexamethasone x 1. albuterol neb x1. 07/01/20 16:10 - Results/Orders Results/Orders: 07/01/20 14:16 Isolation:Airborne ONCE 07/01/20 14:30 EKG STAT 07/01/20 14:40 BLOOD CULTURE Stat 07/01/20 15:43 levoFLOXacin 500MG IV [Levaquin 500MG IV] 500 mg Premix Bag 1 bag IVPB ONCE URINE CULTURE W/COLONY COUNT Stat Laboratory Results WBC 5.3 K/mm3 (4.8-10.8) 07/01/20 14:31 RBC 4.75 M/mm3 (4.20-5.40) 07/01/20 14:31 Hgb 15.4 gm/dL (12.0-16.0) 07/01/20 14:31 Hct 45.4 % (36.0-47.0) 07/01/20 14:31 MCV 95.8 fl (81.0-99.0) 07/01/20 14:31 MCH 32.4 pg (27.0-31.0) H 07/01/20 14:31 MCHC 33.9 g/dL (33.0-37.0) 07/01/20 14:31 RDW 14.9 % (11.5-14.5) H 07/01/20 14:31 Plt Count 185 K/mm3 (130-400) 07/01/20 14:31 MPV 10.7 fl (7.40-10.4) H 07/01/20 14:31 Absolute Neuts (auto) 3.40 K/uL (1.8-6.8) 07/01/20 14:31 Absolute Lymphs (auto) 1.20 K/uL (1.0-3.4) 07/01/20 14:31 Absolute Monos (auto) 0.60 K/uL (0.2-0.8) 07/01/20 14:31 Absolute Eos (auto) 0.10 K/uL (0.0-0.4) 07/01/20 14:31 Absolute Basos (auto) 0.10 K/uL (0.0-0.1) 07/01/20 14:31 Neutrophils % 63.4 % (42.0-78.0) 07/01/20 14:31 Lymphocytes % 23.4 % (20.0-50.0) 07/01/20 14:31 Monocytes % 10.5 % (2.0-9.0) H 07/01/20 14:31 Eosinophils % 1.6 % (1.0-5.0) 07/01/20 14:31 Basophils % 1.1 % (0.0-2.0) 07/01/20 14:31 PT 10.6 SECONDS (9.0-10.9) 07/01/20 14:31 INR 1.07 (0.9-1.15) 07/01/20 14:31 PTT (SP) 24.6 SECONDS (21.8-31.6) 07/01/20 14:31 Sodium 139 mmol/L (135-145) 07/01/20 14:31 Potassium 4.0 mmol/L (3.6-5.0) 07/01/20 14:31 Chloride 100 mmol/L (101-111) L 07/01/20 14:31 Carbon Dioxide 26 mmol/L (21-31) 07/01/20 14:31 Anion Gap 17.0 (12-18) 07/01/20 14:31 BUN 10 mg/dL (7-18) 07/01/20 14:31 Creatinine 0.69 mg/dL (0.6-1.3) 07/01/20 14:31 BUN/Creatinine Ratio 14.5 (10-20) 07/01/20 14:31 Random Glucose 121 mg/dL (70-105) H 07/01/20 14:31 Serum Osmolality 277.8 mOsm/L (275-295) 07/01/20 14:31 Lactic Acid 1.1 mmol/L (0.5-2.2) 07/01/20 14:31 Calcium 9.0 mg/dL (8.4-10.2) 07/01/20 14:31 Magnesium 2.0 mg/dL (1.8-2.5) 07/01/20 14:31 Total Bilirubin 0.4 mg/dL (0.2-1.0) 07/01/20 14:31 AST 29 IU/L (10-42) 07/01/20 14:31 ALT 16 IU/L (10-60) 07/01/20 14:31 Alkaline Phosphatase 63 IU/L (42-121) 07/01/20 14:31 LD Total 195 IU/L (91-180) H 07/01/20 14:31 Creatine Kinase 74 IU/L (26-140) 07/01/20 14:31 Troponin I 0.02 ng/mL (0.01-0.05) 07/01/20 14:31 C-Reactive Protein < 0.8 mg/dL (0-1.0) 07/01/20 14:31 B-Natriuretic Peptide 140.0 pg/ml (0-100) H 07/01/20 14:31 Serum Total Protein 7.5 gm/dL (6.4-8.2) 07/01/20 14:31 Albumin 3.5 g/dl (3.2-5.5) 07/01/20 14:31 Globulin 4.0 gm/dL (2.3-3.5) H 07/01/20 14:31 Albumin/Globulin Ratio 0.9 (1.1-1.9) L 07/01/20 14:31 Urine Color Yellow (Yellow) 07/01/20 15:22 Urine Appearance Clear (Clear) 07/01/20 15:22 Urine pH 7.0 (4.5-7.8) 07/01/20 15:22 Ur Specific [place] 1.015 (1.005-1.030) 07/01/20 15:22 Urine Protein Negative mg/dL 07/01/20 15: Urine Glucose (UA) Negative mg/dL (Negative) 07/01/20 15:22 Urine Ketones Negative mg/dL (NEGATIVE) 07/01/20 15:22 Urine Blood Negative (Negative) 07/01/20 15:22 Urine Nitrite Negative 07/01/20 15:22 Urine Bilirubin Negative (NEGATIVE) 07/01/20 15:22 Urine Urobilinogen 0.2 mg/dL (0.2-1.0) 07/01/20 15:22 Ur Leukocyte Esterase Negative (Negative) 07/01/20 15:22 Urine RBC 1-3 /hpf 07/01/20 15:22 Urine WBC 0 /hpf 07/01/20 15:22 Ur Epithelial Cells 1-3 /hpf 07/01/20 15:22 Urine Bacteria 2+ H 07/01/20 15:22 - EKG/XRAY/CT EKG: Sinus Comments: HR 83, nsr, normal intervals, no acute ischemia. XRAY: chest - Normal size cardiac silhouette. Partially calcified and mildly tortuous aorta. Hyperinflated lungs. Bibasilar atelectasis or scarring. No pleural effusion or pneumothorax. Thoracic spondylosis. Departure - Departure Clinical Impression: UTI (urinary tract infection) Qualifiers: Urinary tract infection type: site unspecified Hematuria presence: without hematuria Qualified Code(s): N39.0 - Urinary tract infection, site not specified URI (upper respiratory infection) Qualifiers: URI type: unspecified URI Qualified Code(s): J06.9 - Acute upper respiratory infection, unspecified COPD (chronic obstructive pulmonary disease) Qualifiers: COPD type: COPD with acute exacerbation Qualified Code(s): J44.1 - Chronic obstructive pulmonary disease with (acute) exacerbation Time of Disposition: 15:49 Instructions: Urinary Tract Infections in Adults, Viral Upper Respiratory Infection, Adult (DC), Exacerbation of COPD (DC) Diet: resume usual diet Activity: increase activity as tolerated Referrals: Raúl Garcia MD [Primary Care Provider] - 1-5 Days Prescriptions: Levofloxacin [Levaquin] 750 mg PO DAILY #4 tab Prednisone 20 mg PO DAILY #10 tab Prednisone 20 mg PO DAILY #10 tab Home Medications: Ambulatory Orders Tramadol HCl 50 mg PO TID PRN 08/30/16 Mirtazapine [Remeron] 15 mg PO BEDTIME 06/24/17 Lisinopril [Prinivil] 10 mg PO DAILY 03/29/20 Metoprolol Succinate [Metoprolol Succinate ER] 25 mg PO DAILY 03/29/20 Tiotropium [place] Monohydrate [Spiriva Respimat] 1.25 mcg IN PRN PRN 03/29/20 Potassium Chloride [Potassium Chloride ER] 20 meq PO DAILY #20 tab 04/04/20 Arformoterol Tartrate Nebs [Brovana Nebs] 15 mcg NEB RTBID 30 Days #60 neb 04/15/20 Prednisone 5 mg PO DAILY 30 Days #30 tab 04/15/20 Dextromethorphan-Guaifenesin [Guaifenesin Dm] 5 ml PO Q4HR #120 ml 04/27/20 Prednisone 60 mg PO DAILY #15 tab 04/27/20 Levofloxacin [Levaquin] 750 mg PO DAILY #4 tab 07/01/20 Prednisone 20 mg PO DAILY #10 tab 07/01/20 Prednisone 20 mg PO DAILY #10 tab 07/01/20
--- NOTE | 2020-07-01 15:05 | RAD ---
EXAM DESCRIPTION: Chest,1 View CLINICAL HISTORY: 85 years Female, cough COMPARISON: 04/27/2020 TECHNIQUE: Single view radiograph of the chest. IMPRESSION: Normal size cardiac silhouette. Partially calcified and mildly tortuous aorta. Hyperinflated lungs. Bibasilar atelectasis or scarring. No pleural effusion or pneumothorax. Thoracic spondylosis. Electronically signed by: Aldair Gonzalez MD 07/01/2020 3:03 PM MANAGER ANIMAL
[2020-07-01 15:06] VITALS: TEMP 97.5
[2020-07-01] MEDS ORDERED: SODIUM CHLORIDE 0.9% 500ML 500 ML IVS ONE (15:13)
[2020-07-01] MEDS ORDERED: levoFLOXacin 500MG IV 500 MG in PREMIX BAG 1 BAG IVPB ONE (15:43)
[2020-07-01] MEDS ORDERED: LEVALBUTEROL NEBS 1.25 MG/3 ML VIAL NEB ONE (15:48)
[2020-07-01] MEDS ORDERED: DEXAMETHASONE INJ 10 MG/ML VIAL IV ONE (15:49)
[2020-07-01 17:32] VITALS: BP 136/87; O2SAT 97
== END 2020-07-01 17:30 | disposition home or self-care (01) ==
LOC: ER 14:08
DX: J06.9 Acute upper respiratory infection, unspecified (principal); J44.1 Chronic obstructive pulmonary disease with (acute) exacerbation; N39.0 Urinary tract infection, site not specified; K21.9 Gastro-esophageal reflux disease without esophagitis; I10 Essential (primary) hypertension; F03.90 Unspecified dementia, unspecified severity, without behavioral disturbance, psychotic disturbance, mood disturbance, and anxiety; E07.9 Disorder of thyroid, unspecified; Z20.828 Contact with and (suspected) exposure to other viral communicable diseases; Z87.891 Personal history of nicotine dependence; Z79.899 Other long term (current) drug therapy; Z88.0 Allergy status to penicillin; Z99.81 Dependence on supplemental oxygen; Z87.01 Personal history of pneumonia (recurrent)
CPT/HCPCS: 36415; 71045; 80053; 81001; 82550; 83605; 83615; 83735; 83880; 84484; 85025; 85610; 85730; 86140; 87040; 87502; 87635; 93005; 94640; J1100; J1956; J7040; J7614

== ENCOUNTER 2020-07-29 10:06 | Emergency (ER) | payer MEDICARE ==
--- NOTE | 2020-07-29 12:07 | RAD ---
EXAM DESCRIPTION: Chest,1 View CLINICAL HISTORY: bilateral wheezing lung sounds COMPARISON: 01 July 2020 TECHNIQUE: AP portable chest FINDINGS: Mild cardiomegaly is evident. The lungs are free of acute infiltrate or evidence of effusion. Convexity of the thoracic spine to the right is observed. IMPRESSION: Cardiomegaly is evident without evidence of congestive heart failure. Electronically signed by: Tez Paz MD 07/29/2020 12:05 PM [facility]
--- NOTE | 2020-07-29 12:25 | ED.PDOC ---
History of Present Illness - General Chief Complaint: General Stated Complaint: weakness, cough, body aches Time Seen by Provider: 07/29/20 10:46 Source: patient Exam Limitations: no limitations - History of Present Illness Initial Comments: 3D WEAK, FATIGUED, COUGH, MYALGIAS, CHILLS. NO SOB. Severity: moderate Improving Factors: nothing Worsening Factors: nothing Associated Symptoms: cough, fever/chills Allergies/Adverse Reactions: Allergies Penicillins Allergy (Mild, Verified 07/29/20 10:35) Other injection site reactions with pcn. Home Medications: Ambulatory Orders Tramadol HCl 50 mg PO TID PRN 08/30/16 Mirtazapine [Remeron] 15 mg PO BEDTIME 06/24/17 Lisinopril [Prinivil] 10 mg PO DAILY 03/29/20 Metoprolol Succinate [Metoprolol Succinate ER] 25 mg PO DAILY 03/29/20 Tiotropium [place] Monohydrate [Spiriva Respimat] 1.25 mcg IN PRN PRN 03/29/20 Potassium Chloride [Potassium Chloride ER] 20 meq PO DAILY #20 tab 04/04/20 Arformoterol Tartrate Nebs [Brovana Nebs] 15 mcg NEB RTBID 30 Days #60 neb 0 04/15/20 Prednisone 5 mg PO DAILY 30 Days #30 tab 04/15/20 Dextromethorphan-Guaifenesin [Guaifenesin Dm] 5 ml PO Q4HR #120 ml 04/27/20 Prednisone 60 mg PO DAILY #15 tab 04/27/20 Levofloxacin [Levaquin] 750 mg PO DAILY #4 tab 07/01/20 Prednisone 20 mg PO DAILY #10 tab 07/01/20 Prednisone 20 mg PO DAILY #10 tab 07/01/20 Review of Systems - Review of Systems Constitutional: States: chills, fever, malaise, weakness EENTM: Denies: ear pain, throat pain Respiratory: States: cough. Denies: short of breath Cardiology: Denies: chest pain, palpitations Gastrointestinal/Abdominal: Denies: abdominal pain, nausea Genitourinary: Denies: dysuria, frequency Musculoskeletal: States: other - MYALGIAS. Denies: back pain, joint pain, neck pain Skin: Denies: lesions, rash Neurological: Denies: headache, paresthesia Endocrine: Denies: unexplained weight gain, unexplained weight loss Hematologic/Lymphatic: Denies: easy bleeding, easy bruising All other Systems: Reviewed and Negative Past Medical History (General) - Patient Medical History Hx Seizures: No Hx Stroke: No Hx Dementia: Yes Hx Asthma: No Hx of COPD: Yes Hx Cardiac Disorders: No Hx Congestive Heart Failure: No Hx Pacemaker: No Hx Hypertension: Yes Hx Thyroid Disease: Yes Hx Diabetes: No Hx Gastroesophageal Reflux: Yes Hx Renal Disease: Yes - urgency Hx Cancer: No Hx of HIV: No Hx Hepatitis C: No Hx MRSA: No Surgical History: no surgical history - Vaccination History Hx Tetanus, Diphtheria Vaccination: Yes Hx Influenza Vaccination: Yes Hx Pneumococcal Vaccination: Yes - Social History Hx Tobacco Use: Yes Hx Chewing Tobacco Use: No Hx Alcohol Use: No Hx Substance Use: No Hx Substance Use Treatment: No Hx Depression: No Hx Physical Abuse: No Hx Emotional Abuse: No Hx Suspected Abuse: No - Activities of Daily Living Hospice Agency (if applicable):: None - Female History Patient : No Family Medical History - Family History Mother Family History: No Known Living Status: Physical Exam - Physical Exam General Appearance: Alert, Other - FATIGUED APPEARANCE. Eye Exam: bilateral normal Ears, Nose, Throat: normal ENT inspection, normal pharynx Neck: non-tender, full range of motion, supple Respiratory: chest non-tender, no respiratory distress, no accessory muscle use, wheezing - BL INSP/EXP. [employer]. Cardiovascular/Chest: normal peripheral pulses, regular rate, rhythm, no edema, no gallop, no JVD, no murmur Peripheral Pulses: radial,right: 2+, radial,left: 2+ Gastrointestinal/Abdominal: non tender, soft, no organomegaly, no pulsatile mass Rectal Exam: deferred Back Exam: normal inspection, no CVA tenderness Extremity: normal range of motion, normal inspection Neurologic: alert, normal mood/affect, oriented x 3 Skin Exam: normal color, warm/dry Lymphatic: no adenopathy Progress - Results/Orders Results/Orders: COVID AND FLU NEG. CXR NEG FOR PNE. CBC, CMP UNREMARKABLE. EKG SINUS WITH ONE PAC. LACTIC ACID WNL. PTT NL. INR 1.34 VIRAL BRONCHITIS. NO COPD EXACERBATION (NO SOB, SATS 95% RA). NO PNE. 3 D SX THUS ABX NOT INDICATED AT THIS POINT. TINCTURE OF TIME. SAFE FOR DC TO HOME. PLENTY OF REST. Departure - Departure Clinical Impression: Acute viral bronchitis Disposition: Discharge to Home or Self Care Condition: Good Departure Forms: ED Discharge - Pt. Copy, Patient Portal Self Enrollment Instructions: Acute Bronchitis, Adult (DC) Diet: resume usual diet Activity: other - PLENTY OF REST Referrals: Raúl Garcia MD [Primary Care Provider] - 1-2 Weeks Home Medications: Ambulatory Orders Tramadol HCl 50 mg PO TID PRN 08/30/16 Mirtazapine [Remeron] 15 mg PO BEDTIME 06/24/17 Lisinopril [Prinivil] 10 mg PO DAILY 03/29/20 Metoprolol Succinate [Metoprolol Succinate ER] 25 mg PO DAILY 03/29/20 Tiotropium [place] Monohydrate [Spiriva Respimat] 1.25 mcg IN PRN PRN 03/29/20 Potassium Chloride [Potassium Chloride ER] 20 meq PO DAILY #20 tab 04/04/20 Arformoterol Tartrate Nebs [Brovana Nebs] 15 mcg NEB RTBID 30 Days #60 neb 04/15/20 Prednisone 5 mg PO DAILY 30 Days #30 tab 04/15/20 Dextromethorphan-Guaifenesin [Guaifenesin Dm] 5 ml PO Q4HR #120 ml 04/27/20 Prednisone 60 mg PO DAILY #15 tab 04/27/20 Levofloxacin [Levaquin] 750 mg PO DAILY #4 tab 07/01/20 Prednisone 20 mg PO DAILY #10 tab 07/01/20 Prednisone 20 mg PO DAILY #10 tab 07/01/20 Additional Instructions: You have a viral respiratory infection. You do not have Covid, the flu, or a bacterial infection, thus there are no prescription medications to cure it but your immune system will fight it off. Please decrease or stop smoking to help your body fight the infection. If you start having troubles breathing, please return to the ER.
[2020-07-29 13:00] VITALS: BP 100/62; TEMP 97; O2SAT 92
[2020-07-29] MEDS: SIMETHICONE 80 MG TAB PO PRN (13:13)
== END 2020-07-29 14:10 | disposition home or self-care (01) ==
LOC: ER 10:06
DX: J20.8 Acute bronchitis due to other specified organisms (principal); J44.0 Chronic obstructive pulmonary disease with (acute) lower respiratory infection; F03.90 Unspecified dementia, unspecified severity, without behavioral disturbance, psychotic disturbance, mood disturbance, and anxiety; I10 Essential (primary) hypertension; E07.9 Disorder of thyroid, unspecified; K21.9 Gastro-esophageal reflux disease without esophagitis; Z20.822 Contact with and (suspected) exposure to COVID-19; Z79.899 Other long term (current) drug therapy; Z87.891 Personal history of nicotine dependence; Z88.0 Allergy status to penicillin

== ENCOUNTER 2020-09-12 20:05 | Inpatient (IN) | payer MEDICARE ==
[2020-09-12] MEDS ORDERED: SUCRALFATE 1 GM/10 ML 1 GM UD PO ONE (20:17)
[2020-09-12] MEDS ORDERED: ONDANSETRON ODT 8 MG TAB SL ONE (20:17)
--- NOTE | 2020-09-12 20:57 | RAD ---
EXAM DESCRIPTION: Chest,1 View 09/12/2020 8:53 PM ADMITTING REPRESENTATIVE CLINICAL HISTORY: 85 years, Female, cough, weak, falling COMPARISON: 07/29/2020 FINDINGS: Single view of the chest was obtained portable. Prior films were compared. Again the patient is slightly rotated towards the left. The heart is prominent. There is intimal aortic arch ossification and tortuosity. Slight decreased lung volume. Mild prominence of the pulmonary markings. No significant pleural effusions and/or focal areas of consolidation. Scoliosis. The rest of the soft tissue and bony structures demonstrate to be unremarkable. IMPRESSION: ROTATED FILM. MILD CARDIAC MEGALY. PROMINENCE OF THE PULMONARY MARKINGS MOST LIKELY RELATED TO DECREASED LUNG VOLUMES AND OVER CROWDING PULMONARY MARKINGS. Electronically signed by: Tez French MD 09/12/2020 8:55 PM ADMITTING REPRESENTATIVE
[2020-09-12] MEDS ORDERED: IPRATROPIUM/ALBUTEROL 3 ML VIAL NEB ONE (21:24)
[2020-09-12] MEDS ORDERED: AZITHROMYCIN IV 500 MG in SODIUM CHLORIDE 0.9% 250ML 250 ML IVPB ONE (21:24)
[2020-09-12] MEDS ORDERED: methylPREDNISolone SODIUM SUC 125 MG/2 ML VIAL IV ONE (21:24)
[2020-09-12] MEDS ORDERED: cefTRIAXone SODIUM 1 GM in SODIUM CHL 0.9% 50ML MIN-BAG+ 50 ML IVPB ONE (21:24)
[2020-09-12] MEDS ORDERED: SODIUM CHLORIDE 0.9% 1000ML 500 ML IVS ONE (21:25)
--- NOTE | 2020-09-12 21:50 | ED.PDOC ---
History of Present Illness - General Chief Complaint: Neuro Symptoms/Deficits Stated Complaint: altered after fall Time Seen by Provider: 09/12/20 20:06 Source: patient Exam Limitations: no limitations - History of Present Illness Initial Comments: The patient is a 85-year-old female presenting to the emergency room by ambulance. Apparently the patient has had multiple falls over the last 3 days. She is moving all extremities well. She denies having hit her head. I see no evidence of her having hit her head. No neck pain. No pain to palpation. Patient reports that she has had some increased difficulty breathing and increased productive sputum. Indeed lung exam does show coarse rhonchi and rails. The patient does have longstanding oxygen dependence but is requiring more currently than normal. She is also having some mild nausea but no real vomiting. She has had decreased oral intake over the last day or 2. No fevers. Mild sore throat. No runny nose. Daughter reports that the patient has been having some mild hallucinations. Apparently the last 3 times the patient has been ill she has had some mild hallucinations. She is not exhibiting them here in the emergency room. The patient is significantly disheveled and does look mildly dehydrated. She is too weak to stand. No evidence is seen of any trauma from the falls. Timing/Duration: other - 3 days Severity: moderate Improving Factors: nothing Worsening Factors: nothing Associated Symptoms: cough, malaise, nausea/vomiting Allergies/Adverse Reactions: Allergies Penicillins Allergy (Mild, Verified 09/12/20 20:41) Other injection site reactions with pcn. Home Medications: Ambulatory Orders Tramadol HCl 50 mg PO TID PRN 08/30/16 Mirtazapine [Remeron] 15 mg PO BEDTIME 06/24/17 Lisinopril [Prinivil] 10 mg PO DAILY 03/29/20 Metoprolol Succinate [Metoprolol Succinate ER] 25 mg PO DAILY 03/29/20 Tiotropium [place] Monohydrate [Spiriva Respimat] 1.25 mcg IN PRN PRN 03/29/20 Potassium Chloride [Potassium Chloride ER] 20 meq PO DAILY #20 tab 04/04/20 Arformoterol Tartrate Nebs [Brovana Nebs] 15 mcg NEB RTBID 30 Days #60 neb 04/15/20 Dextromethorphan-Guaifenesin [Guaifenesin Dm] 5 ml PO Q4HR #120 ml 04/27/20 Prednisone 60 mg PO DAILY #15 tab 04/27/20 Levofloxacin [Levaquin] 750 mg PO DAILY #4 tab 07/01/20 Prednisone 20 mg PO DAILY #10 tab 07/01/20 Prednisone 20 mg PO DAILY #10 tab 07/01/20 Prednisone 2.5 mg PO DAILY 09/12/20 Review of Systems - Review of Systems Constitutional: States: malaise EENTM: States: throat pain Respiratory: States: cough, short of breath, wheezing Cardiology: States: no symptoms reported Gastrointestinal/Abdominal: States: nausea Genitourinary: States: no symptoms reported Musculoskeletal: States: no symptoms reported Skin: States: no symptoms reported Neurological: States: see HPI Endocrine: States: no symptoms reported All other Systems: No Change from Baseline Past Medical History (General) - Patient Medical History Hx Seizures: No Hx Stroke: No Hx Dementia: Yes Hx Asthma: No Hx of COPD: Yes - emphysema Hx Cardiac Disorders: No Hx Congestive Heart Failure: No Hx Pacemaker: No Hx Hypertension: Yes Hx Thyroid Disease: Yes Hx Diabetes: No Hx Gastroesophageal Reflux: Yes Hx Renal Disease: Yes - urgency Hx Cancer: No Hx of HIV: No Hx Hepatitis C: No Hx MRSA: No - Vaccination History Hx Tetanus, Diphtheria Vaccination: Yes Hx Influenza Vaccination: Yes Hx Pneumococcal Vaccination: Yes - Social History Hx Tobacco Use: Yes Hx Chewing Tobacco Use: No Hx Alcohol Use: No Hx Substance Use: No Hx Substance Use Treatment: No Hx Depression: No Hx Physical Abuse: No Hx Emotional Abuse: No Hx Suspected Abuse: No - Female History Patient : No Family Medical History - Family History Mother Family History: No Known Living Status: Physical Exam - Physical Exam General Appearance: Alert, Frail, Ill Appearing, Unkempt Eye Exam: bilateral normal Ears, Nose, Throat: hearing grossly normal, normal pharynx Neck: full range of motion, supple Respiratory: no respiratory distress, no accessory muscle use, rales, rhonchi Cardiovascular/Chest: normal peripheral pulses, regular rate, rhythm - Borderline tachycardia, no edema Peripheral Pulses: radial,right: 2+, radial,left: 2+ Gastrointestinal/Abdominal: non tender - Mild epigastric discomfort to palpation. No rebound or peritoneal signs. No definitive palpable mass., soft Rectal Exam: deferred Back Exam: no vertebral tenderness Extremity: normal range of motion, non-tender, normal inspection, no pedal edema, normal capillary refill Neurologic: paper sorter and counter II-XII nml as tested, alert, oriented x 3, other - Daughter reports periodic disorientation and at least auditory hallucinations. Skin Exam: normal color Comments: Vital Signs - 24 hr 09/12/20 09/12/20 20:14 20:35 Temperature 98 F Pulse Rate [ 105 H 81 left] Respiratory 24 24 Rate Blood Pressure 115/67 [Left Arm] O2 Sat by Pulse 88 L Oximetry Progress - Progress Progress: 09/12/20 21:52 Patient is a 85-year-old female presented to emergency room after repeated falls due to generalized weakness. The patient is obviously having a COPD exacerbation. She has been started on Rocephin, azithromycin, Solu-Medrol and has had 3 breathing treatments. She is requiring increased oxygen concentration. Additionally she has some mild dehydration and is receiving a small IV fluid bolus. The patient does have some delirium and metabolic encephalopathy. This has been a recurrent problem with previous infections. For the most part we will plan on treating infection and following the mental status. For now she is not significantly agitated so no sedatives are being used. The patient does have significant weakness and deconditioning. Hopefully treatment of the current processes will improve her strength however it is not out of the realm of possibility that she may require some rehab in order to get back to her functional status. Encourage oral intake. Admit for continued care. brennon butler [phone] - Results/Orders Results/Orders: 09/12/20 20:14 Telemetry .CONTINUOUS Vital Signs-Tilt PRN 09/12/20 20:15 EKG STAT 09/12/20 20:35 URINE CULTURE W/COLONY COUNT Stat 09/12/20 20:38 BLOOD CULTURE Stat Rapid strep and rapid flu are negative. EKG shows normal sinus rhythm with frequent PACs and occasional PVCs. Normal axis. Borderline R wave progression. No definitive ST segment or T wave changes indicative of acute ischemia. Normal QT interval. Chest x-ray shows chronic changes of COPD but no obvious lobar pneumonia. Laboratory Results - last 24 hr 09/12/20 09/12/20 09/12/20 20:30 20:35 20:35 WBC 6.9 RBC 3.93 L Hgb 13.0 Hct 39.4 MCV 100.3 H MCH 33.1 H MCHC 33.0 RDW 17.1 H Plt Count 247 MPV 10.2 Absolute Neuts (auto) 5.20 Absolute Lymphs (auto) 0.90 L Absolute Monos (auto) 0.70 Absolute Eos (auto) 0.00 Absolute Basos (auto) 0.00 Neutrophils % 75.7 Lymphocytes % 13.0 L Monocytes % 10.3 H Eosinophils % 0.3 L Basophils % 0.7 PT 11.5 H INR 1.16 H PTT (SP) 25.8 D-Dimer, Quantitative 361.0 Sodium 141 Potassium 3.8 Chloride 99 L Carbon Dioxide 33 H Anion Gap 12.8 BUN 18 Creatinine 0.47 L BUN/Creatinine Ratio 38.3 H Random Glucose 88 Serum Osmolality 282.6 Lactic Acid Calcium 8.3 L Magnesium 1.7 L Total Bilirubin 0.2 AST 20 ALT 11 Alkaline Phosphatase 55 Creatine Kinase 63 CK-MB (CK-2) 2.7 CK-MB (CK-2) % Not Reportable Troponin I 0.02 B-Natriuretic Peptide 128.0 H Serum Total Protein 6.7 Albumin 3.2 Globulin 3.5 Albumin/Globulin Ratio 0.9 L Amylase 61 Lipase 34 TSH 1.10 Urine Color Urine Appearance Urine pH Ur Specific [place] Urine Protein Urine Glucose (UA) Urine Ketones Urine Blood Urine Nitrite Urine Bilirubin Urine Urobilinogen Ur Leukocyte Esterase Urine RBC Urine WBC Ur Epithelial Cells Urine Bacteria 09/12/20 09/12/20 20:35 20:35 WBC RBC Hgb Hct MCV MCH MCHC RDW Plt Count MPV Absolute Neuts (auto) Absolute Lymphs (auto) Absolute Monos (auto) Absolute Eos (auto) Absolute Basos (auto) Neutrophils % Lymphocytes % Monocytes % Eosinophils % Basophils % PT INR PTT (SP) D-Dimer, Quantitative Sodium Potassium Chloride Carbon Dioxide Anion Gap BUN Creatinine BUN/Creatinine Ratio Random Glucose Serum Osmolality Lactic Acid 1.3 Calcium Magnesium Total Bilirubin AST ALT Alkaline Phosphatase Creatine Kinase CK-MB (CK-2) CK-MB (CK-2) % Troponin I B-Natriuretic Peptide Serum Total Protein Albumin Globulin Albumin/Globulin Ratio Amylase Lipase TSH Urine Color Yellow Urine Appearance Clear Urine pH 6.0 Ur Specific [place] 1.020 Urine Protein 30 Urine Glucose (UA) Negative Urine Ketones Negative Urine Blood Moderate H Urine Nitrite Positive H Urine Bilirubin Negative Urine Urobilinogen 0.2 Ur Leukocyte Esterase Negative Urine RBC 3-5 H Urine WBC 3-5 H Ur Epithelial Cells 0-1 Urine Bacteria 2+ H Departure - Departure Clinical Impression: Acute exacerbation of COPD with asthma, Acute metabolic encephalopathy, Dehydration, mild, Generalized weakness, Inability to perform activities of daily living Disposition: Admit Patient Condition: Fair Departure Forms: ED Discharge - Pt. Copy, Patient Portal Self Enrollment Referrals: Raúl Butler MD [Primary Care Provider] - 1-2 Weeks Home Medications: Ambulatory Orders Tramadol HCl 50 mg PO TID PRN 08/30/16 Mirtazapine [Remeron] 15 mg PO BEDTIME 06/24/17 Lisinopril [Prinivil] 10 mg PO DAILY 03/29/20 Metoprolol Succinate [Metoprolol Succinate ER] 25 mg PO DAILY 03/29/20 Tiotropium [place] Monohydrate [Spiriva Respimat] 1.25 mcg IN PRN PRN 03/29/20 Potassium Chloride [Potassium Chloride ER] 20 meq PO DAILY #20 tab 04/04/20 Arformoterol Tartrate Nebs [Brovana Nebs] 15 mcg NEB RTBID 30 Days #60 neb 04/15/20 Dextromethorphan-Guaifenesin [Guaifenesin Dm] 5 ml PO Q4HR #120 ml 04/27/20 Prednisone 60 mg PO DAILY #15 tab 04/27/20 Levofloxacin [Levaquin] 750 mg PO DAILY #4 tab 07/01/20 Prednisone 20 mg PO DAILY #10 tab 07/01/20 Prednisone 20 mg PO DAILY #10 tab 07/01/20 Prednisone 2.5 mg PO DAILY 09/12/20 Decision To Admit - Decistion To Admit Decision to Admit Reason: Medical Nature Decision to Admit Date: 09/12/20 Decision to Admit Time: 21:55
--- NOTE | 2020-09-12 22:15 | HP ---
SUPERVISING PHYSICIAN: Raúl Garcia MD CHIEF COMPLAINT: Shortness of breath and altered mental status. HISTORY OF PRESENT ILLNESS: This is an 85 year-old female patient who has a long history of chronic obstructive pulmonary disease as well as some dementia who presented to the Emergency Room with progressively worsening shortness of breath as well as some increased confusion and weakness resulting in multiple falls over the last 3 days. She presented to the Emergency Room and her oxygen saturation was 88% with a respiratory rate of 22. She was afebrile. Her labs showed a WBC of 6.9 with hemoglobin 13, hematocrit 39.4. Her D-dimer was 361, electrolytes were unremarkable except her potassium was low at 8.3, magnesium 1.7, lactic acid 1.3. BNP 128. Urinalysis showed moderate urine blood with positive urine nitrites, 3 to 5 RBCs, 3 to 5 urine WBCs and 2+ urine bacteria. Urine culture was ordered, blood cultures were drawn. Covid swab was negative. Influenza per PCR A and B were both negative. Chest x-ray showed rotated film with mild cardiomegaly, prominence of the pulmonary markings most likely related to decreased lung volumes and overcrowding pulmonary markings. She was given some fluids, Solu-Medrol, Ceftriaxone, azithromycin and multiple breathing treatments and was admitted to the hospital in stable condition. It is to be noted that after admitting to the floor, she was having some involuntary neurological movements with tremors and had a difficult time drinking her liquids and a very uncoordinated motor function. PAST MEDICAL HISTORY: 1. Hypercholesterolemia. 2. Hypertension. 3. Peripheral vascular disease with claudication. 4. Chronic obstructive pulmonary disease with multiple exacerbations. 5. Osteoporosis. PAST SURGICAL HISTORY: 1. Breast augmentation. 2. Thyroidectomy. 3. Coronary artery stent placement. 4. Right ankle fracture repair. 5. Bilateral tubal ligation. 6. Right leg stent placement. HOME MEDICATIONS: Per the EMR and awaiting verification. ALLERGIES: PENICILLIN. FAMILY HISTORY: Positive for coronary artery disease. SOCIAL HISTORY: The patient is retired. She is . She lives alone but does have help with family and sitters. She has been smoking for many years has quit multiple times over the last year or so. At this time, she says she smokes about half pack of cigarettes daily. She denies any illicit drug use or ETOH abuse. REVIEW OF SYSTEMS: GENERAL: Negative for chills or fever or weight changes. HEENT: Negative for sinus symptoms, ear pain, vision changes or sore throat. RESPIRATORY: Positive for coughing, wheezing, shortness of breath. CARDIOVASCULAR: Negative for chest pain, palpitations, tachycardia. GASTROINTESTINAL: Negative for nausea, vomiting diarrhea, constipation. GENITOURINARY: Negative for dysuria, hematuria, polyuria. SKIN: Negative for lesions, rashes. NEUROLOGIC: Positive for tremors, generalized weakness and uncoordinated motor movements. Negative for seizures. PHYSICAL EXAMINATION: VITAL SIGNS: Temperature 98.1, heart rate 76, blood pressure 130/83, respiratory rate 18. Oxygen saturation 94% on 3 liters nasal cannula. GENERAL: This is an 85 year-old female patient who is lying in her hospital bed. She is in no acute distress. She does have some involuntary motor movements, especially in the upper extremities. HEENT: Normocephalic and atraumatic. Pupils are equal and reactive. Oropharynx is clear. NECK: Supple, full range of motion. CHEST: Diminished at the bases with a few scattered rhonchi. She does get tachypneic at times, especially with speaking and can only use 2 to 3 word phrases. HEART: Regular rate and rhythm. ABDOMEN: Soft, nondistended, nontender. Positive bowel sounds. NEUROLOGIC: She is awake, alert and oriented times three. Again, she does have tremors, especially to the upper extremities with some involuntary motor movements. SKIN: Pin, warm and dry. Labs and films are as per the history of present illness. RADIOLOGY: Head CT impression: Vascular calcification and chronic ischemic microvascular changes without acute intracranial abnormality. ASSESSMENT: 1. Acute exacerbation of chronic obstructive pulmonary disease with hypoxia in a chronic smoker. 2. Altered mental status with frequent recent multiple falls and involuntary neurological movements. 3. Urinary tract infection. 4. History of peripheral vascular disease. 5. Hypertension. 6. Chronic tobacco abuse. PLAN: The patient has been admitted to the hospital, will continue with aggressive pulmonary hygiene as well as azithromycin and Rocephin. We will also put her on Solu-Medrol and titrate that to oral prednisone. Her home medications will be restarted as soon as they are verified. She will be on a PPI for ulcer prophylaxis and Lovenox for DVT prophylaxis. We will monitor her cultures and follow as needed. #[id number] [facility]
[2020-09-13] MEDS ORDERED: ALBUTEROL SULFATE 2.5 MG/3 ML VIAL NEB PRN (01:26)
[2020-09-13] MEDS ORDERED: ONDANSETRON INJ 4 MG/2 ML VIAL IV PRN (01:26)
[2020-09-13] MEDS ORDERED: SODIUM CHLORIDE 0.9% (FLUSH) 10 ML SYG IV PRN (01:26)
[2020-09-13] MEDS ORDERED: MAGNESIUM SULFATE PREMIX 2GM 2 GM in PREMIX BAG 1 BAG IVPB ONE (01:35)
[2020-09-13] MEDS ORDERED: MAGNESIUM SULFATE PREMIX 2GM 50 ML IVPB ONE (01:48)
[2020-09-13] MEDS: IV SET AND CAP CHANGE INJ INJ SCH (01:49)
[2020-09-13] MEDS: methylPREDNISolone SODIUM SUC 40 MG/ML VIAL IV SCH ×3 (06:08→17:31)
[2020-09-13] MEDS: PANTOPRAZOLE SODIUM IV 40 MG VIAL IV SCH (06:08)
[2020-09-13] MEDS ORDERED: cefTRIAXone SODIUM 1 GM VIAL ONE (07:47)
[2020-09-13] MEDS ORDERED: SODIUM CHL 0.9% 50ML MIN-BAG+ 50 ML IVPB ONE (07:47)
[2020-09-13] MEDS: IPRATROPIUM/ALBUTEROL 3 ML VIAL INH SCH ×4 (09:00→20:41)
[2020-09-13] MEDS: cefTRIAXone SODIUM 1 GM in SODIUM CHL 0.9% 50ML MIN-BAG+ 50 ML IVPB SCH (09:19)
[2020-09-13] MEDS: METOPROLOL SUCCINATE XL 25 MG TAB PO SCH (09:19)
[2020-09-13] MEDS: LISINOPRIL 10 MG TAB PO SCH (09:20)
[2020-09-13] MEDS: guaiFENesin ER TAB 600 MG TAB PO SCH ×2 (09:20→20:36)
[2020-09-13] MEDS: BIFIDOBACTERIUM INFANTIS 4 MG CAP PO SCH (09:20)
[2020-09-13] MEDS ORDERED: AZITHROMYCIN IV 500 MG VIAL IVPB ONE (12:05)
[2020-09-13] MEDS ORDERED: SODIUM CHLORIDE 0.9% 250ML 250 ML ONE (12:05)
[2020-09-13] MEDS: AZITHROMYCIN IV 500 MG in SODIUM CHLORIDE 0.9% 250ML 250 ML IVPB SCH (12:12)
--- NOTE | 2020-09-13 13:40 | CT ---
EXAM DESCRIPTION: Head CLINICAL HISTORY: 85 years, Female, confusion; involuntary movements COMPARISON: March 29, 2020 TECHNIQUE: Head CT was performed without IV contrast. This exam was performed according to our departmental dose-optimization program, which includes automated exposure control, adjustment of the mA and/or kV according to patient size and/or use of iterative reconstruction technique. FINDINGS: No acute intracranial hemorrhage. No midline shift. The ventricles are slightly prominent, unchanged from the prior and likely related to age-appropriate volume loss with ex vacuo dilation. Chronic ischemic microvascular changes without cortical infarct or intracranial mass. The basal ganglia are unremarkable. No posterior fossa lesion. Vascular calcifications. Mild mucoperiosteal thickening in the left maxillary sinus. Right-sided mastoid air cell effusion, chronic. No calvarial fracture. IMPRESSION: Vascular calcifications and chronic ischemic microvascular changes without acute intracranial abnormality. Electronically signed by: Mickey Rodriguez MD 09/13/2020 1:39 PM [facility]
[2020-09-13] MEDS: ARFORMOTEROL TARTRATE 15 MCG/2 ML NEB NEB SCH ×2 (16:00→20:41)
[2020-09-13] MEDS ORDERED: ACETAMINOPHEN 325 MG TAB ONE (20:35)
[2020-09-13] MEDS: MIRTAZAPINE 15 MG TAB PO SCH (20:36)
[2020-09-13] MEDS: ACETAMINOPHEN 325 MG TAB PO PRN (20:36)
[2020-09-14] MEDS ORDERED: methylPREDNISolone SODIUM SUC 40 MG/ML VIAL IV ONE
[2020-09-14] MEDS ORDERED: PANTOPRAZOLE SODIUM IV 40 MG VIAL ONE (05:15)
[2020-09-14] MEDS: PANTOPRAZOLE SODIUM IV 40 MG VIAL IV SCH (06:06)
[2020-09-14] MEDS ORDERED: METOPROLOL SUCCINATE XL 25 MG TAB PO ONE (07:17)
[2020-09-14] MEDS ORDERED: LISINOPRIL 10 MG TAB ONE (07:17)
[2020-09-14] MEDS ORDERED: BIFIDOBACTERIUM INFANTIS 4 MG CAP ONE (07:17)
[2020-09-14] MEDS ORDERED: guaiFENesin ER TAB 600 MG TAB ONE ×2 (07:17→18:57)
[2020-09-14] MEDS ORDERED: AZITHROMYCIN IV 500 MG VIAL IVPB ONE (07:17)
[2020-09-14] MEDS ORDERED: cefTRIAXone SODIUM 1 GM VIAL ONE (07:18)
[2020-09-14] MEDS ORDERED: SODIUM CHL 0.9% 50ML MIN-BAG+ 50 ML IVPB ONE (07:18)
[2020-09-14] MEDS ORDERED: SODIUM CHLORIDE 0.9% 250ML 250 ML ONE (07:18)
[2020-09-14] MEDS: guaiFENesin ER TAB 600 MG TAB PO SCH ×2 (08:33→20:36)
[2020-09-14] MEDS: predniSONE 20 MG TAB PO SCH (08:33)
[2020-09-14] MEDS: cefTRIAXone SODIUM 1 GM in SODIUM CHL 0.9% 50ML MIN-BAG+ 50 ML IVPB SCH (08:33)
[2020-09-14] MEDS: BIFIDOBACTERIUM INFANTIS 4 MG CAP PO SCH (08:33)
[2020-09-14] MEDS: METOPROLOL SUCCINATE XL 25 MG TAB PO SCH (08:33)
[2020-09-14] MEDS: LISINOPRIL 10 MG TAB PO SCH (08:33)
[2020-09-14] MEDS ORDERED: IPRATROPIUM/ALBUTEROL 3 ML VIAL NEB ONE ×4 (08:35→20:09)
[2020-09-14] MEDS ORDERED: ARFORMOTEROL TARTRATE 15 MCG/2 ML NEB NEB ONE ×2 (08:36→20:48)
--- NOTE | 2020-09-14 09:23 | RAD ---
TECHNIQUE: Chest,1 View Chest radiograph, AP 1 view. HISTORY: MAIN copd COMPARISON: Chest x-ray September 12, 2020. FINDINGS: Lungs/Pleura: New moderate-sized opacity at the left lung base obscures the hemidiaphragm blunts the costophrenic angle. Mildly blunted right costophrenic angle with adjacent ill-defined opacity. Prominent bilateral pulmonary markings. No appreciable pneumothorax. Mediastinum, Yesenia: Aortic calcifications. Heart: Stable cardiomegaly. Bones: No suspicious osseous lesions. Degenerative changes in both shoulders. Soft Tissues: Unremarkable. Other: None. IMPRESSION: * Suspect new moderate left pleural effusion with adjacent subsegmental atelectasis or underlying infiltrate. A underlying mass is not entirely excluded. New small right pleural effusion with adjacent subsegmental atelectasis or infiltrate. * Pulmonary markings may represent pulmonary vascular congestion. Slightly worse compared to prior. Differential diagnosis includes pneumonia and pneumonitis. Electronically signed by: Say Duong 09/14/2020 9:22 AM [facility]
[2020-09-14] MEDS: ARFORMOTEROL TARTRATE 15 MCG/2 ML NEB NEB SCH ×2 (09:30→20:50)
[2020-09-14] MEDS: IPRATROPIUM/ALBUTEROL 3 ML VIAL INH SCH ×4 (09:30→20:44)
[2020-09-14] MEDS: AZITHROMYCIN IV 500 MG in SODIUM CHLORIDE 0.9% 250ML 250 ML IVPB SCH (10:02)
[2020-09-14] MEDS: ACETAMINOPHEN 325 MG TAB PO PRN (10:42)
[2020-09-14] MEDS ORDERED: ACETAMINOPHEN 325 MG TAB ONE (10:42)
[2020-09-14] MEDS ORDERED: traMADol HCL 50 MG TAB PO PRN (11:39)
[2020-09-14] MEDS ORDERED: traMADol HCL 50 MG TAB PO ONE (11:40)
--- NOTE | 2020-09-14 13:54 | PN ---
SUPERVISING PHYSICIAN: Raúl Garcia MD DATE: 09/14/20 SUBJECTIVE: The patient is lying in bed asleep. She awakens easily. Neurological movements from yesterday are not present today. The patient is somewhat lethargic but answers questions appropriately. She denies chest pain, nausea or vomiting. She does say she has a mild headache and uses Tramadol at home for that. Otherwise, no complaints. OBJECTIVE: VITAL SIGNS: Temperature 97.6, heart rate 96, blood pressure 115/67, respiratory rate 18, oxygen saturation 92% on 4 liters nasal cannula. RESPIRATORY: Essentially clear to auscultation bilaterally. CARDIAC: Regular rate and rhythm. NEUROLOGIC: She is awake, alert, and oriented x3. LABORATORY: WBCs 13,100, hemoglobin 11.1, hematocrit 34.9. She does have a left shift on her differential. Electrolytes are within normal limits. Liver enzymes are within normal limits. Albumin is low at 2.9 Serum total protein is 6. Preliminary blood cultures showed no growth after 24 hours. Her preliminary urine culture shows gram negative rods. RADIOLOGY: Chest x-ray shows suspect new moderate left pleural effusion with adjacent subsegmental atelectasis or underlying infiltrate, an underlying mass not entirely excluded. New small right pleural effusion with adjacent subsegmental atelectasis or infiltrate. Pulmonary markings which may represent pulmonary vascular congestion, slightly worse compared to prior, differential diagnosis including pneumonia and pneumonitis. All other labs and films have been reviewed via the EMR. ASSESSMENT: 1. Left lower lobe pneumonia, most likely community acquired, presently on azithromycin and Rocephin. 2. Acute exacerbation of chronic obstructive pulmonary disease with hypoxia in a chronic smoker. 3. Urinary tract infection, gram negative rods on preliminary culture. 4. Altered mental status with recent frequent multiple falls. 5. History of peripheral vascular disease. 6. Hypertension. 7. Chronic tobacco abuse. PLAN: We will continue present supportive care.. I have titrated her IV steroids off and she is now on oral steroids. We will monitor her labs closely. I have ordered physical therapy for both safety and to evaluate and treat. I have also consulted ARINA Del Rio, for discharge planning. The family is quite concerned due to patient's multiple falls and her progressive dementia, they are quite worried about her safety at discharge. Alina Garcia, her [id number], will help coordinate whatever is needed after her evaluations to [facility]. [facility][id number] [facility]
[2020-09-14] MEDS: HALOPERIDOL LACTATE INJ 5 MG/ML VIAL IM PRN (18:07)
[2020-09-14] MEDS ORDERED: MIRTAZAPINE 15 MG TAB ONE (18:57)
[2020-09-14] MEDS: MIRTAZAPINE 15 MG TAB PO SCH (20:36)
[2020-09-15] MEDS ORDERED: PANTOPRAZOLE SODIUM IV 40 MG VIAL ONE (04:45)
[2020-09-15] MEDS ORDERED: ALBUTEROL SULFATE 2.5 MG/3 ML VIAL NEB ONE (04:54)
[2020-09-15] MEDS ORDERED: FUROSEMIDE INJ 20 MG/2 ML VIAL IV ONE (05:37)
[2020-09-15] MEDS: PANTOPRAZOLE SODIUM IV 40 MG VIAL IV SCH (06:29)
[2020-09-15] MEDS ORDERED: ARFORMOTEROL TARTRATE 15 MCG/2 ML NEB NEB ONE (07:50)
[2020-09-15] MEDS ORDERED: IPRATROPIUM/ALBUTEROL 3 ML VIAL NEB ONE (07:50)
[2020-09-15] MEDS ORDERED: guaiFENesin ER TAB 600 MG TAB ONE (08:14)
[2020-09-15] MEDS ORDERED: predniSONE 20 MG TAB ONE (08:14)
[2020-09-15] MEDS ORDERED: BIFIDOBACTERIUM INFANTIS 4 MG CAP ONE (08:14)
[2020-09-15] MEDS ORDERED: AZITHROMYCIN IV 500 MG VIAL IVPB ONE (08:14)
[2020-09-15] MEDS ORDERED: SODIUM CHLORIDE 0.9% 250ML 250 ML ONE (08:15)
[2020-09-15] MEDS ORDERED: cefTRIAXone SODIUM 1 GM VIAL ONE (08:15)
[2020-09-15] MEDS ORDERED: SODIUM CHL 0.9% 50ML MIN-BAG+ 50 ML IVPB ONE (08:15)
[2020-09-15] MEDS ORDERED: LISINOPRIL 10 MG TAB ONE (08:15)
[2020-09-15] MEDS: ARFORMOTEROL TARTRATE 15 MCG/2 ML NEB NEB SCH ×2 (08:17→21:40)
[2020-09-15] MEDS: IPRATROPIUM/ALBUTEROL 3 ML VIAL INH SCH ×4 (08:17→21:40)
[2020-09-15] MEDS ORDERED: MAGNESIUM SULFATE PREMIX 2GM 2 GM in PREMIX BAG 1 BAG IVPB ONE (08:46)
[2020-09-15] MEDS ORDERED: POTASSIUM CHLORIDE 20 MEQ TAB PO ONE (08:46)
[2020-09-15] MEDS ORDERED: MAGNESIUM SULFATE PREMIX 2GM 50 ML IVPB ONE (09:17)
[2020-09-15] MEDS: BIFIDOBACTERIUM INFANTIS 4 MG CAP PO SCH (09:19)
[2020-09-15] MEDS: LISINOPRIL 10 MG TAB PO SCH (09:19)
[2020-09-15] MEDS: cefTRIAXone SODIUM 1 GM in SODIUM CHL 0.9% 50ML MIN-BAG+ 50 ML IVPB SCH (09:19)
[2020-09-15] MEDS: predniSONE 20 MG TAB PO SCH (09:19)
[2020-09-15] MEDS: guaiFENesin ER TAB 600 MG TAB PO SCH ×2 (09:19→20:31)
[2020-09-15] MEDS: METOPROLOL SUCCINATE XL 25 MG TAB PO SCH (09:21)
[2020-09-15] MEDS ORDERED: METOPROLOL SUCCINATE XL 25 MG TAB PO ONE (09:21)
[2020-09-15] MEDS: AZITHROMYCIN IV 500 MG in SODIUM CHLORIDE 0.9% 250ML 250 ML IVPB SCH (10:49)
[2020-09-15] MEDS: MIRTAZAPINE 15 MG TAB PO SCH (20:31)
[2020-09-16] MEDS: HALOPERIDOL LACTATE INJ 5 MG/ML VIAL IM PRN (01:39)
[2020-09-16] MEDS: IV SET AND CAP CHANGE INJ INJ SCH (01:51)
[2020-09-16] MEDS ORDERED: PANTOPRAZOLE SODIUM TAB 40 MG PO ONE (05:07)
[2020-09-16] MEDS ORDERED: PANTOPRAZOLE SODIUM TAB 40 MG PO SCH ×2 (06:30)
--- NOTE | 2020-09-16 07:12 | RAD ---
EXAMINATION: Chest x-ray one view. INDICATION: Left lower lobe pneumonia COMPARISON: 09/14/2020 TECHNIQUE: Frontal radiograph chest. FINDINGS: The cardiac silhouette is enlarged and stable Small left pleural effusion. Trace right pleural effusion. Overlying airspace opacities are present. There appears to be mild vascular congestion Calcifications within the aorta. There is no pneumothorax. IMPRESSION: Bilateral pleural effusions, greater on the left. No significant change in aeration when compared to prior Electronically signed by: Lucy Funez MD 09/16/2020 7:10 AM [facility]
[2020-09-16] MEDS: cefTRIAXone SODIUM 1 GM in SODIUM CHL 0.9% 50ML MIN-BAG+ 50 ML IVPB SCH (08:13)
--- NOTE | 2020-09-16 08:17 | PN ---
SUPERVISING PHYSICIAN: Lenard Prieto MD DATE: 09/15/20 SUBJECTIVE: The patient is lying in bed asleep. She awakens easily. She admits she just doesn't feel well and feels short of breath with exertion. She has no complaints of any involuntary neurological movements and feels like she is some better but still continues to feel very weak. OBJECTIVE: VITAL SIGNS: Temperature 97.6, heart rate 90, blood pressure 122/81, respiratory rate 17, oxygen saturation 92% on 3 liters nasal cannula. RESPIRATORY: Distant breath sounds throughout. CARDIAC: Regular rate and rhythm. NEUROLOGIC: She is awake, alert, and oriented x3. Physical therapy evaluation recommends inpatient rehabilitation versus SNF. They also stated the patient was unsafe to stand and would benefit from skilled rehabilitation prior to discharge. LABORATORY: WBCs 9.7, hemoglobin 11.2, hematocrit 33.9. Sodium 139, potassium 3.3, chloride 94, magnesium 1.7. Final urine culture shows E. coli with a sensitivity to ceftriaxone. Preliminary blood cultures show no growth after 3 days. ASSESSMENT: 1. Left lower lobe pneumonia, most likely community acquired, presently on azithromycin and Rocephin. 2. Acute exacerbation of chronic obstructive pulmonary disease with hypoxia in a chronic smoker. 3. Urinary tract infection with E. coli presently on Rocephin with cultures showing sensitivity to Rocephin. 4. Altered mental status with recent frequent multiple falls. 5. History of peripheral vascular disease. 6. Hypertension. 7. Chronic tobacco abuse. PLAN: We will continue present supportive care.. I have given her potassium and magnesium supplementation. Due to patient's extreme weakness, referral was made to [facility] and at this time they have accepted her and hopefully she can be discharged tomorrow with physical therapy. I have ordered lab for in the morning and we will follow as needed. #[id number] [facility]
[2020-09-16] MEDS: IPRATROPIUM/ALBUTEROL 3 ML VIAL INH SCH ×2 (08:37→12:45)
[2020-09-16] MEDS: ARFORMOTEROL TARTRATE 15 MCG/2 ML NEB NEB SCH (08:37)
[2020-09-16] MEDS ORDERED: ENOXAPARIN SODIUM 40 MG/0.4 ML SYG SUBCU SCH (10:00)
[2020-09-16 12:22] VITALS: BP 118/68; TEMP 97.5
[2020-09-16] MEDS: METOPROLOL SUCCINATE XL 25 MG TAB PO SCH (12:40)
[2020-09-16] MEDS: BIFIDOBACTERIUM INFANTIS 4 MG CAP PO SCH (12:40)
[2020-09-16] MEDS: guaiFENesin ER TAB 600 MG TAB PO SCH (12:41)
[2020-09-16] MEDS: predniSONE 20 MG TAB PO SCH (12:41)
[2020-09-16] MEDS: LISINOPRIL 10 MG TAB PO SCH (12:41)
[2020-09-16] MEDS: AZITHROMYCIN IV 500 MG in SODIUM CHLORIDE 0.9% 250ML 250 ML IVPB SCH (12:43)
[2020-09-16 14:08] VITALS: O2SAT 96
--- NOTE | 2020-09-18 10:56 | DS ---
SUPERVISING PHYSICIAN: Lenard Prieto MD ADMISSION DIAGNOSIS: 1. Acute exacerbation of chronic obstructive pulmonary disease with hypoxia in a chronic smoker. 2. Altered mental status with frequent recent multiple falls and involuntary neurological movements. 3. Urinary tract infection. 4. History of peripheral vascular disease. 5. Hypertension. 6. Chronic tobacco abuse. DISCHARGE DIAGNOSIS: 1. Left lower lobe pneumonia, community acquired. 2. Exacerbation of chronic obstructive pulmonary disease secondary to #1. 3. Urinary tract infection due to Escherichia coli, showing sensitivity to Rocephin and third generation cephalosporins.o Rocephin. 4. Altered mental status, likely metabolic encephalopathy secondary to #1 and #3, improved, resulting multiple falls. 5. History of peripheral vascular disease. 6. Hypertension. 7. Chronic tobacco abuse. REASON FOR HOSPITALIZATION: This is an 85 year-old female patient who has a long history of chronic obstructive pulmonary disease as well as some dementia who presented to the Emergency Room with progressively worsening shortness of breath as well as some increased confusion and weakness resulting in multiple falls over the last 3 days. She presented to the Emergency Room and her oxygen saturation was 88% with a respiratory rate of 22. She was afebrile. Her labs showed a WBC of 6.9 with hemoglobin 13, hematocrit 39.4. Her D-dimer was 361, electrolytes were unremarkable except her potassium was low at 8.3, magnesium 1.7, lactic acid 1.3. BNP 128. Urinalysis showed moderate urine blood with positive urine nitrites, 3 to 5 RBCs, 3 to 5 urine WBCs and 2+ urine bacteria. Urine culture was ordered, blood cultures were drawn. COVID swab was negative. Influenza per PCR A and B were both negative. Chest x-ray showed rotated film with mild cardiomegaly, prominence of the pulmonary markings most likely related to decreased lung volumes and overcrowding pulmonary markings. She was given some fluids, Solu-Medrol, Ceftriaxone, azithromycin and multiple breathing treatments and was admitted to the hospital in stable condition. It is to be noted that after admitting to the floor, she was having some involuntary neurological movements with tremors and had a difficult time drinking her liquids and a very uncoordinated motor function. LABORATORY: White count at discharge was 12,400, hemoglobin 12.1, hematocrit 36.7, platelet count 224,000. Differential does show a left shift. Her coagulation studies showed a normal D-dimer. Chemistries showed normal sodium and potassium at discharge. CO2 33, creatinine 0.46. Liver functions, magnesium, calcium were normal. TSH, amylase and lipase normal. Urinalysis on admission showed moderate blood, positive nitrites with 3 to 5 RBCs, 3 to 5 WBCs, 0 epithelials and 2+ bacteria on microscopic. MICROBIOLOGY: Urine culture did show an E. coli that was resistant to cefotaxime, Cipro and Levaquin. Nasal swab for COVID was negative. Blood cultures were negative after 4 days x2 sets. Sputum culture was still pending. RADIOLOGY: Chest x-ray on admission per radiologic interpretation showed mild cardiomegaly with prominence of pulmonary markings most likely related to decreased lung volumes, overcrowding pulmonary markings. Repeat chest x-ray on 09/16/20 prior to discharge per radiologic interpretation showed bilateral pleural effusions, greater on the left, with no significant change in aeration compared to previous. She had a CT of the head without contrast and per radiologic interpretation showed vascular calcifications, chronic ischemic microvascular changes without acute intracranial abnormalities. EK-lead EKG showed sinus tachycardia at 101 with some PACs, but no obvious ST or T wave elevation to indicate acute ischemia or acute coronary syndrome. HOSPITAL COURSE: Ms. Garcia was admitted for treatment of confusion related to underlying infection including pneumonia and urinary tract infection. She was treated with azithromycin and Rocephin. She was given aggressive bronchial hygiene. Given the fact that she is significantly weak, physical therapy recommended she be admitted to a custodial facility. On the day of discharge, she was showing improvement clinically well enough to discharge to continue with outpatient management. Vital signs on discharge showed temperature 97.5, pulse 87, blood pressure 118/68, respirations 18, saturation 96% on 1 liter nasal cannula. PLAN: Ms. Garcia was discharged on 09/16/20 to be admitted to [facility]. Activity: Physical therapy evaluate and treat. Diet: Nutrition consult, resume usual diet. Medications: As per medical administration record. Oxygen: 2 liters via nasal cannula p.r.n. to keep saturations 92-94%. Followup with Dr. Garcia. They are to establish appointment by calling for time and date. They are to call Dr. Garcia's office for any questions or concerns or return to the ER if needed. Medications prescribed on discharge included: 1. Dulcolax 1 rectally daily as needed for constipation p.r.n., #30. 2. Magnesium hydroxide p.r.n. 30 mL as needed for constipation. 3. Cefdinir 300 mg twice daily, #14, no refills. 4. Prednisone tapering dose for 12 days 10 mg tablets. 5. Albuterol inhaler q.4h. as needed for shortness of breath, #1 inhaler, no refills. CONDITION ON DISCHARGE: Stable and improved. DISPOSITION: The patient was discharged and transferred to [facility]. #[id number] MTDD
== END 2020-09-16 14:30 | DRG 193 ==
LOC: ER 20:05 → MS 22:14 → OBSVTOIN 09-13 14:39
PROVIDERS: ADMIT Nurse Practitioner Acute Care; ATTEND Nurse Practitioner Family
DX: J18.9 Pneumonia, unspecified organism (principal); G93.41 Metabolic encephalopathy; J44.1 Chronic obstructive pulmonary disease with (acute) exacerbation; N39.0 Urinary tract infection, site not specified; J44.0 Chronic obstructive pulmonary disease with (acute) lower respiratory infection; E86.0 Dehydration; F03.90 Unspecified dementia, unspecified severity, without behavioral disturbance, psychotic disturbance, mood disturbance, and anxiety; I10 Essential (primary) hypertension; R09.02 Hypoxemia; E78.00 Pure hypercholesterolemia, unspecified; I70.219 Atherosclerosis of native arteries of extremities with intermittent claudication, unspecified extremity; M81.0 Age-related osteoporosis without current pathological fracture; B96.20 Unspecified Escherichia coli [E. coli] as the cause of diseases classified elsewhere; F17.210 Nicotine dependence, cigarettes, uncomplicated; Z20.822 Contact with and (suspected) exposure to COVID-19; Z95.1 Presence of aortocoronary bypass graft; Z88.0 Allergy status to penicillin